=== PATIENT | male | born 1950 | race Caucasian/White ===

== ENCOUNTER 2024-06-24 06:40 | Inpatient (IN) | payer MEDICARE, MEDICAID, SELFPAY ==
[2024-06-24] VITALS (20 sets, daily range): BP systolic 127–152; BP diastolic 67–91; PULSE 55–90; RESP 18–28; TEMP 36.6–38.1; O2SAT 89–99; BMI 36.6
--- NOTE | 2024-06-24 07:00 | PD.EDSOB ---
ED SOB =RME/HPI General Chief Complaint: Shortness of Breath/Dyspnea Stated Complaint: SOB Time Seen by Provider: 06/24/24 06:59 Arrival date/time: 06/24/24 06:40 RME / HPI RME / HPI Narrative: DR. GALICIA MAIN ED EVALUATION: 74 year old male presents to the Emergency Department [facility] with complaint of shortness of breath onset this morning, prior to arrival. Taking antibiotics and z stiven about a week ago for pneumonia and URI. No fevers, chills, vomiting, diarrhea per snf. However, per EMS patient did feel hot to the touch. Per EMS, patient is chronically nonverbal, since he is very hard of hearing usually does not communicate. PMHx: Mild intellectual disability, COPD, CHF, hypertension, Duong's Palsy, GERD, schizophrenia. Social Hx: Smoked 50 years, 5 cigarettes a day. Code Status: Full code Related Data Home Medications ?Medication ?Instructions ?Recorded ?Confirmed acetaminophen 650 mg tablet 650 mg PO Q4H PRN FEVER 101.4 OR 03/28/23 03/28/23 MILD PAIN amlodipine 10 mg tablet 10 mg PO QDAY 03/28/23 03/28/23 aspirin 81 mg tablet 81 mg PO QDAY 03/28/23 03/28/23 azelastine 0.05 % eye drops 1 drp ophthalmic (eye) BID 03/28/23 03/28/23 bisacodyl 10 mg rectal suppository 10 mg CO QDAY PRN CONTIPATION 03/28/23 03/28/23 clonidine HCl 0.1 mg tablet 0.1 mg PO HS 03/28/23 03/28/23 dextromethorphan-guaifenesin 10 10 ml PO Q4H PRN COUGH 03/28/23 03/28/23 mg-100 mg/5 mL oral syrup gabapentin 100 mg capsule 100 mg PO TID 03/28/23 03/28/23 hydralazine 50 mg tablet 50 mg PO TID 03/28/23 03/28/23 ipratropium 0.5 mg-albuterol 3 mg 3 ml inhalation Q4H PRN COUGH 03/28/23 03/28/23 (2.5 mg base)/3 mL nebulization soln lisinopril 40 mg tablet 40 mg PO QDAY 03/28/23 03/28/23 magnesium hydroxide 400 mg/5 mL 30 ml PO QDAY PRN CONSTIPATION 03/28/23 03/28/23 oral suspension (Milk of Magnesia) montelukast 10 mg tablet 10 mg PO HS 03/28/23 03/28/23 multivitamin with minerals 1 tab PO QDAY 03/28/23 03/28/23 nystatin 100,000 unit/gram topical 1 applic topical QID 03/28/23 03/28/23 ointment omeprazole 40 mg capsule,delayed 40 mg PO QDAY 03/28/23 03/28/23 release paliperidone 3 mg tablet,extended 3 mg PO QAM 03/28/23 03/28/23 release 24 hr sodium chloride 1,000 mg soluble 2,000 mg PO TID 03/28/23 03/28/23 tablet sodium phosphates 9.5 gram-3.5 118 ml CO QDAY PRN COUGH 03/28/23 03/28/23 gram/59 mL enema tiotropium bromide 18 mcg capsule 1 cap inhalation QDAY 03/28/23 03/28/23 with inhalation device Allergies Allergy/AdvReac Type Severity Reaction Status Date / Time No Known Allergies Allergy Verified 03/28/23 09:02 Review of Systems Review of Systems Systems Reviewed: All systems reviewed, normal except as documented Narrative Review of Systems: GEN: No fever, no chills, no weight loss EYES: No discharge, no visual changes, no pain HEENT: No ear pain, no congestion, no sore throat PULM: + shortness of breath, no cough, no congestion CV: No chest pain, no dyspnea on exertion, no palpitations GI: No nausea, no vomiting, no diarrhea, no pain, no constipation : No frequency, no urgency and no dysuria MUSC/SKEL: No joint pain, no back pain SKIN: No rash PSYCH: No hallucinations, no depression HEME/LYMPH: No easy bleeding or bruising tendencies NEURO: No weakness, no headache Past Medical History Past Medical History NEUROLOGIC: Positive Neurological Disorders and Duong's Palsy CARDIAC: Positive Cardiac Disorders, Congestive Heart Failure and Hypertension RESPIRATORY: Positive Chronic Obstructive Pulmonary Disease (COPD) GASTROINTESTINAL: Positive Gastrointestinal Disorders and Gastroesophageal Reflux Disease MUSCULOSKELETAL: Positive Musculoskeletal Disorders (deformed feet use wheelchair for mobility) PSYCHO/SOCIAL: Positive Schizophrenia Social History SMOKING STATUS: Light (< 1 pack/day) SUBSTANCE USE: does not use ALCOHOL: Never ED Exam Narrative Physical exam: GENERAL APPEARANCE: Well hydrated, well nourished. Patient is verbal and communicating well. VITALS: All vitals were reviewed and the pulse ox is 85% on room air which is hypoxic according to my interpretation. HEENT: Normocephalic, atramatic, EOMI, EACs are patent. There is no bulge or retraction. Throat without erythema or exudate. Moist oromucosa. No jaundice NECK: Supple, no JVD or bruits. CARDIOVASCULAR: Heart regular without S3-S4 or murmur. No rubs or gallops. LUNGS/CHEST: Some wheezing and rhonchi bilaterally. ABDOMEN: Soft, obese, nontender, with normal bowel sounds. No pulsatile masses. No rebound, rigidity, or guarding. No incarcerated hernia. Normal inspection and palpation. EXTREMITIES: There is 1+ pitting edema bilaterally. No cyanosis. Intact CSM. SKIN: Warm and dry without rashes. Normal inspection. MUSCULOSKELETAL: No gross deformity, full ROM all extremities. Normal inspection. NEURO: Alert and oriented x3. Cranial nerves II through XII grossly intact. There are no other motor or sensory deficits noted. PSYCHIATRIC: Normal mood and affect. No psychosis. Course Course Course Narrative: 0712: Sepsis alert initiated. Orders made at this time are congruent with ED Adult Sepsis Order List. Re-evaluation is to be completed. 0900: Sepsis reassessment performed consisting of lab review, vitals, physical exam including auscultation of heart, lungs, and visual evaluation of capillary refills, mucosal membranes and extremities. Quality Measures Current suspected stage: sepsis Possible source: pulmonary Blood cultures ordered: yes Antibiotic ordered: Yes Pertinent labs: 06/24/24 07:39 Lactic Acid 0.9 mMol/L (0.4-2.0) Procalcitonin 0.16 ng/ml (0.0-0.49) sepsis Orders Category Date Time Status Bedside COVID-19 Antigen Test NOW Care 06/24/24 07:12 Active Bedside Influenza A&B Antigen Test NOW Care 06/24/24 07:13 Completed EKG (ED ONLY) *Do not use* NOW Care 06/24/24 07:17 Completed EKG (ED Only) Stat Exams 06/24/24 07:17 Draft XR chest 1V portable Stat Exams 06/24/24 07:12 Taken ABG [Arterial Blood Gas] Stat Lab 06/24/24 09:24 Ordered BNP [B-Type Natriuretic Peptide] Stat Lab 06/24/24 07:39 Completed Blood Culture (Lab) Stat Lab 06/24/24 07:39 Received CBC Stat Lab 06/24/24 07:39 Completed CMP [Comprehensive Metabolic Panel] Stat Lab 06/24/24 07:39 Completed Lactic Acid [Lactate (Lactic Acid)] Stat Lab 06/24/24 07:39 Completed Procalcitonin Stat Lab 06/24/24 07:39 Completed Troponin I Stat Lab 06/24/24 07:39 Completed ACETAMINOPHEN 325 mg SUPP [Tylenol Supp] Med 06/24/24 07:12 Discontinued 325 mg CO X1 ONE ALBUTEROL RT 0.5ml [Proventil Rt 0.5ml] Med 06/24/24 07:12 Discontinued 10 mg HHN X1 ONE Acetaminophen Supp [Tylenol Supp] Med 06/24/24 07:12 Discontinued 650 mg CO X1 ONE MethylPREDNISolone.* [SoluMEDROL Inj] Med 06/24/24 07:12 Discontinued 125 mg IVP X1 ONE Oseltamivir [Tamiflu] Med 06/24/24 09:17 Discontinued 75 mg PO X1 ONE Sodium Chloride Rt Fior 0.9% [NS Rt Fior 0.9%] Med 06/24/24 07:12 Active 3 ml INH PRN PRN cefTRIAXone/D5w 1gm IV premix [Rocephin/D5w 1gm IV Med 06/24/24 07:15 Discontinued premix] 50 ml IV X1 BiPAP / CPAP NOW RT 06/24/24 07:12 Active Vital Signs Vital signs: Vital Signs Temperature 100.5 F H 06/24/24 06:45 Pulse Rate 87 06/24/24 06:45 Respiratory Rate 20 06/24/24 06:45 Blood Pressure 140/77 H 06/24/24 06:45 Pulse Oximetry (%) 95 06/24/24 06:45 Oxygen Delivery Method Oxy Mask 06/24/24 06:45 Oxygen Flow Rate 15 06/24/24 06:45 Shortness of Breath / Dyspnea MDM Narrative MDM Narrative:: I, Holly Thompson, am scribing for and in the presence of Dr. Galicia. WBC count of 17,000. Hemoglobin of 7.8. But there is no history of and there is no evidence of bleeding according to the care provider. Who has noted the patient for at least 2 years now. CMP is negative. Troponin is 0.08 which is elevated. Lactic acid is negative. Procalcitonin negative. COVID-19 negative. Influenza A positive. Influenza B is negative. BNP is slightly elevated at 275. Culture is still pending. Upon arrival to the emergency department I noted that his temperature was 100.5. I put the patient on septic alert. Treatment plan was accordingly including IV antibiotic. However I did not want to put him on some much IV fluid because of his history of CHF. And in fact the BNP is elevated here to 275. Portable chest x-ray interpreted by me: Bilateral pneumonia. Which is significant. Heart is borderline. Mediastinum normal. Normal bones. Twelve-lead EKG at 8:15 AM interpreted by me: Sinus rhythm. Heart rate 73. Normal axis. No ST elevation or depression. No PVC. No STEMI. Regular rate and rhythm. Motion artifact is noted in leads V6 Upon arrival to the emergency department, I also put the patient on BiPAP treatment. His oxygen saturation is well maintained on oxygen and BiPAP. ABG still pending. 9:25 AM, I spoke to discussed with , resident of Dr. Thurston, hospitalist on-call. He agreed to assess the patient for admission. Critical care time is approximately 35 minutes excluding any procedure. The high probability of sudden, clinically significant deterioration in the patient?s condition required the highest level of my preparedness to intervene urgently. The services I provided to this patient were to treat and/or prevent clinically significant deterioration. Services included the following: chart data review, reviewing nursing notes and/or old charts, documentation time, business transformation consultant collaboration regarding findings and treatment options, medication orders and management, direct patient care, vital sign assessments and ordering, interpreting and reviewing diagnostic studies and lab tests. Aggregate critical care time includes only time during which I was engaged in work directly related to the patient?s care, as described above, whether at bedside or elsewhere in the Emergency Department. It did not include time spent performing other reported procedures or the services of residents, students, nurses or physician assistants. Patient data External records reviewed:: [facility] previous records (Reviewed cardiology note by Dr. James, dated 03/28/23.) and EMS form Clinical information provided by:: patient and EMS Social determinants that could affect healthcare access:: housing ([facility] pen[facility]iary and smoker) Patient has the following chronic illnesses:: PMHx: Mild intellectual disability, COPD, CHF, hypertension, Duong's Palsy, GERD, schizophrenia. Social Hx: Smoked 50 years, 5 cigarettes a day. Code Status: Full code How is presenting disease/condition affected by chronic disease/condition?: exacerbated by Evaluation data The following diagnostics were reviewed and interpreted by me:: lab results and radiology exam(s) Lab and/or radiology exams considered but not ordered:: none Interpretation Summary: See above under MDM narrative. Medications / Prescriptions Medications or Prescriptions considered but not ordered:: none Medication administrations:: Medication Administration History Sodium Chloride (Sodium Chloride Rt Fior 0.9% 3 Ml Nebu) 3 ml INH PRN PRN PRN Reason: SOLN Stop: 07/24/24 07:11 Discontinued Medications Acetaminophen (Acetaminophen Supp 325 Mg Supp) 325 mg CO X1 ONE Stop: 06/24/24 07:13 Last Admin: 06/24/24 07:25 Dose: 325 mg Documented By: DESIREE Acetaminophen (Acetaminophen Supp 650 Mg Supp) 650 mg CO X1 ONE Stop: 06/24/24 07:13 Last Admin: 06/24/24 07:26 Dose: 650 mg Documented By: DESIREE Albuterol (Albuterol Rt 2.5 Mg/0.5 Ml Nebu) 10 mg HHN X1 ONE Stop: 06/24/24 07:13 Last Admin: 06/24/24 07:59 Dose: 10 mg Documented By: SHANNAN Ceftriaxone Sodium/Dextrose (Rocephin/D5w 1gm Iv Premix) 50 mls @ 100 mls/hr IV X1 ONE Stop: 06/24/24 07:44 Last Infusion: 06/24/24 08:51 Dose: Infused Documented By: Admin: 06/24/24 07:41 Dose: 100 mls/hr Documented By: DESIREE Methylprednisolone Sodium Succinate (Methylprednisolone Sod Succ 62.5 Mg/Ml 2ml Vial) 125 mg IVP X1 ONE Stop: 06/24/24 07:13 Last Admin: 06/24/24 07:43 Dose: 125 mg Documented By: DESIREE Oseltamivir Phosphate (Oseltamivir 75 Mg Capsule) 75 mg PO X1 ONE Stop: 06/24/24 09:18 see above if any Consultations Consultation(s) initiated? (list below): Yes Consultation #1 (Physician, Specialty, Details): Discussed test HPI, PMHx, lab, radiology results and/or management with hospitalist. Will admit for further evaluation and management. Accepts patient for admission. Time: 09:30 Diagnosis Shortness of Breath Differential Diagnosis: acute exacerbation of chronic obstructive airways disease, congestive heart failure and community acquired pneumonia Most likely diagnosis given after review of the tests above:: Pneumonia Influenza Elevated troponin Admission Indicated Admission indicated?: indicated Admission Request Was there a request for admission?: Yes Admission Attestation Admission request attestation: Discussed case with [] from Hospitalist service regarding admission. Discussed patients ED course, exam findings, labs, and radiology results. The Hospitalist [agrees,declines] to accept the patient for admission. Disposition Plan Disposition Plan: Admit Critical Care Time Critical Care Time Critical Care Time: Yes Total Critical Care Time (min.): 30 Attestation: The high probability of sudden, clinically significant deterioration in the patient?s condition required the highest level of my preparedness to intervene urgently. The services I provided to this patient were to treat and/or prevent clinically significant deterioration. Services included the following: chart data review, reviewing nursing notes and/or old charts, documentation time, business transformation consultant collaboration regarding findings and treatment options, medication orders and management, direct patient care, vital sign assessments and ordering, interpreting and reviewing diagnostic studies and lab tests. Aggregate critical care time includes only time during which I was engaged in work directly related to the patient?s care, as described above, whether at bedside or elsewhere in the Emergency Department. It did not include time spent performing other reported procedures or the services of residents, students, nurses or physician assistants. Discharge Plan Plan Patient Disposition: Admit Acute Care w/in Hospital Disposition Comment: Stable and improved for admit Prescriptions/Referrals Prescriptions/Med Rec: No Action clonidine HCl 0.1 mg Tablet 0.1 mg PO HS ipratropium-albuterol 0.5 mg-3 mg(2.5 mg base)/3 mL Solution For Nebulization 3 ml INHALATION Q4H PRN (Reason: COUGH) dextromethorphan-guaifenesin 10-100 mg/5 mL Syrup 10 ml PO Q4H PRN (Reason: COUGH) omeprazole 40 mg Capsule,Delayed Release(Dr/Ec) 40 mg PO QDAY acetaminophen 650 mg Tablet 650 mg PO Q4H PRN (Reason: FEVER 101.4 OR MILD PAIN) magnesium hydroxide [Milk of Magnesia] 400 mg/5 mL Suspension 30 ml PO QDAY PRN (Reason: CONSTIPATION) amlodipine 10 mg Tablet 10 mg PO QDAY montelukast 10 mg Tablet 10 mg PO HS hydralazine 50 mg Tablet 50 mg PO TID aspirin 81 mg Tablet 81 mg PO QDAY gabapentin 100 mg Capsule 100 mg PO TID multivitamin with minerals Tablet 1 tab PO QDAY lisinopril 40 mg Tablet 40 mg PO QDAY tiotropium bromide 18 mcg Capsule, W/Inhalation Device 1 cap INHALATION QDAY Rx Instructions: puncture 1 cap using device; one dose = 2 inhalations sodium chloride 1,000 mg Tablet,Soluble 2,000 mg PO TID paliperidone 3 mg Tablet Extended Release 24 Hr 3 mg PO QAM sodium phosphates 9.5-3.5 gram/59 mL Enema 118 ml CO QDAY PRN (Reason: COUGH) azelastine 0.05 % Drops 1 drp OPHTHALMIC (EYE) BID nystatin 100,000 unit/gram Ointment 1 applic TOPICAL QID bisacodyl 10 mg Suppository 10 mg CO QDAY PRN (Reason: CONTIPATION) Rx Instructions: USE IF MOM INNEFECTIVE Referrals: No Primary/Family,Physician [Primary Care Provider] - In 1 week Problem List Clinical Impression: Pneumonia, Influenza A, Elevated troponin Patient/Caregiver Discharge Instructions Print Language: Irish Stand Alone Forms: Mariza Award Info., Patient Portal Info Letter
--- NOTE | 2024-06-24 07:12 | XR_ITS ---
Examination: AP chest single view Technique one AP portable semiupright chest single view Exam date 9: June 24, 2024 0742 hours INDICATIONS: Shortness of breath today. FINDINGS: Extensive bilateral pneumonia Normal heart size The osseous structures are intact IMPRESSION: Extensive bilateral pneumonia
--- NOTE | 2024-06-24 07:17 | EKG_ITS ---
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
[2024-06-24] MEDS: ACETAMINOPHEN SUPP 325 MG SUPP PR (07:25)
[2024-06-24] MEDS: ACETAMINOPHEN SUPP 650 MG SUPP PR (07:26)
[2024-06-24] MEDS: cefTRIAXone/D5w 1gm IV premix 50 ML IV (07:41)
[2024-06-24] MEDS: MethylPREDNISolone SOD SUCC 62.5 MG/ML 2ML VIAL 125 MG IVP (07:43)
[2024-06-24 07:48] LABS: Lactate (Lactic Acid) 0.9 mMol/L (0.4-2.0)
[2024-06-24 07:51] LABS: Basophils % (Auto) 0 % (0-2.5); Eosinophils % (Auto) 0 % (0-10); Hematocrit 23.1 % (41.0-53.0); Immature Granulocytes % (Auto) 1 % (0-0); Immature Granulocytes Auto 0.11 Thou/mm3 (0.00-0.00); Lymphocytes # (Auto) 0.7 Thou/mm3 (1.0-4.8); Lymphocytes % (Auto) 4 % (10-50); Mean Corpuscular HGB Conc 33.8 g/dl (31.0-37.0); Mean Corpuscular Hemoglobin 29.4 pg (25.0-35.0); Mean Corpuscular Volume 87 fL (80-100); Monocytes # (Auto) 2.1 Thou/mm3 (0.0-0.8); Monocytes % (Auto) 12 % (0-12); Neutrophils # (Auto) 13.7 Thou/mm3 (1.8-7.7); Neutrophils % (Auto) 83 % (37-80); Nucleated Red Blood Cell # 0.02 Thou/mm3 (0.00-0.00); Nucleated Red Blood Cell % 0 /100 WBC (0); Platelet Count 354 Thou/mm3 (140-440); RDW Standard Deviation 49.2 fL (35.1-43.9); Red Blood Count 2.65 Miln/mm3 (4.50-5.90); White Blood Count 16.6 Thou/mm3 (3.8-10.6)
[2024-06-24 07:59] LABS: Hemoglobin 7.8 g/dL (13.5-16.0)
[2024-06-24] MEDS: ALBUTEROL RT 2.5 MG/0.5 ML NEBU 10 MG HHN (07:59)
[2024-06-24 08:20] LABS: B-Type Natriuretic Peptide 275 pg/mL (0-100)
[2024-06-24 08:24] LABS: Alanine Aminotransferase 54 U/L (10-49); Albumin, Serum 3.4 gm/dL (3.4-4.8); Albumin/Globulin Ratio 1.5 (1.2-2.2); Alkaline Phosphatase 93 U/L (46-116); Anion Gap 7 (7-16); Aspartate Amino Transferase 35 U/L (0-34); BUN/Creatinine Ratio 19 Ratio (12-20); Blood Urea Nitrogen 15 mg/dL (9-23); Calcium (Corrected) 8.5 mg/dL (8.5-10.1); Carbon Dioxide 22.5 mMol/L (20.0-31.0); Chloride 107 mMol/L (98-107); Creatinine (Component) 0.8 mg/dL (0.6-1.3); Estimated Creatinine Clearance 76.7 mL/min (>60); Globulin 2.3 gm/dL (2.3-3.5); Glucose 106 mg/dL (74-106); Osmolality,Calculated 272 (275-295); Potassium 3.8 mMol/L (3.4-5.1); Procalcitonin 0.16 ng/ml (0.0-0.49); Sodium 136 mMol/L (136-145); Total Protein 5.7 gm/dL (5.7-8.2); eGFR > 60 See Note
[2024-06-24] MEDS: OSELTAMIVIR 75 MG CAPSULE PO ×2 (09:56→23:17)
[2024-06-24 09:58] LABS: Base Excess -2 (-3-3); HCO3 22 mEq/L (20-26); Inspired Oxygen, FIO2 50 %; O2 Saturation 98 % (91-98); PCO2 34 mmHg (32.0-48.0); PO2 91 mmHg (83-108); pH, Arterial 7.42 (7.35-7.45)
[2024-06-24 10:00] LABS: Allen Test Not Performed; Puncture Site Left Radial
--- NOTE | 2024-06-24 12:15 | ESHP_ITS ---
<Statement entered by Robin Osorio MD - 06/25/24 08:46> Senior Resident Attestation: I supervised/discussed management plan with international marketing intern physician Dr. Salas, and was involved in the care of this patient. I personally saw and examined the patient and discussed the assessment and plan with the entire medicine team, including my attending. I agree with the assessment and plan as documented. Patient is a 74 years old male with PMH of schizophrenia, COPD, active smoker, CAD, HLD, HTN presented to the ED due to SOB. Work up showed WBC of 17, influenza A positive, CXR showed B/L PNA. His saturation was in mid 80s requiring BiPAP treatment in the ED. He was admitted to hospital for further management with IV abx and oseltamivir. Patient's care was discussed with attending physician, Dr. Thurston. Robin Osorio MD PGY-2. Documentation for date of: 06/24/24 HPI History of Present Illness History of present illness: HPI and history is limited as patient is unable to provide history at this time is on BiPAP, most of history obtained with page designer. Some information was obtained through facesheet. 74 y/o male with PMHx Duong's palsy, deaf and nonverbal, schizophrenia, tobacco use, essential primary hypertension, AV block first-degree, GERD, CAD, COPD, chronic constipation, ARIANNA who comes in for an evaluation of shortness of breath that has been worsening. Patient lives in a custodial and caretakers present at bedside. Per page designer, patient reports that he went to go see his primary care doctor, Dr. De Souza, who had suspected an upper respiratory infection and was discharged on a Z-Serafin and this had occurred Monday. He denied any other associated fever, chills or cough with the symptoms. It was then reported that patient began to worsen and this morning they checked his oxygen and he had noticed that his oxygen levels was in the 70s. They had decided to take patient to the ER. Equipment Mechanic reports that there is his roommate who recently tested positive for influenza. He does not use a CPAP or oxygen at home. He does actively smoke. No recent travel ED course: Pt arrived to the ED with a temperature of 100.5, saturating on 89% room air and was then put on 15 L oxime mask, tachypneic at rate of 20, blood pressure of 140/77. Patient was worked up and was found to have a sodium 136, potassium 3.8, BUN/creatinine of fifteen 0.8 respectively, white count of 17, hemoglobin of 7.8, platelets 354, ALT 54 and 35 respectively, BNP of 275, initial troponin 0.08, lactic acid and Pro-Jose E were unremarkable, patient did test for influenza A positive. Chest x-ray was done which showed significant bilateral pneumonia. EKG was done and had showed possible irregular rhythm but P waves are present. Patient was given Rocephin 2 g x 1, Solu-Medrol 125 x 1, Tamiflu 75 x 1, albuterol breathing treatment. Patient was also then put on BiPAP but no ABG was obtained. Medicine was consulted and patient was admitted to floors Past medical history: As above Surgeries:Unable to obtain as page designer does not know Allergies:No known allergies Meds: Will need med rec, however was taking prednisone promethazine and Z-Serafin recently Family history:Unable to obtain as page designer does not know Social history: Patient lives with page designer in a [facility]. Unknown family history and why patient lives in page designer home. Unsure of drug use, or drinking history. He does not drink at the home, but does smoke 4 cigarettes and has been smoking for a very long time. Review of Systems Review of Systems Narrative Review of Systems: 12 point ROS is limited and unable to attain as patient is unable to express and communicate. Exam Vital Signs Temp Pulse Resp BP Pulse Ox O2 Del Method O2 Flow Rate 98.6 F 66 18 133/84 H 98 BiPAP 15 06/24/24 10:43 06/24/24 10:43 06/24/24 10:43 06/24/24 10:43 06/24/24 10:43 06/24/24 10:43 06/24/24 06:45 FiO2 50 06/24/24 10:43 Narrative Exam General: AAOx3, in some distress, appears to be sleepy and is on biPAP right now, obese male HEENT: Eyes are closed at this time, on biPAP Cardiovascular: Possible murmur heard at LLB, however hard to discern with patient being on biPAP, possible irregulary irregular Pulmonary: On biPAP, pressure control, respiratory of 18, PEEP of 5, FiO2 of 50 GI: No tenderness to light or deep palpitation, no guarding, rigidity, rebound tenderness or distension Extremities: No presence of trace or pitting edema in lower extremities bilaterally, dorsalis pedis pulses +2 bilaterally, multiple tattoos visible on arms bilat Neuro: Limited neuro exam at this time Psych: Unable to fully cooperate Results: Labs 06/25/24 04:26 06/25/24 04:26 Labs: Short CBC 06/24/24 Range/Units 07:39 WBC 16.6 H (3.8-10.6) Thou/mm3 Hgb 7.8 L (13.5-16.0) g/dL Hct 23.1 L (41.0-53.0) % Plt Count 354 (140-440) Thou/mm3 BMP 06/24/24 07:39 Sodium 136 Potassium 3.8 Chloride 107 Carbon Dioxide 22.5 BUN 15 Creatinine 0.8 Glucose 106 Calcium 8.0 L Cardiac Enzymes 06/24/24 Range/Units 07:39 Troponin I 0.080 H* (0.0-0.045) ng/mL Liver Function 06/24/24 Range/Units 07:39 Total Bilirubin 1.0 (0.3-1.2) mg/dL AST 35 H (0-34) U/L ALT 54 H (10-49) U/L Alkaline Phosphatase 93 (46-116) U/L Albumin 3.4 (3.4-4.8) gm/dL ABG Interpretation ABG results: 06/24/24 09:51 ABG pH 7.42 ABG pCO2 34 ABG pO2 91 ABG HCO3 22 ABG O2 Saturation 98 ABG Base Excess -2 Quality Measures Quality Measures sepsis Current suspected stage: sepsis Possible source: pulmonary Blood cultures ordered: yes Antibiotic ordered: Yes Advance care planning discussed with:: patient Medications Home Medications and Allergies Home Medications ?Medication ?Instructions ?Recorded ?Confirmed ?Type acetaminophen 650 mg tablet 650 mg PO Q4H PRN FEVER 10 1.4 OR 03/28/23 03/28/23 History MILD PAIN amlodipine 10 mg tablet 10 mg PO QDAY 03/28/2303/28 History aspirin 81 mg tablet 81 mg PO QDAY 03/28/2303/28 History azelastine 0.05 % eye drops 1 drp ophthalmic (eye) BID 03/28/23 03/28/23 History bisacodyl 10 mg rectal suppository 10 mg MA QDAY PRN C ONTIPATION 03/28/23 03/28/23 History clonidine HCl 0.1 mg tablet 0.1 mg PO HS 03/28/2303/15 History dextromethorphan-guaifenesin 10 10 ml PO Q4H PRN COUGH 03/28/23 03/28/23 History mg-100 mg/5 mL oral syrup gabapentin 100 mg capsule 100 mg PO TID 03/28/2303/28 History hydralazine 50 mg tablet 50 mg PO TID 03/28/23 History ipratropium 0.5 mg-albuterol 3 mg 3 ml inhalation Q4H PRN COUGH 03/28/23 03/28/23 History (2.5 mg base)/3 mL nebulization soln lisinopril 40 mg tablet 40 mg PO QDAY 03/28/2303/28 History magnesium hydroxide 400 mg/5 mL 30 ml PO QDAY PRN CONS TIPATION 03/28/23 03/28/23 History oral suspension (Milk of Lab42) montelukast 10 mg tablet 10 mg PO HS 03/28/23 3 History multivitamin with minerals 1 tab PO QDAY 03/28/2303/15 History nystatin 100,000 unit/gram topical 1 applic topical QI D 03/28/23 03/28/23 History ointment omeprazole 40 mg capsule,delayed 40 mg PO QDAY 3 03/28/23 History release paliperidone 3 mg tablet,extended 3 mg PO QAM 03/28/23 03/28/23 History release 24 hr sodium chloride 1,000 mg soluble 2,000 mg PO TID 03/2803/28/23 History tablet sodium phosphates 9.5 gram-3.5 118 ml MA QDAY PRN COUG H 03/28/23 03/28/23 History gram/59 mL enema tiotropium bromide 18 mcg capsule 1 cap inhalation QDA Y 03/28/23 03/28/23 History with inhalation device Allergies Allergy/AdvReac Type Severity Reaction Status Date / Time No Known Allergies Allergy Verified 03/28/23 09:02 Visit Medications Sodium Chloride (Sodium Chloride Rt Fior 0.9% 3 Ml Nebu) 3 ml INH PRN PRN PRN Reason: SOLN Stop: 07/24/24 07:11 Discontinued Medications Acetaminophen (Acetaminophen Supp 325 Mg Supp) 325 mg MA X1 ONE Stop: 06/24/24 07:13 Last Admin: 06/24/24 07:25 Dose: 325 mg Acetaminophen (Acetaminophen Supp 650 Mg Supp) 650 mg MA X1 ONE Stop: 06/24/24 07:13 Last Admin: 06/24/24 07:26 Dose: 650 mg Albuterol (Albuterol Rt 2.5 Mg/0.5 Ml Nebu) 10 mg HHN X1 ONE Stop: 06/24/24 07:13 Last Admin: 06/24/24 07:59 Dose: 10 mg Ceftriaxone Sodium/Dextrose (Rocephin/D5w 1gm Iv Premix) 50 mls @ 100 mls/hr IV X1 ONE Stop: 06/24/24 07:44 Last Infusion: 06/24/24 08:51 Dose: Infused Methylprednisolone Sodium Succinate (Methylprednisolone Sod Succ 62.5 Mg/Ml 2ml Vial) 125 mg IVP X1 ONE Stop: 06/24/24 07:13 Last Admin: 06/24/24 07:43 Dose: 125 mg Oseltamivir Phosphate (Oseltamivir 75 Mg Capsule) 75 mg PO X1 ONE Stop: 06/24/24 09:18 Last Admin: 06/24/24 09:56 Dose: 75 mg Assessment & Plan Plan Assessment 74 y/o male with PMHx Duong's palsy, deaf and nonverbal, schizophrenia, tobacco use, essential primary hypertension, AV block first-degree, GERD, CAD, COPD, chronic constipation, ARIANNA who is currently admitted for acute toxic respiratory failure and sepsis secondary to influenza pneumonia and possible superimposed bacterial infection. #Acute hypoxic respiratory failure #Sepsis secondary to #Influenza pneumonia #Superimposed bacterial infection #History of COPD Patient does have baseline COPD, however does not have a kindergartner Patient currently on BiPAP, however ABG was done while patient was on BiPAP and showed pH of 7.42, pCO2 of 34, pO2 91, bicarb of 22 Likely that there is a superimposed bacterial infection on top of influenza pneumonia Will need to treat broadly as patient has multiple risk factors for Pseudomonas including smoking Plan: ? Tamiflu 75mg daily ? Vancomycin and cefepime ? DuoNebs every 6 hours ? Follow-up blood culture ? Follow-up MRSA screen ? Follow-up sputum culture ? Maintain oxygen 88 to 92% #History of essential hypertension #History of CAD #AV block first-degree #Elevated troponin History of CAD, however the history is limited due to page designer and patient not not being able to communicate No history of atrial fibrillation On some facesheet there was history of AV block first-degree EKG done however there was no sign of AV block appreciated Elevated troponin could be related to demand ischemia, however will trend Initial troponin 0.08 Plan: ? Awaiting med rec for home medicines ? Repeat EKG ? Trend troponin Q6 ? Will consider cardiology consult at some point ? Repeat EKG ? Keep Mag and potassium above 2 and 4 respectively #History of ARIANNA #History of schizophrenia #Deaf and nonverbal Plan: ? Will resume home medicines upon med rec #Health Maintenance Disposition: Telemetry DVT prophylaxis: SCDs GI prophylaxis: Protonix Diet: Cardiac CODE STATUS: Full Patient seen and care discussed with my senior resident, Dr. Osorio , and my attending physician, Dr. Karena Salas, PGY-1 Attending Provider Attestation/Addendum I reviewed labs, imaging, EKG, home medications and prior available records. Face to face evaluation was performed by me. I have personally examined the patient and discussed assessment and plan with the IM team. I reviewed the resident note and agree with the plan with exceptions as below. 74-year-old male with history of COPD who presented with a chief complaint of shortness of breath. He was found to have acute hypoxic respiratory failure in the setting of extensive bilateral pneumonia and influenza A. Acute hypoxic respiratory failure Extensive bilateral pneumonia, upper and lower lobes Influenza A Leukocytosis Sepsis secondary to pneumonia Non-STEMI, type II Developmental delay Started IV vancomycin/cefepime given the extensive pneumonia and influenza A Continue oxygen via BiPAP. Trend WBC Follow-up cultures Trend troponin Started Tamiflu DuoNebs as needed
[2024-06-24] MEDS: CEFEPIME INJ 1 GM in SODIUM CHLORIDE 0.9% (P) 50 ML IV ×2 (15:19→23:05)
[2024-06-24] MEDS: POTASSIUM CHL 10 mEq IVPB 10 MEQ/100 ML BAG 100 MEQ IV ×2 (15:23→16:35)
[2024-06-24] MEDS: PANTOPRAZOLE 40 MG TABLET PO (15:29)
[2024-06-24] MEDS: VANCOMYCIN/NS 1 GM IVPB 200 ML IV (16:01)
[2024-06-24] MEDS: NICOTINE PATCH 14 MG/24 HR PATCH.TD24 TOP (16:34)
[2024-06-24 17:01] LABS: Magnesium 2.1 mg/dL (1.6-2.6)
[2024-06-24] MEDS: ALBUTEROL/IPRATROPIUM (Duoneb) RT SOL 3 ML NEBU INH (20:13)
[2024-06-24 21:29] LABS: Troponin I 0.099 ng/mL (0.0-0.045)
--- NOTE | 2024-06-24 21:48 | PC.RT ---
Pt refused sputum exporation. Contacted dr henderson, he said it beside for the night and try tomorrow.
[2024-06-25] VITALS (54 sets, daily range): BP systolic 66–203; BP diastolic 41–134; PULSE 56–150; RESP 3–92; TEMP 36.2–37.6; O2SAT 89–100; BMI 34.7
[2024-06-25] MEDS: CEFEPIME INJ 1 GM in SODIUM CHLORIDE 0.9% (P) 50 ML IV ×3 (05:32→22:06)
[2024-06-25 05:46] LABS: Basophils % (Auto) 0 % (0-2.5); Eosinophils % (Auto) 0 % (0-10); Hematocrit 25.9 % (41.0-53.0); Immature Granulocytes % (Auto) 1 % (0-0); Immature Granulocytes Auto 0.27 Thou/mm3 (0.00-0.00); Lymphocytes # (Auto) 0.8 Thou/mm3 (1.0-4.8); Lymphocytes % (Auto) 3 % (10-50); Mean Corpuscular HGB Conc 33.6 g/dl (31.0-37.0); Mean Corpuscular Hemoglobin 28.9 pg (25.0-35.0); Mean Corpuscular Volume 86 fL (80-100); Monocytes # (Auto) 1.8 Thou/mm3 (0.0-0.8); Monocytes % (Auto) 8 % (0-12); Neutrophils # (Auto) 20.5 Thou/mm3 (1.8-7.7); Neutrophils % (Auto) 88 % (37-80); Nucleated Red Blood Cell % 0 /100 WBC (0); Platelet Count 448 Thou/mm3 (140-440); RDW Standard Deviation 48.6 fL (35.1-43.9); Red Blood Count 3.01 Miln/mm3 (4.50-5.90); White Blood Count 23.4 Thou/mm3 (3.8-10.6)
[2024-06-25 06:01] LABS: Hemoglobin 8.7 g/dL (13.5-16.0)
[2024-06-25 06:10] LABS: INR 1.2 (0.9-1.3); Prothrombin Time 12.7 Seconds (9.0-12.2)
[2024-06-25 06:13] LABS: Alanine Aminotransferase 45 U/L (10-49); Albumin, Serum 3.5 gm/dL (3.4-4.8); Albumin/Globulin Ratio 1.4 (1.2-2.2); Alkaline Phosphatase 97 U/L (46-116); Anion Gap 9 (7-16); Aspartate Amino Transferase 25 U/L (0-34); BUN/Creatinine Ratio 26 Ratio (12-20); Bilirubin,Total 0.6 mg/dL (0.3-1.2); Blood Urea Nitrogen 21 mg/dL (9-23); Calcium 8.8 mg/dL (8.3-10.6); Calcium (Corrected) 9.2 mg/dL (8.5-10.1); Carbon Dioxide 21.2 mMol/L (20.0-31.0); Cardiac Risk Estimate 4.8 RATIO (4.0-6.7); Chloride 109 mMol/L (98-107); Cholesterol 130 mg/dL (132-200); Creatinine (Component) 0.8 mg/dL (0.6-1.3); Estimated Creatinine Clearance 74.7 mL/min (>60); Globulin 2.5 gm/dL (2.3-3.5); Glucose 158 mg/dL (74-106); HDL Cholesterol 27 mg/dL (40-60); LDL Cholesterol,Calculated 88 mg/dL (0-130); Magnesium 2.1 mg/dL (1.6-2.6); Osmolality,Calculated 283 (275-295); Phosphorous 2.1 mg/dL (2.4-5.1); Potassium 3.6 mMol/L (3.4-5.1); Sodium 139 mMol/L (136-145); Thyroid Stimulating Hormone 0.77 uIU/mL (0.55-4.78); Triglycerides 77 mg/dL (30-150); eGFR > 60 See Note
[2024-06-25] MEDS: ALBUTEROL/IPRATROPIUM (Duoneb) RT SOL 3 ML NEBU INH ×4 (06:52→19:15)
[2024-06-25] MEDS: OSELTAMIVIR 75 MG CAPSULE PO ×2 (08:07→21:42)
[2024-06-25] MEDS: NAPH,KPH MBDB 1 PACKET (1.5 GM) 2 PACKET PO (08:07)
[2024-06-25] MEDS: PANTOPRAZOLE 40 MG TABLET PO (08:07)
[2024-06-25] MEDS: POTASSIUM CHLORIDE 20 mEq TABCR 40 MEQ PO (08:07)
--- NOTE | 2024-06-25 09:24 | PC.SS ---
Viraj Light is a 74-year-old male admitted on TELE for Influenza PNA. SS spoke with the patient?s caregiver from [facility], Guadalupe Mojica [phone] in the attempt to complete initial. Role and reason for the contact explained to the patient?s caregiver. Pt demographic information verified by Guadalupe. Per Guadalupe at baseline, the pt is wheelchair bound and requires minimal assistance. Per Alfred the pt is conserved by [facility], Paralegal Secretary is Daniel Sandoval [phone]. Pts PCP is Dr. De Souza; their pharmacy of choice is [facility]. Plan is for the pt to return to the home upon dc and pt will need transport set up via [employer] [facility]. .? No further intervention required at this time, social media community manager would be available to address any further concerns. DC plan: [facility] DM: [facility]-Dr. Cooney
[2024-06-25] MEDS: Vancomycin Inj 1,500 MG in SODIUM CHLORIDE 0.9% 500 ML 500 ML 200 MG IV (10:14)
--- NOTE | 2024-06-25 11:34 | PD.RESPRO ---
Documentation for date of: 06/25/24 Subjective Subjective Interval history: HPI is limited as patient is deaf and nonverbal 06/25/2024: Pt examined at bedside today. No acute overnight events, telemetry reviewed patient continues to be on rate of 80s. Patient had BiPAP overnight, was transitioned to OxyMask, however started to worsen and was then put on high flow. Patient seemed to be overall breathing on the high flow and appeared to be in some respiratory distress. Will optimize management. BUN/creatinine 21 0.8 respectively, potassium 3.6, magnesium 2.1, white count 23. Exam Vital Signs Temp Pulse Resp BP Pulse Ox O2 Del Method O2 Flow Rate 99.0 F 81 31 H 153/69 H 98 Oxy Mask 8 06/25/24 08:00 06/25/24 08:00 06/25/24 08:00 06/25/24 08:00 06/25/24 08:00 06/25/24 08:00 06/25/24 08:00 FiO2 50 06/25/24 04:00 Narrative Exam General: in mild distress, older male, morbidly obese HEENT: Moist mucous membranes, conjunctiva clear, EOMI, PERRLA, Cardiovascular: S1, S2, radial pulses +2 bilat, Tachycardic, pt may have murmur Pulmonary:+ wheezing heard on auscultation, using accessory muscles, on High flow 25L 80%, not saturating 88 percent GI: No tenderness to light or deep palpitation, no guarding, rigidity, rebound tenderness or distension Extremities: No presence of trace or pitting edema in lower extremities bilaterally, dorsalis pedis pulses +2 bilaterally Neuro:Limited Objective Labs 06/26/24 04:56 06/26/24 04:56 Labs: Laboratory Results - last 24 hr 06/24/24 06/24/24 06/25/24 15:38 20:59 04:26 WBC 23.4 H D RBC 3.01 L Hgb 8.7 L Hct 25.9 L MCV 86 MCH 28.9 MCHC 33.6 RDW Std Deviation 48.6 H Plt Count 448 H D Neut % (Auto) 88 H Lymph % (Auto) 3 L Stafford % (Auto) 8 Eos % (Auto) 0 Baso % (Auto) 0 Neut # (Auto) 20.5 H Lymph # (Auto) 0.8 L Stafford # (Auto) 1.8 H Eos # (Auto) 0.0 Baso # (Auto) 0.0 Immature Gran # (Auto) 0.27 H Absolute Nucleated RBC 0.00 Immature Gran % 1 H Nucleated RBC % 0 PT 12.7 H INR 1.2 APTT 29.0 Sodium 139 Potassium 3.6 Chloride 109 H Carbon Dioxide 21.2 Anion Gap 9 BUN 21 Creatinine 0.8 Estim Creat Clear Calc 74.7 eGFR > 60 BUN/Creatinine Ratio 26 H Glucose 158 H D Calculated Osmolality 283 Calcium 8.8 Corrected Calcium 9.2 Phosphorus 2.1 L Magnesium 2.1 2.1 Total Bilirubin 0.6 AST 25 ALT 45 Alkaline Phosphatase 97 Troponin I 0.110 H* 0.099 H* Total Protein 6.0 Albumin 3.5 Globulin 2.5 Albumin/Globulin Ratio 1.4 Triglycerides 77 Cholesterol 130 L LDL Cholesterol, Calc 88 HDL Cholesterol 27 L Cholesterol/HDL Ratio 4.8 TSH 0.77 ABG Interpretation ABG results: 06/24/24 09:51 ABG pH 7.42 ABG pCO2 34 ABG pO2 91 ABG HCO3 22 ABG O2 Saturation 98 ABG Base Excess -2 Quality Measures Quality Measures sepsis Current suspected stage: sepsis Possible source: pulmonary Blood cultures ordered: yes Antibiotic ordered: Yes Advance care planning discussed with:: patient Assessment & Plan Assessment Current Active Medications: Generic Name Dose Route Start Last Admin Trade Name Freq PRN Reason Stop Dose Admin Acetaminophen 1,000 mg 06/24/24 14:33 Acetaminophen 500 Mg Tablet PO 07/24/24 14:32 Q6H PRN Fever >100 or pain 1-3 Albuterol/Ipratropium 3 ml 06/24/24 19:00 06/25/24 06:52 Albuterol/Ipratropium (Duoneb) Rt Foir 3 Ml Nebu INH 07/24/24 18:59 3 ml Q6HRRT WILMER Administration Guaifenesin/Dextromethorphan 1 each 06/24/24 16:12 Guaifenesin/Dm Tablet PO 07/25/24 08:59 QDAY PRN cough Cefepime HCl 1 gm/ Sodium 50 mls @ 100 mls/hr 06/24/24 14:37 06/25/24 05:32 Chloride IV 07/01/24 14:36 100 mls/hr Q8HR WILMER Administration Vancomycin HCl 1,500 mg/ 500 mls @ 200 mls/hr 06/25/24 10:00 06/25/24 10:14 Sodium Chloride IV 07/02/24 09:59 200 mls/hr QDAY@1000 WILMER Administration Protocol Methylprednisolone Sodium Succinate 40 mg 06/25/24 11:33 Methylprednisolone Sod Succ 40 Mg Vial IVP 06/25/24 11:34 Q8HR ONE Ondansetron HCl 4 mg 06/24/24 14:33 Ondansetron Inj 2 Mg/Ml Inj 2 Ml IV 07/24/24 14:32 Q6H PRN NAUSEA OR VOMITING Protocol Oseltamivir Phosphate 75 mg 06/24/24 21:00 06/25/24 08:07 Oseltamivir 75 Mg Capsule PO 06/28/24 21:01 75 mg BID WILMER Administration Pantoprazole Sodium 40 mg 06/24/24 14:45 06/25/24 08:07 Pantoprazole 40 Mg Tablet PO 07/24/24 14:44 40 mg QDAY WILMER Administration Pharmacy Consult 1 each 06/24/24 14:45 Vancomycin Pharmacy To Dose 1 Each Each IV 07/24/24 14:44 QDAY PRN CONSULT Sennosides 1 tab 06/24/24 14:33 Senna Tablet PO 07/24/24 14:32 QDAY PRN constipation Protocol Sodium Chloride 3 ml 06/24/24 07:12 Sodium Chloride Rt Fior 0.9% 3 Ml Nebu INH 07/24/24 07:11 PRN PRN SOLN Plan Assessment 74 y/o male with PMHx Duong's palsy, deaf and nonverbal, schizophrenia, tobacco use, essential primary hypertension, AV block first-degree, GERD, CAD, COPD, chronic constipation, ARIANNA who is currently admitted for acute toxic respiratory failure and sepsis secondary to influenza pneumonia and possible superimposed bacterial infection. #Acute hypoxic respiratory failure #Sepsis secondary to #Influenza pneumonia #Superimposed bacterial infection #History of COPD Patient does have baseline COPD, however does not have a forest fire equipment operator Patient currently on BiPAP, however ABG was done while patient was on BiPAP and showed pH of 7.42, pCO2 of 34, pO2 91, bicarb of 22 Likely that there is a superimposed bacterial infection on top of influenza pneumonia Will need to treat broadly as patient has multiple risk factors for Pseudomonas including smoking Patient seems to be worsening on high flow, was initially on BiPAP while in the ER and put on overnight, however will need some BiPAP now Patient will need some steroid coverage additional breathing treatments Blood cultures no growth after 1 day Plan: ? Tamiflu 75mg daily ? Vancomycin and cefepime ? DuoNebs every 6 hours ? Solu-Medrol 40 mg IV every 6 hours ? Follow-up ABG ? BiPAP now ? Follow-up blood culture ? Follow-up MRSA screen ? Follow-up sputum culture ? 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 Awaiting med rec for home medicines ? Repeat EKG ? Will consider cardiology consult at some point ? Keep Mag and potassium above 2 and 4 respectively ? Will resume aspirin 81 mg at this time #History of ARIANNA #History of schizophrenia #Deaf and nonverbal Plan: ? Will resume home medicines upon med rec #Health Maintenance Disposition: Telemetry DVT prophylaxis: Lovenox GI prophylaxis: Protonix Diet: Cardiac CODE STATUS: Full Patient seen and care discussed with my senior resident, Dr. Osorio, and my attending physician, Dr. Karena Salas, PGY-1 Attending Provider Attestation/Addendum I reviewed labs, imaging, EKG, home medications and prior available records. Face to face evaluation was performed by me. I have personally examined the patient and discussed assessment and plan with the IM team. I reviewed the resident note and agree with the plan with exceptions as below. 74-year-old male with history of COPD who presented with a chief complaint of shortness of breath. He was found to have acute hypoxic respiratory failure in the setting of extensive bilateral pneumonia and influenza A. Acute hypoxic respiratory failure Extensive bilateral pneumonia, upper and lower lobes Influenza A Leukocytosis Sepsis secondary to pneumonia Non-STEMI, type II Developmental delay Started IV vancomycin/cefepime given the extensive pneumonia and influenza A Rapid response was called in the afternoon for worsening respiratory distress. ABG prior to that showed mild hypoxemia. Ordered chest x-ray. Discussed the case with hydraulic press servicer. Given the worsening pneumonia picture, will upgrade to the ICU and intubate the patient. Ordered 20 of IV Lasix given the possibility of associated pulmonary edema. Trend WBC: Uptrending Follow-up cultures: Pending Trend troponin: Peaked Started Tamiflu DuoNebs as needed
[2024-06-25 11:48] LABS: Base Excess -5 (-3-3); HCO3 19 mEq/L (20-26); Inspired Oxygen, FIO2 100 %; O2 Saturation 94 % (91-98); PCO2 28 mmHg (32.0-48.0); PO2 71 mmHg (83-108); pH, Arterial 7.44 (7.35-7.45)
[2024-06-25] MEDS: ENOXAPARIN SOD INJ 40 MG/0.4 ML SYRINGE SC (11:49)
[2024-06-25 11:51] LABS: Allen Test Performed/OK; Puncture Site Left Radial
[2024-06-25] MEDS: FUROSEMIDE INJ 10 MG/ML VIAL 2 ML 20 MG IVP (12:57)
--- NOTE | 2024-06-25 13:34 | XR_ITS ---
Examination: AP chest single view Technique one AP portable supine chest single view Exam date and time: June 25, 2024 1610 hours Comparison June 24, 2024 INDICATIONS: History severe pneumonia hypoxic respiratory failure postintubation FINDINGS: Severe bilateral pneumonia Endotracheal tube tip 5 cm above taylor Normal heart size The osseous structures are intact Orogastric tube in the stomach IMPRESSION: Severe bilateral pneumonia Endotracheal tube tip 5 cm above taylor
[2024-06-25] MEDS: fentaNYL CIT INJ 50 mCg/ML AMP 2ML IVP (13:44)
--- NOTE | 2024-06-25 13:53 | PC.SS ---
Update: Patient upgraded to ICU on today's date, 06-25-24.
[2024-06-25] MEDS: ETOMIDATE INJ 2 MG/ML VIAL 10 ML 20 MG IVP (13:55)
[2024-06-25] MEDS: ROCURONIUM INJ 10 MG/ML VIAL 10 ML 100 MG IVP (13:56)
[2024-06-25] MEDS: PROPOFOL 1,000 MG IVPB 1,000 MG/100 ML VIAL 12.927 MG IV (13:57)
[2024-06-25] MEDS: fentaNYL 2,500 MCG/250 ML BAG 2,500 MCG/250 ML BAG 12.5 MCG IV (13:58)
--- NOTE | 2024-06-25 14:13 | ESOP_ITS ---
<Statement entered by Clint Lama MD - 06/26/24 10:43> I was present for the entire duration of the procedure and was immediately available to provide assistance. Procedures Procedure Date / Time 06/25/24 1413 Intubation Indication(s): acute Resp Failure Informed consent obtained: from patient and procedure done urgently Time out done, and the following verified: correct patient, side and site, procedure, patient position and implants and/or equipment Sedative: fentanyl Mg given: 100 Sedative #2: etomidate Mg Given (sedative #2): 20 Paralytic: rocuronium Mg given: 100 Laryngoscope: other (video laryngoscope mac4) ET tube size: 7.5 ET tube uncuffed: Yes Tube secured depth (cm): 21 Tube secured location: lips Tube placement confirmation: equal breath sounds bilaterally and confirmation by capnometry Patient tolerated procedure: well EBL(ml): 0 Intubation complications: none Additional comments: Procedure was done by Zayra Oscar, PGY4 residential sales representative. Directly supervised by ICU production officer Dr. Lama
[2024-06-25 15:52] LABS: Lactate (Lactic Acid) 1.7 mMol/L (0.4-2.0)
[2024-06-25 16:12] LABS: Alanine Aminotransferase 87 U/L (10-49); Albumin, Serum 3.7 gm/dL (3.4-4.8); Albumin/Globulin Ratio 1.4 (1.2-2.2); Alkaline Phosphatase 111 U/L (46-116); Anion Gap 7 (7-16); Aspartate Amino Transferase 77 U/L (0-34); BUN/Creatinine Ratio 22 Ratio (12-20); Bilirubin,Total 0.7 mg/dL (0.3-1.2); Blood Urea Nitrogen 22 mg/dL (9-23); Calcium 8.5 mg/dL (8.3-10.6); Calcium (Corrected) 8.7 mg/dL (8.5-10.1); Carbon Dioxide 20.4 mMol/L (20.0-31.0); Chloride 112 mMol/L (98-107); Estimated Creatinine Clearance 59.8 mL/min (>60); Globulin 2.6 gm/dL (2.3-3.5); Glucose 204 mg/dL (74-106); Osmolality,Calculated 286 (275-295); Potassium 4.7 mMol/L (3.4-5.1); Sodium 139 mMol/L (136-145); Total Protein 6.3 gm/dL (5.7-8.2); eGFR > 60 See Note
[2024-06-25 16:52] LABS: Base Excess -4 (-3-3); HCO3 23 mEq/L (20-26); Inspired Oxygen, FIO2 100 %; O2 Saturation 94 % (91-98); PCO2 52 mmHg (32.0-48.0); PO2 82 mmHg (83-108); pH, Arterial 7.25 (7.35-7.45)
--- NOTE | 2024-06-25 16:52 | ECHO_ITS ---
Transthoracic Echo Report Ht (in): 61.8 Wt (lb): 190 Exam Location: Echo Lab Status: Inpatient Occupational Nurse: MARISABEL Olguin Indications: Procedure Performed: BP: 120 / 51 HR: Technical Quality: Fair MEASUREMENTS (Male / Female) Normal Values 2D ECHO LA Systolic Diameter LX 3.1 cm 3.0 - 4.0 / 2.7 - 3.8 cm LV Ejection Fraction MOD BP 58.4 % >= 55 % LV Ejection Fraction MOD 4C 58.1 % LV Ejection Fraction MOD 2C 59.9 % LV Ejection Fraction 2C AL 60.4 % DOPPLER AV Peak Velocity 144.0 cm/s AV Peak Gradient 8.3 mmHg AV Mean Gradient 4.9 mmHg AV Velocity Time Integral 39.6 cm LVOT Peak Gradient 7.0 mmHg LVOT Velocity Time Integral 35.5 cm MR Peak Velocity 401.0 cm/s MR Peak Gradient 64.3 mmHg TR Peak Velocity 166.0 cm/s TR Peak Gradient 11.0 mmHg PV Peak Gradient 3.2 mmHg RVOT Peak Velocity 70.0 cm/s FINDINGS Left Ventricle Normal left ventricular size, wall thickness, systolic function with no obvious regional wall motion abnormalities. Normal left ventricular diastolic filling pattern for age. The ejection fraction is visually estimated at 58 %. Right Ventricle The right ventricle is normal in size and systolic function. Estimated right ventricular systolic pressure is 20 mmHG Left Atrium The left atrial cavity size is mildly increased. Right Atrium The right atrium is normal by two-dimensional imaging, color flow and Doppler imaging with no structural abnormalities, no thrombus formation present. Atrial Septum The interatrial septum appears normal with no evidence of a shunt. Aorta The aorta is normal by two-dimensional, color flow and Doppler interrogation. Mitral Valve Mild thickening of the mitral valve leaflets. Mild mitral regurgitation. Mitral annular calcification. Aortic Valve Diffuse calcification of the aortic valve sclerosis with stenosis Tricuspid Valve There is moderate to severe tricuspid valve regurgitation. Pulmonic Valve Trivial pulmonic valve regurgitation. Vessels Dilated inferior vena cava. Less than 50% respiratory change in dimension of the inferior vena cava abnormal. Pericardium The pericardium is normal by two-dimensional imaging. There is no significant pericardial effusion. CONCLUSIONS indication: CAD LV is normal with estimated EF of 55-60% RV is normal with normal function LA is mild to moderately increased MV has mild MAC & mild MR Aortic valve sclerosis with mild stenosismild tricuspid regurgitation Carlotta Almazan (Electronically Signed) Final Date: 26 June 2024 23:43
--- NOTE | 2024-06-25 16:54 | ESCONSULT_ITS ---
<Statement entered by Clint Lama MD - 06/26/24 10:24> TOTAL CC TIME: 65 MIN I saw and evaluated the patient. I reviewed the resident?s note and agree with findings and plan as documented in the resident?s note. Upon my evaluation, this patient had a high probability of imminent or life- threatening deterioration due to acute hypoxic respiratory failure due to influenza pneumonia which required my direct attention, intervention, and personal management. This time is exclusive of time spent on procedures, which are documented separately if performed. Patient was an extremis despite being on Noninvasive positive pressure ventilation. Respiratory rate was in the 40s and 50s, he was clearly in severe distress with rapid desaturations. He was moved to the intensive care unit with and underwent rapid sequence intubation. Continue Tamiflu and empiric antibiotics obtain sputum cultures. Tidal volume was adjusted to meet ARDSnet lung protective strategy. Plateau pressure 24, PEEP 10, driving pressure 14. Follow-up compliance carefully. Allow permissive hypercapnia as tolerated HPI Data of Consult Requesting Physician: Rodolfo Thurston MD Admitting Provider: Rodolfo Thurston MD Attending Provider: Rodolfo Thurston MD Primary Care Provider: Physician No Primary/Family Consult Narrative Reason for consult: acute hypoxia and severe respiratory distress History of present illness: Patient is a 74-year-old male with past medical history significant for Duong's palsy, deaf and nonverbal, schizophrenia, tobacco use, primary hypertension, AV first-degree block, GERD, CAD, COPD, chronic constipation, generalized anxiety disorder who presented to the ED with shortness of breath on 06/24/2024. Throughout hospital stay, patient was very hypoxic and wheezing on physical exam and was placed on BiPAP. Patient also tested positive for influenza A and started on vancomycin and cefepime for superimposed bacterial infection. ICU was consulted after patient has presenting with severe respiratory distress and pulling tidal volumes of 800-12 100 on BiPAP. Patient was intubated for acute hypoxic respiratory failure. 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 Cooney makes patient's decisions. Patient does not use alcohol but does smoke about 4 cigarettes daily, but has smoked for a long time. cc:: cc: Rodolfo Thurston MD Exam Vital Signs Temp Pulse Resp BP Pulse Ox O2 Del Method O2 Flow Rate 97.3 F 119 H 28 H 157/80 H 97 BiPAP 15 06/25/24 16:00 06/25/24 16:00 06/25/24 16:00 06/25/24 16:00 06/25/24 16:00 06/25/24 12:00 06/25/24 08:19 FiO2 100 06/25/24 16:00 Narrative Exam General Appearance: Elderly gentleman, obese, intubated and sedated. GCS 3 T HEENT: NC/AT, no scleral icterus, dry MM Lungs: mild expiratory wheezing noted in upper left base, and crackles heard in Right base CVS: RRR, S1/S2 heard, no murmurs or rubs appreciated ABD: Soft, non-tender, obese, non-distended, BS + EXT: no deformity/edema/lesions/cyanosis/clubbing, pedal pulses 2+ bilaterally SKIN: Skin exam normal without any rashes. Neuro: Intubated and sedated. Results Labs 06/26/24 04:56 06/26/24 04:56 Labs: Short CBC 06/25/24 Range/Units 04:26 WBC 23.4 H D (3.8-10.6) Thou/mm3 Hgb 8.7 L (13.5-16.0) g/dL Hct 25.9 L (41.0-53.0) % Plt Count 448 H D (140-440) Thou/mm3 BMP 06/25/24 06/25/24 04:26 15:38 Sodium 139 139 Potassium 3.6 4.7 D Chloride 109 H 112 H Carbon Dioxide 21.2 20.4 BUN 21 22 Creatinine 0.8 1.0 Glucose 158 H D 204 H Calcium 8.8 8.5 Cardiac Enzymes 06/24/24 06/24/24 Range/Units 15:38 20:59 Troponin I 0.110 H* 0.099 H* (0.0-0.045) ng/mL Liver Function 06/25/24 06/25/24 Range/Units 04:26 15:38 Total Bilirubin 0.6 0.7 (0.3-1.2) mg/dL AST 25 77 H (0-34) U/L ALT 45 87 H (10-49) U/L Alkaline Phosphatase 97 111 (46-116) U/L Albumin 3.5 3.7 (3.4-4.8) gm/dL ABG Interpretation ABG results: 06/24/24 06/25/24 09:51 11:35 ABG pH 7.42 7.44 ABG pCO2 34 28 L ABG pO2 91 71 L D ABG HCO3 22 19 L ABG O2 Saturation 98 94 ABG Base Excess -2 -5 L Quality Measures Quality Measures sepsis Current suspected stage: sepsis Possible source: pulmonary Blood cultures ordered: yes Antibiotic ordered: Yes Advance care planning discussed with:: patient Medications Home Medications and Allergies Home Medications ?Medication ?Instructions ?Recorded ?Confirmed ?Type acetaminophen 650 mg tablet 650 mg PO Q4H PRN FEVER 10 1.4 OR 03/28/23 06/25/24 History MILD PAIN amlodipine 10 mg tablet 10 mg PO QDAY 03/28/2306/25 History aspirin 81 mg tablet 81 mg PO QDAY 03/28/2306/25 History azelastine 0.05 % eye drops 1 drp ophthalmic (eye) BID 03/28/23 06/25/24 History bisacodyl 10 mg rectal suppository 10 mg NC QDAY PRN C ONTIPATION 03/28/23 06/25/24 History clonidine HCl 0.1 mg tablet 0.1 mg PO HS 03/28/2306/15 History dextromethorphan-guaifenesin 10 10 ml PO Q4H PRN COUGH 03/28/23 06/25/24 History mg-100 mg/5 mL oral syrup gabapentin 100 mg capsule 100 mg PO TID 03/28/2306/25 History hydralazine 50 mg tablet 50 mg PO TID 03/28/23 History ipratropium 0.5 mg-albuterol 3 mg 3 ml inhalation Q4H PRN COUGH 03/28/23 06/25/24 History (2.5 mg base)/3 mL nebulization soln lisinopril 40 mg tablet 40 mg PO QDAY 03/28/2306/25 History magnesium hydroxide 400 mg/5 mL 30 ml PO QDAY PRN CONS TIPATION 03/28/23 06/25/24 History oral suspension (Milk of Magnesia) montelukast 10 mg tablet 10 mg PO HS 03/28/23 5 History multivitamin with minerals 1 tab PO QDAY 03/28/2306/15 History nystatin 100,000 unit/gram topical 1 applic topical QI D 03/28/23 06/25/24 History ointment omeprazole 40 mg capsule,delayed 40 mg PO QDAY 3 06/25/24 History release paliperidone 3 mg tablet,extended 3 mg PO QAM 03/28/23 06/25/24 History release 24 hr sodium chloride 1,000 mg soluble 2,000 mg PO TID 03/2806/25/24 History tablet sodium phosphates 9.5 gram-3.5 118 ml NC QDAY PRN COUG H 03/28/23 06/25/24 History gram/59 mL enema tiotropium bromide 18 mcg capsule 1 cap inhalation QDA Y 03/28/23 06/25/24 History with inhalation device Allergies Allergy/AdvReac Type Severity Reaction Status Date / Time No Known Allergies Allergy Verified 03/28/23 09:02 Visit Medications Acetaminophen (Acetaminophen 500 Mg Tablet) 1,000 mg PO Q6H PRN PRN Reason: Fever >100 or pain 1-3 Stop: 07/24/24 14:32 Albuterol/Ipratropium (Albuterol/Ipratropium (Duoneb) Rt Fior 3 Ml Nebu) 3 ml INH Q6HRRT [facility] Stop: 07/24/24 18:59 Last Admin: 06/25/24 12:24 Dose: 3 ml Aspirin (Aspirin Ec 81 Mg Tabec) 81 mg PO QDAY [facility] Stop: 07/25/24 11:44 Last Admin: 06/25/24 11:49 Dose: Not Given Enoxaparin Sodium (Enoxaparin Sod Inj 40 Mg/0.4 Ml Syringe) 40 mg SC QDAY [facility] Stop: 07/09/24 11:44 Last Admin: 06/25/24 11:49 Dose: 40 mg Cefepime HCl 1 gm/ Sodium (Chloride) 50 mls @ 100 mls/hr IV Q8HR [facility] Stop: 07/01/24 14:36 Last Admin: 06/25/24 14:55 Dose: 100 mls/hr Vancomycin HCl 1,500 mg/ (Sodium Chloride) 500 mls @ 200 mls/hr IV QDAY@1000 [facility]; Protocol Stop: 07/02/24 09:59 Last Admin: 06/25/24 10:14 Dose: 200 mls/hr Propofol (Diprivan Ivpb) 1,000 mg in 100 mls @ 2.585 mls/hr IV .Q24H PRN; Protocol PRN Reason: PER PROTOCOL Stop: 07/25/24 14:00 Last Titration: 06/25/24 16:00 Dose: 30 mcg/kg/min, 15.513 mls/hr Fentanyl Citrate (Sublimaze Inj 2,500 Mcg/250 Ml Bag) 2,500 mcg in 250 mls @ 2.5 mls/hr IV .Q24H PRN; Protocol PRN Reason: PER PROTOCOL Stop: 06/30/24 14:00 Last Titration: 06/25/24 16:00 Dose: 175 mcg/hr, 17.5 mls/hr Ondansetron HCl (Ondansetron Inj 2 Mg/Ml Inj 2 Ml) 4 mg IV Q6H PRN; Protocol PRN Reason: NAUSEA OR VOMITING Stop: 07/24/24 14:32 Oseltamivir Phosphate (Oseltamivir 75 Mg Capsule) 75 mg PO BID [facility] Stop: 06/28/24 21:01 Last Admin: 06/25/24 08:07 Dose: 75 mg Pantoprazole Sodium (Pantoprazole 40 Mg Tablet) 40 mg PO QDAY [facility] Stop: 07/24/24 14:44 Last Admin: 06/25/24 08:07 Dose: 40 mg Pharmacy Consult (Vancomycin Pharmacy To Dose 1 Each Each) 1 each IV QDAY PRN PRN Reason: CONSULT Stop: 07/24/24 14:44 Sennosides (Senna Tablet) 1 tab PO QDAY PRN; Protocol PRN Reason: constipation Stop: 07/24/24 14:32 Sodium Chloride (Sodium Chloride Rt Fior 0.9% 3 Ml Nebu) 3 ml INH PRN PRN PRN Reason: SOLN Stop: 07/24/24 07:11 Discontinued Medications Acetaminophen (Acetaminophen Supp 325 Mg Supp) 325 mg NC X1 ONE Stop: 06/24/24 07:13 Last Admin: 06/24/24 07:25 Dose: 325 mg Acetaminophen (Acetaminophen Supp 650 Mg Supp) 650 mg NC X1 ONE Stop: 06/24/24 07:13 Last Admin: 06/24/24 07:26 Dose: 650 mg Albuterol (Albuterol Rt 2.5 Mg/0.5 Ml Nebu) 10 mg HHN X1 ONE Stop: 06/24/24 07:13 Last Admin: 06/24/24 07:59 Dose: 10 mg Albuterol/Ipratropium (Albuterol/Ipratropium (Duoneb) Rt Fior 3 Ml Nebu) 3 ml INH X1 ONE Stop: 06/25/24 11:26 Last Admin: 06/25/24 11:55 Dose: 3 ml Etomidate (Etomidate Inj 2 Mg/Ml Vial 10 Ml) 20 mg IVP X1 ONE Stop: 06/25/24 14:02 Last Admin: 06/25/24 13:55 Dose: 20 mg Fentanyl Citrate (Fentanyl Cit Inj 50 Mcg/Ml Amp 2ml) 100 mcg IM X1 ONE Stop: 06/25/24 14:02 Last Admin: 06/25/24 15:35 Dose: Not Given Fentanyl Citrate (Fentanyl Cit Inj 50 Mcg/Ml Amp 2ml) 50 mcg IVP X1 ONE Stop: 06/25/24 14:01 Last Admin: 06/25/24 13:44 Dose: 50 mcg Furosemide (Furosemide Inj 10 Mg/Ml Vial 2 Ml) 20 mg IVP X1 ONE Stop: 06/25/24 12:04 Last Admin: 06/25/24 12:57 Dose: 20 mg Guaifenesin/Dextromethorphan (Guaifenesin/Dm Tablet) 1 each PO QDAY PRN PRN Reason: cough Stop: 07/25/24 08:59 Ceftriaxone Sodium/Dextrose (Rocephin/D5w 1gm Iv Premix) 50 mls @ 100 mls/hr IV X1 ONE Stop: 06/24/24 07:44 Last Infusion: 06/24/24 08:51 Dose: Infused Vancomycin/Sodium Chloride (Vancomycin/Ns 1 Gm Ivpb) 200 mls @ 120 mls/hr IV X1 ONE Stop: 06/24/24 16:39 Last Infusion: 06/24/24 17:52 Dose: Infused Potassium Chloride (Kcl Ivpb) 10 meq in 100 mls @ 100 mls/hr IV Q1H [facility] Stop: 06/24/24 16:52 Last Infusion: 06/24/24 17:37 Dose: Infused Fentanyl Citrate (Sublimaze Inj 2,500 Mcg/250 Ml Bag) 2,500 mcg in 250 mls @ 2.5 mls/hr IV .Q24H PRN; Protocol PRN Reason: PER PROTOCOL Stop: 06/30/24 14:00 Propofol (Diprivan Ivpb) 1,000 mg in 100 mls @ 2.585 mls/hr IV .Q24H PRN; Protocol PRN Reason: PER PROTOCOL Stop: 07/25/24 14:00 Methylprednisolone Sodium Succinate (Methylprednisolone Sod Succ 62.5 Mg/Ml 2ml Vial) 125 mg IVP X1 ONE Stop: 06/24/24 07:13 Last Admin: 06/24/24 07:43 Dose: 125 mg Methylprednisolone Sodium Succinate (Methylprednisolone Sod Succ 40 Mg Vial) 40 mg IVP Q8HR [facility] Stop: 07/02/24 13:59 Last Admin: 06/25/24 11:50 Dose: Not Given Methylprednisolone Sodium Succinate (Methylprednisolone Sod Succ 40 Mg Vial) 40 mg IVP X1 ONE Stop: 06/25/24 11:45 Last Admin: 06/25/24 11:49 Dose: 40 mg Nicotine (Nicotine Patch 14 Mg/24 Hr Patch.Td24) 14 mg TOP X1 ONE Stop: 06/24/24 14:41 Last Admin: 06/24/24 16:34 Dose: 14 mg Oseltamivir Phosphate (Oseltamivir 75 Mg Capsule) 75 mg PO X1 ONE Stop: 06/24/24 09:18 Last Admin: 06/24/24 09:56 Dose: 75 mg Potassium Chloride (Potassium Chloride 20 Meq Tabcr) 40 meq PO X1 ONE Stop: 06/25/24 07:55 Last Admin: 06/25/24 08:07 Dose: 40 meq Potassium Phos/Sodium Phos (Naph,[facility] 1 Packet (1.5 Gm)) 2 packet PO X1 ONE Stop: 06/25/24 07:55 Last Admin: 06/25/24 08:07 Dose: 2 packet Rocuronium [place] (Rocuronium Inj 10 Mg/Ml Vial 10 Ml) 100 mg IVP X1 ONE Stop: 06/25/24 14:02 Last Admin: 06/25/24 13:56 Dose: 100 mg Sodium Chloride (Sodium Chloride Rt 10% 15 Ml Nebu) 5 ml INH X1 ONE Stop: 06/24/24 14:34 Last Admin: 06/24/24 23:06 Dose: Not Given Sodium Chloride (Sodium Chloride Rt 10% 15 Ml Nebu) 5 ml INH X1 ONE Stop: 06/25/24 14:07 Assessment & Plan Plan Patient is a 74-year-old male with past medical history significant for Duong's palsy, deaf and nonverbal, schizophrenia, tobacco use, primary hypertension, AV first-degree block, GERD, CAD, COPD, chronic constipation, generalized anxiety disorder who presented to the ED with shortness of breath on 06/24/2024 and admitted to the hospital for AHRF. ICU was consulted after patient has presenting with severe respiratory distress requiring intubation. NEURO #Sedation for Mechanical Ventilation DDx: in the setting of hypoxia, hypercapnia, and respiratory acidosis with underlying chronic COPD exacerbation -On Propofol and Fentanyl for sedation, RAAS goal -4 -Patient's vent settings currently TV 400, PEEP 10, and RR 28 -Repeat ABG for AM -If patient does become Hemodynamically instable or has any arrthymias, can adjsut vent settings to target a pH of 7.28 by increasing RR to 30 #Deaf and nonverbal CARDIO #Elevated Troponin most likely in the setting of demand ischemia Troponin peaked at .110, and downtrended #History of essential hypertension #History of CAD #Hx of AV block first-degree History of CAD, however the history is limited due to blending technician and patient not not being able to communicate No history of atrial fibrillation EKG done however there was no sign of AV block appreciated -Pending med recs -Continue to monitor on tele monitor -Keep Mag and potassium above 2 and 4 respectively -Continue aspirin 81 mg at this time -Ordered Echocardiogram -Tele monitor shows peaked T waves, consider ordering EKG if any irregularity in rhythm PULM #Acute hypoxic respiratory failure #Sepsis secondary to #Influenza pneumonia #Superimposed bacterial infection #History of COPD Patient does have baseline COPD, however 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 Tamiflu 75mg daily ? Vancomycin and cefepime ? DuoNebs every 6 hours ? Will stop Solu-Medrol 40 mg IV for now ? Follow-up ABG in AM ? Follow-up blood cultures ? Follow-up MRSA screen ? Follow-up sputum culture from ETT ? Maintain oxygen 88 to 92% - Keep patient at ARDSnet goal of 6cc/kg TV GI/FEN #Chronic Constipation -Will monitor for BM, and consider starting BM #GI prophylaxis with IV PPI #Transaminitis Patient presented with elevated AST and ALT. DDx: in the setting of sepsis and recent Tamiflu use -Ordered Hep panel -CTM RENAL #Acute respiratory acidosis Current ABG shows a pH of 7.25 with a PaCO2 of 55. -Will keep current vent settings -Follow-up ABG in a.m. -Can increase respiration rate from 28-30 to to reach a goal pH of 7.28 if patient presents with any arrhythmias or hemodynamically instability HEME/ONC #Leukocytosis Most likely in the setting of influenza and bacterial pneumonia and recent steroid use -On IV antibiotics -Pending cultures ENDO #Hyperglycemia Most likely elevated due to recent steroid use -Will consider sliding scale insulin if glucose continues to uptrend -Glucose goal 140-180 ID #Influenza pneumonia #Superimposed bacterial pneumonia -See above under pulmonary MSK Stable PSYCH #History of ARIANNA #History of schizophrenia ? Will resume home medicines upon med rec Health Maintenance: DVT prophylaxis: Lovenox 40mg SC Diet: NPO Cespedes: Yes Lines: PIV Drips: Propofol, Fentanyl Vent: Tidal volume 400, respiratory rate 28,PEEP 10, FiO2 40% CODE STATUS: Full code Disposition: Admitted to ICU for AHRF requiring intubation. Patient's plan and care discussed with my attending, Dr. Kelby Springer MD PGY-2
[2024-06-25 17:19] LABS: Allen Test Performed/OK; Puncture Site Right Radial
--- NOTE | 2024-06-25 17:36 | PD.RESEVENT ---
Documentation for date of: 06/25/24 Event Note Event Note: Around 2pm patient continued to experience respiratory distress, early he was put on BiPAP as patient was spearing seeing hypoxemia and tachypnea. ABG drawn earlier in the day, showed pH of 7.25 and pCO2 of 52. Patient was getting Methylprednisone 40 mg and Lasix 20 IV. Pt continued to breathe over the biPAP. ICU was consulted and decision was made to upgrade patient to ICU for further management of Influenza pneumonia requiring probable intubation. Patient seen and care discussed with my senior resident, Dr. Osorio , and my attending physician, Dr. Karena Salas, PGY-1
[2024-06-25] MEDS: PROPOFOL 1,000 MG IVPB 1,000 MG/100 ML VIAL 15.513 MG IV (19:55)
[2024-06-25] MEDS: ALBUTEROL RT 2.5 MG/0.5 ML NEBU 10 MG (20:30)
[2024-06-25] MEDS: Magnesium Sulfate 4 GM Ivpb 4 GM/50 ML BAG IV (20:44)
[2024-06-25] MEDS: Norepinephrine/NS 16mg/250ml 16 MG/250 ML BAG 4.04 MG IV (20:51)
[2024-06-26] VITALS (107 sets, daily range): BP systolic 87–150; BP diastolic 40–72; PULSE 43–64; RESP 17–41; TEMP 36–36.2; O2SAT 83–100; BMI 34.1
[2024-06-26] MEDS: PROPOFOL 1,000 MG IVPB 1,000 MG/100 ML VIAL 20.684 MG IV (01:20)
[2024-06-26] MEDS: ALBUTEROL/IPRATROPIUM (Duoneb) RT SOL 3 ML NEBU INH ×6 (02:00→23:10)
[2024-06-26] MEDS: fentaNYL 2,500 MCG/250 ML BAG 2,500 MCG/250 ML BAG 27.5 MCG IV ×2 (02:49→14:28)
--- NOTE | 2024-06-26 03:05 | XR_ITS ---
Examination: AP chest single view Technique one AP portable semiupright chest single view Exam date and time: June 26, 2024 at 0312 hrs. Comparison June 25, 2024 Indications: Severe pneumonia ARDS, hypoxic respiratory failure this week, wheezing today. Findings: Severe bilateral lung opacity Endotracheal tube tip 4.8 cm above taylor The orogastric tube is in the stomach, the tip is below the level of the film No pneumothorax The osseous structures are intact Impression: Severe bilateral pneumonia ARDS again noted
[2024-06-26] MEDS: ALBUTEROL RT 2.5 MG/0.5 ML NEBU 10 MG (03:20)
[2024-06-26] MEDS: ALBUTEROL RT 2.5 MG/0.5 ML NEBU 10 MG INH (03:30)
[2024-06-26 05:21] LABS: Basophils # (Auto) 0.1 Thou/mm3 (0.0-0.2); Basophils % (Auto) 0 % (0-2.5); Eosinophils % (Auto) 0 % (0-10); Hematocrit 25.1 % (41.0-53.0); Immature Granulocytes % (Auto) 1 % (0-0); Immature Granulocytes Auto 0.49 Thou/mm3 (0.00-0.00); Lymphocytes # (Auto) 0.8 Thou/mm3 (1.0-4.8); Lymphocytes % (Auto) 2 % (10-50); Mean Corpuscular HGB Conc 32.7 g/dl (31.0-37.0); Mean Corpuscular Hemoglobin 28.7 pg (25.0-35.0); Mean Corpuscular Volume 88 fL (80-100); Monocytes # (Auto) 2.3 Thou/mm3 (0.0-0.8); Monocytes % (Auto) 6 % (0-12); Neutrophils % (Auto) 90 % (37-80); Nucleated Red Blood Cell # 0.02 Thou/mm3 (0.00-0.00); Nucleated Red Blood Cell % 0 /100 WBC (0); Platelet Count 540 Thou/mm3 (140-440); RDW Standard Deviation 52.3 fL (35.1-43.9); Red Blood Count 2.86 Miln/mm3 (4.50-5.90)
[2024-06-26 05:26] LABS: Hemoglobin 8.2 g/dL (13.5-16.0); White Blood Count 36.7 Thou/mm3 (3.8-10.6)
[2024-06-26 05:40] LABS: INR 1.1 (0.9-1.3); Prothrombin Time 11.9 Seconds (9.0-12.2)
[2024-06-26] MEDS: PROPOFOL 1,000 MG IVPB 1,000 MG/100 ML VIAL 23.269 MG IV (05:43)
[2024-06-26] MEDS: CEFEPIME INJ 1 GM in SODIUM CHLORIDE 0.9% (P) 50 ML IV (05:44)
[2024-06-26 05:52] LABS: Path Review Blood Smear Sent to Pathologist
[2024-06-26 06:09] LABS: Alanine Aminotransferase 76 U/L (10-49); Albumin, Serum 3.4 gm/dL (3.4-4.8); Albumin/Globulin Ratio 1.5 (1.2-2.2); Alkaline Phosphatase 93 U/L (46-116); Anion Gap 11 (7-16); Aspartate Amino Transferase 40 U/L (0-34); BUN/Creatinine Ratio 22 Ratio (12-20); Bilirubin,Total 0.6 mg/dL (0.3-1.2); Blood Urea Nitrogen 35 mg/dL (9-23); Calcium 8.5 mg/dL (8.3-10.6); Chloride 111 mMol/L (98-107); Creatinine (Component) 1.6 mg/dL (0.6-1.3); Estimated Creatinine Clearance 37.4 mL/min (>60); Globulin 2.3 gm/dL (2.3-3.5); Glucose 222 mg/dL (74-106); Magnesium 3.1 mg/dL (1.6-2.6); Osmolality,Calculated 296 (275-295); Phosphorous 5.4 mg/dL (2.4-5.1); Potassium 4.5 mMol/L (3.4-5.1); Sodium 141 mMol/L (136-145); Total Protein 5.7 gm/dL (5.7-8.2); eGFR 44 See Note
[2024-06-26 06:55] LABS: Hepatitis A Antibody IgM Non Reactive (Non React); Hepatitis B Core Antibody IgM Non Reactive (Non React); Hepatitis B Surface Antigen Non Reactive (Non React); Hepatitis C Antibody Non Reactive (Non React)
[2024-06-26 07:21] LABS: Base Excess -5 (-3-3); HCO3 21 mEq/L (20-26); Inspired Oxygen, FIO2 40 %; O2 Saturation 97 % (91-98); PCO2 38 mmHg (32.0-48.0); PO2 91 mmHg (83-108); pH, Arterial 7.34 (7.35-7.45)
[2024-06-26 07:23] LABS: Allen Test Performed/OK; Puncture Site Site Not Noted
[2024-06-26 08:13] LABS: Reflex Lactate? Y
[2024-06-26] MEDS: PANTOPRAZOLE 40 MG TABLET PO (09:02)
[2024-06-26] MEDS: ENOXAPARIN SOD INJ 40 MG/0.4 ML SYRINGE SC (09:02)
[2024-06-26] MEDS: ASPIRIN EC 81 MG TABEC PO (09:02)
[2024-06-26] MEDS: OSELTAMIVIR 30 MG CAPSULE PO ×2 (09:02→20:27)
[2024-06-26 09:05] LABS: Lactate (Lactic Acid) 1.9 mMol/L (0.4-2.0)
[2024-06-26 09:44] LABS: Glucose Estimated Average 103 mg/dL (80-131); Hemoglobin A1C 5.2 % Hgb (4.8-6.0)
[2024-06-26 09:53] LABS: Ferritin 100 ng/mL (10.5-307.3); Iron 9 mcg/dL (65-175); Percent Iron Saturation 4 % (20-55); Total Iron Binding Capacity 203 mcg/dL (250-425); Unsaturated Iron Binding 194 (225-295)
[2024-06-26] MEDS: VANCOMYCIN/WATER 1250 MG IVPB 250 ML 120 MG IV (10:00)
[2024-06-26] MEDS: RINGERS LACTATED 500 ML 500 ML 999 ML IV (10:00)
[2024-06-26 10:01] LABS: B-Type Natriuretic Peptide 225 pg/mL (0-100)
--- NOTE | 2024-06-26 10:13 | ESPR_ITS ---
<Statement entered by Clint Lama MD - 06/27/24 08:31> TOTAL CC TIME: 45 MIN I saw and evaluated the patient. I reviewed the resident?s note and agree with findings and plan as documented in the resident?s note. Upon my evaluation, this patient had a high probability of imminent or life- threatening deterioration due to ARDS from influenza pneumonia with acute hypoxic respiratory failure which required my direct attention, intervention, and personal management. This time is exclusive of time spent on procedures, which are documented separately if performed. Lung compliance remains unchanged. Patient sedation was weaned and he developed high peak pressures therefore he was suctioned and resedated. FiO2 has been able to be weaned as well which is encouraging. Continue ARDS mechanical ventilation strategy Documentation for date of: 06/26/24 Subjective Subjective Interval history: Patient is a 74-year-old male with past medical history significant for Duong's palsy, deaf and nonverbal, schizophrenia, tobacco use, primary hypertension, AV first-degree block, GERD, CAD, COPD, chronic constipation, generalized anxiety disorder who presented to the ED with shortness of breath on 06/24/2024. Throughout hospital stay, patient was very hypoxic and wheezing on physical exam and was placed on BiPAP. Patient also tested positive for influenza A and started on vancomycin and cefepime for superimposed bacterial infection. ICU was consulted after patient has presenting with severe respiratory distress and pulling tidal volumes of 800-12 100 on BiPAP. Patient was intubated for acute hypoxic respiratory failure. 06/26/24: Overnight, patient had a total urine output of 500 cc. Patient was unable to urinate on his own, and bladder scan showed 450 cc, and was able to be removed with an in&out cath. Patient was hypotensive overnight, and was started on Levophed. Patient also is bradycardic, most likely secondary to propofol. Tmax was 99.7. Patient has not spiked a fever since 2/10 a.m. Patient's white count increased from 23.43 6.7, and thrombocytosis increased to 540. Will change patient's vent settings to tidal volume of 400, respiration rate 25, PEEP of 10, and FiO2 of 50%. Will continue with IV Vanco and cefepime, but renal dose. Gram stain showed 2+ WBC. MRSA was negative, however will keep vancomycin after sputum culture from ET tube returns. Patient's blood sugar was little elevated today and started 5 Lantus and sliding scale, and will start tube feeds. LOUIS increased Cr 1 to 1.6, will ensure medications are renally dose, and give a LR bolus of 500cc and will start tube feeds. Exam Vital Signs Temp Pulse Resp BP Pulse Ox O2 Del Method O2 Flow Rate 96.9 F 48 L 28 H 123/47 L 99 Mechanical Ventilation 15 06/26/24 07:00 06/26/24 08:15 06/26/24 06:37 06/26/24 08:15 06/26/24 08:15 06/26/24 07:45 06/25/24 08:19 FiO2 40 06/26/24 08:00 Narrative Exam General Appearance: Elderly gentleman, obese, intubated and sedated. GCS 3 T HEENT: NC/AT, no scleral icterus, dry MM Lungs: diminished lung sounds b/l CVS: RRR, S1/S2 heard, no murmurs or rubs appreciated ABD: Soft, non-tender, obese, non-distended, BS + EXT: no deformity/edema/lesions/cyanosis/clubbing, pedal pulses 2+ bilaterally SKIN: Skin exam normal without any rashes. Neuro: Intubated and sedated. Objective Labs 06/26/24 04:56 06/26/24 04:56 Labs: Laboratory Results - last 24 hr 06/25/24 06/25/24 06/25/24 11:35 15:38 16:44 WBC RBC Hgb Hct MCV MCH MCHC RDW Std Deviation Plt Count Neut % (Auto) Lymph % (Auto) [place] % (Auto) Eos % (Auto) Baso % (Auto) Neut # (Auto) Lymph # (Auto) [place] # (Auto) Eos # (Auto) Baso # (Auto) Immature Gran # (Auto) Absolute Nucleated RBC Immature Gran % Nucleated RBC % Smear Path Review PT INR Puncture Site Left Radial Right Radial ABG pH 7.44 7.25 L D ABG pCO2 28 L 52 H D ABG pO2 71 L D 82 L ABG HCO3 19 L 23 ABG O2 Saturation 94 94 ABG Base Excess -5 L -4 L FiO2 100 100 Sodium 139 Potassium 4.7 D Chloride 112 H Carbon Dioxide 20.4 Anion Gap 7 BUN 22 Creatinine 1.0 Estim Creat Clear Calc 59.8 L eGFR > 60 BUN/Creatinine Ratio 22 H Glucose [address] Glu mg/dL Hemoglobin A1c Calculated Osmolality 286 Lactic Acid 1.7 Calcium 8.5 Corrected Calcium 8.7 Phosphorus Magnesium Iron TIBC Iron Saturation Unsat Iron Binding Ferritin Total Bilirubin 0.7 AST 77 H ALT 87 H Alkaline Phosphatase 111 B-Natriuretic Peptide Total Protein 6.3 Albumin 3.7 Globulin 2.6 Albumin/Globulin Ratio 1.4 Hepatitis A IgM Ab Hep Bs Antigen Hep B Core IgM Ab Hepatitis C Antibody 06/26/24 06/26/24 06/26/24 04:56 07:08 08:55 WBC 36.7 H* D RBC 2.86 L Hgb 8.2 L Hct 25.1 L MCV 88 MCH 28.7 MCHC 32.7 RDW Std Deviation 52.3 H Plt Count 540 H D Neut % (Auto) 90 H Lymph % (Auto) 2 L [place] % (Auto) 6 Eos % (Auto) 0 Baso % (Auto) 0 Neut # (Auto) 33.0 H Lymph # (Auto) 0.8 L [place] # (Auto) 2.3 H Eos # (Auto) 0.0 Baso # (Auto) 0.1 Immature Gran # (Auto) 0.49 H Absolute Nucleated RBC 0.02 H Immature Gran % 1 H Nucleated RBC % 0 Smear Path Review Sent to Pathologist PT 11.9 INR 1.1 Puncture Site Site Not Noted ABG pH 7.34 L ABG pCO2 38 D ABG pO2 91 ABG HCO3 21 ABG O2 Saturation 97 ABG Base Excess -5 L FiO2 40 Sodium 141 Potassium 4.5 Chloride 111 H Carbon Dioxide 19.0 L Anion Gap 11 BUN 35 H Creatinine 1.6 H D Estim Creat Clear Calc 37.4 L eGFR 44 L BUN/Creatinine Ratio 22 H Glucose [address] Glu mg/dL 103 Hemoglobin A1c 5.2 Calculated Osmolality 296 H Lactic Acid 3.0 H 1.9 Calcium 8.5 Corrected Calcium 9.0 Phosphorus 5.4 H Magnesium 3.1 H Iron 9 L TIBC 203 L Iron Saturation 4 L Unsat Iron Binding 194 L Ferritin 100 Total Bilirubin 0.6 AST 40 H ALT 76 H Alkaline Phosphatase 93 B-Natriuretic Peptide 225 H Total Protein 5.7 Albumin 3.4 Globulin 2.3 Albumin/Globulin Ratio 1.5 Hepatitis A IgM Ab Non Reactive Hep Bs Antigen Non Reactive Hep B Core IgM Ab Non Reactive Hepatitis C Antibody Non Reactive ABG Interpretation ABG results: 06/24/24 06/25/24 06/25/24 09:51 11:35 16:44 ABG pH 7.42 7.44 7.25 L D ABG pCO2 34 28 L 52 H D ABG pO2 91 71 L D 82 L ABG HCO3 22 19 L 23 ABG O2 Saturation 98 94 94 ABG Base Excess -2 -5 L -4 L 06/26/24 07:08 ABG pH 7.34 L ABG pCO2 38 D ABG pO2 91 ABG HCO3 21 ABG O2 Saturation 97 ABG Base Excess -5 L Quality Measures Quality Measures sepsis Current suspected stage: sepsis Possible source: pulmonary Blood cultures ordered: yes Antibiotic ordered: Yes Advance care planning discussed with:: patient Assessment & Plan Assessment Current Active Medications: Generic Name Dose Route Start Last Admin Trade Name Freq PRN Reason Stop Dose Admin Acetaminophen 1,000 mg 06/24/24 14:33 Acetaminophen 500 Mg Tablet PO 07/24/24 14:32 Q6H PRN Fever >100 or pain 1-3 Albuterol/Ipratropium 3 ml 06/26/24 07:00 06/26/24 06:35 Albuterol/Ipratropium (Duoneb) Rt Fior 3 Ml Nebu INH 07/26/24 06:59 3 ml Q4HRRT WILMER Administration Aspirin 81 mg 06/25/24 11:45 06/26/24 09:02 Aspirin Ec 81 Mg Tabec PO 07/25/24 11:44 81 mg QDAY WILMER Administration Dextrose 25 ml 06/26/24 07:46 Dextrose 50%-Water Inj 50 Ml Syringe IV 07/26/24 07:45 Q15MIN PRN BG 50-70 responsive npo pt Dextrose 50 ml 06/26/24 07:46 Dextrose 50%-Water Inj 50 Ml Syringe IV 07/26/24 07:45 Q15MIN PRN BG <50 OR BG <70 & pt unresponsive Enoxaparin Sodium 40 mg 06/25/24 11:45 06/26/24 09:02 Enoxaparin Sod Inj 40 Mg/0.4 Ml Syringe SC 07/09/24 11:44 40 mg QDAY WILMER Administration Glucagon 1 mg 06/26/24 07:46 Glucagon Inj 1 Mg Vial IM Q15MIN PRN BG <70, and no IV access Cefepime HCl 1 gm/ Sodium 50 mls @ 100 mls/hr 06/24/24 14:37 06/26/24 05:44 Chloride IV 07/01/24 14:36 100 mls/hr Q8HR WILMER Administration Propofol 1,000 mg in 100 mls @ 2.585 mls/hr 06/25/24 14:32 06/26/24 06:00 Diprivan Ivpb IV 07/25/24 14:00 45 mcg/kg/min .Q24H PRN 23.269 mls/hr PER PROTOCOL Titration Protocol 5 MCG/KG/MIN Fentanyl Citrate 2,500 mcg in 250 mls @ 2.5 mls/hr 06/25/24 18:10 06/26/24 06:00 Sublimaze Inj 2,500 Mcg/250 Ml Bag IV 06/30/24 18:09 275 mcg/hr .Q24H PRN 27.5 mls/hr PER PROTOCOL Titration Protocol 25 MCG/HR Norepinephrine Bitartrate 16 mg in 250 mls @ 4.04 mls/hr 06/25/24 20:05 06/26/24 06:00 Levophed In Ns 16mg/250ml IV 07/25/24 20:04 0.09 mcg/kg/min .Q24H PRN 7.272 mls/hr PER PROTOCOL Titration Protocol 0.05 MCG/KG/MIN Vancomycin HCl 250 mls @ 120 mls/hr 06/26/24 10:00 Vancomycin/Water 1250 Mg Ivpb IV 07/03/24 09:59 QDAY@1000 [facility] Insulin Human Lispro 0 unit 06/26/24 12:00 Insulin Lispro (Admelog) 1 Unit/0.01 Ml Unit SC 07/26/24 11:59 Q6HR [facility] Protocol Ondansetron HCl 4 mg 06/24/24 14:33 Ondansetron Inj 2 Mg/Ml Inj 2 Ml IV 07/24/24 14:32 Q6H PRN NAUSEA OR VOMITING Protocol Oseltamivir Phosphate 30 mg 06/26/24 09:00 06/26/24 09:02 Oseltamivir 30 Mg Capsule PO 06/28/24 21:01 30 mg BID WILMER Administration Pantoprazole Sodium 40 mg 06/24/24 14:45 06/26/24 09:02 Pantoprazole 40 Mg Tablet PO 07/24/24 14:44 40 mg QDAY WILMER Administration Pharmacy Consult 1 each 06/24/24 14:45 Vancomycin Pharmacy To Dose 1 Each Each IV 07/24/24 14:44 QDAY PRN CONSULT Sennosides 1 tab 06/24/24 14:33 Senna Tablet PO 07/24/24 14:32 QDAY PRN constipation Protocol Sodium Chloride 3 ml 06/26/24 03:20 Sodium Chloride Rt Fior 0.9% 3 Ml Nebu INH 07/26/24 03:19 PRN PRN SOLN Plan Patient is a 74-year-old male with past medical history significant for Duong's palsy, deaf and nonverbal, schizophrenia, tobacco use, primary hypertension, AV first-degree block, GERD, CAD, COPD, chronic constipation, generalized anxiety disorder who presented to the ED with shortness of breath on 06/24/2024 and admitted to the hospital for AHRF. ICU was consulted after patient has presenting with severe respiratory distress requiring intubation. 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 No history of atrial fibrillation EKG done however there was no sign of AV block appreciated BNP slightly elevated at 225 -Pending med recs -Continue to monitor on tele monitor -Keep Mag and potassium above 2 and 4 respectively -Continue aspirin 81 mg at this time -Ordered Echocardiogram, pending read -Tele monitor shows peaked T waves, consider ordering EKG if any irregularity in rhythm PULM #Acute hypoxic respiratory failure #Sepsis secondary to #Influenza pneumonia #Superimposed bacterial infection #History of COPD Patient does have baseline COPD, however 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 Tamiflu 30mg BID, renal dose ? Vancomycin and cefepime, renally dose - Will keep Vancomycin until sputum culture returns ? DuoNebs every 6 hours ? Follow-up ABG in AM ? Follow-up blood cultures ? Follow-up sputum culture pending ? Maintain oxygen 88 to 92% - Keep patient at ARDSnet goal of 6cc/kg TV GI/FEN #Chronic Constipation -Will monitor for BM, and consider starting BM #GI prophylaxis with IV PPI #Tube feeds -Start tube feeds after dietary recs today #Transaminitis Patient presented with elevated AST and ALT. DDx: in the setting of sepsis and recent Tamiflu use Hep panel negative -CTM RENAL #Acute respiratory acidosis-imprvoing Current ABG shows a pH of 7.34 with a PaCO2 of 55. -Will keep current vent settings as Vt 400, RR 25, FiO2 50% -Follow-up ABG in a.m. #LOUIS Cr increased from 1 to 1.6 Most likely pre-renal vs intrinsic in the setting of sepsis and low BP and dehydration Less likely post-renal as patient able to urine with in&out -consider renal us -renally dose medications -avoid nephrotoxin agents -will give a x1 LR 500ml bolus and start tube feeds HEME/ONC #Leukocytosis-increasing Most likely in the setting of influenza and bacterial pneumonia and recent steroid use -On IV antibiotics -Pending sputum cx #Normocytic Anemia H&H stable Ordered iron panel, f/u #Thrombocytosis Reactive in setting of infection and aspirin use ENDO #Hyperglycemia Most likely elevated due to recent steroid use A1c is 5.2 Gave a x 1 of Lantus 5 units -Start SSI Q4HR and glucose checks Q4HR -Glucose goal 140-180 ID #Influenza pneumonia #Superimposed bacterial pneumonia -See above under pulmonary MSK Stable PSYCH #History of ARIANNA #History of schizophrenia ? Will resume home medicines upon med rec Health Maintenance: DVT prophylaxis: Lovenox 40mg SC, if Cr Cl less than 30 than change to Heparin SC Diet: Will start tube feeds via OG tube Cespedes: Yes Lines: PIV Drips: Propofol, Fentanyl Vent: Tidal volume 400, respiratory rate 28,PEEP 10, FiO2 40% CODE STATUS: Full code Disposition: Admitted to ICU for AHRF requiring intubation. Patient's plan and care discussed with my attending, Dr. Kelby Springer MD PGY-2
--- NOTE | 2024-06-26 10:57 | PC.DIETICIAN ---
Nutrition prescription Vital 1.2 at 20 ml/hr via OG tube by pump. Advance 10 ml every 8 hrs to goal rate of 55 ml/hr x 24 hrs. If no IV fluids, water flushes of 25 ml/hr (or per MD).
[2024-06-26] MEDS: INSULIN GLARGINE (Lantus) 5 UNIT/0.05 ML (PER 5 UNITS) SC (11:00)
[2024-06-26] MEDS: PROPOFOL 1,000 MG IVPB 1,000 MG/100 ML VIAL 10.342 MG IV (11:58)
[2024-06-26] MEDS: INSULIN LISPRO (AdmeLOG) 1 UNIT/0.01 ML UNIT SC (11:58)
[2024-06-26] MEDS: RINGERS LACTATED 1000 ML 1,000 ML 125 ML IV ×2 (13:36→22:55)
[2024-06-26] MEDS: RINGERS LACTATED 1000 ML 1,000 ML 999 ML IV (13:36)
[2024-06-26 15:50] LABS: Collection Type, Urine Clean Catch
[2024-06-26 16:05] LABS: Bilirubin,Urine Negative (Negative); Blood,Urine Negative (Negative); Clarity,Urine Turbid (Clear/Hazy); Color,Urine Yellow (Lt Yel-Yel); Glucose, Urine Negative (Negative); Hyaline Casts,Urine < 1 /hpf (0-1); Ketones,Urine Negative (Negative); Leukocyte Esterase,Urine Negative (Negative); Nitrite,Urine Negative (Negative); Protein,Urine Trace (Neg - Trace); RBC,Urine 2 /hpf (0-3); Specific Gravity,Urine 1.021 (1.001-1.035); Squamous Epithelial Cell,Urine < 1 /hpf (0-5); Urobilinogen,Urine Negative mg/dL (0.0-1.0); WBC,Urine 5 /hpf (0-5)
[2024-06-26] MEDS: PROPOFOL 1,000 MG IVPB 1,000 MG/100 ML VIAL 25.855 MG IV ×2 (16:15→20:30)
[2024-06-26 17:20] LABS: Alanine Aminotransferase 67 U/L (10-49); Albumin, Serum 3.2 gm/dL (3.4-4.8); Albumin/Globulin Ratio 1.3 (1.2-2.2); Alkaline Phosphatase 90 U/L (46-116); Anion Gap 8 (7-16); Aspartate Amino Transferase 30 U/L (0-34); BUN/Creatinine Ratio 23 Ratio (12-20); Bilirubin,Total 0.5 mg/dL (0.3-1.2); Blood Urea Nitrogen 39 mg/dL (9-23); Calcium 8.3 mg/dL (8.3-10.6); Calcium (Corrected) 8.9 mg/dL (8.5-10.1); Carbon Dioxide 21.7 mMol/L (20.0-31.0); Chloride 112 mMol/L (98-107); Creatinine (Component) 1.7 mg/dL (0.6-1.3); Globulin 2.4 gm/dL (2.3-3.5); Glucose 134 mg/dL (74-106); Osmolality,Calculated 294 (275-295); Potassium 4.3 mMol/L (3.4-5.1); Sodium 142 mMol/L (136-145); Total Protein 5.6 gm/dL (5.7-8.2); eGFR 41 See Note
[2024-06-26] MEDS: CEFEPIME INJ 2 GM in SODIUM CHLORIDE 0.9% (P) 50 ML IV (20:27)
[2024-06-27] VITALS (106 sets, daily range): BP systolic 57–163; BP diastolic 37–87; PULSE 42–85; RESP 2–25; TEMP 36.2–36.9; O2SAT 87–100; BMI 35.6
[2024-06-27] MEDS: PROPOFOL 1,000 MG IVPB 1,000 MG/100 ML VIAL 25.855 MG IV ×2 (02:00→06:00)
[2024-06-27] MEDS: fentaNYL 2,500 MCG/250 ML BAG 2,500 MCG/250 ML BAG 27.5 MCG IV (02:00)
[2024-06-27] MEDS: ALBUTEROL/IPRATROPIUM (Duoneb) RT SOL 3 ML NEBU INH ×7 (03:05→22:40)
[2024-06-27 05:36] LABS: Basophils % (Auto) 0 % (0-2.5); Eosinophils % (Auto) 0 % (0-10); Hematocrit 25.4 % (41.0-53.0); Immature Granulocytes % (Auto) 1 % (0-0); Immature Granulocytes Auto 0.18 Thou/mm3 (0.00-0.00); Lymphocytes # (Auto) 1.9 Thou/mm3 (1.0-4.8); Lymphocytes % (Auto) 9 % (10-50); Mean Corpuscular HGB Conc 31.9 g/dl (31.0-37.0); Mean Corpuscular Hemoglobin 28.4 pg (25.0-35.0); Mean Corpuscular Volume 89 fL (80-100); Monocytes # (Auto) 1.5 Thou/mm3 (0.0-0.8); Monocytes % (Auto) 7 % (0-12); Neutrophils # (Auto) 17.4 Thou/mm3 (1.8-7.7); Neutrophils % (Auto) 83 % (37-80); Nucleated Red Blood Cell # 0.02 Thou/mm3 (0.00-0.00); Nucleated Red Blood Cell % 0 /100 WBC (0); Platelet Count 463 Thou/mm3 (140-440); Red Blood Count 2.85 Miln/mm3 (4.50-5.90); White Blood Count 21.1 Thou/mm3 (3.8-10.6)
[2024-06-27 05:40] LABS: Hemoglobin 8.1 g/dL (13.5-16.0)
[2024-06-27 05:43] LABS: Prothrombin Time 11.3 Seconds (9.0-12.2)
[2024-06-27] MEDS: RINGERS LACTATED 1000 ML 1,000 ML 125 ML IV (06:00)
[2024-06-27 06:10] LABS: Alanine Aminotransferase 72 U/L (10-49); Albumin, Serum 3.1 gm/dL (3.4-4.8); Albumin/Globulin Ratio 1.3 (1.2-2.2); Alkaline Phosphatase 97 U/L (46-116); Anion Gap 8 (7-16); Aspartate Amino Transferase 46 U/L (0-34); BUN/Creatinine Ratio 26 Ratio (12-20); Bilirubin,Total 0.5 mg/dL (0.3-1.2); Blood Urea Nitrogen 36 mg/dL (9-23); Calcium 8.2 mg/dL (8.3-10.6); Calcium (Corrected) 8.9 mg/dL (8.5-10.1); Chloride 113 mMol/L (98-107); Creatinine (Component) 1.4 mg/dL (0.6-1.3); Estimated Creatinine Clearance 41.3 mL/min (>60); Globulin 2.4 gm/dL (2.3-3.5); Glucose 132 mg/dL (74-106); Magnesium 2.9 mg/dL (1.6-2.6); Osmolality,Calculated 297 (275-295); Phosphorous 4.1 mg/dL (2.4-5.1); Potassium 4.5 mMol/L (3.4-5.1); Sodium 144 mMol/L (136-145); Total Protein 5.5 gm/dL (5.7-8.2); eGFR 52 See Note
[2024-06-27 07:42] LABS: Base Excess -2 (-3-3); HCO3 24 mEq/L (20-26); Inspired Oxygen, FIO2 30 %; O2 Saturation 97 % (91-98); PCO2 46 mmHg (32.0-48.0); PO2 90 mmHg (83-108); pH, Arterial 7.33 (7.35-7.45)
[2024-06-27 07:43] LABS: Allen Test Performed/OK; Puncture Site Right Radial
[2024-06-27 09:18] LABS: Vancomycin,Trough 6.4 mcg/mL (5.0-10.0)
--- NOTE | 2024-06-27 09:31 | ESPR_ITS ---
<Statement entered by Clint Lama MD - 06/28/24 11:04> TOTAL CC TIME: 45 MIN I saw and evaluated the patient. I reviewed the resident?s note and agree with findings and plan as documented in the resident?s note. Upon my evaluation, this patient had a high probability of imminent or life- threatening deterioration due to acute hypoxic respiratory failure which required my direct attention, intervention, and personal management. This time is exclusive of time spent on procedures, which are documented separately if performed. Today he developed significant air trapping with an exacerbation of his obstructive lung disease. Difficulty ventilating due to high peak pressures. We started steroids and additional nebulized as needed treatments. This has approved as the day went along. We will continue to sedate in order to improve vent synchrony. We are hopeful that he will be able to be extubated in the next day or 2 given that his oxygen requirements have been improving. He remains afebrile. Documentation for date of: 06/27/24 Subjective Subjective Interval history: Patient is a 74-year-old male with past medical history significant for Duong's palsy, deaf and nonverbal, schizophrenia, tobacco use, primary hypertension, AV first-degree block, GERD, CAD, COPD, chronic constipation, generalized anxiety disorder who presented to the ED with shortness of breath on 06/24/2024. Throughout hospital stay, patient was very hypoxic and wheezing on physical exam and was placed on BiPAP. Patient also tested positive for influenza A and started on vancomycin and cefepime for superimposed bacterial infection. ICU was consulted after patient has presenting with severe respiratory distress and pulling tidal volumes of 800-12 100 on BiPAP. Patient was intubated for acute hypoxic respiratory failure. 06/26/24: Overnight, patient had a total urine output of 500 cc. Patient was unable to urinate on his own, and bladder scan showed 450 cc, and was able to be removed with an in&out cath. Patient was hypotensive overnight, and was started on Levophed. Patient also is bradycardic, most likely secondary to propofol. Tmax was 99.7. Patient has not spiked a fever since 2/10 a.m. Patient's white count increased from 23.43 6.7, and thrombocytosis increased to 540. Will change patient's vent settings to tidal volume of 400, respiration rate 25, PEEP of 10, and FiO2 of 50%. Will continue with IV Vanco and cefepime, but renal dose. Gram stain showed 2+ WBC. MRSA was negative, however will keep vancomycin after sputum culture from ET tube returns. Patient's blood sugar was little elevated today and started 5 Lantus and sliding scale, and will start tube feeds. LOUIS increased Cr 1 to 1.6, will ensure medications are renally dose, and give a LR bolus of 500cc and will start tube feeds. 06/27/24: Overnight, patient had a total urine output of 700cc overnight. Patient received a total of 3.25L LR. ABG continues to show respiratory acidosis that has remained about the same. Plan today is to try titrating his sedation and see how patient tolerates. Will descalate Abx to IV Ceftiraxone as all cultures returned negative including sputum culture and WBC is improving. Patient will require a total of 5 days of IV Abx. Will continue with straight ins and outs Q4H and continue LR at 50cc/hr and tube feeds. Exam Vital Signs Temp Pulse Resp BP Pulse Ox O2 Del Method O2 Flow Rate 97.2 F 54 L 25 H 109/45 L 92 L Mechanical Ventilation 15 06/27/24 08:01 06/27/24 08:01 06/27/24 06:24 06/27/24 08:01 06/27/24 08:01 06/26/24 16:00 06/25/24 08:19 FiO2 30 06/27/24 08:00 Narrative Exam General Appearance: Elderly gentleman, obese, intubated and sedated. HEENT: NC/AT, no scleral icterus, dry MM Lungs: clear to auscultation of right lung and diminished lung sounds on Left base CVS: bradycardic, regular, S1/S2 heard, no murmurs or rubs appreciated ABD: Soft, non-tender, obese, non-distended, BS + EXT: no deformity/edema/lesions/cyanosis/clubbing, pedal pulses 2+ bilaterally SKIN: Skin exam normal without any rashes. Neuro: Intubated and sedated. Objective Labs 06/27/24 04:04 06/27/24 04:04 Labs: Laboratory Results - last 24 hr 06/26/24 06/26/24 06/26/24 04:56 08:55 15:33 WBC RBC Hgb Hct MCV MCH MCHC RDW Std Deviation Plt Count Neut % (Auto) Lymph % (Auto) Russell % (Auto) Eos % (Auto) Baso % (Auto) Neut # (Auto) Lymph # (Auto) Russell # (Auto) Eos # (Auto) Baso # (Auto) Immature Gran # (Auto) Absolute Nucleated RBC Immature Gran % Nucleated RBC % PT INR Puncture Site ABG pH ABG pCO2 ABG pO2 ABG HCO3 ABG O2 Saturation ABG Base Excess FiO2 Sodium Potassium Chloride Carbon Dioxide Anion Gap BUN Creatinine Estim Creat Clear Calc eGFR BUN/Creatinine Ratio Glucose Estimated Ave Glu mg/dL 103 Hemoglobin A1c 5.2 Calculated Osmolality Calcium Corrected Calcium Phosphorus Magnesium Iron 9 L TIBC 203 L Iron Saturation 4 L Unsat Iron Binding 194 L Ferritin 100 Total Bilirubin AST ALT Alkaline Phosphatase B-Natriuretic Peptide 225 H Total Protein Albumin Globulin Albumin/Globulin Ratio Ur Collection Type Clean Catch Urine Color Yellow Urine Clarity Turbid A Urine pH 5.0 Ur Specific [place] 1.021 Urine Protein Trace Urine Glucose (UA) Negative Urine Ketones Negative Urine Blood Negative Urine Nitrite Negative Urine Bilirubin Negative Urine Urobilinogen (Auto) Negative Ur Leukocyte Esterase Negative Urine RBC 2 Urine WBC 5 Ur Squamous Epith Cells < 1 Urine Bacteria None Hyaline Casts < 1 Vancomycin Trough 06/26/24 06/27/24 06/27/24 16:36 04:04 07:35 WBC 21.1 H D RBC 2.85 L Hgb 8.1 L Hct 25.4 L MCV 89 MCH 28.4 MCHC 31.9 RDW Std Deviation 53.0 H Plt Count 463 H D Neut % (Auto) 83 H Lymph % (Auto) 9 L Russell % (Auto) 7 Eos % (Auto) 0 Baso % (Auto) 0 Neut # (Auto) 17.4 H Lymph # (Auto) 1.9 Russell # (Auto) 1.5 H Eos # (Auto) 0.0 Baso # (Auto) 0.0 Immature Gran # (Auto) 0.18 H Absolute Nucleated RBC 0.02 H Immature Gran % 1 H Nucleated RBC % 0 PT 11.3 INR 1.0 Puncture Site Right Radial ABG pH 7.33 L ABG pCO2 46 ABG pO2 90 ABG HCO3 24 ABG O2 Saturation 97 ABG Base Excess -2 FiO2 30 Sodium 142 144 Potassium 4.3 4.5 Chloride 112 H 113 H Carbon Dioxide 21.7 23.0 Anion Gap 8 8 BUN 39 H 36 H Creatinine 1.7 H 1.4 H Estim Creat Clear Calc 34.0 L 41.3 L eGFR 41 L 52 L BUN/Creatinine Ratio 23 H 26 H Glucose 134 H D [address] Glu mg/dL Hemoglobin A1c Calculated Osmolality 294 297 H Calcium 8.3 8.2 L Corrected Calcium 8.9 8.9 Phosphorus 4.1 Magnesium 2.9 H Iron TIBC Iron Saturation Unsat Iron Binding Ferritin Total Bilirubin 0.5 0.5 AST 30 46 H ALT 67 H 72 H Alkaline Phosphatase 90 97 B-Natriuretic Peptide Total Protein 5.6 L 5.5 L Albumin 3.2 L 3.1 L Globulin 2.4 2.4 Albumin/Globulin Ratio 1.3 1.3 Ur Collection Type Urine Color Urine Clarity Urine pH Ur Specific [place] Urine Protein Urine Glucose (UA) Urine Ketones Urine Blood Urine Nitrite Urine Bilirubin Urine Urobilinogen (Auto) Ur Leukocyte Esterase Urine RBC Urine WBC Ur Squamous Epith Cells Urine Bacteria Hyaline Casts Vancomycin Trough 06/27/24 08:30 WBC RBC Hgb Hct MCV MCH MCHC RDW Std Deviation Plt Count Neut % (Auto) Lymph % (Auto) Russell % (Auto) Eos % (Auto) Baso % (Auto) Neut # (Auto) Lymph # (Auto) Russell # (Auto) Eos # (Auto) Baso # (Auto) Immature Gran # (Auto) Absolute Nucleated RBC Immature Gran % Nucleated RBC % PT INR Puncture Site ABG pH ABG pCO2 ABG pO2 ABG HCO3 ABG O2 Saturation ABG Base Excess FiO2 Sodium Potassium Chloride Carbon Dioxide Anion Gap BUN Creatinine Estim Creat Clear Calc eGFR BUN/Creatinine Ratio Glucose Estimated Ave Glu mg/dL Hemoglobin A1c Calculated Osmolality Calcium Corrected Calcium Phosphorus Magnesium Iron TIBC Iron Saturation Unsat Iron Binding Ferritin Total Bilirubin AST ALT Alkaline Phosphatase B-Natriuretic Peptide Total Protein Albumin Globulin Albumin/Globulin Ratio Ur Collection Type Urine Color Urine Clarity Urine pH Ur Specific [place] Urine Protein Urine Glucose (UA) Urine Ketones Urine Blood Urine Nitrite Urine Bilirubin Urine Urobilinogen (Auto) Ur Leukocyte Esterase Urine RBC Urine WBC Ur Squamous Epith Cells Urine Bacteria Hyaline Casts Vancomycin Trough 6.4 ABG Interpretation ABG results: 06/24/24 06/25/24 06/25/24 09:51 11:35 16:44 ABG pH 7.42 7.44 7.25 L D ABG pCO2 34 28 L 52 H D ABG pO2 91 71 L D 82 L ABG HCO3 22 19 L 23 ABG O2 Saturation 98 94 94 ABG Base Excess -2 -5 L -4 L 06/26/24 06/27/24 07:08 07:35 ABG pH 7.34 L 7.33 L ABG pCO2 38 D 46 ABG pO2 91 90 ABG HCO3 21 24 ABG O2 Saturation 97 97 ABG Base Excess -5 L -2 Quality Measures Quality Measures sepsis Current suspected stage: sepsis Possible source: pulmonary Blood cultures ordered: yes Antibiotic ordered: Yes Advance care planning discussed with:: other Assessment & Plan Assessment Current Active Medications: Generic Name Dose Route Start Last Admin Trade Name Freq PRN Reason Stop Dose Admin Acetaminophen 1,000 mg 06/24/24 14:33 Acetaminophen 500 Mg Tablet PO 07/24/24 14:32 Q6H PRN Fever >100 or pain 1-3 Albuterol/Ipratropium 3 ml 06/26/24 07:00 06/27/24 06:23 Albuterol/Ipratropium (Duoneb) Rt Fior 3 Ml Nebu INH 07/26/24 06:59 3 ml Q4HRRT WILMER Administration Aspirin 81 mg 06/25/24 11:45 06/26/24 09:02 Aspirin Ec 81 Mg Tabec PO 07/25/24 11:44 81 mg QDAY WILMER Administration Aspirin 81 mg 06/27/24 09:00 Aspirin 81 Mg Chew NG 07/25/24 11:44 QDAY WILMER Dextrose 25 ml 06/26/24 07:46 Dextrose 50%-Water Inj 50 Ml Syringe IV 07/26/24 07:45 Q15MIN PRN BG 50-70 responsive npo pt Dextrose 50 ml 06/26/24 07:46 Dextrose 50%-Water Inj 50 Ml Syringe IV 07/26/24 07:45 Q15MIN PRN BG <50 OR BG <70 & pt unresponsive Enoxaparin Sodium 40 mg 06/25/24 11:45 06/26/24 09:02 Enoxaparin Sod Inj 40 Mg/0.4 Ml Syringe SC 07/09/24 11:44 40 mg QDAY WILMER Administration Glucagon 1 mg 06/26/24 07:46 Glucagon Inj 1 Mg Vial IM Q15MIN PRN BG <70, and no IV access Propofol 1,000 mg in 100 mls @ 2.585 mls/hr 06/25/24 14:32 06/27/24 07:00 Diprivan Ivpb IV 07/25/24 14:00 50 mcg/kg/min .Q24H PRN 25.855 mls/hr PER PROTOCOL Titration Protocol 5 MCG/KG/MIN Norepinephrine Bitartrate 16 mg in 250 mls @ 4.04 mls/hr 06/25/24 20:05 06/27/24 07:00 Levophed In Ns 16mg/250ml IV 07/25/24 20:04 0.03 mcg/kg/min .Q24H PRN 2.424 mls/hr PER PROTOCOL Titration Protocol 0.05 MCG/KG/MIN Fentanyl Citrate 2,500 mcg in 250 mls @ 2.5 mls/hr 06/26/24 11:23 06/27/24 07:00 Sublimaze Inj 2,500 Mcg/250 Ml Bag IV 06/30/24 18:09 275 mcg/hr .Q24H PRN 27.5 mls/hr PER PROTOCOL Titration Protocol 25 MCG/HR Ceftriaxone Sodium 1,000 mg/ 50 mls @ 100 mls/hr 06/27/24 09:00 Sodium Chloride IV 07/04/24 08:59 QDAY WILMER Lactated Ringer's 1,000 mls @ 50 mls/hr 06/27/24 08:54 Lactated Ringers IV 07/27/24 08:53 .Q20H [facility] Insulin Human Lispro 0 unit 06/26/24 14:00 06/27/24 06:20 Insulin Lispro (Admelog) 1 Unit/0.01 Ml Unit SC 07/26/24 13:59 Not Given Q4HR [facility] Protocol Lansoprazole 30 mg 06/27/24 09:00 Lansoprazole 30 Mg Tab.Rap.Dr BOLAÑOS 07/24/24 14:44 QDAY WILMER Ondansetron HCl 4 mg 06/24/24 14:33 Ondansetron Inj 2 Mg/Ml Inj 2 Ml IV 07/24/24 14:32 Q6H PRN NAUSEA OR VOMITING Protocol Oseltamivir Phosphate 30 mg 06/26/24 09:00 06/26/24 20:27 Oseltamivir 30 Mg Capsule PO 06/28/24 21:01 30 mg BID WILMER Administration Sennosides 1 tab 06/24/24 14:33 Senna Tablet PO 07/24/24 14:32 QDAY PRN constipation Protocol Sodium Chloride 3 ml 06/26/24 03:20 Sodium Chloride Rt Fior 0.9% 3 Ml Nebu INH 07/26/24 03:19 PRN PRN SOLN Plan Patient is a 74-year-old male with past medical history significant for Duong's palsy, deaf and nonverbal, schizophrenia, tobacco use, primary hypertension, AV first-degree block, GERD, CAD, COPD, chronic constipation, generalized anxiety disorder who presented to the ED with shortness of breath on 06/24/2024 and admitted to the hospital for AHRF. ICU was consulted after patient has presenting with severe respiratory distress requiring intubation. NEURO #Sedation for Mechanical Ventilation DDx: in the setting of hypoxia, hypercapnia, and respiratory acidosis with underlying chronic COPD exacerbation -On Propofol and Fentanyl for sedation, RAAS goal -4 -Patient's vent settings currently TV 400, PEEP 10, and RR 25. 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 not not being able to communicate No history of atrial fibrillation EKG done however there was no sign of AV block appreciated BNP slightly elevated at 225 Echo showed normal LV and RV function, with EF 55-60% -Continue to monitor on tele monitor -Keep Mag and potassium above 2 and 4 respectively -Continue aspirin 81 mg at this time -Tele monitor shows peaked T waves, consider ordering EKG if any irregularity in rhythm PULM #Acute hypoxic respiratory failure #Sepsis secondary to #Influenza pneumonia #Superimposed bacterial infection #History of COPD Patient does have baseline COPD, however 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 Tamiflu 30mg BID, renal dose ? Descalated Vanc and Cefepime to Ceftriaxone for a total of 5 days ? DuoNebs every 4 hours, PRN Q2HR ? Maintain oxygen 88 to 92% - Keep patient at ARDSnet goal of 6cc/kg TV - Try weaning sedation to see how patient tolerates for possible SBT today GI/FEN #Chronic Constipation -Will monitor for BM, and consider starting BM #GI prophylaxis with IV PPI #Tube feeds -Continue with tube feeds #Transaminitis Patient presented with elevated AST and ALT. DDx: in the setting of sepsis and recent Tamiflu use Hep panel negative -CTM RENAL #Acute respiratory acidosis-imprvoing Current ABG shows a pH of 7.33 with a PaCO2 of 46. -Will keep current vent settings as Vt 400, RR 25, FiO2 30% -Follow-up ABG in a.m. #LOUIS- improving Cr increased from 1 to 1.6 on 06/26/24 Most likely pre-renal vs intrinsic in the setting of sepsis and low BP and dehydration Less likely post-renal as patient able to urine with in&out cath -renally dose medications -avoid nephrotoxin agents -Gave a total of 1.5L bolus, and will continue with LR maintenance, initially at 125, now at 50cc/hr HEME/ONC #Leukocytosis-increasing Most likely in the setting of influenza and bacterial pneumonia and recent steroid use -On IV antibiotics -Pending sputum cx #Normocytic Anemia H&H stable Ferritin 100, Iron level 9, TIBC 203 in the setting of COPD -Consider iron tablet supplementation #Thrombocytosis-improving Reactive in setting of infection and aspirin use ENDO #Hyperglycemia-controlled Most likely elevated due to recent steroid use A1c is 5.2 Gave a x 1 of Lantus 5 units on 06/27/24 -Continue with SSI Q4HR and glucose checks Q4HR -Glucose goal 140-180 ID #Influenza pneumonia #Superimposed bacterial pneumonia -See above under pulmonary MSK Stable PSYCH #History of ARIANNA #History of schizophrenia ? Will resume home medicines upon med rec Health Maintenance: DVT prophylaxis: Lovenox 40mg SC, if Cr Cl less than 30 than change to Heparin SC Diet: Continue with tube feeds via OG tube Cespedes: Yes Lines: PIV Drips: Propofol, Fentanyl Vent: Tidal volume 400, respiratory rate 28, PEEP 10, FiO2 30% CODE STATUS: Full code Disposition: Admitted to ICU for AHRF requiring intubation. Patient's plan and care discussed with my attending, Dr. Kelby Springer MD PGY-2
[2024-06-27] MEDS: PROPOFOL 1,000 MG IVPB 1,000 MG/100 ML VIAL 15.513 MG IV (09:38)
[2024-06-27] MEDS: ENOXAPARIN SOD INJ 40 MG/0.4 ML SYRINGE SC (09:39)
[2024-06-27] MEDS: cefTRIAXone 1,000 MG in SODIUM CHLORIDE 0.9% (P) 50 ML 100 MG IV (09:39)
[2024-06-27] MEDS: ASPIRIN 81 MG CHEW NG (09:39)
[2024-06-27] MEDS: LANSOPRAZOLE 30 MG TAB.RAP.DR NG (09:39)
[2024-06-27] MEDS: OSELTAMIVIR 30 MG CAPSULE PO ×2 (09:42→21:58)
[2024-06-27] MEDS: DEXMEDETOMIDINE 200 MCG IVPB 200 MCG/50 ML BOTTLE IV (11:16)
--- NOTE | 2024-06-27 13:53 | PC.NURSE ---
Fentanyl off at 1300, at bedside
[2024-06-27] MEDS: DEXMEDETOMIDINE 200 MCG IVPB 200 MCG/50 ML BOTTLE 8.8 MCG IV (15:10)
[2024-06-27] MEDS: PROPOFOL 1,000 MG IVPB 1,000 MG/100 ML VIAL 15.84 MG IV ×2 (16:04→22:23)
--- NOTE | 2024-06-27 16:58 | PC.SS ---
Update: Patient remains intubated. Plan is to wean patient's sedation. Patient receiving IV antibiotics. WBC is improving.
[2024-06-27] MEDS: DEXMEDETOMIDINE 200 MCG IVPB 200 MCG/50 ML BOTTLE 13.2 MCG IV (19:17)
--- NOTE | 2024-06-27 21:05 | PC.RT ---
Vent change upon arrival to ICU, pt was noted to have increased WOB, severely dyssynchronous with ventilator with audible intermittent alarms sounding. upon reviewing vent logs, this dyssynchrony and accompanying alarm history had been going on for several hours. vent settings were adjusted by me to decrease WOB and obtain adequate vent synchrony. Once the appropriate settings were realized, I immediately informed the residents. The attending was made aware, along with my rationale and findings pre and post vent changes, and the vent changes were ok'd . Orders updated to reflect change. Pt on settings as documented. will continue to monitor
[2024-06-27] MEDS: INSULIN LISPRO (AdmeLOG) 1 UNIT/0.01 ML UNIT SC (22:34)
[2024-06-27] MEDS: DEXMEDETOMIDINE 200 MCG IVPB 200 MCG/50 ML BOTTLE 17.6 MCG IV (23:00)
[2024-06-27] MEDS: RINGERS LACTATED 1000 ML 1,000 ML 50 ML IV (23:41)
[2024-06-28] VITALS (107 sets, daily range): BP systolic 112–171; BP diastolic 53–86; PULSE 55–89; RESP 11–30; TEMP 36.4–37.2; O2SAT 86–100; BMI 36.5
[2024-06-28] MEDS: MIDAZOLAM INJ 1 MG/ML VIAL 2 ML 2 MG IV (00:32)
[2024-06-28] MEDS: ALBUTEROL/IPRATROPIUM (Duoneb) RT SOL 3 ML NEBU INH ×6 (02:30→22:50)
[2024-06-28] MEDS: DEXMEDETOMIDINE 200 MCG IVPB 200 MCG/50 ML BOTTLE 17.6 MCG IV ×2 (02:33→04:57)
[2024-06-28] MEDS: PROPOFOL 1,000 MG IVPB 1,000 MG/100 ML VIAL 15.84 MG IV (06:00)
--- NOTE | 2024-06-28 07:31 | XR_ITS ---
Examination: AP chest single view Technique one AP portable semiupright chest single view Exam date and time: June 28, 2024 0804 hours Comparison June 26, 2024 INDICATIONS: Hypoxic respiratory failure, influenza shortness of breath this week FINDINGS: Severe bilateral lung opacity Endotracheal tube tip 3.4 cm above taylor Normal heart size Orogastric tube in stomach Prominent osteopenia IMPRESSION: Severe bilateral pneumonia ARDS pattern again noted
[2024-06-28 07:48] LABS: Basophils % (Auto) 0 % (0-2.5); Eosinophils % (Auto) 0 % (0-10); Hematocrit 23.4 % (41.0-53.0); Immature Granulocytes % (Auto) 1 % (0-0); Immature Granulocytes Auto 0.19 Thou/mm3 (0.00-0.00); Lymphocytes # (Auto) 1.5 Thou/mm3 (1.0-4.8); Lymphocytes % (Auto) 9 % (10-50); Mean Corpuscular HGB Conc 32.9 g/dl (31.0-37.0); Mean Corpuscular Hemoglobin 28.8 pg (25.0-35.0); Mean Corpuscular Volume 88 fL (80-100); Monocytes % (Auto) 6 % (0-12); Neutrophils # (Auto) 14.3 Thou/mm3 (1.8-7.7); Neutrophils % (Auto) 84 % (37-80); Nucleated Red Blood Cell # 0.02 Thou/mm3 (0.00-0.00); Nucleated Red Blood Cell % 0 /100 WBC (0); Platelet Count 345 Thou/mm3 (140-440); RDW Standard Deviation 52.3 fL (35.1-43.9); Red Blood Count 2.67 Miln/mm3 (4.50-5.90)
[2024-06-28] MEDS: DEXMEDETOMIDINE 200 MCG IVPB 200 MCG/50 ML BOTTLE 30.8 MCG IV ×3 (07:48→20:17)
--- NOTE | 2024-06-28 07:49 | ESPR_ITS ---
<Statement entered by Clint Lama MD - 06/29/24 08:16> TOTAL TIME: 45MINUTES ON DIRECT MEDICAL CARE, MANAGEMENT - COORDINATION AND COUNSELING > 50% OF TOTAL TIME I saw and evaluated the patient. I reviewed the resident?s note and agree with findings and plan as documented in the resident?s note. Improving, less respiratory distress but remains on sedation. Will attempt trial of Lasix given remains hypoxic with saturations in the high 80% and low 90% range on 35% FiO2. Hopeful to extubate soon but not quite ready especially given the patient's baseline encephalopathy. Documentation for date of: 06/28/24 Subjective Subjective Interval history: Patient is a 74-year-old male with past medical history significant for Duong's palsy, deaf and nonverbal, schizophrenia, tobacco use, primary hypertension, AV first-degree block, GERD, CAD, COPD, chronic constipation, generalized anxiety disorder who presented to the ED with shortness of breath on 06/24/2024. Throughout hospital stay, patient was very hypoxic and wheezing on physical exam and was placed on BiPAP. Patient also tested positive for influenza A and started on vancomycin and cefepime for superimposed bacterial infection. ICU was consulted after patient has presenting with severe respiratory distress and pulling tidal volumes of 800-12 100 on BiPAP. Patient was intubated for acute hypoxic respiratory failure. 06/26/24: Overnight, patient had a total urine output of 500 cc. Patient was unable to urinate on his own, and bladder scan showed 450 cc, and was able to be removed with an in&out cath. Patient was hypotensive overnight, and was started on Levophed. Patient also is bradycardic, most likely secondary to propofol. Tmax was 99.7. Patient has not spiked a fever since 2/10 a.m. Patient's white count increased from 23.43 6.7, and thrombocytosis increased to 540. Will change patient's vent settings to tidal volume of 400, respiration rate 25, PEEP of 10, and FiO2 of 50%. Will continue with IV Vanco and cefepime, but renal dose. Gram stain showed 2+ WBC. MRSA was negative, however will keep vancomycin after sputum culture from ET tube returns. Patient's blood sugar was little elevated today and started 5 Lantus and sliding scale, and will start tube feeds. LOUIS increased Cr 1 to 1.6, will ensure medications are renally dose, and give a LR bolus of 500cc and will start tube feeds. 06/27/24: Overnight, patient had a total urine output of 700cc overnight. Patient received a total of 3.25L LR. ABG continues to show respiratory acidosis that has remained about the same. Plan today is to try titrating his sedation and see how patient tolerates. Will descalate Abx to IV Ceftiraxone as all cultures returned negative including sputum culture and WBC is improving. Patient will require a total of 5 days of IV Abx. Will continue with straight ins and outs Q4H and continue LR at 50cc/hr and tube feeds. 06/28/24: Overnight, patient was given Versed push due to feeling agitated. Patient has been off fentanyl drip sedated with propofol 35 mcg along with Precedex. Patient was initially on vent settings of SIMV PRVC with a TI time of 1.3 and a PEEP of 10, respiration rate 25 and transition to pressure support, doing well on a RASS of 0. Due to patient's decreased elasticity and obstructive lung process, patient has been having a prolonged expiratory time with an increased MACKENZIE ratio. Will give Lasix IV 20 times 1 in the afternoon and in the evening to help with his O2 reserve. Will discontinue his fluids and continue his tube feeds. Will plan to extubate patient tomorrow. Will follow- up repeat ABG in the morning. Exam Vital Signs Temp Pulse Resp BP Pulse Ox O2 Del Method O2 Flow Rate 97.5 F 72 23 H 154/69 H 98 Mechanical Ventilation 15 06/28/24 04:01 06/28/24 06:15 06/28/24 06:12 06/28/24 06:15 06/28/24 06:15 06/26/24 16:00 06/25/24 08:19 FiO2 40 06/28/24 06:12 Narrative Exam General Appearance: Elderly gentleman, obese, intubated and sedated. Arousable to movement and sternal rub. HEENT: NC/AT, no scleral icterus, dry MM Lungs: clear to auscultation of right lung and diminished lung sounds on Left base CVS: RRR, S1/S2 heard, no murmurs or rubs appreciated ABD: Soft, non-tender, obese, non-distended, BS + EXT: no deformity/edema/lesions/cyanosis/clubbing, pedal pulses 2+ bilaterally SKIN: Skin exam normal without any rashes. Neuro: Intubated and sedated. Objective Labs 06/28/24 07:20 06/28/24 13:47 Labs: Laboratory Results - last 24 hr 06/27/24 08:30 Vancomycin Trough 6.4 ABG Interpretation ABG results: 06/24/24 06/25/24 06/25/24 09:51 11:35 16:44 ABG pH 7.42 7.44 7.25 L D ABG pCO2 34 28 L 52 H D ABG pO2 91 71 L D 82 L ABG HCO3 22 19 L 23 ABG O2 Saturation 98 94 94 ABG Base Excess -2 -5 L -4 L 06/26/24 06/27/24 07:08 07:35 ABG pH 7.34 L 7.33 L ABG pCO2 38 D 46 ABG pO2 91 90 ABG HCO3 21 24 ABG O2 Saturation 97 97 ABG Base Excess -5 L -2 Quality Measures Quality Measures sepsis Current suspected stage: sepsis Possible source: pulmonary Blood cultures ordered: yes Antibiotic ordered: No Advance care planning discussed with:: legal surragate Assessment & Plan Assessment Current Active Medications: Generic Name Dose Route Start Last Admin Trade Name Freq PRN Reason Stop Dose Admin Acetaminophen 1,000 mg 06/24/24 14:33 Acetaminophen 500 Mg Tablet PO 07/24/24 14:32 Q6H PRN Fever >100 or pain 1-3 Albuterol/Ipratropium 3 ml 06/26/24 07:00 06/28/24 06:11 Albuterol/Ipratropium (Duoneb) Rt Fior 3 Ml Nebu INH 07/26/24 06:59 3 ml Q4HRRT WILMER Administration Albuterol/Ipratropium 3 ml 06/27/24 11:13 06/27/24 11:18 Albuterol/Ipratropium (Duoneb) Rt Fior 3 Ml Nebu INH 07/27/24 11:12 3 ml Q2HR PRN Administration SHORTNESS OF BREATH OR WHEEZE Aspirin 81 mg 06/27/24 09:00 06/27/24 09:39 Aspirin 81 Mg Chew NG 07/25/24 11:44 81 mg QDAY WILMER Administration Dextrose 25 ml 06/26/24 07:46 Dextrose 50%-Water Inj 50 Ml Syringe IV 07/26/24 07:45 Q15MIN PRN BG 50-70 responsive npo pt Dextrose 50 ml 06/26/24 07:46 Dextrose 50%-Water Inj 50 Ml Syringe IV 07/26/24 07:45 Q15MIN PRN BG <50 OR BG <70 & pt unresponsive Enoxaparin Sodium 40 mg 06/25/24 11:45 06/27/24 09:39 Enoxaparin Sod Inj 40 Mg/0.4 Ml Syringe SC 07/09/24 11:44 40 mg QDAY WILMER Administration Glucagon 1 mg 06/26/24 07:46 Glucagon Inj 1 Mg Vial IM Q15MIN PRN BG <70, and no IV access Norepinephrine Bitartrate 16 mg in 250 mls @ 4.04 mls/hr 06/25/24 20:05 06/27/24 10:45 Levophed In Ns 16mg/250ml IV 07/25/24 20:04 0 mcg/kg/min .Q24H PRN 0 mls/hr PER PROTOCOL Titration Protocol 0.05 MCG/KG/MIN Ceftriaxone Sodium 1,000 mg/ 50 mls @ 100 mls/hr 06/27/24 09:00 06/27/24 09:39 Sodium Chloride IV 06/28/24 09:29 100 mls/hr QDAY WILMER Administration Lactated Ringer's 1,000 mls @ 50 mls/hr 06/27/24 08:54 06/27/24 23:41 Lactated Ringers IV 07/27/24 08:53 50 mls/hr .Q20H WILMER Administration Dexmedetomidine/Sodium Chloride 200 mcg in 50 mls @ 4.4 mls/hr 06/27/24 11:07 06/28/24 06:00 Precedex Ivpb IV 07/27/24 11:06 0.8 mcg/kg/hr .[id number] PRN 17.6 mls/hr Per PROTOCOL Titration Protocol 0.2 MCG/KG/HR Fentanyl Citrate 2,500 mcg in 250 mls @ 2.5 mls/hr 06/27/24 11:08 Sublimaze Inj 2,500 Mcg/250 Ml Bag IV 06/30/24 18:09 .Q24H PRN PER PROTOCOL Protocol 25 MCG/HR Propofol 1,000 mg in 100 mls @ 2.64 mls/hr 06/27/24 11:08 06/28/24 06:00 Diprivan Ivpb IV 07/25/24 14:00 30 mcg/kg/min .Q24H PRN 15.84 mls/hr PER PROTOCOL Administration Protocol 5 MCG/KG/MIN Insulin Human Lispro 0 unit 06/26/24 14:00 06/28/24 06:12 Insulin Lispro (Admelog) 1 Unit/0.01 Ml Unit SC 07/26/24 13:59 Not Given Q4HR WILMER Protocol Lansoprazole 30 mg 06/27/24 09:00 06/27/24 09:39 Lansoprazole 30 Mg Tab.Rap.Dr BOLAÑOS 07/24/24 14:44 30 mg QDAY WILMER Administration Methylprednisolone Sodium Succinate 32 mg 06/27/24 11:45 06/27/24 11:45 Methylprednisolone Sod Succ 40 Mg Vial IVP 07/02/24 11:44 32 mg QDAY WILMER Administration Ondansetron HCl 4 mg 06/24/24 14:33 Ondansetron Inj 2 Mg/Ml Inj 2 Ml IV 07/24/24 14:32 Q6H PRN NAUSEA OR VOMITING Protocol Oseltamivir Phosphate 30 mg 06/26/24 09:00 06/27/24 21:58 Oseltamivir 30 Mg Capsule PO 06/28/24 21:01 30 mg BID WILMER Administration Sennosides 1 tab 06/24/24 14:33 Senna Tablet PO 07/24/24 14:32 QDAY PRN constipation Protocol Sodium Chloride 3 ml 06/26/24 03:20 Sodium Chloride Rt Fior 0.9% 3 Ml Nebu INH 07/26/24 03:19 PRN PRN SOLN Plan Patient is a 74-year-old male with past medical history significant for Duong's palsy, deaf and nonverbal, schizophrenia, tobacco use, primary hypertension, AV first-degree block, GERD, CAD, COPD, chronic constipation, generalized anxiety disorder who presented to the ED with shortness of breath on 06/24/2024 and admitted to the hospital for AHRF. ICU was consulted after patient has presenting with severe respiratory distress requiring intubation. NEURO #Sedation for Mechanical Ventilation DDx: in the setting of hypoxia, hypercapnia, and respiratory acidosis with underlying chronic COPD exacerbation -On Propofol for sedation, RAAS goal 0 -On Precedex for agitation, RASS goal of 0 -Patient's vent settings currently on pressure support, FiO2 35% -Currently weaning sedation parameters to see how patient tolerates, will plan extubation tomorrow #Deaf and nonverbal CARDIO #Bradycardia?resolved most likely in the setting of propofol sedation #Elevated Troponin-resolved most likely in the setting of demand ischemia Troponin peaked at .110, and downtrended #History of essential hypertension #History of CAD #Hx of AV block first-degree History of CAD, however 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 No history of atrial fibrillation EKG done however there was no sign of AV block appreciated BNP slightly elevated at 225 Echo showed normal LV and RV function, with EF 55-60% -Continue to monitor on tele monitor -Keep Mag and potassium above 2 and 4 respectively -Continue aspirin 81 mg at this time -Tele monitor shows peaked T waves, consider ordering EKG if any irregularity in rhythm PULM #Acute hypoxic respiratory failure due to Influenza pneumonia #Sepsis #History of COPD Patient does have baseline COPD, however 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 Last dose of Tamiflu 30mg BID, renal dose ? Descalated Vanc and Cefepime to Ceftriaxone for a total of 5 days ? DuoNebs every 4 hours, PRN Q2HR ? Maintain oxygen 88 to 92% - Keep patient at [employer]DS[employer] goal of 6cc/kg TV - Plan to extubate tomorrow, on pressure support with FiO2 35% - Give Lasix 20 IV twice daily to help increase his O2 reserve which will help with extubation tomorrow - Continue with daily steroids for a total of 5 days - May need to discuss goals of care with patient's conservator if signs of failed extubation shown in regards to re-intubation GI/FEN #Chronic Constipation -Will monitor for BM, and consider starting BM #GI prophylaxis with IV PPI #Tube feeds -Continue with tube feeds #Transaminitis?stable Patient presented with elevated AST and ALT. DDx: in the setting of sepsis and recent Tamiflu use Hep panel negative -CTM RENAL #Acute respiratory acidosis-improving Current ABG shows a pH of 7.33 with a PaCO2 of 46. -Will keep current vent settings on pressure support with FiO2 of 35% -Follow-up ABG in a.m. #LOUIS- improving Cr increased from 1 to 1.6 on 06/26/24 Most likely pre-renal vs intrinsic in the setting of sepsis and low BP and dehydration Less likely post-renal as patient able to urine with in&out cath -renally dose medications -avoid nephrotoxin agents -Gave a total of 1.5L bolus, and will continue with LR maintenance, initially at 125, now at 50cc/hr -DC'd fluids HEME/ONC #Leukocytosis-improving Most likely in the setting of influenza and bacterial pneumonia and recent steroid use #Normocytic Anemia?stable H&H stable Ferritin 100, Iron level 9, TIBC 203 in the setting of COPD -Consider iron tablet supplementation #Thrombocytosis-stable Reactive in setting of infection and aspirin use ENDO #Hyperglycemia-stable Most likely elevated due to recent steroid use A1c is 5.2 Gave a x 1 of Lantus 5 units on 06/27/24 -Continue with SSI Q4HR and glucose checks Q4HR -Glucose goal 140-180 ID #Influenza pneumonia #Superimposed bacterial pneumonia -See above under pulmonary MSK Stable PSYCH #History of ARIANNA #History of schizophrenia ? Will resume home medicines upon med rec Health Maintenance: DVT prophylaxis: Lovenox 40mg SC Diet: Continue with tube feeds via OG tube Cespedes: Yes Lines: PIV Drips: Propofol, Precedex Vent: Pressure support, on FiO2 35% CODE STATUS: Full code Disposition: Admitted to ICU for AHRF requiring intubation. Patient's plan and care discussed with my attending, Dr. Kelby Springer MD PGY-2
[2024-06-28 08:04] LABS: Alanine Aminotransferase 75 U/L (10-49); Albumin, Serum 3.1 gm/dL (3.4-4.8); Albumin/Globulin Ratio 1.3 (1.2-2.2); Alkaline Phosphatase 98 U/L (46-116); Anion Gap 7 (7-16); Aspartate Amino Transferase 40 U/L (0-34); BUN/Creatinine Ratio 36 Ratio (12-20); Bilirubin,Total 0.3 mg/dL (0.3-1.2); Blood Urea Nitrogen 40 mg/dL (9-23); Calcium 8.1 mg/dL (8.3-10.6); Calcium (Corrected) 8.8 mg/dL (8.5-10.1); Carbon Dioxide 22.9 mMol/L (20.0-31.0); Chloride 115 mMol/L (98-107); Creatinine (Component) 1.1 mg/dL (0.6-1.3); Estimated Creatinine Clearance 54.4 mL/min (>60); Globulin 2.3 gm/dL (2.3-3.5); Glucose 129 mg/dL (74-106); Magnesium 2.8 mg/dL (1.6-2.6); Osmolality,Calculated 300 (275-295); Potassium 4.7 mMol/L (3.4-5.1); Sodium 145 mMol/L (136-145); Total Protein 5.4 gm/dL (5.7-8.2); eGFR > 60 See Note
[2024-06-28 09:13] LABS: Hemoglobin 7.7 g/dL (13.5-16.0)
[2024-06-28] MEDS: ASPIRIN 81 MG CHEW NG (09:17)
[2024-06-28] MEDS: ENOXAPARIN SOD INJ 40 MG/0.4 ML SYRINGE SC (09:18)
[2024-06-28] MEDS: OSELTAMIVIR 30 MG CAPSULE PO ×2 (09:18→21:45)
[2024-06-28] MEDS: cefTRIAXone 1,000 MG in SODIUM CHLORIDE 0.9% (P) 50 ML 100 MG IV (09:18)
[2024-06-28] MEDS: LANSOPRAZOLE 30 MG TAB.RAP.DR NG (09:18)
[2024-06-28] MEDS: FUROSEMIDE INJ 10 MG/ML 4ML VIAL 20 MG IVP (10:17)
[2024-06-28] MEDS: DEXMEDETOMIDINE 200 MCG IVPB 200 MCG/50 ML BOTTLE 26.4 MCG IV ×5 (11:35→21:54)
[2024-06-28 13:03] LABS: Base Excess 1 (-3-3); HCO3 25 mEq/L (20-26); Inspired Oxygen, FIO2 35 %; O2 Saturation 100 % (91-98); PCO2 39 mmHg (32.0-48.0); PO2 156 mmHg (83-108); pH, Arterial 7.42 (7.35-7.45)
[2024-06-28 13:10] LABS: Allen Test Performed/OK; Puncture Site Right Radial
[2024-06-28] MEDS: PROPOFOL 1,000 MG IVPB 1,000 MG/100 ML VIAL 13.2 MG IV (13:30)
[2024-06-28 14:19] LABS: Alanine Aminotransferase 78 U/L (10-49); Albumin, Serum 3.2 gm/dL (3.4-4.8); Albumin/Globulin Ratio 1.3 (1.2-2.2); Alkaline Phosphatase 112 U/L (46-116); Anion Gap 7 (7-16); Aspartate Amino Transferase 39 U/L (0-34); BUN/Creatinine Ratio 33 Ratio (12-20); Bilirubin,Total 0.5 mg/dL (0.3-1.2); Blood Urea Nitrogen 36 mg/dL (9-23); Calcium 8.2 mg/dL (8.3-10.6); Calcium (Corrected) 8.8 mg/dL (8.5-10.1); Chloride 111 mMol/L (98-107); Creatinine (Component) 1.1 mg/dL (0.6-1.3); Estimated Creatinine Clearance 54.4 mL/min (>60); Globulin 2.4 gm/dL (2.3-3.5); Glucose 187 mg/dL (74-106); Osmolality,Calculated 296 (275-295); Potassium 4.8 mMol/L (3.4-5.1); Sodium 142 mMol/L (136-145); Total Protein 5.6 gm/dL (5.7-8.2); eGFR > 60 See Note
[2024-06-28] MEDS: INSULIN LISPRO (AdmeLOG) 1 UNIT/0.01 ML UNIT SC ×3 (14:36→22:57)
--- NOTE | 2024-06-28 15:59 | PC.SS ---
SS update: patient to continue receiving IV abx.
[2024-06-28] MEDS: PROPOFOL 1,000 MG IVPB 1,000 MG/100 ML VIAL 18.48 MG IV (18:01)
[2024-06-28] MEDS: FUROSEMIDE INJ 10 MG/ML VIAL 2 ML 20 MG IVP (21:44)
[2024-06-29] VITALS (34 sets, daily range): BP systolic 113–164; BP diastolic 42–77; PULSE 53–76; RESP 20–35; TEMP 35.7–37.2; O2SAT 60–100
[2024-06-29] MEDS: DEXMEDETOMIDINE 200 MCG IVPB 200 MCG/50 ML BOTTLE 26.4 MCG IV (00:07)
[2024-06-29] MEDS: PROPOFOL 1,000 MG IVPB 1,000 MG/100 ML VIAL 21.12 MG IV ×2 (00:52→04:50)
[2024-06-29] MEDS: DEXMEDETOMIDINE 200 MCG IVPB 200 MCG/50 ML BOTTLE 17.6 MCG IV ×2 (02:28→05:44)
[2024-06-29] MEDS: ALBUTEROL/IPRATROPIUM (Duoneb) RT SOL 3 ML NEBU INH ×7 (02:40→22:40)
[2024-06-29 04:43] LABS: Base Excess 2 (-3-3); HCO3 26 mEq/L (20-26); Inspired Oxygen, FIO2 21 %; O2 Saturation 95 % (91-98); PCO2 38 mmHg (32.0-48.0); PO2 74 mmHg (83-108); pH, Arterial 7.45 (7.35-7.45)
[2024-06-29 04:55] LABS: Allen Test Performed/OK; Puncture Site Left Radial
[2024-06-29 05:26] LABS: Basophils % (Auto) 0 % (0-2.5); Eosinophils # (Auto) 0.1 Thou/mm3 (0.0-0.5); Eosinophils % (Auto) 0 % (0-10); Hematocrit 24.7 % (41.0-53.0); Immature Granulocytes % (Auto) 2 % (0-0); Immature Granulocytes Auto 0.42 Thou/mm3 (0.00-0.00); Lymphocytes # (Auto) 1.6 Thou/mm3 (1.0-4.8); Lymphocytes % (Auto) 8 % (10-50); Mean Corpuscular HGB Conc 33.2 g/dl (31.0-37.0); Mean Corpuscular Hemoglobin 28.9 pg (25.0-35.0); Mean Corpuscular Volume 87 fL (80-100); Monocytes # (Auto) 1.1 Thou/mm3 (0.0-0.8); Monocytes % (Auto) 5 % (0-12); Neutrophils # (Auto) 16.4 Thou/mm3 (1.8-7.7); Neutrophils % (Auto) 84 % (37-80); Nucleated Red Blood Cell # 0.02 Thou/mm3 (0.00-0.00); Nucleated Red Blood Cell % 0 /100 WBC (0); Platelet Count 422 Thou/mm3 (140-440); Red Blood Count 2.84 Miln/mm3 (4.50-5.90); White Blood Count 19.6 Thou/mm3 (3.8-10.6)
[2024-06-29 05:31] LABS: Hemoglobin 8.2 g/dL (13.5-16.0)
[2024-06-29 06:50] LABS: Alanine Aminotransferase 62 U/L (10-49); Albumin, Serum 3.1 gm/dL (3.4-4.8); Albumin/Globulin Ratio 1.3 (1.2-2.2); Alkaline Phosphatase 106 U/L (46-116); Anion Gap 8 (7-16); Aspartate Amino Transferase 31 U/L (0-34); BUN/Creatinine Ratio 40 Ratio (12-20); Bilirubin,Total 0.4 mg/dL (0.3-1.2); Blood Urea Nitrogen 36 mg/dL (9-23); Calcium 8.4 mg/dL (8.3-10.6); Calcium (Corrected) 9.1 mg/dL (8.5-10.1); Carbon Dioxide 24.2 mMol/L (20.0-31.0); Chloride 112 mMol/L (98-107); Creatinine (Component) 0.9 mg/dL (0.6-1.3); Estimated Creatinine Clearance 64.9 mL/min (>60); Globulin 2.3 gm/dL (2.3-3.5); Glucose 121 mg/dL (74-106); Magnesium 2.3 mg/dL (1.6-2.6); Osmolality,Calculated 296 (275-295); Potassium 4.2 mMol/L (3.4-5.1); Sodium 144 mMol/L (136-145); Total Protein 5.4 gm/dL (5.7-8.2); eGFR > 60 See Note
[2024-06-29] MEDS: DEXMEDETOMIDINE 200 MCG IVPB 200 MCG/50 ML BOTTLE 30.8 MCG IV ×3 (08:24→13:31)
[2024-06-29] MEDS: ENOXAPARIN SOD INJ 40 MG/0.4 ML SYRINGE SC (08:26)
[2024-06-29] MEDS: ASPIRIN 81 MG CHEW NG (08:26)
[2024-06-29] MEDS: LANSOPRAZOLE 30 MG TAB.RAP.DR NG (08:26)
[2024-06-29] MEDS: predniSONE 20 MG TABLET 40 MG PO (08:26)
[2024-06-29] MEDS: PROPOFOL 1,000 MG IVPB 1,000 MG/100 ML VIAL 26.4 MG IV ×4 (09:49→22:55)
--- NOTE | 2024-06-29 10:41 | ESPR_ITS ---
<Statement entered by Clint Lama MD - 06/30/24 10:32> TOTAL CC TIME: 45 MIN I saw and evaluated the patient. I reviewed the resident?s note and agree with findings and plan as documented in the resident?s note. Upon my evaluation, this patient had a high probability of imminent or life- threatening deterioration due to acute hypoxic respiratory failure, ARDS which required my direct attention, intervention, and personal management. This time is exclusive of time spent on procedures, which are documented separately if performed. Remains on pressure support ventilation but minute ventilation was high and patient is still not able to be successfully extubated due to increased work of breathing. Discussed goals of care with Dr. Chad Cooney. Patient is under conservatorship. Was fairly high functioning with mild cognitive impairment baseline history. Remains full code However Dr. Cooney does not believe that tracheostomy would be beneficial in terms of long-term care. Documentation for date of: 06/29/24 Subjective Subjective Interval history: Patient is a 74-year-old male with past medical history significant for Duong's palsy, deaf and nonverbal, schizophrenia, tobacco use, primary hypertension, AV first-degree block, GERD, CAD, COPD, chronic constipation, generalized anxiety disorder who presented to the ED with shortness of breath on 06/24/2024. Throughout hospital stay, patient was very hypoxic and wheezing on physical exam and was placed on BiPAP. Patient also tested positive for influenza A and started on vancomycin and cefepime for superimposed bacterial infection. ICU was consulted after patient has presenting with severe respiratory distress and pulling tidal volumes of 800-12 100 on BiPAP. Patient was intubated for acute hypoxic respiratory failure. 06/26/24: Overnight, patient had a total urine output of 500 cc. Patient was unable to urinate on his own, and bladder scan showed 450 cc, and was able to be removed with an in&out cath. Patient was hypotensive overnight, and was started on Levophed. Patient also is bradycardic, most likely secondary to propofol. Tmax was 99.7. Patient has not spiked a fever since 2/10 a.m. Patient's white count increased from 23.43 6.7, and thrombocytosis increased to 540. Will change patient's vent settings to tidal volume of 400, respiration rate 25, PEEP of 10, and FiO2 of 50%. Will continue with IV Vanco and cefepime, but renal dose. Gram stain showed 2+ WBC. MRSA was negative, however will keep vancomycin after sputum culture from ET tube returns. Patient's blood sugar was little elevated today and started 5 Lantus and sliding scale, and will start tube feeds. LOUIS increased Cr 1 to 1.6, will ensure medications are renally dose, and give a LR bolus of 500cc and will start tube feeds. 06/27/24: Overnight, patient had a total urine output of 700cc overnight. Patient received a total of 3.25L LR. ABG continues to show respiratory acidosis that has remained about the same. Plan today is to try titrating his sedation and see how patient tolerates. Will descalate Abx to IV Ceftiraxone as all cultures returned negative including sputum culture and WBC is improving. Patient will require a total of 5 days of IV Abx. Will continue with straight ins and outs Q4H and continue LR at 50cc/hr and tube feeds. 06/28/24: Overnight, patient was given Versed push due to feeling agitated. Patient has been off fentanyl drip sedated with propofol 35 mcg along with Precedex. Patient was initially on vent settings of SIMV PRVC with a TI time of 1.3 and a PEEP of 10, respiration rate 25 and transition to pressure support, doing well on a RASS of 0. Due to patient's decreased elasticity and obstructive lung process, patient has been having a prolonged expiratory time with an increased MACKENZIE ratio. Will give Lasix IV 20 times 1 in the afternoon and in the evening to help with his O2 reserve. Will discontinue his fluids and continue his tube feeds. Will plan to extubate patient tomorrow. Will follow- up repeat ABG in the morning. 06/29/24: Overnight, patient was given IV Lasix 20mg which helped with his O2 reserve. However, on examination today, patient continues to have increased work of breathing on pressure support. Will have to have a conversation with Dr. Cooney, patient's conservator regarding patient's CODE STATUS given his current respiratory status on safely tolerating extubation. Patient will get his last dose of steroids today, and is tolerating tube feeds well. Exam Vital Signs Temp Pulse Resp BP Pulse Ox O2 Del Method O2 Flow Rate 98.3 F 61 26 H 118/56 L 100 Mechanical Ventilation 15 06/29/24 07:00 06/29/24 10:16 06/29/24 10:16 06/29/24 10:00 06/29/24 10:16 06/29/24 07:00 06/25/24 08:19 FiO2 40 06/29/24 10:16 Narrative Exam General Appearance: Elderly gentleman, obese, intubated and sedated. Arousable to movement and sternal rub. HEENT: NC/AT, no scleral icterus, dry MM, edentulous Lungs: clear to auscultation b/l CVS: RRR, S1/S2 heard, no murmurs or rubs appreciated ABD: Soft, non-tender, obese, non-distended, BS + EXT: no deformity/edema/lesions/cyanosis/clubbing, pedal pulses 2+ bilaterally SKIN: Skin exam normal without any rashes. Neuro: Intubated and sedated. Objective Labs 06/29/24 05:00 06/29/24 05:00 Labs: Laboratory Results - last 24 hr 06/28/24 06/28/24 06/29/24 12:54 13:47 04:27 WBC RBC Hgb Hct MCV MCH MCHC RDW Std Deviation Plt Count Neut % (Auto) Lymph % (Auto) [place] % (Auto) Eos % (Auto) Baso % (Auto) Neut # (Auto) Lymph # (Auto) [place] # (Auto) Eos # (Auto) Baso # (Auto) Immature Gran # (Auto) Absolute Nucleated RBC Immature Gran % Nucleated RBC % Puncture Site Right Radial Left Radial ABG pH 7.42 7.45 ABG pCO2 39 38 ABG pO2 156 H D 74 L D ABG HCO3 25 26 ABG O2 Saturation 100 H 95 ABG Base Excess 1 2 FiO2 35 21 Sodium 142 Potassium 4.8 Chloride 111 H Carbon Dioxide 24.0 Anion Gap 7 BUN 36 H Creatinine 1.1 Estim Creat Clear Calc 54.4 L eGFR > 60 BUN/Creatinine Ratio 33 H Glucose 187 H D Calculated Osmolality 296 H Calcium 8.2 L Corrected Calcium 8.8 Magnesium Total Bilirubin 0.5 AST 39 H ALT 78 H Alkaline Phosphatase 112 Total Protein 5.6 L Albumin 3.2 L Globulin 2.4 Albumin/Globulin Ratio 1.3 06/29/24 05:00 WBC 19.6 H RBC 2.84 L Hgb 8.2 L Hct 24.7 L MCV 87 MCH 28.9 MCHC 33.2 RDW Std Deviation 50.0 H Plt Count 422 D Neut % (Auto) 84 H Lymph % (Auto) 8 L [place] % (Auto) 5 Eos % (Auto) 0 Baso % (Auto) 0 Neut # (Auto) 16.4 H Lymph # (Auto) 1.6 [place] # (Auto) 1.1 H Eos # (Auto) 0.1 Baso # (Auto) 0.0 Immature Gran # (Auto) 0.42 H Absolute Nucleated RBC 0.02 H Immature Gran % 2 H Nucleated RBC % 0 Puncture Site ABG pH ABG pCO2 ABG pO2 ABG HCO3 ABG O2 Saturation ABG Base Excess FiO2 Sodium 144 Potassium 4.2 D Chloride 112 H Carbon Dioxide 24.2 Anion Gap 8 BUN 36 H Creatinine 0.9 Estim Creat Clear Calc 64.9 eGFR > 60 BUN/Creatinine Ratio 40 H Glucose 121 H D Calculated Osmolality 296 H Calcium 8.4 Corrected Calcium 9.1 Magnesium 2.3 Total Bilirubin 0.4 AST 31 ALT 62 H Alkaline Phosphatase 106 Total Protein 5.4 L Albumin 3.1 L Globulin 2.3 Albumin/Globulin Ratio 1.3 ABG Interpretation ABG results: 06/24/24 06/25/24 06/25/24 09:51 11:35 16:44 ABG pH 7.42 7.44 7.25 L D ABG pCO2 34 28 L 52 H D ABG pO2 91 71 L D 82 L ABG HCO3 22 19 L 23 ABG O2 Saturation 98 94 94 ABG Base Excess -2 -5 L -4 L 06/26/24 06/27/24 06/28/24 07:08 07:35 12:54 ABG pH 7.34 L 7.33 L 7.42 ABG pCO2 38 D 46 39 ABG pO2 91 90 156 H D ABG HCO3 21 24 25 ABG O2 Saturation 97 97 100 H ABG Base Excess -5 L -2 1 06/29/24 04:27 ABG pH 7.45 ABG pCO2 38 ABG pO2 74 L D ABG HCO3 26 ABG O2 Saturation 95 ABG Base Excess 2 Quality Measures Quality Measures sepsis Current suspected stage: ruled out Possible source: pulmonary Blood cultures ordered: yes Antibiotic ordered: Yes Advance care planning discussed with:: patient Assessment & Plan Assessment Current Active Medications: Generic Name Dose Route Start Last Admin Trade Name Freq PRN Reason Stop Dose Admin Acetaminophen 1,000 mg 06/24/24 14:33 Acetaminophen 500 Mg Tablet PO 07/24/24 14:32 Q6H PRN Fever >100 or pain 1-3 Albuterol/Ipratropium 3 ml 06/26/24 07:00 06/29/24 10:14 Albuterol/Ipratropium (Duoneb) Rt Fior 3 Ml Nebu INH 07/26/24 06:59 3 ml Q4HRRT WILMER Administration Albuterol/Ipratropium 3 ml 06/27/24 11:13 06/29/24 06:30 Albuterol/Ipratropium (Duoneb) Rt Fior 3 Ml Nebu INH 07/27/24 11:12 3 ml Q2HR PRN Administration SHORTNESS OF BREATH OR WHEEZE Aspirin 81 mg 06/27/24 09:00 06/29/24 08:26 Aspirin 81 Mg Chew NG 07/25/24 11:44 81 mg QDAY WILMER Administration Dextrose 25 ml 06/26/24 07:46 Dextrose 50%-Water Inj 50 Ml Syringe IV 07/26/24 07:45 Q15MIN PRN BG 50-70 responsive npo pt Dextrose 50 ml 06/26/24 07:46 Dextrose 50%-Water Inj 50 Ml Syringe IV 07/26/24 07:45 Q15MIN PRN BG <50 OR BG <70 & pt unresponsive Enoxaparin Sodium 40 mg 06/25/24 11:45 06/29/24 08:26 Enoxaparin Sod Inj 40 Mg/0.4 Ml Syringe SC 07/09/24 11:44 40 mg QDAY WILMER Administration Glucagon 1 mg 06/26/24 07:46 Glucagon Inj 1 Mg Vial IM Q15MIN PRN BG <70, and no IV access Norepinephrine Bitartrate 16 mg in 250 mls @ 4.04 mls/hr 06/25/24 20:05 06/27/24 10:45 Levophed In Ns 16mg/250ml IV 07/25/24 20:04 0 mcg/kg/min .Q24H PRN 0 mls/hr PER PROTOCOL Titration Protocol 0.05 MCG/KG/MIN Dexmedetomidine/Sodium Chloride 200 mcg in 50 mls @ 4.4 mls/hr 06/27/24 11:07 06/29/24 10:36 Precedex Ivpb IV 07/27/24 11:06 1.4 mcg/kg/hr .[id number] PRN 30.8 mls/hr Per PROTOCOL Administration Protocol 0.2 MCG/KG/HR Fentanyl Citrate 2,500 mcg in 250 mls @ 2.5 mls/hr 06/27/24 11:08 Sublimaze Inj 2,500 Mcg/250 Ml Bag IV 06/30/24 18:09 .Q24H PRN PER PROTOCOL Protocol 25 MCG/HR Propofol 1,000 mg in 100 mls @ 2.64 mls/hr 06/27/24 11:08 06/29/24 09:49 Diprivan Ivpb IV 07/25/24 14:00 50 mcg/kg/min .Q24H PRN 26.4 mls/hr PER PROTOCOL Administration Protocol 5 MCG/KG/MIN Insulin Human Lispro 0 unit 06/26/24 14:00 06/29/24 10:10 Insulin Lispro (Admelog) 1 Unit/0.01 Ml Unit SC 07/26/24 13:59 Not Given Q4HR WILMER Protocol Lansoprazole 30 mg 06/27/24 09:00 06/29/24 08:26 Lansoprazole 30 Mg Tab.Rap.Dr BOLAÑOS 07/24/24 14:44 30 mg QDAY WILMER Administration Ondansetron HCl 4 mg 06/24/24 14:33 Ondansetron Inj 2 Mg/Ml Inj 2 Ml IV 07/24/24 14:32 Q6H PRN NAUSEA OR VOMITING Protocol Prednisone 40 mg 06/29/24 09:00 06/29/24 08:26 Prednisone 20 Mg Tablet PO 07/02/24 08:59 40 mg QDAY WILMER Administration Sennosides 1 tab 06/24/24 14:33 Senna Tablet PO 07/24/24 14:32 QDAY PRN constipation Protocol Sodium Chloride 3 ml 06/26/24 03:20 Sodium Chloride Rt Fior 0.9% 3 Ml Nebu INH 07/26/24 03:19 PRN PRN SOLN Plan Patient is a 74-year-old male with past medical history significant for Duong's palsy, deaf and nonverbal, schizophrenia, tobacco use, primary hypertension, AV first-degree block, GERD, CAD, COPD, chronic constipation, generalized anxiety disorder who presented to the ED with shortness of breath on 06/24/2024 and admitted to the hospital for AHRF. ICU was consulted after patient has presenting with severe respiratory distress requiring intubation. NEURO #Sedation for Mechanical Ventilation DDx: in the setting of hypoxia, hypercapnia, and respiratory acidosis with underlying chronic COPD exacerbation -On Propofol for sedation, RAAS goal 0 -On Precedex for agitation, RASS goal of 0 -Patient's vent settings currently on pressure support, FiO2 40% -Currently weaning sedation parameters to see how patient tolerates, plan to extubate today -Will reach out to Dr. 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 and patient not not being able to communicate No history of atrial fibrillation EKG done however there was no sign of AV block appreciated BNP slightly elevated at 225 Echo showed normal LV and RV function, with EF 55-60% -Continue to monitor on tele monitor -Keep Mag and potassium above 2 and 4 respectively -Continue aspirin 81 mg at this time -Tele monitor shows peaked T waves, consider ordering EKG if any irregularity in rhythm PULM #Acute hypoxic respiratory failure due to Influenza pneumonia-resolving #Sepsis-resolved #History of COPD-stable Patient does have baseline COPD, however does not have a 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 and 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 DuoNebs every 4 hours, PRN Q2HR ? Maintain oxygen 88 to 92% - Keep patient at ARDSnet goal of 6cc/kg TV - Plan to extubate today, on pressure support with FiO2 40% - Continue steroids for a total of 5 days from 06/27/24 - May need to discuss goals of care with patient's conservator if signs of failed extubation shown in regards to re-intubation GI/FEN #Chronic Constipation-stable has had BM #GI prophylaxis with IV PPI #Tube feeds -Continue with tube feeds #Transaminitis?stable Patient presented with elevated AST and ALT. DDx: in the setting of sepsis and recent Tamiflu use Hep panel negative -CTM RENAL #Acute respiratory acidosis-improving Current ABG shows a pH of 7.33 with a PaCO2 of 46. -Will keep current vent settings on pressure support with FiO2 of 35% -Follow-up ABG in a.m. #LOUIS- improving Cr increased from 1 to 1.6 on 06/26/24 Most likely pre-renal vs intrinsic in the setting of sepsis and low BP and dehydration Less likely post-renal as patient able to urine with in&out cath -renally dose medications -avoid nephrotoxin agents -Gave a total of 1.5L bolus, and will continue with LR maintenance, initially at 125, now at 50cc/hr -DC'd fluids HEME/ONC #Leukocytosis-improving Most likely in the setting of influenza and bacterial pneumonia and recent steroid use #Normocytic Anemia?stable H&H stable Ferritin 100, Iron level 9, TIBC 203 in the setting of COPD -Consider iron tablet supplementation #Thrombocytosis-stable Reactive in setting of infection and aspirin use ENDO #Hyperglycemia-stable Most likely elevated due to recent steroid use A1c is 5.2 ID #Influenza pneumonia-resolving -See above under pulmonary MSK Stable PSYCH #History of ARIANNA #History of schizophrenia ? Will resume home medicines upon med rec Health Maintenance: DVT prophylaxis: Lovenox 40mg SC Diet: Continue with tube feeds via OG tube Cespedes: Yes Lines: PIV Drips: Propofol, Precedex Vent: Pressure support, on FiO2 35% CODE STATUS: Full code Disposition: Admitted to ICU for AHRF requiring intubation. Patient's plan and care discussed with my attending, Dr. Kelby Springer MD PGY-2
[2024-06-29] MEDS: DEXMEDETOMIDINE 400 MCG IVPB 400 MCG/100 ML BAG 30.8 MCG IV ×2 (14:00→18:41)
[2024-06-29] MEDS: INSULIN LISPRO (AdmeLOG) 1 UNIT/0.01 ML UNIT SC (21:54)
[2024-06-29] MEDS: DEXMEDETOMIDINE 400 MCG IVPB 400 MCG/100 ML BAG 26.4 MCG IV (21:54)
[2024-06-30] VITALS (73 sets, daily range): BP systolic 82–167; BP diastolic 39–84; PULSE 57–98; RESP 14–38; TEMP 36.6–37.2; O2SAT 84–100
[2024-06-30] MEDS: INSULIN LISPRO (AdmeLOG) 1 UNIT/0.01 ML UNIT SC (01:49)
[2024-06-30] MEDS: PROPOFOL 1,000 MG IVPB 1,000 MG/100 ML VIAL 26.4 MG IV ×2 (02:30→07:01)
[2024-06-30] MEDS: DEXMEDETOMIDINE 400 MCG IVPB 400 MCG/100 ML BAG 26.4 MCG IV ×2 (02:30→07:12)
[2024-06-30] MEDS: ALBUTEROL/IPRATROPIUM (Duoneb) RT SOL 3 ML NEBU INH ×6 (02:50→22:15)
--- NOTE | 2024-06-30 05:00 | XR_ITS ---
Examination: AP chest single view Technique one AP portable semiupright chest single view Exam date and time: June 30, 2024 0515 hrs. Comparison June 28, 2024 Indications: Hypoxic respiratory failure pneumonia ARDS on chest imaging this week. Findings: Severe bilateral lung opacity Normal heart size Endotracheal tube tip 3.2 cm above taylor The orogastric tube is in the stomach, the tip is below the level of the film Impression: No change in extensive pneumonia ARDS pattern
[2024-06-30 05:10] LABS: Basophils % (Auto) 0 % (0-2.5); Eosinophils # (Auto) 0.1 Thou/mm3 (0.0-0.5); Eosinophils % (Auto) 0 % (0-10); Hematocrit 23.1 % (41.0-53.0); Immature Granulocytes % (Auto) 2 % (0-0); Immature Granulocytes Auto 0.36 Thou/mm3 (0.00-0.00); Lymphocytes # (Auto) 1.9 Thou/mm3 (1.0-4.8); Lymphocytes % (Auto) 10 % (10-50); Mean Corpuscular HGB Conc 33.3 g/dl (31.0-37.0); Mean Corpuscular Hemoglobin 28.8 pg (25.0-35.0); Mean Corpuscular Volume 87 fL (80-100); Monocytes # (Auto) 1.1 Thou/mm3 (0.0-0.8); Monocytes % (Auto) 6 % (0-12); Neutrophils # (Auto) 16.1 Thou/mm3 (1.8-7.7); Neutrophils % (Auto) 83 % (37-80); Nucleated Red Blood Cell # 0.04 Thou/mm3 (0.00-0.00); Nucleated Red Blood Cell % 0 /100 WBC (0); Platelet Count 387 Thou/mm3 (140-440); RDW Standard Deviation 50.8 fL (35.1-43.9); Red Blood Count 2.67 Miln/mm3 (4.50-5.90); White Blood Count 19.5 Thou/mm3 (3.8-10.6)
[2024-06-30 05:13] LABS: Hemoglobin 7.7 g/dL (13.5-16.0)
[2024-06-30 05:18] LABS: Alanine Aminotransferase 54 U/L (10-49); Albumin/Globulin Ratio 1.4 (1.2-2.2); Alkaline Phosphatase 97 U/L (46-116); Anion Gap 8 (7-16); Aspartate Amino Transferase 31 U/L (0-34); BUN/Creatinine Ratio 44 Ratio (12-20); Bilirubin,Total 0.3 mg/dL (0.3-1.2); Blood Urea Nitrogen 40 mg/dL (9-23); Calcium (Corrected) 8.8 mg/dL (8.5-10.1); Carbon Dioxide 25.1 mMol/L (20.0-31.0); Chloride 113 mMol/L (98-107); Creatinine (Component) 0.9 mg/dL (0.6-1.3); Estimated Creatinine Clearance 64.9 mL/min (>60); Globulin 2.1 gm/dL (2.3-3.5); Glucose 148 mg/dL (74-106); Magnesium 2.4 mg/dL (1.6-2.6); Osmolality,Calculated 303 (275-295); Potassium 4.6 mMol/L (3.4-5.1); Sodium 146 mMol/L (136-145); Total Protein 5.1 gm/dL (5.7-8.2); eGFR > 60 See Note
--- NOTE | 2024-06-30 07:44 | ESPR_ITS ---
<Statement entered by Clint Lama MD - 07/01/24 13:54> TOTAL CC TIME: 45 MIN I saw and evaluated the patient. I reviewed the resident?s note and agree with findings and plan as documented in the resident?s note. Upon my evaluation, this patient had a high probability of imminent or life- threatening deterioration due to ARDS/acute hypoxic respiratory failure which required my direct attention, intervention, and personal management. This time is exclusive of time spent on procedures, which are documented separately if performed. Patient's condition is worse, increasing hypoxia and respiratory distress. Despite aggressive sedation he remains out of sync with the ventilator and required paralytic drip. Continue with low tidal volume lung protective strategy. No new fevers. Chest x-ray does not appear changed. This may be telephone claims representative of progressive ARDS unfortunately Documentation for date of: 06/30/24 Subjective Subjective Interval history: Patient is a 74-year-old male with past medical history significant for Duong's palsy, deaf and nonverbal, schizophrenia, tobacco use, primary hypertension, AV first-degree block, GERD, CAD, COPD, chronic constipation, generalized anxiety disorder who presented to the ED with shortness of breath on 06/24/2024. Throughout hospital stay, patient was very hypoxic and wheezing on physical exam and was placed on BiPAP. Patient also tested positive for influenza A and started on vancomycin and cefepime for superimposed bacterial infection. ICU was consulted after patient has presenting with severe respiratory distress and pulling tidal volumes of 800-12 100 on BiPAP. Patient was intubated for acute hypoxic respiratory failure. 06/26/24: Overnight, patient had a total urine output of 500 cc. Patient was unable to urinate on his own, and bladder scan showed 450 cc, and was able to be removed with an in&out cath. Patient was hypotensive overnight, and was started on Levophed. Patient also is bradycardic, most likely secondary to propofol. Tmax was 99.7. Patient has not spiked a fever since 2/10 a.m. Patient's white count increased from 23.43 6.7, and thrombocytosis increased to 540. Will change patient's vent settings to tidal volume of 400, respiration rate 25, PEEP of 10, and FiO2 of 50%. Will continue with IV Vanco and cefepime, but renal dose. Gram stain showed 2+ WBC. MRSA was negative, however will keep vancomycin after sputum culture from ET tube returns. Patient's blood sugar was little elevated today and started 5 Lantus and sliding scale, and will start tube feeds. LOUIS increased Cr 1 to 1.6, will ensure medications are renally dose, and give a LR bolus of 500cc and will start tube feeds. 06/27/24: Overnight, patient had a total urine output of 700cc overnight. Patient received a total of 3.25L LR. ABG continues to show respiratory acidosis that has remained about the same. Plan today is to try titrating his sedation and see how patient tolerates. Will descalate Abx to IV Ceftiraxone as all cultures returned negative including sputum culture and WBC is improving. Patient will require a total of 5 days of IV Abx. Will continue with straight ins and outs Q4H and continue LR at 50cc/hr and tube feeds. 06/28/24: Overnight, patient was given Versed push due to feeling agitated. Patient has been off fentanyl drip sedated with propofol 35 mcg along with Precedex. Patient was initially on vent settings of SIMV PRVC with a TI time of 1.3 and a PEEP of 10, respiration rate 25 and transition to pressure support, doing well on a RASS of 0. Due to patient's decreased elasticity and obstructive lung process, patient has been having a prolonged expiratory time with an increased MACKENZIE ratio. Will give Lasix IV 20 times 1 in the afternoon and in the evening to help with his O2 reserve. Will discontinue his fluids and continue his tube feeds. Will plan to extubate patient tomorrow. Will follow- up repeat ABG in the morning. 06/29/24: Overnight, patient was given IV Lasix 20mg which helped with his O2 reserve. However, on examination today, patient continues to have increased work of breathing on pressure support. Will have to have a conversation with Dr. Cooney, patient's conservator regarding patient's CODE STATUS given his current respiratory status on safely tolerating extubation. Patient will get his last dose of steroids today, and is tolerating tube feeds well. 06/30/2024: Patient examined at bedside this AM. No overnight events reported. Discussion with Patient's conservator who relayed patient was highly functional therefore Code status was switched to full code. On examination, patient appeared to have increased work of breathing whilst on Pressure support with high minute ventilation, with sedation with Propofol at max and fentanyl at RAAS of -4. A CXR was ordered which showed diffuse B/L patchy infiltrates consistent with worsening ARDS. Due to his increased WOB and vent asynchrony, will defer extubating at this time and continue with lung protective strategy. Will start nimbex drip as patient is maxed out sedation. Exam Vital Signs Temp Pulse Resp BP Pulse Ox O2 Del Method O2 Flow Rate 98.7 F 63 34 H 137/68 H 99 Mechanical Ventilation 15 06/30/24 04:00 06/30/24 06:20 06/30/24 06:20 06/30/24 06:00 06/30/24 06:20 06/30/24 04:00 06/25/24 08:19 FiO2 40 06/30/24 06:20 Narrative Exam General: elderly gentlemen, appears to be in moderate respiratory distress with increased work of breathing. HEENT: NC/AT, PERRL, dry mucous membranes, oropharynx clear, presence of ET tube CVS: S1S2 Regular rate and rhythm, No murmurs, rubs or gallops Lungs: Diffuse B/L Abd: Soft, no tenderness to palpation, non-distended Ext: No edema, warm well perfused, Skin: Intact, no rashes, no lesions, no erythema Neuro: sedated at RAAS of Psych: Appropriate mood and affect Objective Labs 06/30/24 04:34 06/30/24 11:45 Labs: Laboratory Results - last 24 hr 06/30/24 04:34 WBC 19.5 H RBC 2.67 L Hgb 7.7 L Hct 23.1 L MCV 87 MCH 28.8 MCHC 33.3 RDW Std Deviation 50.8 H Plt Count 387 D Neut % (Auto) 83 H Lymph % (Auto) 10 Grand % (Auto) 6 Eos % (Auto) 0 Baso % (Auto) 0 Neut # (Auto) 16.1 H Lymph # (Auto) 1.9 Grand # (Auto) 1.1 H Eos # (Auto) 0.1 Baso # (Auto) 0.0 Immature Gran # (Auto) 0.36 H Absolute Nucleated RBC 0.04 H Immature Gran % 2 H Nucleated RBC % 0 Sodium 146 H Potassium 4.6 Chloride 113 H Carbon Dioxide 25.1 Anion Gap 8 BUN 40 H Creatinine 0.9 Estim Creat Clear Calc 64.9 eGFR > 60 BUN/Creatinine Ratio 44 H Glucose 148 H Calculated Osmolality 303 H Calcium 8.0 L Corrected Calcium 8.8 Magnesium 2.4 Total Bilirubin 0.3 AST 31 ALT 54 H Alkaline Phosphatase 97 Total Protein 5.1 L Albumin 3.0 L Globulin 2.1 L Albumin/Globulin Ratio 1.4 ABG Interpretation ABG results: 06/24/24 06/25/24 06/25/24 09:51 11:35 16:44 ABG pH 7.42 7.44 7.25 L D ABG pCO2 34 28 L 52 H D ABG pO2 91 71 L D 82 L ABG HCO3 22 19 L 23 ABG O2 Saturation 98 94 94 ABG Base Excess -2 -5 L -4 L 06/26/24 06/27/24 06/28/24 07:08 07:35 12:54 ABG pH 7.34 L 7.33 L 7.42 ABG pCO2 38 D 46 39 ABG pO2 91 90 156 H D ABG HCO3 21 24 25 ABG O2 Saturation 97 97 100 H ABG Base Excess -5 L -2 1 06/29/24 04:27 ABG pH 7.45 ABG pCO2 38 ABG pO2 74 L D ABG HCO3 26 ABG O2 Saturation 95 ABG Base Excess 2 Quality Measures Quality Measures sepsis Current suspected stage: sepsis Possible source: pulmonary Blood cultures ordered: yes Antibiotic ordered: Yes Advance care planning discussed with:: legal surragate Assessment & Plan Assessment Current Active Medications: Generic Name Dose Route Start Last Admin Trade Name Freq PRN Reason Stop Dose Admin Acetaminophen 1,000 mg 06/24/24 14:33 Acetaminophen 500 Mg Tablet PO 07/24/24 14:32 Q6H PRN Fever >100 or pain 1-3 Albuterol/Ipratropium 3 ml 06/26/24 07:00 06/30/24 06:19 Albuterol/Ipratropium (Duoneb) Rt Fior 3 Ml Nebu INH 07/26/24 06:59 3 ml Q4HRRT WILMER Administration Albuterol/Ipratropium 3 ml 06/27/24 11:13 06/29/24 06:30 Albuterol/Ipratropium (Duoneb) Rt Fior 3 Ml Nebu INH 07/27/24 11:12 3 ml Q2HR PRN Administration SHORTNESS OF BREATH OR WHEEZE Aspirin 81 mg 06/27/24 09:00 06/29/24 08:26 Aspirin 81 Mg Chew NG 07/25/24 11:44 81 mg QDAY WILMER Administration Dextrose 25 ml 06/26/24 07:46 Dextrose 50%-Water Inj 50 Ml Syringe IV 07/26/24 07:45 Q15MIN PRN BG 50-70 responsive npo pt Dextrose 50 ml 06/26/24 07:46 Dextrose 50%-Water Inj 50 Ml Syringe IV 07/26/24 07:45 Q15MIN PRN BG <50 OR BG <70 & pt unresponsive Enoxaparin Sodium 40 mg 06/25/24 11:45 06/29/24 08:26 Enoxaparin Sod Inj 40 Mg/0.4 Ml Syringe SC 07/09/24 11:44 40 mg QDAY WILMER Administration Glucagon 1 mg 06/26/24 07:46 Glucagon Inj 1 Mg Vial IM Q15MIN PRN BG <70, and no IV access Norepinephrine Bitartrate 16 mg in 250 mls @ 4.04 mls/hr 06/25/24 20:05 06/27/24 10:45 Levophed In Ns 16mg/250ml IV 07/25/24 20:04 0 mcg/kg/min .Q24H PRN 0 mls/hr PER PROTOCOL Titration Protocol 0.05 MCG/KG/MIN Fentanyl Citrate 2,500 mcg in 250 mls @ 2.5 mls/hr 06/27/24 11:08 Sublimaze Inj 2,500 Mcg/250 Ml Bag IV 06/30/24 18:09 .Q24H PRN PER PROTOCOL Protocol 25 MCG/HR Propofol 1,000 mg in 100 mls @ 2.64 mls/hr 06/27/24 11:08 06/30/24 07:01 Diprivan Ivpb IV 07/25/24 14:00 50 mcg/kg/min .Q24H PRN 26.4 mls/hr PER PROTOCOL Administration Protocol 5 MCG/KG/MIN Dexmedetomidine/Sodium Chloride 400 mcg in 100 mls @ 4.4 mls/hr 06/29/24 14:05 06/30/24 07:12 Precedex Ivpb IV 07/29/24 14:04 1.2 mcg/kg/hr .[id number] PRN 26.4 mls/hr Per PROTOCOL Administration Protocol 0.2 MCG/KG/HR Insulin Human Lispro 0 unit 06/26/24 14:00 06/30/24 07:14 Insulin Lispro (Admelog) 1 Unit/0.01 Ml Unit SC 07/26/24 13:59 Not Given Q4HR WILMER Protocol Lansoprazole 30 mg 06/27/24 09:00 06/29/24 08:26 Lansoprazole 30 Mg Tab.[place].Dr BOLAÑOS 07/24/24 14:44 30 mg QDAY WILMER Administration Ondansetron HCl 4 mg 06/24/24 14:33 Ondansetron Inj 2 Mg/Ml Inj 2 Ml IV 07/24/24 14:32 Q6H PRN NAUSEA OR VOMITING Protocol Prednisone 40 mg 06/29/24 09:00 06/29/24 08:26 Prednisone 20 Mg Tablet PO 07/02/24 08:59 40 mg QDAY WILMER Administration Sennosides 1 tab 06/24/24 14:33 Senna Tablet PO 07/24/24 14:32 QDAY PRN constipation Protocol Sodium Chloride 3 ml 06/26/24 03:20 Sodium Chloride Rt Fior 0.9% 3 Ml Nebu INH 07/26/24 03:19 PRN PRN SOLN Plan Patient is a 74-year-old male with past medical history significant for Duong's palsy, deaf and nonverbal, schizophrenia, tobacco use, primary hypertension, AV first-degree block, GERD, CAD, COPD, chronic constipation, generalized anxiety disorder who presented to the ED with shortness of breath on 06/24/2024 and admitted to the hospital for AHRF. ICU was consulted after patient has presenting with severe respiratory distress requiring intubation. NEURO #Sedation for Mechanical Ventilation DDx: in the setting of hypoxia, hypercapnia, and respiratory acidosis with underlying chronic COPD exacerbation -Propofol for sedation, RAAS goal -4 -Fentanyl GTT -Nimbex GTT -Versed 2mg IV [id number] for agitation #Deaf and nonverbal CARDIO #Bradycardia?resolved Secondary to propofol sedation #Elevated Troponin-resolved in the setting of demand ischemia Troponin peaked at .110, and downtrended #History of essential hypertension #History of CAD #Hx of AV block first-degree No history of atrial fibrillation EKG done however there was no sign of AV block BNP slightly elevated at 225 Echo showed normal LV and RV function, with EF 55-60% -Continue to monitor on tele monitor -Keep Mag and potassium above 2 and 4 respectively -Continue aspirin 81 mg at this time PULM #Acute hypoxic respiratory failure due to Influenza pneumonia #Sepsis-resolved #History of COPD-stable Patient does have baseline COPD, however does not have a escort service attendant Patient was on BiPAP, but d/t increased respiratory distress patient was intubated on 06/25/24 Likely that there is a superimposed bacterial infection on top of influenza pneumonia Will need to treat broadly as patient has multiple risk factors for Pseudomonas including smoking Blood cultures no growth after 48 hours CXR shows severe b/l PNA that is worsening from intubation Sputum gram stain showed 2+ WBC, Sputum culture showed no growth MRSA Negative Cultures negative Finished course of Tamiflu, Abx ? DuoNebs every 4 hours, PRN Q2HR ? Maintain oxygen 88 to 92% - Keep patient at low tidal volume ventilation strategy of of 6cc/kg TV GI/FEN #Chronic Constipation-stable has had BM #GI prophylaxis with IV PPI #Tube feeds -Continue with tube feeds #Transaminitis?resolved Patient presented with elevated AST and ALT. DDx: in the setting of sepsis and recent Tamiflu use Hep panel negative -CTM RENAL #Acute respiratory acidosis-improving Current ABG shows a pH of 7.33 with a PaCO2 of 46. -Will keep current vent settings on pressure support with FiO2 of 35% -Follow-up ABG in a.m. #LOUIS- resolved Cr increased from 1 to 1.6 on 06/26/24 Most likely pre-renal vs intrinsic in the setting of sepsis and low BP and dehydration Less likely post-renal as patient able to urine with in&out cath -renally dose medications -avoid nephrotoxin agents HEME/ONC #Leukocytosis-improving Most likely in the setting of influenza and bacterial pneumonia and recent steroid use #Normocytic Anemia?stable H&H stable Ferritin 100, Iron level 9, TIBC 203 in the setting of COPD -Consider iron tablet supplementation #Thrombocytosis-stable Reactive in setting of infection and aspirin use ENDO #Hyperglycemia-stable Most likely elevated due to recent steroid use A1c is 5.2 ID #Influenza pneumonia-resolving -See above under pulmonary -Finished course of Tamiflu and antibiotics MSK Stable PSYCH #History of ARIANNA #History of schizophrenia ? Will resume home medicines upon med rec Health Maintenance: DVT prophylaxis: Lovenox 40mg SC Diet: Continue with tube feeds via OG tube Cespedes: N/A Lines: PIV Drips: Propofol, Fentanyl, Nimbex CODE STATUS: Full code Disposition: Admitted to ICU for AHRF requiring intubation. Patient's case was discussed with supervising attending physician Dr. Kelby Rosas M.D. Internal Medicine PGY-3
[2024-06-30] MEDS: LANSOPRAZOLE 30 MG TAB.RAP.DR NG (08:47)
[2024-06-30] MEDS: ENOXAPARIN SOD INJ 40 MG/0.4 ML SYRINGE SC (08:47)
[2024-06-30] MEDS: ASPIRIN 81 MG CHEW NG (08:47)
[2024-06-30] MEDS: predniSONE 20 MG TABLET 40 MG PO (08:47)
[2024-06-30] MEDS: fentaNYL 2,500 MCG/250 ML BAG 2,500 MCG/250 ML BAG IV (09:21)
--- NOTE | 2024-06-30 09:54 | XR_ITS ---
Examination: AP chest single view Technique one AP portable supine chest single view Exam date and time: June 30, 2024 1002 hrs. Comparison June 30, 2024 0557 hrs. Indications: Hypoxic respiratory failure, postintubation, severe pneumonia ARDS on earlier chest films Findings: Endotracheal tube tip approximately 4 cm above taylor Mild prominence cardiac contour Extensive bilateral pneumonia The orogastric tube is in the stomach, the tip is below the level of the film Impression: Severe bilateral pneumonia ARDS
[2024-06-30 10:45] LABS: Base Excess 1 (-3-3); HCO3 28 mEq/L (20-26); Inspired Oxygen, FIO2 80 %; O2 Saturation 88 % (91-98); PCO2 59 mmHg (32.0-48.0); PO2 68 mmHg (83-108); pH, Arterial 7.29 (7.35-7.45)
[2024-06-30 10:46] LABS: Allen Test Performed/OK; Puncture Site Right Radial
[2024-06-30] MEDS: PROPOFOL 1,000 MG IVPB 1,000 MG/100 ML VIAL 31.026 MG IV (11:30)
[2024-06-30 12:25] LABS: Alanine Aminotransferase 63 U/L (10-49); Albumin, Serum 3.2 gm/dL (3.4-4.8); Albumin/Globulin Ratio 1.3 (1.2-2.2); Alkaline Phosphatase 110 U/L (46-116); Anion Gap 6 (7-16); Aspartate Amino Transferase 42 U/L (0-34); BUN/Creatinine Ratio 37 Ratio (12-20); Bilirubin,Total 0.4 mg/dL (0.3-1.2); Blood Urea Nitrogen 41 mg/dL (9-23); Calcium 8.1 mg/dL (8.3-10.6); Calcium (Corrected) 8.7 mg/dL (8.5-10.1); Carbon Dioxide 26.2 mMol/L (20.0-31.0); Chloride 111 mMol/L (98-107); Creatinine (Component) 1.1 mg/dL (0.6-1.3); Estimated Creatinine Clearance 53.2 mL/min (>60); Globulin 2.5 gm/dL (2.3-3.5); Glucose 142 mg/dL (74-106); Osmolality,Calculated 297 (275-295); Potassium 5.8 mMol/L (3.4-5.1); Sodium 143 mMol/L (136-145); Total Protein 5.7 gm/dL (5.7-8.2); eGFR > 60 See Note
[2024-06-30 12:53] LABS: Base Excess 0 (-3-3); HCO3 29 mEq/L (20-26); Inspired Oxygen, FIO2 80 %; O2 Saturation 88 % (91-98); PCO2 71 mmHg (32.0-48.0); PO2 71 mmHg (83-108); pH, Arterial 7.22 (7.35-7.45)
[2024-06-30 12:54] LABS: Allen Test Performed/OK; Puncture Site Right Radial
[2024-06-30] MEDS: PROPOFOL 1,000 MG IVPB 1,000 MG/100 ML VIAL 25.855 MG IV ×3 (14:15→23:10)
[2024-06-30] MEDS: CISATRACURIUM INJ 200 MG in SODIUM CHLORIDE 0.9% 500 ML 500 ML 13.432 MG IV (14:27)
[2024-06-30 14:34] LABS: Base Excess 0 (-3-3); HCO3 28 mEq/L (20-26); Inspired Oxygen, FIO2 80 %; O2 Saturation 82 % (91-98); PCO2 62 mmHg (32.0-48.0); pH, Arterial 7.26 (7.35-7.45)
[2024-06-30 14:36] LABS: Allen Test Performed/OK; Puncture Site Right Radial
[2024-06-30 14:39] LABS: PO2 58 mmHg (83-108)
[2024-06-30] MEDS: Norepinephrine/D5W 8mg/250ml 8 MG/250 ML BAG 8.072 MG IV (15:13)
[2024-06-30] MEDS: SOD POLYSTYRENE SULFON SUSP 15 GM/60 ML BTL PO (16:36)
[2024-06-30 17:38] LABS: Base Excess -1 (-3-3); HCO3 29 mEq/L (20-26); Inspired Oxygen, FIO2 80 %; O2 Saturation 100 % (91-98); PCO2 82 mmHg (32.0-48.0); PO2 196 mmHg (83-108)
[2024-06-30 17:41] LABS: Allen Test Performed/OK; Puncture Site Right Radial
[2024-06-30 17:42] LABS: pH, Arterial 7.15 (7.35-7.45)
[2024-06-30 19:20] LABS: Base Excess 0 (-3-3); HCO3 28 mEq/L (20-26); Inspired Oxygen, FIO2 80 %; O2 Saturation 100 % (91-98); PCO2 67 mmHg (32.0-48.0); PO2 180 mmHg (83-108); pH, Arterial 7.23 (7.35-7.45)
[2024-06-30 19:26] LABS: Allen Test Performed/OK; Puncture Site Right Radial
[2024-06-30] MEDS: fentaNYL 2,500 MCG/250 ML BAG 2,500 MCG/250 ML BAG 20 MCG IV (21:38)
[2024-06-30 23:24] LABS: Base Excess, Venous 2 (-3-3); O2 Saturation, Venous 93 % (96-97); PCO2, Venous 41 mmHg (36-56); PO2, Venous 62 mmHg (15-58); pH, Venous 7.42 (7.33-7.66)
[2024-06-30 23:53] LABS: Potassium 5.7 mMol/L (3.4-5.1)
[2024-07-01] VITALS (61 sets, daily range): BP systolic 97–186; BP diastolic 42–70; PULSE 53–74; RESP 26–30; TEMP 36.2–36.8; O2SAT 89–100; BMI 35.2
[2024-07-01] MEDS: FUROSEMIDE INJ 10 MG/ML VIAL 2 ML 20 MG IVP (00:37)
[2024-07-01] MEDS: PROPOFOL 1,000 MG IVPB 1,000 MG/100 ML VIAL 25.855 MG IV ×6 (02:38→23:49)
[2024-07-01] MEDS: ALBUTEROL/IPRATROPIUM (Duoneb) RT SOL 3 ML NEBU INH ×6 (02:45→23:05)
--- NOTE | 2024-07-01 05:00 | XR_ITS ---
Examination: AP chest single view Technique AP portable semiupright chest single view Exam date and time: July 01, 2024 0534 hrs. Comparison June 30, 2024 Indications: Coughing congestion pneumonia ARDS this week, hypoxic respiratory failure postintubation Findings: Endotracheal tube tip 3.5 cm above taylor The orogastric tube is in the stomach, the tip is below the level film Severe bilateral lung opacity No pneumothorax Impression: No improvement in severe bilateral pneumonia ARDS
[2024-07-01 05:51] LABS: Basophils # (Auto) 0.1 Thou/mm3 (0.0-0.2); Basophils % (Auto) 0 % (0-2.5); Eosinophils # (Auto) 0.1 Thou/mm3 (0.0-0.5); Eosinophils % (Auto) 0 % (0-10); Hematocrit 25.2 % (41.0-53.0); Immature Granulocytes % (Auto) 5 % (0-0); Immature Granulocytes Auto 1.21 Thou/mm3 (0.00-0.00); Lymphocytes # (Auto) 2.1 Thou/mm3 (1.0-4.8); Lymphocytes % (Auto) 9 % (10-50); Mean Corpuscular HGB Conc 31.7 g/dl (31.0-37.0); Mean Corpuscular Hemoglobin 28.7 pg (25.0-35.0); Mean Corpuscular Volume 90 fL (80-100); Monocytes # (Auto) 1.7 Thou/mm3 (0.0-0.8); Monocytes % (Auto) 7 % (0-12); Neutrophils # (Auto) 18.8 Thou/mm3 (1.8-7.7); Neutrophils % (Auto) 79 % (37-80); Nucleated Red Blood Cell # 0.05 Thou/mm3 (0.00-0.00); Nucleated Red Blood Cell % 0 /100 WBC (0); Platelet Count 419 Thou/mm3 (140-440); RDW Standard Deviation 53.6 fL (35.1-43.9); Red Blood Count 2.79 Miln/mm3 (4.50-5.90)
[2024-07-01 06:31] LABS: Alanine Aminotransferase 71 U/L (10-49); Albumin, Serum 3.2 gm/dL (3.4-4.8); Albumin/Globulin Ratio 1.3 (1.2-2.2); Alkaline Phosphatase 105 U/L (46-116); Anion Gap 9 (7-16); Aspartate Amino Transferase 53 U/L (0-34); BUN/Creatinine Ratio 43 Ratio (12-20); Bilirubin,Total 0.3 mg/dL (0.3-1.2); Blood Urea Nitrogen 51 mg/dL (9-23); Calcium 8.3 mg/dL (8.3-10.6); Calcium (Corrected) 8.9 mg/dL (8.5-10.1); Carbon Dioxide 26.4 mMol/L (20.0-31.0); Chloride 113 mMol/L (98-107); Creatinine (Component) 1.2 mg/dL (0.6-1.3); Estimated Creatinine Clearance 48.8 mL/min (>60); Globulin 2.4 gm/dL (2.3-3.5); Glucose 105 mg/dL (74-106); Magnesium 2.7 mg/dL (1.6-2.6); Osmolality,Calculated 307 (275-295); Potassium 5.1 mMol/L (3.4-5.1); Sodium 148 mMol/L (136-145); Total Protein 5.6 gm/dL (5.7-8.2); eGFR > 60 See Note
[2024-07-01 08:18] LABS: Base Excess 2 (-3-3); HCO3 29 mEq/L (20-26); Inspired Oxygen, FIO2 21 %; O2 Saturation 90 % (91-98); PCO2 57 mmHg (32.0-48.0); PO2 64 mmHg (83-108); pH, Arterial 7.32 (7.35-7.45)
[2024-07-01 08:20] LABS: Allen Test Performed/OK; Puncture Site Right Radial
[2024-07-01] MEDS: ASPIRIN 81 MG CHEW NG (08:24)
[2024-07-01] MEDS: ENOXAPARIN SOD INJ 40 MG/0.4 ML SYRINGE SC (08:24)
[2024-07-01] MEDS: predniSONE 20 MG TABLET 40 MG PO (08:24)
[2024-07-01] MEDS: LANSOPRAZOLE 30 MG TAB.RAP.DR NG (08:24)
[2024-07-01] MEDS: RINGERS LACTATED 1000 ML 250 ML 999 ML IV (09:36)
[2024-07-01] MEDS: RINGERS LACTATED 1000 ML 1,000 ML 100 ML IV ×2 (10:09→17:42)
[2024-07-01] MEDS: fentaNYL 2,500 MCG/250 ML BAG 2,500 MCG/250 ML BAG 20 MCG IV (11:18)
--- NOTE | 2024-07-01 11:26 | ESPR_ITS ---
<Statement entered by Clint Lama MD - 07/02/24 10:52> TOTAL CC TIME: 45 MIN I saw and evaluated the patient. I reviewed the resident?s note and agree with findings and plan as documented in the resident?s note. Upon my evaluation, this patient had a high probability of imminent or life- threatening deterioration due to ARDS which required my direct attention, intervention, and personal management. This time is exclusive of time spent on procedures, which are documented separately if performed. Plateau pressures are higher despite no change in ventilator settings. PEEP reduced. Continue paralytic drip for vent synchrony. Given the progressive deterioration in lung compliance we have decided to increase steroids. Although no clear evidence to support new pneumonia, we will obtain endotracheal sputum cultures case was discussed with Dr. Cooney as well. Documentation for date of: 07/01/24 Subjective Subjective Interval history: Patient is a 74-year-old male with past medical history significant for Duong's palsy, deaf and nonverbal, schizophrenia, tobacco use, primary hypertension, AV first-degree block, GERD, CAD, COPD, chronic constipation, generalized anxiety disorder who presented to the ED with shortness of breath on 06/24/2024. Throughout hospital stay, patient was very hypoxic and wheezing on physical exam and was placed on BiPAP. Patient also tested positive for influenza A and started on vancomycin and cefepime for superimposed bacterial infection. ICU was consulted after patient has presenting with severe respiratory distress and pulling tidal volumes of 800-12 100 on BiPAP. Patient was intubated for acute hypoxic respiratory failure. 06/26/24: Overnight, patient had a total urine output of 500 cc. Patient was unable to urinate on his own, and bladder scan showed 450 cc, and was able to be removed with an in&out cath. Patient was hypotensive overnight, and was started on Levophed. Patient also is bradycardic, most likely secondary to propofol. Tmax was 99.7. Patient has not spiked a fever since 2/10 a.m. Patient's white count increased from 23.43 6.7, and thrombocytosis increased to 540. Will change patient's vent settings to tidal volume of 400, respiration rate 25, PEEP of 10, and FiO2 of 50%. Will continue with IV Vanco and cefepime, but renal dose. Gram stain showed 2+ WBC. MRSA was negative, however will keep vancomycin after sputum culture from ET tube returns. Patient's blood sugar was little elevated today and started 5 Lantus and sliding scale, and will start tube feeds. LOUIS increased Cr 1 to 1.6, will ensure medications are renally dose, and give a LR bolus of 500cc and will start tube feeds. 06/27/24: Overnight, patient had a total urine output of 700cc overnight. Patient received a total of 3.25L LR. ABG continues to show respiratory acidosis that has remained about the same. Plan today is to try titrating his sedation and see how patient tolerates. Will descalate Abx to IV Ceftiraxone as all cultures returned negative including sputum culture and WBC is improving. Patient will require a total of 5 days of IV Abx. Will continue with straight ins and outs Q4H and continue LR at 50cc/hr and tube feeds. 06/28/24: Overnight, patient was given Versed push due to feeling agitated. Patient has been off fentanyl drip sedated with propofol 35 mcg along with Precedex. Patient was initially on vent settings of SIMV PRVC with a TI time of 1.3 and a PEEP of 10, respiration rate 25 and transition to pressure support, doing well on a RASS of 0. Due to patient's decreased elasticity and obstructive lung process, patient has been having a prolonged expiratory time with an increased MACKENZIE ratio. Will give Lasix IV 20 times 1 in the afternoon and in the evening to help with his O2 reserve. Will discontinue his fluids and continue his tube feeds. Will plan to extubate patient tomorrow. Will follow- up repeat ABG in the morning. 06/29/24: Overnight, patient was given IV Lasix 20mg which helped with his O2 reserve. However, on examination today, patient continues to have increased work of breathing on pressure support. Will have to have a conversation with Dr. Cooney, patient's conservator regarding patient's CODE STATUS given his current respiratory status on safely tolerating extubation. Patient will get his last dose of steroids today, and is tolerating tube feeds well. 06/30/2024: Patient examined at bedside this AM. No overnight events reported. Discussion with patient's conservator who relayed patient was highly functional therefore Code status was switched to full code. On examination, patient appeared to have increased work of breathing whilst on Pressure support with high minute ventilation, with sedation with Propofol at max and fentanyl at RAAS of -4. A CXR was ordered which showed diffuse B/L patchy infiltrates consistent with worsening ARDS. Due to his increased WOB and vent asynchrony, will defer extubating at this time and continue with lung protective strategy. Will start nimbex drip as patient is maxed out sedation. 07/01/2024: No acute overnight events reported. Another discussion had with conservator who will relay patient's clinical status to [facility] providers but unlikely that they will be available given holiday. Ventilator settings of A/CMV, Vt 400, RR 28, PEEP 6, FiO2 50%. Also continues to be sedated on propofol and fentanyl drips and paralyzed on nimbex drip. Repeat ABG showed improvement: pH 7.3, pCO2 57, and pO2 64. At bedside increased PEEP and measured plateau pressure increased discordantly, suggesting decreased lung compliance and lack of progress in clinical condition. Thus, decided that patient may benefit from increased steroid dosages from prednisone 40 mg daily to solumedrol 60 mg IV BID. Na noted to be high at 148 so water flushes now at 250 cc q4hr with free water deficit calculated at 1.4 L with goal Na of 143. Additionally, given increased WBC while off antibiotics, will obtain repeat sputum cultures and hold off on antibiotics so it will not skew results. Exam Vital Signs Temp Pulse Resp BP Pulse Ox O2 Del Method O2 Flow Rate 98.2 F 62 28 H 145/49 H 96 Mechanical Ventilation 3 07/01/24 04:00 07/01/24 10:23 07/01/24 10:23 07/01/24 09:00 07/01/24 10:23 07/01/24 04:00 06/30/24 20:00 FiO2 50 07/01/24 10:23 Narrative Exam General: elderly gentlemen, intubated and mechanically ventilated HEENT: NC/AT, PERRL, dry mucous membranes, oropharynx clear, presence of ET tube CVS: regular rate and rhythm, systolic murmur appreciated in left sternal border Lungs: clear to auscultation bilaterally Abd: soft, obese, Ext: no edema, warm well perfused Skin: intact, no rashes, no lesions, no erythema Neuro: sedated at RAAS of -5 Objective Labs 07/01/24 04:24 07/01/24 18:08 Labs: Laboratory Results - last 24 hr 06/30/24 06/30/24 06/30/24 11:45 12:45 14:23 WBC RBC Hgb Hct MCV MCH MCHC RDW Std Deviation Plt Count Neut % (Auto) Lymph % (Auto) [place] % (Auto) Eos % (Auto) Baso % (Auto) Neut # (Auto) Lymph # (Auto) [place] # (Auto) Eos # (Auto) Baso # (Auto) Immature Gran # (Auto) Absolute Nucleated RBC Immature Gran % Nucleated RBC % Puncture Site Right Radial Right Radial ABG pH 7.22 L 7.26 L ABG pCO2 71 H* D 62 H ABG pO2 71 L 58 L* ABG HCO3 29 H 28 H ABG O2 Saturation 88 L 82 L ABG Base Excess 0 0 VBG pH VBG pCO2 VBG pO2 VBG O2 Sat (Josué) VBG Base Excess FiO2 80 80 Sodium 143 Potassium 5.8 H D Chloride 111 H Carbon Dioxide 26.2 Anion Gap 6 L BUN 41 H Creatinine 1.1 Estim Creat Clear Calc 53.2 L eGFR > 60 BUN/Creatinine Ratio 37 H Glucose 142 H Calculated Osmolality 297 H Calcium 8.1 L Corrected Calcium 8.7 Magnesium Total Bilirubin 0.4 AST 42 H ALT 63 H Alkaline Phosphatase 110 Total Protein 5.7 Albumin 3.2 L Globulin 2.5 Albumin/Globulin Ratio 1.3 06/30/24 06/30/24 06/30/24 17:29 19:09 23:14 WBC RBC Hgb Hct MCV MCH MCHC RDW Std Deviation Plt Count Neut % (Auto) Lymph % (Auto) [place] % (Auto) Eos % (Auto) Baso % (Auto) Neut # (Auto) Lymph # (Auto) [place] # (Auto) Eos # (Auto) Baso # (Auto) Immature Gran # (Auto) Absolute Nucleated RBC Immature Gran % Nucleated RBC % Puncture Site Right Radial Right Radial ABG pH 7.15 L* D 7.23 L ABG pCO2 82 H* D 67 H D ABG pO2 196 H D 180 H ABG HCO3 29 H 28 H ABG O2 Saturation 100 H 100 H ABG Base Excess -1 0 VBG pH 7.42 VBG pCO2 41 VBG pO2 62 H VBG O2 Sat (Josué) 93 L VBG Base Excess 2 FiO2 80 80 Sodium Potassium 5.7 H Chloride Carbon Dioxide Anion Gap BUN Creatinine Estim Creat Clear Calc eGFR BUN/Creatinine Ratio Glucose Calculated Osmolality Calcium Corrected Calcium Magnesium Total Bilirubin AST ALT Alkaline Phosphatase Total Protein Albumin Globulin Albumin/Globulin Ratio 07/01/24 07/01/24 04:24 05:00 WBC 24.0 H RBC 2.79 L Hgb 8.0 L Hct 25.2 L MCV 90 MCH 28.7 MCHC 31.7 RDW Std Deviation 53.6 H Plt Count 419 D Neut % (Auto) 79 Lymph % (Auto) 9 L [place] % (Auto) 7 Eos % (Auto) 0 Baso % (Auto) 0 Neut # (Auto) 18.8 H Lymph # (Auto) 2.1 [place] # (Auto) 1.7 H Eos # (Auto) 0.1 Baso # (Auto) 0.1 Immature Gran # (Auto) 1.21 H Absolute Nucleated RBC 0.05 H Immature Gran % 5 H Nucleated RBC % 0 Puncture Site Right Radial ABG pH 7.32 L ABG pCO2 57 H D ABG pO2 64 L D ABG HCO3 29 H ABG O2 Saturation 90 L ABG Base Excess 2 VBG pH VBG pCO2 VBG pO2 VBG O2 Sat (Josué) VBG Base Excess FiO2 21 Sodium 148 H Potassium 5.1 D Chloride 113 H Carbon Dioxide 26.4 Anion Gap 9 BUN 51 H Creatinine 1.2 Estim Creat Clear Calc 48.8 L eGFR > 60 BUN/Creatinine Ratio 43 H Glucose 105 Calculated Osmolality 307 H Calcium 8.3 Corrected Calcium 8.9 Magnesium 2.7 H Total Bilirubin 0.3 AST 53 H ALT 71 H Alkaline Phosphatase 105 Total Protein 5.6 L Albumin 3.2 L Globulin 2.4 Albumin/Globulin Ratio 1.3 ABG Interpretation ABG results: 06/24/24 06/25/24 06/25/24 09:51 11:35 16:44 ABG pH 7.42 7.44 7.25 L D ABG pCO2 34 28 L 52 H D ABG pO2 91 71 L D 82 L ABG HCO3 22 19 L 23 ABG O2 Saturation 98 94 94 ABG Base Excess -2 -5 L -4 L VBG pH VBG pCO2 VBG pO2 VBG Base Excess 06/26/24 06/27/24 06/28/24 07:08 07:35 12:54 ABG pH 7.34 L 7.33 L 7.42 ABG pCO2 38 D 46 39 ABG pO2 91 90 156 H D ABG HCO3 21 24 25 ABG O2 Saturation 97 97 100 H ABG Base Excess -5 L -2 1 VBG pH VBG pCO2 VBG pO2 VBG Base Excess 06/29/24 06/30/24 06/30/24 04:27 10:39 12:45 ABG pH 7.45 7.29 L D 7.22 L ABG pCO2 38 59 H D 71 H* D ABG pO2 74 L D 68 L 71 L ABG HCO3 26 28 H 29 H ABG O2 Saturation 95 88 L 88 L ABG Base Excess 2 1 0 VBG pH VBG pCO2 VBG pO2 VBG Base Excess 06/30/24 06/30/24 06/30/24 14:23 17:29 19:09 ABG pH 7.26 L 7.15 L* D 7.23 L ABG pCO2 62 H 82 H* D 67 H D ABG pO2 58 L* 196 H D 180 H ABG HCO3 28 H 29 H 28 H ABG O2 Saturation 82 L 100 H 100 H ABG Base Excess 0 -1 0 VBG pH VBG pCO2 VBG pO2 VBG Base Excess 06/30/24 07/01/24 23:14 05:00 ABG pH 7.32 L ABG pCO2 57 H D ABG pO2 64 L D ABG HCO3 29 H ABG O2 Saturation 90 L ABG Base Excess 2 VBG pH 7.42 VBG pCO2 41 VBG pO2 62 H VBG Base Excess 2 Quality Measures Quality Measures sepsis Current suspected stage: sepsis Possible source: pulmonary Blood cultures ordered: yes Antibiotic ordered: No Advance care planning discussed with:: legal surragate Assessment & Plan Assessment Current Active Medications: Generic Name Dose Route Start Last Admin Trade Name Freq PRN Reason Stop Dose Admin Acetaminophen 1,000 mg 06/24/24 14:33 Acetaminophen 500 Mg Tablet PO 07/24/24 14:32 Q6H PRN Fever >100 or pain 1-3 Albuterol/Ipratropium 3 ml 06/26/24 07:00 07/01/24 10:21 Albuterol/Ipratropium (Duoneb) Rt Fior 3 Ml Nebu INH 07/26/24 06:59 3 ml Q4HRRT WILMER Administration Albuterol/Ipratropium 3 ml 06/27/24 11:13 06/30/24 14:35 Albuterol/Ipratropium (Duoneb) Rt Fior 3 Ml Nebu INH 07/27/24 11:12 3 ml Q2HR PRN Administration SHORTNESS OF BREATH OR WHEEZE Aspirin 81 mg 06/27/24 09:00 07/01/24 08:24 Aspirin 81 Mg Chew NG 07/25/24 11:44 81 mg QDAY WILMER Administration Dextrose 25 ml 06/26/24 07:46 Dextrose 50%-Water Inj 50 Ml Syringe IV 07/26/24 07:45 Q15MIN PRN BG 50-70 responsive npo pt Dextrose 50 ml 06/26/24 07:46 Dextrose 50%-Water Inj 50 Ml Syringe IV 07/26/24 07:45 Q15MIN PRN BG <50 OR BG <70 & pt unresponsive Enoxaparin Sodium 40 mg 06/25/24 11:45 07/01/24 08:24 Enoxaparin Sod Inj 40 Mg/0.4 Ml Syringe SC 07/09/24 11:44 40 mg QDAY WILMER Administration Glucagon 1 mg 06/26/24 07:46 Glucagon Inj 1 Mg Vial IM Q15MIN PRN BG <70, and no IV access Norepinephrine/Dextrose 8 mg in 250 mls @ 8.072 mls/hr 06/30/24 13:03 06/30/24 17:15 Levophed In D5w 8mg/250ml IV 07/30/24 13:02 0 mcg/kg/min .Q24H PRN 0 mls/hr PER PROTOCOL Titration Protocol 0.05 MCG/KG/MIN Cisatracurium Besylate 200 mg/ 520 mls @ 13.432 mls/hr 06/30/24 13:12 07/01/24 10:00 Sodium Chloride IV 07/30/24 13:11 1.5 mcg/kg/min .Q24H PRN 20.147 mls/hr Per Protocol Titration Protocol 1 MCG/KG/MIN Propofol 1,000 mg in 100 mls @ 2.585 mls/hr 06/30/24 15:36 07/01/24 11:17 Diprivan Ivpb IV 07/25/24 14:00 50 mcg/kg/min .Q24H PRN 25.855 mls/hr PER PROTOCOL Administration Protocol 5 MCG/KG/MIN Fentanyl Citrate 2,500 mcg in 250 mls @ 2.5 mls/hr 06/30/24 21:23 07/01/24 11:18 Sublimaze Inj 2,500 Mcg/250 Ml Bag IV 07/05/24 21:22 200 mcg/hr .Q24H PRN 20 mls/hr PER PROTOCOL Administration Protocol 25 MCG/HR Lactated Ringer's 1,000 mls @ 100 mls/hr 07/01/24 09:15 07/01/24 10:09 Lactated Ringers IV 07/03/24 09:14 100 mls/hr .Q10H WILMER Administration Insulin Human Lispro 0 unit 06/30/24 12:00 07/01/24 06:00 Insulin Lispro (Admelog) 1 Unit/0.01 Ml Unit SC 07/30/24 11:59 Not Given Q6HR WILMER Protocol Lansoprazole 30 mg 06/27/24 09:00 07/01/24 08:24 Lansoprazole 30 Mg Tab.Rap.Dr BOLAÑOS 07/24/24 14:44 30 mg QDAY WILMER Administration Midazolam HCl 2 mg 06/30/24 11:28 Midazolam Inj 1 Mg/Ml Vial 2 Ml IV 07/05/24 11:27 Q1HR PRN SEE COMMENTS Ondansetron HCl 4 mg 06/24/24 14:33 Ondansetron Inj 2 Mg/Ml Inj 2 Ml IV 07/24/24 14:32 Q6H PRN NAUSEA OR VOMITING Protocol Prednisone 40 mg 06/29/24 09:00 07/01/24 08:24 Prednisone 20 Mg Tablet PO 07/02/24 08:59 40 mg QDAY WILMER Administration Sennosides 1 tab 06/24/24 14:33 Senna Tablet PO 07/24/24 14:32 QDAY PRN constipation Protocol Sodium Chloride 3 ml 06/26/24 03:20 Sodium Chloride Rt Fior 0.9% 3 Ml Nebu INH 07/26/24 03:19 PRN PRN SOLN Plan Viraj Light is a 74-year-old male with past medical history significant for Duong's palsy, deaf and nonverbal, schizophrenia, tobacco use, primary hypertension, AV first-degree block, GERD, CAD, COPD, chronic constipation, generalized anxiety disorder who presented to the ED with shortness of breath on 06/24/2024 and admitted to the hospital for AHRF. ICU was consulted after patient has presenting with severe respiratory distress requiring intubation. NEURO #Sedated and paralyzed on mechanical ventilation DDx: in the setting of hypoxia, hypercapnia, and respiratory acidosis with underlying chronic COPD exacerbation - Propofol and fentanyl drips for sedation - Nimbex drip for paralysis - Versed 2mg IV push q1hr for agitation #Deaf and nonverbal CARDIO #Bradycardia?resolved Secondary to propofol sedation #Elevated troponin-resolved in the setting of demand ischemia Troponin peaked at 0.110, and downtrended #History of essential hypertension #History of CAD #Hx of AV block first-degree No history of atrial fibrillation EKG done however there was no sign of AV block BNP slightly elevated at 225 Echo showed normal LV and RV function, with EF 55-60% - Continue to monitor on tele - Keep Mg and K above 2 and 4, respectively - Continue aspirin 81 mg PULM #Acute hypoxic respiratory failure due to influenza pneumonia #Sepsis-resolved #History of COPD-stable Has baseline COPD but does not have a nut steamer Placed on BiPAP, but d/t increased respiratory distress he was intubated on 06/25/24 CXR shows severe b/l PNA that is worsening from intubation Blood culture 06/24, sputum culture 06/25, and urine culture 06/26 no growth, MRSA negative Finished course of Tamiflu and antibiotics Repeat CXR 07/01 showed improvement in infiltrates compared to 06/30 ABG 06/30: pH 7.15, pCO2 82, pO2 196 -> pH 7.23, pCO2 67, pO2 180 - Ventilator settings: A/CMV, Vt 400, RR 28, PEEP 6, FiO2 50% - Duonebs q4hr scheduled and q2hr PRN - Prednisone 40 mg NG daily - Maintain oxygen 88 to 92% - Low tidal volume ventilation strategy of 6cc/kg TV - Follow-up sputum, blood, and urine cultures from 07/01 GI/FEN #Chronic constipation-stable Has had BM #GI prophylaxis - IV PPI #Tube feeds - Continue with tube feeds - Rate decreased to 35 cc/hr on 07/01 #Transaminitis?improving Presented with elevated AST and ALT. DDx: in the setting of sepsis and recent Tamiflu use Hep panel negative - Continue to monitor RENAL #Acute respiratory acidosis-improving Current ABG shows a pH of 7.33 with a PaCO2 of 46. - Will keep current vent settings on pressure support with FiO2 of 50% #LOUIS- resolved Cr increased from 1 to 1.6 on 06/26/24 Most likely pre-renal vs intrinsic in the setting of sepsis and low BP and dehydration Less likely post-renal as patient able to urine with in&out cath - Renally dose medications - Avoid nephrotoxin agents HEME/ONC #Leukocytosis-improving Most likely in the setting of influenza and bacterial pneumonia and recent steroid use #Normocytic anemia?stable H&H stable Ferritin 100, Iron level 9, TIBC 203 in the setting of COPD - Consider iron tablet supplementation #Thrombocytosis-stable Reactive in setting of infection and aspirin use ENDO #Hyperglycemia-stable Most likely elevated due to recent steroid use A1c is 5.2 ID #Influenza pneumonia-resolving - See pulmonary above - Finished course of Tamiflu and antibiotics MSK Stable PSYCH #History of ARIANNA #History of schizophrenia - Will resume home medicines upon med rec Health Maintenance: DVT prophylaxis: Lovenox 40mg SC Diet: tube feeds via OG tube Cespedes: N/A Lines: PIV Drips: Propofol, Fentanyl, Nimbex CODE STATUS: Full code Disposition: Admitted to ICU for AHRF requiring intubation ----- Plan discussed with attending physician Dr. Kelby Amaro MD PGY-1 Internal Medicine
[2024-07-01] MEDS: INSULIN LISPRO (AdmeLOG) 1 UNIT/0.01 ML UNIT SC ×2 (12:08→17:31)
[2024-07-01 12:31] LABS: Alanine Aminotransferase 67 U/L (10-49); Albumin, Serum 2.9 gm/dL (3.4-4.8); Albumin/Globulin Ratio 1.3 (1.2-2.2); Alkaline Phosphatase 99 U/L (46-116); Anion Gap 8 (7-16); Aspartate Amino Transferase 46 U/L (0-34); BUN/Creatinine Ratio 52 Ratio (12-20); Bilirubin,Total 0.3 mg/dL (0.3-1.2); Blood Urea Nitrogen 52 mg/dL (9-23); Calcium 7.9 mg/dL (8.3-10.6); Calcium (Corrected) 8.8 mg/dL (8.5-10.1); Carbon Dioxide 27.5 mMol/L (20.0-31.0); Chloride 108 mMol/L (98-107); Estimated Creatinine Clearance 58.7 mL/min (>60); Globulin 2.3 gm/dL (2.3-3.5); Glucose 137 mg/dL (74-106); Osmolality,Calculated 300 (275-295); Potassium 5.2 mMol/L (3.4-5.1); Sodium 143 mMol/L (136-145); Total Protein 5.2 gm/dL (5.7-8.2); eGFR > 60 See Note
[2024-07-01] MEDS: CISATRACURIUM INJ 200 MG in SODIUM CHLORIDE 0.9% 500 ML 500 ML 20.147 MG IV (14:24)
[2024-07-01] MEDS: CALCIUM GLUC/NS 1000MG IVPB 1,000 MG/50 ML BAG 50 MG IV (17:42)
[2024-07-01 18:41] LABS: Alanine Aminotransferase 65 U/L (10-49); Albumin, Serum 2.7 gm/dL (3.4-4.8); Albumin/Globulin Ratio 1.2 (1.2-2.2); Alkaline Phosphatase 97 U/L (46-116); Anion Gap 6 (7-16); Aspartate Amino Transferase 39 U/L (0-34); BUN/Creatinine Ratio 47 Ratio (12-20); Bilirubin,Total 0.2 mg/dL (0.3-1.2); Blood Urea Nitrogen 52 mg/dL (9-23); Calcium 7.6 mg/dL (8.3-10.6); Calcium (Corrected) 8.6 mg/dL (8.5-10.1); Chloride 108 mMol/L (98-107); Creatinine (Component) 1.1 mg/dL (0.6-1.3); Estimated Creatinine Clearance 53.4 mL/min (>60); Globulin 2.3 gm/dL (2.3-3.5); Glucose 193 mg/dL (74-106); Osmolality,Calculated 302 (275-295); Potassium 5.7 mMol/L (3.4-5.1); Sodium 142 mMol/L (136-145); eGFR > 60 See Note
[2024-07-01] MEDS: SOD POLYSTYRENE SULFON SUSP 15 GM/60 ML BTL 30 GM GT (21:55)
[2024-07-02] VITALS (33 sets, daily range): BP systolic 133–188; BP diastolic 46–68; PULSE 53–66; RESP 28–30; TEMP 36.2–37.1; O2SAT 87–99
[2024-07-02] MEDS: INSULIN LISPRO (AdmeLOG) 1 UNIT/0.01 ML UNIT SC ×4 (00:51→18:44)
[2024-07-02] MEDS: fentaNYL 2,500 MCG/250 ML BAG 2,500 MCG/250 ML BAG 20 MCG IV (01:00)
[2024-07-02] MEDS: ALBUTEROL/IPRATROPIUM (Duoneb) RT SOL 3 ML NEBU INH ×6 (02:25→22:00)
[2024-07-02] MEDS: PROPOFOL 1,000 MG IVPB 1,000 MG/100 ML VIAL 25.855 MG IV ×5 (04:00→20:56)
[2024-07-02 05:23] LABS: Basophils % (Auto) 0 % (0-2.5); Eosinophils % (Auto) 0 % (0-10); Hematocrit 26.5 % (41.0-53.0); Immature Granulocytes % (Auto) 5 % (0-0); Immature Granulocytes Auto 0.97 Thou/mm3 (0.00-0.00); Lymphocytes # (Auto) 0.9 Thou/mm3 (1.0-4.8); Lymphocytes % (Auto) 5 % (10-50); Mean Corpuscular HGB Conc 30.9 g/dl (31.0-37.0); Mean Corpuscular Hemoglobin 28.1 pg (25.0-35.0); Mean Corpuscular Volume 91 fL (80-100); Monocytes # (Auto) 0.7 Thou/mm3 (0.0-0.8); Monocytes % (Auto) 4 % (0-12); Neutrophils # (Auto) 15.7 Thou/mm3 (1.8-7.7); Neutrophils % (Auto) 86 % (37-80); Nucleated Red Blood Cell # 0.06 Thou/mm3 (0.00-0.00); Nucleated Red Blood Cell % 0 /100 WBC (0); Platelet Count 329 Thou/mm3 (140-440); RDW Standard Deviation 53.1 fL (35.1-43.9); Red Blood Count 2.92 Miln/mm3 (4.50-5.90); White Blood Count 18.4 Thou/mm3 (3.8-10.6)
[2024-07-02 05:32] LABS: Hemoglobin 8.2 g/dL (13.5-16.0)
[2024-07-02] MEDS: RINGERS LACTATED 1000 ML 1,000 ML 100 ML IV ×2 (05:32→16:56)
[2024-07-02 05:44] LABS: Alanine Aminotransferase 67 U/L (10-49); Albumin, Serum 3.1 gm/dL (3.4-4.8); Albumin/Globulin Ratio 1.3 (1.2-2.2); Alkaline Phosphatase 107 U/L (46-116); Anion Gap 8 (7-16); Aspartate Amino Transferase 36 U/L (0-34); BUN/Creatinine Ratio 48 Ratio (12-20); Bilirubin,Total 0.2 mg/dL (0.3-1.2); Blood Urea Nitrogen 48 mg/dL (9-23); Calcium 8.2 mg/dL (8.3-10.6); Calcium (Corrected) 8.9 mg/dL (8.5-10.1); Chloride 107 mMol/L (98-107); Estimated Creatinine Clearance 58.7 mL/min (>60); Globulin 2.4 gm/dL (2.3-3.5); Glucose 169 mg/dL (74-106); Magnesium 2.8 mg/dL (1.6-2.6); Osmolality,Calculated 297 (275-295); Potassium 5.7 mMol/L (3.4-5.1); Sodium 141 mMol/L (136-145); Total Protein 5.5 gm/dL (5.7-8.2); eGFR > 60 See Note
--- NOTE | 2024-07-02 06:59 | ESPR_ITS ---
<Statement entered by Clint Lama MD - 07/03/24 07:59> TOTAL CC TIME: 45 MIN I saw and evaluated the patient. I reviewed the resident?s note and agree with findings and plan as documented in the resident?s note. Upon my evaluation, this patient had a high probability of imminent or life- threatening deterioration due to ARDS, which required my direct attention, intervention, and personal management. This time is exclusive of time spent on procedures, which are documented separately if performed. improved gas exchange when comparing VBG today to ABG previously remains on paralytic gtt - fio2 requirements remain high no new fevers ett sputum clx w/ rare gram + cocci only thus far hemodynamics / renal fx preserved remains on iv steroid for ARDS given failure to improve previously Documentation for date of: 07/02/24 Subjective Subjective Interval history: Patient is a 74-year-old male with past medical history significant for Duong's palsy, deaf and nonverbal, schizophrenia, tobacco use, primary hypertension, AV first-degree block, GERD, CAD, COPD, chronic constipation, generalized anxiety disorder who presented to the ED with shortness of breath on 06/24/2024. Throughout hospital stay, patient was very hypoxic and wheezing on physical exam and was placed on BiPAP. Patient also tested positive for influenza A and started on vancomycin and cefepime for superimposed bacterial infection. ICU was consulted after patient has presenting with severe respiratory distress and pulling tidal volumes of 800-12 100 on BiPAP. Patient was intubated for acute hypoxic respiratory failure. 06/26/24: Overnight, patient had a total urine output of 500 cc. Patient was unable to urinate on his own, and bladder scan showed 450 cc, and was able to be removed with an in&out cath. Patient was hypotensive overnight, and was started on Levophed. Patient also is bradycardic, most likely secondary to propofol. Tmax was 99.7. Patient has not spiked a fever since 2/10 a.m. Patient's white count increased from 23.43 6.7, and thrombocytosis increased to 540. Will change patient's vent settings to tidal volume of 400, respiration rate 25, PEEP of 10, and FiO2 of 50%. Will continue with IV Vanco and cefepime, but renal dose. Gram stain showed 2+ WBC. MRSA was negative, however will keep vancomycin after sputum culture from ET tube returns. Patient's blood sugar was little elevated today and started 5 Lantus and sliding scale, and will start tube feeds. LOUIS increased Cr 1 to 1.6, will ensure medications are renally dose, and give a LR bolus of 500cc and will start tube feeds. 06/27/24: Overnight, patient had a total urine output of 700cc overnight. Patient received a total of 3.25L LR. ABG continues to show respiratory acidosis that has remained about the same. Plan today is to try titrating his sedation and see how patient tolerates. Will descalate Abx to IV Ceftiraxone as all cultures returned negative including sputum culture and WBC is improving. Patient will require a total of 5 days of IV Abx. Will continue with straight ins and outs Q4H and continue LR at 50cc/hr and tube feeds. 06/28/24: Overnight, patient was given Versed push due to feeling agitated. Patient has been off fentanyl drip sedated with propofol 35 mcg along with Precedex. Patient was initially on vent settings of SIMV PRVC with a TI time of 1.3 and a PEEP of 10, respiration rate 25 and transition to pressure support, doing well on a RASS of 0. Due to patient's decreased elasticity and obstructive lung process, patient has been having a prolonged expiratory time with an increased MACKENZIE ratio. Will give Lasix IV 20 times 1 in the afternoon and in the evening to help with his O2 reserve. Will discontinue his fluids and continue his tube feeds. Will plan to extubate patient tomorrow. Will follow- up repeat ABG in the morning. 06/29/24: Overnight, patient was given IV Lasix 20mg which helped with his O2 reserve. However, on examination today, patient continues to have increased work of breathing on pressure support. Will have to have a conversation with Dr. Cooney, patient's conservator regarding patient's CODE STATUS given his current respiratory status on safely tolerating extubation. Patient will get his last dose of steroids today, and is tolerating tube feeds well. 06/30/2024: Patient examined at bedside this AM. No overnight events reported. Discussion with patient's conservator who relayed patient was highly functional therefore Code status was switched to full code. On examination, patient appeared to have increased work of breathing whilst on Pressure support with high minute ventilation, with sedation with Propofol at max and fentanyl at RAAS of -4. A CXR was ordered which showed diffuse B/L patchy infiltrates consistent with worsening ARDS. Due to his increased WOB and vent asynchrony, will defer extubating at this time and continue with lung protective strategy. Will start nimbex drip as patient is maxed out sedation. 07/01/2024: No acute overnight events reported. Another discussion had with conservator who will relay patient's clinical status to [facility] facility providers but unlikely that they will be available given holiday. Ventilator settings of A/CMV, Vt 400, RR 28, PEEP 6, FiO2 50%. Also continues to be sedated on propofol and fentanyl drips and paralyzed on nimbex drip. Repeat ABG showed improvement: pH 7.3, pCO2 57, and pO2 64. At bedside increased PEEP and measured plateau pressure increased discordantly, suggesting decreased lung compliance and lack of progress in clinical condition. Thus, decided that patient may benefit from increased steroid dosages from prednisone 40 mg daily to solumedrol 60 mg IV BID. Na noted to be high at 148 so water flushes now at 250 cc q4hr with free water deficit calculated at 1.4 L with goal Na of 143. Additionally, given increased WBC while off antibiotics, will obtain repeat sputum cultures and hold off on antibiotics so it will not skew results. 07/02/2024: No overnight acute events reported. Patient has been maxed out on propofol and fentanyl drips, and paralyzed on Nimbex drip, with a RASS score of -5. Patient's plateau pressures are increasing suggesting lung compliance is getting worse. Patient's current vent settings are tidal volume 400, respiration rate 28, PEEP of 6, FiO2 of 50%. Patient's PaO2/FiO2 ratio is 128 suggesting patient is in moderate ARDS. Will continue with IV steroids and continue with maintenance IV LR. Sputum culture Gram stain did show rare gram- positive cocci, however will not start IV antibiotics as most likely not a new infection. VBG showed stable PaCO2 and improved pH. Exam Vital Signs Temp Pulse Resp BP Pulse Ox O2 Del Method O2 Flow Rate 97.1 F 54 L 28 H 145/50 H 98 Mechanical Ventilation 3 07/02/24 04:00 07/02/24 06:36 07/02/24 06:36 07/02/24 06:33 07/02/24 06:36 07/01/24 04:00 06/30/24 20:00 FiO2 50 07/02/24 06:36 Narrative Exam General Appearance: Elderly gentleman, obese, intubated and sedated, and paralyzed. Able to initiate a cough via suction. HEENT: NC/AT, no scleral icterus, dry MM, edentulous Lungs: clear to auscultation b/l, no wheezing or crackles noted CVS: Bradycardic, S1/S2 heard, no murmurs or rubs appreciated ABD: Soft, non-tender, obese, non-distended, BS + EXT: no deformity/lesions/cyanosis/clubbing, pedal pulses 2+ bilaterally, edematous in all 4 extremities SKIN: Skin exam normal without any rashes. Neuro: Intubated and sedated/paralyzed to a RASS score of -5. Objective Labs 07/02/24 05:00 07/02/24 05:00 Labs: Laboratory Results - last 24 hr 07/01/24 07/01/24 07/01/24 05:00 11:19 18:08 WBC RBC Hgb Hct MCV MCH MCHC RDW Std Deviation Plt Count Neut % (Auto) Lymph % (Auto) [place] % (Auto) Eos % (Auto) Baso % (Auto) Neut # (Auto) Lymph # (Auto) [place] # (Auto) Eos # (Auto) Baso # (Auto) Immature Gran # (Auto) Absolute Nucleated RBC Immature Gran % Nucleated RBC % Puncture Site Right Radial ABG pH 7.32 L ABG pCO2 57 H D ABG pO2 64 L D ABG HCO3 29 H ABG O2 Saturation 90 L ABG Base Excess 2 FiO2 21 Sodium 143 142 Potassium 5.2 H 5.7 H D Chloride 108 H 108 H Carbon Dioxide 27.5 28.0 Anion Gap 8 6 L BUN 52 H 52 H Creatinine 1.0 1.1 Estim Creat Clear Calc 58.7 L 53.4 L eGFR > 60 > 60 BUN/Creatinine Ratio 52 H 47 H Glucose 137 H 193 H D Calculated Osmolality 300 H 302 H Calcium 7.9 L 7.6 L Corrected Calcium 8.8 8.6 Magnesium Total Bilirubin 0.3 0.2 L AST 46 H 39 H ALT 67 H 65 H Alkaline Phosphatase 99 97 Total Protein 5.2 L 5.0 L Albumin 2.9 L 2.7 L Globulin 2.3 2.3 Albumin/Globulin Ratio 1.3 1.2 07/02/24 05:00 WBC 18.4 H D RBC 2.92 L Hgb 8.2 L Hct 26.5 L MCV 91 MCH 28.1 MCHC 30.9 L RDW Std Deviation 53.1 H Plt Count 329 D Neut % (Auto) 86 H Lymph % (Auto) 5 L [place] % (Auto) 4 Eos % (Auto) 0 Baso % (Auto) 0 Neut # (Auto) 15.7 H Lymph # (Auto) 0.9 L [place] # (Auto) 0.7 Eos # (Auto) 0.0 Baso # (Auto) 0.0 Immature Gran # (Auto) 0.97 H Absolute Nucleated RBC 0.06 H Immature Gran % 5 H Nucleated RBC % 0 Puncture Site ABG pH ABG pCO2 ABG pO2 ABG HCO3 ABG O2 Saturation ABG Base Excess FiO2 Sodium 141 Potassium 5.7 H Chloride 107 Carbon Dioxide 26.0 Anion Gap 8 BUN 48 H Creatinine 1.0 Estim Creat Clear Calc 58.7 L eGFR > 60 BUN/Creatinine Ratio 48 H Glucose 169 H Calculated Osmolality 297 H Calcium 8.2 L Corrected Calcium 8.9 Magnesium 2.8 H Total Bilirubin 0.2 L AST 36 H ALT 67 H Alkaline Phosphatase 107 Total Protein 5.5 L Albumin 3.1 L Globulin 2.4 Albumin/Globulin Ratio 1.3 ABG Interpretation ABG results: 06/24/24 06/25/24 06/25/24 09:51 11:35 16:44 ABG pH 7.42 7.44 7.25 L D ABG pCO2 34 28 L 52 H D ABG pO2 91 71 L D 82 L ABG HCO3 22 19 L 23 ABG O2 Saturation 98 94 94 ABG Base Excess -2 -5 L -4 L VBG pH VBG pCO2 VBG pO2 VBG Base Excess 06/26/24 06/27/24 06/28/24 07:08 07:35 12:54 ABG pH 7.34 L 7.33 L 7.42 ABG pCO2 38 D 46 39 ABG pO2 91 90 156 H D ABG HCO3 21 24 25 ABG O2 Saturation 97 97 100 H ABG Base Excess -5 L -2 1 VBG pH VBG pCO2 VBG pO2 VBG Base Excess 06/29/24 06/30/24 06/30/24 04:27 10:39 12:45 ABG pH 7.45 7.29 L D 7.22 L ABG pCO2 38 59 H D 71 H* D ABG pO2 74 L D 68 L 71 L ABG HCO3 26 28 H 29 H ABG O2 Saturation 95 88 L 88 L ABG Base Excess 2 1 0 VBG pH VBG pCO2 VBG pO2 VBG Base Excess 06/30/24 06/30/24 06/30/24 14:23 17:29 19:09 ABG pH 7.26 L 7.15 L* D 7.23 L ABG pCO2 62 H 82 H* D 67 H D ABG pO2 58 L* 196 H D 180 H ABG HCO3 28 H 29 H 28 H ABG O2 Saturation 82 L 100 H 100 H ABG Base Excess 0 -1 0 VBG pH VBG pCO2 VBG pO2 VBG Base Excess 06/30/24 07/01/24 23:14 05:00 ABG pH 7.32 L ABG pCO2 57 H D ABG pO2 64 L D ABG HCO3 29 H ABG O2 Saturation 90 L ABG Base Excess 2 VBG pH 7.42 VBG pCO2 41 VBG pO2 62 H VBG Base Excess 2 Quality Measures Quality Measures sepsis Current suspected stage: ruled out Possible source: pulmonary Blood cultures ordered: yes Antibiotic ordered: No Advance care planning discussed with:: legal surragate Assessment & Plan Assessment Current Active Medications: Generic Name Dose Route Start Last Admin Trade Name Freq PRN Reason Stop Dose Admin Acetaminophen 1,000 mg 06/24/24 14:33 Acetaminophen 500 Mg Tablet PO 07/24/24 14:32 Q6H PRN Fever >100 or pain 1-3 Albuterol/Ipratropium 3 ml 06/26/24 07:00 07/02/24 06:36 Albuterol/Ipratropium (Duoneb) Rt Fior 3 Ml Nebu INH 07/26/24 06:59 3 ml Q4HRRT WILMER Administration Albuterol/Ipratropium 3 ml 06/27/24 11:13 06/30/24 14:35 Albuterol/Ipratropium (Duoneb) Rt Fior 3 Ml Nebu INH 07/27/24 11:12 3 ml Q2HR PRN Administration SHORTNESS OF BREATH OR WHEEZE Aspirin 81 mg 06/27/24 09:00 07/01/24 08:24 Aspirin 81 Mg Chew NG 07/25/24 11:44 81 mg QDAY WILMER Administration Dextrose 25 ml 06/26/24 07:46 Dextrose 50%-Water Inj 50 Ml Syringe IV 07/26/24 07:45 Q15MIN PRN BG 50-70 responsive npo pt Dextrose 50 ml 06/26/24 07:46 Dextrose 50%-Water Inj 50 Ml Syringe IV 07/26/24 07:45 Q15MIN PRN BG <50 OR BG <70 & pt unresponsive Enoxaparin Sodium 40 mg 06/25/24 11:45 07/01/24 08:24 Enoxaparin Sod Inj 40 Mg/0.4 Ml Syringe SC 07/09/24 11:44 40 mg QDAY WILMER Administration Glucagon 1 mg 06/26/24 07:46 Glucagon Inj 1 Mg Vial IM Q15MIN PRN BG <70, and no IV access Norepinephrine/Dextrose 8 mg in 250 mls @ 8.072 mls/hr 06/30/24 13:03 06/30/24 17:15 Levophed In D5w 8mg/250ml IV 07/30/24 13:02 0 mcg/kg/min .Q24H PRN 0 mls/hr PER PROTOCOL Titration Protocol 0.05 MCG/KG/MIN Cisatracurium Besylate 200 mg/ 520 mls @ 13.432 mls/hr 06/30/24 13:12 07/02/24 06:00 Sodium Chloride IV 07/30/24 13:11 1.5 mcg/kg/min .Q24H PRN 20.147 mls/hr Per Protocol Titration Protocol 1 MCG/KG/MIN Propofol 1,000 mg in 100 mls @ 2.585 mls/hr 06/30/24 15:36 07/02/24 06:00 Diprivan Ivpb IV 07/25/24 14:00 50 mcg/kg/min .Q24H PRN 25.855 mls/hr PER PROTOCOL Titration Protocol 5 MCG/KG/MIN Fentanyl Citrate 2,500 mcg in 250 mls @ 2.5 mls/hr 06/30/24 21:23 07/02/24 06:00 Sublimaze Inj 2,500 Mcg/250 Ml Bag IV 07/05/24 21:22 200 mcg/hr .Q24H PRN 20 mls/hr PER PROTOCOL Titration Protocol 25 MCG/HR Lactated Ringer's 1,000 mls @ 100 mls/hr 07/01/24 09:15 07/02/24 05:32 Lactated Ringers IV 07/03/24 09:14 100 mls/hr .Q10H WILMER Administration Insulin Human Lispro 0 unit 06/30/24 12:00 07/02/24 05:33 Insulin Lispro (Admelog) 1 Unit/0.01 Ml Unit SC 07/30/24 11:59 1 unit Q6HR WILMER Administration Protocol Lansoprazole 30 mg 06/27/24 09:00 07/01/24 08:24 Lansoprazole 30 Mg Tab.Rap.Dr BOLAÑOS 07/24/24 14:44 30 mg QDAY WILMER Administration Methylprednisolone Sodium Succinate 60 mg 07/01/24 11:45 07/01/24 20:15 Methylprednisolone Sod Succ 40 Mg Vial IV 07/08/24 11:44 60 mg Q12HR WILMER Administration Midazolam HCl 2 mg 06/30/24 11:28 Midazolam Inj 1 Mg/Ml Vial 2 Ml IV 07/05/24 11:27 Q1HR PRN SEE COMMENTS Ondansetron HCl 4 mg 06/24/24 14:33 Ondansetron Inj 2 Mg/Ml Inj 2 Ml IV 07/24/24 14:32 Q6H PRN NAUSEA OR VOMITING Protocol Sennosides 1 tab 06/24/24 14:33 Senna Tablet PO 07/24/24 14:32 QDAY PRN constipation Protocol Sodium Chloride 3 ml 06/26/24 03:20 Sodium Chloride Rt Fior 0.9% 3 Ml Nebu INH 07/26/24 03:19 PRN PRN SOLN Plan Viraj Light is a 74-year-old male with past medical history significant for Duong's palsy, deaf and nonverbal, schizophrenia, tobacco use, primary hypertension, AV first-degree block, GERD, CAD, COPD, chronic constipation, generalized anxiety disorder who presented to the ED with shortness of breath on 06/24/2024 and admitted to the hospital for AHRF. ICU was consulted after patient has presenting with severe respiratory distress requiring intubation. NEURO #Sedated and paralyzed on mechanical ventilation DDx: in the setting of hypoxia, hypercapnia, and respiratory acidosis with underlying chronic COPD exacerbation - Propofol and fentanyl drips for sedation - Nimbex drip for paralysis - Versed 2mg IV push q1hr for agitation - RAAS Goal of -5 #Deaf and nonverbal CARDIO #Bradycardia Secondary to propofol sedation #Elevated troponin-resolved in the setting of demand ischemia Troponin peaked at 0.110, and downtrended #History of essential hypertension #History of CAD #Hx of AV block first-degree No history of atrial fibrillation EKG done however there was no sign of AV block BNP slightly elevated at 225 Echo showed normal LV and RV function, with EF 55-60% - Continue to monitor on tele - Keep Mg and K above 2 and 4, respectively - Continue aspirin 81 mg PULM #Acute hypoxic respiratory failure due to influenza pneumonia #ARDS #Sepsis-resolved #History of COPD-stable Has baseline COPD but 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 Placed on BiPAP, but d/t increased respiratory distress he was intubated on 06/25/24 CXR shows severe b/l PNA that is worsening from intubation Blood culture 06/24, sputum culture 06/25, and urine culture 06/26 no growth, MRSA negative Finished course of Tamiflu and antibiotics Repeat CXR 07/01 showed improvement in infiltrates compared to 06/30 ABG 06/30: pH 7.15, pCO2 82, pO2 196 -> pH 7.23, pCO2 67, pO2 180 - BCx, Sputum Gram Stain showed GPC, Sputum Cx pending - Ventilator settings: A/CMV, Vt 400, RR 28, PEEP 6, FiO2 50% - Duonebs q4hr scheduled and q2hr PRN - Solumedrol 60mg IV BID - Maintain oxygen 88 to 92% - Low tidal volume ventilation strategy of 6cc/kg TV - Consider prone position if patient's condition continues to worsen GI/FEN #Chronic constipation-stable Has had BM #GI prophylaxis - IV PPI #Tube feeds - Continue with tube feeds - Rate decreased to 35 cc/hr on 07/01 #Transaminitis?improving Presented with elevated AST and ALT. DDx: in the setting of sepsis and recent Tamiflu use Hep panel negative - Continue to monitor RENAL #Acute respiratory acidosis-improving Current ABG shows a pH of 7.32 with a PaCO2 of 57. - Will keep current vent settings on pressure support with FiO2 of 50% - F/u VBG shows improvement: pH of 7.37 #Hypernatremia-resolving Free water deficit 0.3L, Na improve from 148 to 141 -Continue with LR 100/hr #Hyperkalemia-stable Lasix and Kayexelate overnight -CTM to monitor via daily labs -Continue with Albuterol treatments #LOUIS- resolved Cr increased from 1 to 1.6 on 06/26/24 Most likely pre-renal vs intrinsic in the setting of sepsis and low BP and dehydration Less likely post-renal as patient able to urine with in&out cath - Renally dose medications - Avoid nephrotoxin agents -Continue with IV LR at 100cc/hr HEME/ONC #Leukocytosis-improving Most likely in the setting of influenza and bacterial pneumonia and recent steroid use #Normocytic anemia?stable H&H stable Ferritin 100, Iron level 9, TIBC 203 in the setting of COPD - Consider iron tablet supplementation #Thrombocytosis-resolved Reactive in setting of infection and aspirin use ENDO #Hyperglycemia-stable Most likely elevated due to recent steroid use A1c is 5.2 ID #Influenza pneumonia-resolving Sputum Gram Stain showed rare GPC collected on 07/01/24 - See pulmonary above - Finished course of Tamiflu and antibiotics - BCx, Sputum Cx pending MSK Stable PSYCH #History of ARIANNA #History of schizophrenia - Will resume home medicines upon med rec Health Maintenance: DVT prophylaxis: Lovenox 40mg SC Diet: tube feeds via OG tube Cespedes: N/A Lines: PIV Drips: Propofol, Fentanyl, Nimbex CODE STATUS: Full code Disposition: Admitted to ICU for AHRF requiring intubation Patient's plan and care discussed with my attending, Dr. Kelby Springer MD PGY-2
[2024-07-02 08:12] LABS: Base Excess, Venous 1 (-3-3); O2 Saturation, Venous 97 % (96-97); PCO2, Venous 46 mmHg (36-56); PO2, Venous 84 mmHg (15-58); pH, Venous 7.37 (7.33-7.66)
[2024-07-02] MEDS: ASPIRIN 81 MG CHEW NG (09:21)
[2024-07-02] MEDS: LANSOPRAZOLE 30 MG TAB.RAP.DR NG (09:21)
[2024-07-02] MEDS: ENOXAPARIN SOD INJ 40 MG/0.4 ML SYRINGE SC (09:21)
[2024-07-02] MEDS: fentaNYL 2,500 MCG/250 ML BAG 2,500 MCG/250 ML BAG 30 MCG IV ×2 (12:45→21:05)
[2024-07-02] MEDS: CISATRACURIUM INJ 200 MG in SODIUM CHLORIDE 0.9% 500 ML 500 ML 20.147 MG IV (15:55)
--- NOTE | 2024-07-02 17:03 | PC.SS ---
Update: Patient remains intubated and sedated. Patient is paralyzed. G-tube for feeding. Patient is not receiving pressor support.
[2024-07-03] VITALS (31 sets, daily range): BP systolic 135–175; BP diastolic 48–64; PULSE 49–59; RESP 28–29; TEMP 36.1–36.6; O2SAT 89–99; BMI 37.8
[2024-07-03] MEDS: PROPOFOL 1,000 MG IVPB 1,000 MG/100 ML VIAL 25.855 MG IV ×6 (00:49→23:00)
[2024-07-03] MEDS: ALBUTEROL/IPRATROPIUM (Duoneb) RT SOL 3 ML NEBU INH ×7 (03:00→23:00)
[2024-07-03] MEDS: RINGERS LACTATED 1000 ML 1,000 ML 100 ML IV (03:07)
[2024-07-03 04:55] LABS: Base Excess, Venous 3 (-3-3); O2 Saturation, Venous 92 % (96-97); PCO2, Venous 42 mmHg (36-56); PO2, Venous 60 mmHg (15-58); pH, Venous 7.43 (7.33-7.66)
[2024-07-03 05:07] LABS: Basophils % (Auto) 0 % (0-2.5); Eosinophils % (Auto) 0 % (0-10); Hematocrit 23.9 % (41.0-53.0); Immature Granulocytes % (Auto) 5 % (0-0); Immature Granulocytes Auto 0.93 Thou/mm3 (0.00-0.00); Lymphocytes # (Auto) 0.8 Thou/mm3 (1.0-4.8); Lymphocytes % (Auto) 5 % (10-50); Mean Corpuscular HGB Conc 31.4 g/dl (31.0-37.0); Mean Corpuscular Volume 89 fL (80-100); Monocytes # (Auto) 0.6 Thou/mm3 (0.0-0.8); Monocytes % (Auto) 3 % (0-12); Neutrophils % (Auto) 87 % (37-80); Nucleated Red Blood Cell # 0.03 Thou/mm3 (0.00-0.00); Nucleated Red Blood Cell % 0 /100 WBC (0); Platelet Count 313 Thou/mm3 (140-440); RDW Standard Deviation 51.6 fL (35.1-43.9); Red Blood Count 2.68 Miln/mm3 (4.50-5.90); White Blood Count 18.3 Thou/mm3 (3.8-10.6)
[2024-07-03 05:10] LABS: Hemoglobin 7.5 g/dL (13.5-16.0)
[2024-07-03 05:25] LABS: Alanine Aminotransferase 95 U/L (10-49); Albumin, Serum 2.9 gm/dL (3.4-4.8); Albumin/Globulin Ratio 1.3 (1.2-2.2); Alkaline Phosphatase 103 U/L (46-116); Anion Gap 7 (7-16); Aspartate Amino Transferase 52 U/L (0-34); BUN/Creatinine Ratio 61 Ratio (12-20); Bilirubin,Total 0.3 mg/dL (0.3-1.2); Blood Urea Nitrogen 49 mg/dL (9-23); Calcium (Corrected) 8.9 mg/dL (8.5-10.1); Carbon Dioxide 25.5 mMol/L (20.0-31.0); Chloride 107 mMol/L (98-107); Creatinine (Component) 0.8 mg/dL (0.6-1.3); Estimated Creatinine Clearance 75.8 mL/min (>60); Globulin 2.3 gm/dL (2.3-3.5); Glucose 173 mg/dL (74-106); Magnesium 2.7 mg/dL (1.6-2.6); Osmolality,Calculated 294 (275-295); Potassium 5.8 mMol/L (3.4-5.1); Sodium 139 mMol/L (136-145); Total Protein 5.2 gm/dL (5.7-8.2); eGFR > 60 See Note
[2024-07-03] MEDS: fentaNYL 2,500 MCG/250 ML BAG 2,500 MCG/250 ML BAG 30 MCG IV ×2 (06:00→16:14)
[2024-07-03] MEDS: INSULIN LISPRO (AdmeLOG) 1 UNIT/0.01 ML UNIT SC ×2 (06:30→17:30)
[2024-07-03] MEDS: ENOXAPARIN SOD INJ 40 MG/0.4 ML SYRINGE SC (09:46)
[2024-07-03] MEDS: ASPIRIN 81 MG CHEW NG (09:46)
[2024-07-03] MEDS: PATIROMER CALCIUM 8.4 GM PACKET (NON-FORM) GT (09:46)
[2024-07-03] MEDS: LANSOPRAZOLE 30 MG TAB.RAP.DR NG (09:46)
--- NOTE | 2024-07-03 10:15 | ESPR_ITS ---
<Statement entered by Clint Lama MD - 07/04/24 13:12> TOTAL CC TIME: 45 MIN I saw and evaluated the patient. I reviewed the resident?s note and agree with findings and plan as documented in the resident?s note. Upon my evaluation, this patient had a high probability of imminent or life- threatening deterioration due to ARDS which required my direct attention, intervention, and personal management. This time is exclusive of time spent on procedures, which are documented separately if performed. Tidal volume dropped down further due to increasing plateau pressure pH acceptable No other major clinical changes awaiting sputum culture results Documentation for date of: 07/03/24 Subjective Subjective Interval history: Patient is a 74-year-old male with past medical history significant for Duong's palsy, deaf and nonverbal, schizophrenia, tobacco use, primary hypertension, AV first-degree block, GERD, CAD, COPD, chronic constipation, generalized anxiety disorder who presented to the ED with shortness of breath on 06/24/2024. Throughout hospital stay, patient was very hypoxic and wheezing on physical exam and was placed on BiPAP. Patient also tested positive for influenza A and started on vancomycin and cefepime for superimposed bacterial infection. ICU was consulted after patient has presenting with severe respiratory distress and pulling tidal volumes of 800-12 100 on BiPAP. Patient was intubated for acute hypoxic respiratory failure. 06/26/24: Overnight, patient had a total urine output of 500 cc. Patient was unable to urinate on his own, and bladder scan showed 450 cc, and was able to be removed with an in&out cath. Patient was hypotensive overnight, and was started on Levophed. Patient also is bradycardic, most likely secondary to propofol. Tmax was 99.7. Patient has not spiked a fever since 2/10 a.m. Patient's white count increased from 23.43 6.7, and thrombocytosis increased to 540. Will change patient's vent settings to tidal volume of 400, respiration rate 25, PEEP of 10, and FiO2 of 50%. Will continue with IV Vanco and cefepime, but renal dose. Gram stain showed 2+ WBC. MRSA was negative, however will keep vancomycin after sputum culture from ET tube returns. Patient's blood sugar was little elevated today and started 5 Lantus and sliding scale, and will start tube feeds. LOUIS increased Cr 1 to 1.6, will ensure medications are renally dose, and give a LR bolus of 500cc and will start tube feeds. 06/27/24: Overnight, patient had a total urine output of 700cc overnight. Patient received a total of 3.25L LR. ABG continues to show respiratory acidosis that has remained about the same. Plan today is to try titrating his sedation and see how patient tolerates. Will descalate Abx to IV Ceftiraxone as all cultures returned negative including sputum culture and WBC is improving. Patient will require a total of 5 days of IV Abx. Will continue with straight ins and outs Q4H and continue LR at 50cc/hr and tube feeds. 06/28/24: Overnight, patient was given Versed push due to feeling agitated. Patient has been off fentanyl drip sedated with propofol 35 mcg along with Precedex. Patient was initially on vent settings of SIMV PRVC with a TI time of 1.3 and a PEEP of 10, respiration rate 25 and transition to pressure support, doing well on a RASS of 0. Due to patient's decreased elasticity and obstructive lung process, patient has been having a prolonged expiratory time with an increased MACKENZIE ratio. Will give Lasix IV 20 times 1 in the afternoon and in the evening to help with his O2 reserve. Will discontinue his fluids and continue his tube feeds. Will plan to extubate patient tomorrow. Will follow- up repeat ABG in the morning. 06/29/24: Overnight, patient was given IV Lasix 20mg which helped with his O2 reserve. However, on examination today, patient continues to have increased work of breathing on pressure support. Will have to have a conversation with Dr. Cooney, patient's conservator regarding patient's CODE STATUS given his current respiratory status on safely tolerating extubation. Patient will get his last dose of steroids today, and is tolerating tube feeds well. 06/30/2024: Patient examined at bedside this AM. No overnight events reported. Discussion with patient's conservator who relayed patient was highly functional therefore Code status was switched to full code. On examination, patient appeared to have increased work of breathing whilst on Pressure support with high minute ventilation, with sedation with Propofol at max and fentanyl at RAAS of -4. A CXR was ordered which showed diffuse B/L patchy infiltrates consistent with worsening ARDS. Due to his increased WOB and vent asynchrony, will defer extubating at this time and continue with lung protective strategy. Will start nimbex drip as patient is maxed out sedation. 07/01/2024: No acute overnight events reported. Another discussion had with conservator who will relay patient's clinical status to [facility] facility providers but unlikely that they will be available given holiday. Ventilator settings of A/CMV, Vt 400, RR 28, PEEP 6, FiO2 50%. Also continues to be sedated on propofol and fentanyl drips and paralyzed on nimbex drip. Repeat ABG showed improvement: pH 7.3, pCO2 57, and pO2 64. At bedside increased PEEP and measured plateau pressure increased discordantly, suggesting decreased lung compliance and lack of progress in clinical condition. Thus, decided that patient may benefit from increased steroid dosages from prednisone 40 mg daily to solumedrol 60 mg IV BID. Na noted to be high at 148 so water flushes now at 250 cc q4hr with free water deficit calculated at 1.4 L with goal Na of 143. Additionally, given increased WBC while off antibiotics, will obtain repeat sputum cultures and hold off on antibiotics so it will not skew results. 07/02/2024: No overnight acute events reported. Patient has been maxed out on propofol and fentanyl drips, and paralyzed on Nimbex drip, with a RASS score of -5. Patient's plateau pressures are increasing suggesting lung compliance is getting worse. Patient's current vent settings are tidal volume 400, respiration rate 28, PEEP of 6, FiO2 of 50%. Patient's PaO2/FiO2 ratio is 128 suggesting patient is in moderate ARDS. Will continue with IV steroids and continue with maintenance IV LR. Sputum culture Gram stain did show rare gram- positive cocci, however will not start IV antibiotics as most likely not a new infection. VBG showed stable PaCO2 and improved pH. 07/03/2024: Overnight, patient's FiO2 requirements increased from 50% to 65%. Patient seen and examined at bedside. Patient has been on 8 days of propofol, and triglyceride level is within normal limits. Due to increased peak and plateau pressures, will decrease patient's tidal volume from 400-3 80 as well as PEEP from 6-5. Due to patient's worsening ARDS, will keep patient's goal ventilation settings to plateau pressure less than 30 and low tidal volume of at least 6ml or less /kg. Will update patient's conservator and care providers on his current plan. Exam Vital Signs Temp Pulse Resp BP Pulse Ox O2 Del Method O2 Flow Rate 97.9 F 53 L 28 H 152/58 H 94 L Mechanical Ventilation 3 07/03/24 08:00 07/03/24 08:00 07/03/24 06:20 07/03/24 08:00 07/03/24 08:00 07/03/24 08:00 06/30/24 20:00 FiO2 65 07/03/24 08:00 Narrative Exam General Appearance: Elderly gentleman, obese, intubated and sedated, and paralyzed. Able to initiate a cough via suction. HEENT: NC/AT, no scleral icterus, dry MM, edentulous Lungs: clear to auscultation b/l with exception of diminished sounds on lung bases, no wheezing or crackles noted CVS: Bradycardic, S1/S2 heard, no murmurs or rubs appreciated ABD: Soft, non-tender, obese, non-distended, BS + EXT: no deformity/lesions/cyanosis/clubbing, pedal pulses 2+ bilaterally, edematous in all 4 extremities SKIN: Skin exam normal without any rashes. Neuro: Intubated and sedated/paralyzed to a RASS score of -5. Objective Labs 07/03/24 04:46 07/03/24 04:46 Labs: Laboratory Results - last 24 hr 06/28/24 07/03/24 07:55 04:46 WBC 18.3 H RBC 2.68 L Hgb 7.5 L Hct 23.9 L MCV 89 MCH 28.0 MCHC 31.4 RDW Std Deviation 51.6 H Plt Count 313 Neut % (Auto) 87 H Lymph % (Auto) 5 L Hockley % (Auto) 3 Eos % (Auto) 0 Baso % (Auto) 0 Neut # (Auto) 16.0 H Lymph # (Auto) 0.8 L [place] # (Auto) 0.6 Eos # (Auto) 0.0 Baso # (Auto) 0.0 Immature Gran # (Auto) 0.93 H Absolute Nucleated RBC 0.03 H Immature Gran % 5 H Nucleated RBC % 0 Puncture Site Cancelled ABG pH Cancelled ABG pCO2 Cancelled ABG pO2 Cancelled ABG HCO3 Cancelled ABG O2 Saturation Cancelled ABG Base Excess Cancelled VBG pH 7.43 VBG pCO2 42 VBG pO2 60 H D VBG O2 Sat (Josué) 92 L VBG Base Excess 3 Oxygen Liter Flow Cancelled FiO2 Cancelled Sodium 139 Potassium 5.8 H Chloride 107 Carbon Dioxide 25.5 Anion Gap 7 BUN 49 H Creatinine 0.8 Estim Creat Clear Calc 75.8 eGFR > 60 BUN/Creatinine Ratio 61 H Glucose 173 H Calculated Osmolality 294 Calcium 8.0 L Corrected Calcium 8.9 Magnesium 2.7 H Total Bilirubin 0.3 AST 52 H ALT 95 H Alkaline Phosphatase 103 Total Protein 5.2 L Albumin 2.9 L Globulin 2.3 Albumin/Globulin Ratio 1.3 ABG Interpretation ABG results: 06/24/24 06/25/24 06/25/24 09:51 11:35 16:44 ABG pH 7.42 7.44 7.25 L D ABG pCO2 34 28 L 52 H D ABG pO2 91 71 L D 82 L ABG HCO3 22 19 L 23 ABG O2 Saturation 98 94 94 ABG Base Excess -2 -5 L -4 L VBG pH VBG pCO2 VBG pO2 VBG Base Excess 06/26/24 06/27/24 06/28/24 07:08 07:35 07:55 ABG pH 7.34 L 7.33 L Cancelled ABG pCO2 38 D 46 Cancelled ABG pO2 91 90 Cancelled ABG HCO3 21 24 Cancelled ABG O2 Saturation 97 97 Cancelled ABG Base Excess -5 L -2 Cancelled VBG pH VBG pCO2 VBG pO2 VBG Base Excess 06/28/24 06/29/24 06/30/24 12:54 04:27 10:39 ABG pH 7.42 7.45 7.29 L D ABG pCO2 39 38 59 H D ABG pO2 156 H D 74 L D 68 L ABG HCO3 25 26 28 H ABG O2 Saturation 100 H 95 88 L ABG Base Excess 1 2 1 VBG pH VBG pCO2 VBG pO2 VBG Base Excess 06/30/24 06/30/24 06/30/24 12:45 14:23 17:29 ABG pH 7.22 L 7.26 L 7.15 L* D ABG pCO2 71 H* D 62 H 82 H* D ABG pO2 71 L 58 L* 196 H D ABG HCO3 29 H 28 H 29 H ABG O2 Saturation 88 L 82 L 100 H ABG Base Excess 0 0 -1 VBG pH VBG pCO2 VBG pO2 VBG Base Excess 06/30/24 06/30/24 07/01/24 19:09 23:14 05:00 ABG pH 7.23 L 7.32 L ABG pCO2 67 H D 57 H D ABG pO2 180 H 64 L D ABG HCO3 28 H 29 H ABG O2 Saturation 100 H 90 L ABG Base Excess 0 2 VBG pH 7.42 VBG pCO2 41 VBG pO2 62 H VBG Base Excess 2 07/02/24 07/03/24 08:04 04:46 ABG pH ABG pCO2 ABG pO2 ABG HCO3 ABG O2 Saturation ABG Base Excess VBG pH 7.37 7.43 VBG pCO2 46 42 VBG pO2 84 H D 60 H D VBG Base Excess 1 3 Quality Measures Quality Measures sepsis Current suspected stage: ruled out Possible source: pulmonary Blood cultures ordered: yes Antibiotic ordered: Yes Advance care planning discussed with:: patient Assessment & Plan Assessment Current Active Medications: Generic Name Dose Route Start Last Admin Trade Name Freq PRN Reason Stop Dose Admin Acetaminophen 1,000 mg 06/24/24 14:33 Acetaminophen 500 Mg Tablet PO 07/24/24 14:32 Q6H PRN Fever >100 or pain 1-3 Albuterol/Ipratropium 3 ml 06/26/24 07:00 07/03/24 06:20 Albuterol/Ipratropium (Duoneb) Rt Fior 3 Ml Nebu INH 07/26/24 06:59 3 ml Q4HRRT WILMER Administration Albuterol/Ipratropium 3 ml 06/27/24 11:13 06/30/24 14:35 Albuterol/Ipratropium (Duoneb) Rt Fior 3 Ml Nebu INH 07/27/24 11:12 3 ml Q2HR PRN Administration SHORTNESS OF BREATH OR WHEEZE Aspirin 81 mg 06/27/24 09:00 07/03/24 09:46 Aspirin 81 Mg Chew NG 07/25/24 11:44 81 mg QDAY WILMER Administration Dextrose 25 ml 06/26/24 07:46 Dextrose 50%-Water Inj 50 Ml Syringe IV 07/26/24 07:45 Q15MIN PRN BG 50-70 responsive npo pt Dextrose 50 ml 06/26/24 07:46 Dextrose 50%-Water Inj 50 Ml Syringe IV 07/26/24 07:45 Q15MIN PRN BG <50 OR BG <70 & pt unresponsive Enoxaparin Sodium 40 mg 06/25/24 11:45 07/03/24 09:46 Enoxaparin Sod Inj 40 Mg/0.4 Ml Syringe SC 07/09/24 11:44 40 mg QDAY WILMER Administration Glucagon 1 mg 06/26/24 07:46 Glucagon Inj 1 Mg Vial IM Q15MIN PRN BG <70, and no IV access Norepinephrine/Dextrose 8 mg in 250 mls @ 8.072 mls/hr 06/30/24 13:03 06/30/24 17:15 Levophed In D5w 8mg/250ml IV 07/30/24 13:02 0 mcg/kg/min .Q24H PRN 0 mls/hr PER PROTOCOL Titration Protocol 0.05 MCG/KG/MIN Cisatracurium Besylate 200 mg/ 520 mls @ 13.432 mls/hr 06/30/24 13:12 07/03/24 07:00 Sodium Chloride IV 07/30/24 13:11 2.25 mcg/kg/min .Q24H PRN 30.221 mls/hr Per Protocol Titration Protocol 1 MCG/KG/MIN Propofol 1,000 mg in 100 mls @ 2.585 mls/hr 06/30/24 15:36 07/03/24 06:00 Diprivan Ivpb IV 07/25/24 14:00 50 mcg/kg/min .Q24H PRN 25.855 mls/hr PER PROTOCOL Titration Protocol 5 MCG/KG/MIN Fentanyl Citrate 2,500 mcg in 250 mls @ 2.5 mls/hr 06/30/24 21:23 07/03/24 06:00 Sublimaze Inj 2,500 Mcg/250 Ml Bag IV 07/05/24 21:22 300 mcg/hr .Q24H PRN 30 mls/hr PER PROTOCOL Administration Protocol 25 MCG/HR Insulin Human Lispro 0 unit 06/30/24 12:00 07/03/24 06:30 Insulin Lispro (Admelog) 1 Unit/0.01 Ml Unit SC 07/30/24 11:59 1 unit Q6HR WILMER Administration Protocol Lansoprazole 30 mg 06/27/24 09:00 07/03/24 09:46 Lansoprazole 30 Mg Tab.Rap.Dr BOLAÑOS 07/24/24 14:44 30 mg QDAY WILMER Administration Methylprednisolone Sodium Succinate 60 mg 07/01/24 11:45 07/03/24 09:46 Methylprednisolone Sod Succ 40 Mg Vial IV 07/08/24 11:44 60 mg Q12HR WILMER Administration Midazolam HCl 2 mg 06/30/24 11:28 Midazolam Inj 1 Mg/Ml Vial 2 Ml IV 07/05/24 11:27 Q1HR PRN SEE COMMENTS Ondansetron HCl 4 mg 06/24/24 14:33 Ondansetron Inj 2 Mg/Ml Inj 2 Ml IV 07/24/24 14:32 Q6H PRN NAUSEA OR VOMITING Protocol Sennosides 1 tab 06/24/24 14:33 Senna Tablet PO 07/24/24 14:32 QDAY PRN constipation Protocol Sodium Chloride 3 ml 06/26/24 03:20 Sodium Chloride Rt Fior 0.9% 3 Ml Nebu INH 07/26/24 03:19 PRN PRN SOLN Plan Viraj Light is a 74-year-old male with past medical history significant for Duong's palsy, deaf and nonverbal, schizophrenia, tobacco use, primary hypertension, AV first-degree block, GERD, CAD, COPD, chronic constipation, generalized anxiety disorder who presented to the ED with shortness of breath on 06/24/2024 and admitted to the hospital for AHRF. ICU was consulted after patient has presenting with severe respiratory distress requiring intubation. NEURO #Sedated and paralyzed on mechanical ventilation DDx: in the setting of hypoxia, hypercapnia, and respiratory acidosis with underlying chronic COPD exacerbation - Propofol and fentanyl drips for sedation, max dose - Nimbex drip for paralysis, increased from 1.5-2.25mcg/kg/min - Versed 2mg IV push q1hr for agitation as needed - RAAS Goal of -5 #Deaf and nonverbal CARDIO #Bradycardia Secondary to propofol sedation #Elevated troponin-resolved in the setting of demand ischemia Troponin peaked at 0.110, and downtrended #History of essential hypertension #History of CAD #Hx of AV block first-degree No history of atrial fibrillation EKG done however there was no sign of AV block BNP slightly elevated at 225 Echo showed normal LV and RV function, with EF 55-60% - Continue to monitor on tele - Keep Mg and K above 2 and 4, respectively - Continue aspirin 81 mg - If patient's blood pressure continues to rise can restart patient's home Amlodipine, Lisinopril, Hydralazine, and Clonidine. 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 Placed on BiPAP, but d/t increased respiratory distress he was intubated on 06/25/24 CXR shows severe b/l PNA that is worsening from intubation Blood culture 06/24, sputum culture 06/25, and urine culture 06/26 no growth, MRSA negative Finished course of Tamiflu and antibiotics Repeat CXR 07/01 showed improvement in infiltrates compared to 06/30 ABG 06/30: pH 7.15, pCO2 82, pO2 196 -> pH 7.23, pCO2 67, pO2 180 07/03/24 - BCx negative in last 24 hours, Sputum Cx grew 2+ GPC prelim, Gram Stain showed rare GPC - Ventilator settings: A/CMV, Vt 380, RR 28, PEEP 5, FiO2 65% - Duonebs q4hr scheduled and q2hr PRN - Solumedrol 60mg IV BID - Maintain oxygen 88 to 92% - Low tidal volume ventilation strategy of 6cc/kg TV - Consider prone position if patient's condition continues to worsen GI/FEN #Chronic constipation-stable Has had BM #GI prophylaxis - IV PPI #Tube feeds - Continue with tube feeds - Rate decreased to 35 cc/hr on 07/01 #Transaminitis?improving Presented with elevated AST and ALT. DDx: in the setting of sepsis and recent Tamiflu use Hep panel negative - Continue to monitor RENAL #Acute respiratory acidosis-improving Current VBG shows a pH of 7.43 with a PaCO2 of 42. - Will keep current vent settings on pressure support with FiO2 of 65% - F/u VBG shows improvement: pH of 7.37 #Hypernatremia-resolving Free water deficit 0.3L, Na improve from 148 to 141 LR dc'ed -Continue with free water flushes 250cc q6HR #Hyperkalemia-stable Lasix and Kayexelate overnight -CTM to monitor via daily labs -Continue with Albuterol treatments Q4HR and 2HR PRN -Gave Velt[place] x 1 #LOUIS- resolved Cr increased from 1 to 1.6 on 06/26/24 Most likely pre-renal vs intrinsic in the setting of sepsis and low BP and dehydration Less likely post-renal as patient able to urine with in&out cath - Renally dose medications - Avoid nephrotoxin agents -Continue with IV LR at 100cc/hr HEME/ONC #Leukocytosis-improving Most likely in the setting of influenza and bacterial pneumonia and recent steroid use Ordered Vanc x 1 in the setting of GPC 2+ growing in sputum culture #Normocytic anemia?stable H&H stable Ferritin 100, Iron level 9, TIBC 203 in the setting of COPD - Consider iron tablet supplementation #Thrombocytosis-resolved Reactive in setting of infection and aspirin use ENDO #Hyperglycemia-stable Most likely elevated due to recent steroid use A1c is 5.2 ID #Influenza pneumonia-resolving Sputum Gram Stain showed rare GPC collected on 07/01/24 - See pulmonary above - Finished course of Tamiflu and antibiotics - BCx, Sputum Cx pending #Gram Positive Sputum Culture - 07/03/24 Sputum Gram Stain showed rare GPC collected on 07/01/24 Sputum Gram Cx grew 2+ GPC collected on 07/01/24 prelim -Gave Vanc x 1 -Pending final sensitivity and final read MSK Stable PSYCH #History of ARIANNA #History of schizophrenia - Will resume home medicines upon med rec Health Maintenance: DVT prophylaxis: Lovenox 40mg SC Diet: tube feeds via OG tube Cespedes: N/A Lines: PIV Drips: Propofol, Fentanyl, Nimbex CODE STATUS: Full code Disposition: Admitted to ICU for AHRF requiring intubation; Plan to call conservator/usp facility to discuss plan Patient's plan and care discussed with my attending, Dr. Kelby Springer MD PGY-2
[2024-07-03 10:18] LABS: Triglycerides 99 mg/dL (30-150)
[2024-07-03 11:08] LABS: Base Excess, Venous 3 (-3-3); O2 Saturation, Venous 97 % (96-97); PCO2, Venous 49 mmHg (36-56); PO2, Venous 90 mmHg (15-58); pH, Venous 7.38 (7.33-7.66)
[2024-07-03 11:22] LABS: Base Excess 3 (-3-3); HCO3 29 mEq/L (20-26); Inspired Oxygen, FIO2 60 %; O2 Saturation 89 % (91-98); PCO2 53 mmHg (32.0-48.0); PO2 60 mmHg (83-108); pH, Arterial 7.35 (7.35-7.45)
[2024-07-03 11:23] LABS: Allen Test Performed/OK; Puncture Site Right Radial
[2024-07-03] MEDS: VANCOMYCIN/NS 1 GM IVPB 200 ML IV (13:41)
[2024-07-03 16:13] LABS: Band Neutrophils (Manual) 8 % (0-6); Hypersegmented Polys 2+; Lymphocytes (Manual) 2 % (20-44); Metamyelocytes (Manual) 1 % (0-0); Myelocytes (Manual) 2 % (0-0); Neutrophils (Manual) 87 % (50-70)
[2024-07-03] MEDS: CISATRACURIUM INJ 200 MG in SODIUM CHLORIDE 0.9% 500 ML 500 ML 30.221 MG IV (16:26)
--- NOTE | 2024-07-03 17:12 | PC.SS ---
Update: Patient remains intubated and sedated. Day 8 of incubations. Tube feedings in place.
[2024-07-03 17:31] LABS: Alanine Aminotransferase 97 U/L (10-49); Albumin, Serum 2.8 gm/dL (3.4-4.8); Albumin/Globulin Ratio 1.2 (1.2-2.2); Alkaline Phosphatase 99 U/L (46-116); Anion Gap 6 (7-16); Aspartate Amino Transferase 52 U/L (0-34); BUN/Creatinine Ratio 59 Ratio (12-20); Bilirubin,Total 0.2 mg/dL (0.3-1.2); Blood Urea Nitrogen 47 mg/dL (9-23); Calcium 7.9 mg/dL (8.3-10.6); Calcium (Corrected) 8.9 mg/dL (8.5-10.1); Carbon Dioxide 25.6 mMol/L (20.0-31.0); Chloride 106 mMol/L (98-107); Creatinine (Component) 0.8 mg/dL (0.6-1.3); Estimated Creatinine Clearance 76.3 mL/min (>60); Globulin 2.3 gm/dL (2.3-3.5); Glucose 172 mg/dL (74-106); Osmolality,Calculated 291 (275-295); Sodium 138 mMol/L (136-145); Total Protein 5.1 gm/dL (5.7-8.2); eGFR > 60 See Note
[2024-07-03 17:34] LABS: Potassium 6.1 mMol/L (3.4-5.1)
[2024-07-03] MEDS: INSULIN HUM REGULAR 1 UNIT/0.01 ML (PER UNIT) 10 UNIT IV (18:49)
[2024-07-03] MEDS: DEXTROSE 50%-WATER INJ 50 ML SYRINGE IV (18:50)
[2024-07-03 20:51] LABS: Alanine Aminotransferase 95 U/L (10-49); Albumin, Serum 2.9 gm/dL (3.4-4.8); Albumin/Globulin Ratio 1.3 (1.2-2.2); Alkaline Phosphatase 98 U/L (46-116); Anion Gap 8 (7-16); Aspartate Amino Transferase 48 U/L (0-34); BUN/Creatinine Ratio 57 Ratio (12-20); Bilirubin,Total 0.2 mg/dL (0.3-1.2); Blood Urea Nitrogen 51 mg/dL (9-23); Calcium 8.3 mg/dL (8.3-10.6); Calcium (Corrected) 9.2 mg/dL (8.5-10.1); Carbon Dioxide 25.6 mMol/L (20.0-31.0); Chloride 107 mMol/L (98-107); Creatinine (Component) 0.9 mg/dL (0.6-1.3); Estimated Creatinine Clearance 67.8 mL/min (>60); Globulin 2.2 gm/dL (2.3-3.5); Glucose 162 mg/dL (74-106); Osmolality,Calculated 298 (275-295); Potassium 5.7 mMol/L (3.4-5.1); Sodium 141 mMol/L (136-145); Total Protein 5.1 gm/dL (5.7-8.2); eGFR > 60 See Note
[2024-07-03] MEDS: FUROSEMIDE INJ 10 MG/ML VIAL 2 ML 20 MG IVP (22:58)
[2024-07-04] VITALS (32 sets, daily range): BP systolic 132–170; BP diastolic 44–62; PULSE 50–72; RESP 28–29; TEMP 36.1–36.7; O2SAT 89–97; BMI 39.7
[2024-07-04] MEDS: fentaNYL 2,500 MCG/250 ML BAG 2,500 MCG/250 ML BAG 30 MCG IV ×3 (00:32→19:15)
[2024-07-04] MEDS: PROPOFOL 1,000 MG IVPB 1,000 MG/100 ML VIAL 25.855 MG IV ×5 (02:27→23:55)
[2024-07-04] MEDS: ALBUTEROL/IPRATROPIUM (Duoneb) RT SOL 3 ML NEBU INH ×6 (03:35→22:20)
[2024-07-04 05:23] LABS: Basophils % (Auto) 0 % (0-2.5); Eosinophils % (Auto) 0 % (0-10); Hematocrit 26.2 % (41.0-53.0); Immature Granulocytes % (Auto) 9 % (0-0); Immature Granulocytes Auto 1.44 Thou/mm3 (0.00-0.00); Lymphocytes # (Auto) 0.7 Thou/mm3 (1.0-4.8); Lymphocytes % (Auto) 4 % (10-50); Mean Corpuscular HGB Conc 31.7 g/dl (31.0-37.0); Mean Corpuscular Hemoglobin 28.5 pg (25.0-35.0); Mean Corpuscular Volume 90 fL (80-100); Monocytes # (Auto) 0.6 Thou/mm3 (0.0-0.8); Monocytes % (Auto) 4 % (0-12); Neutrophils % (Auto) 83 % (37-80); Nucleated Red Blood Cell # 0.03 Thou/mm3 (0.00-0.00); Nucleated Red Blood Cell % 0 /100 WBC (0); Platelet Count 205 Thou/mm3 (140-440); RDW Standard Deviation 50.7 fL (35.1-43.9); Red Blood Count 2.91 Miln/mm3 (4.50-5.90); White Blood Count 16.7 Thou/mm3 (3.8-10.6)
[2024-07-04 05:34] LABS: Hemoglobin 8.3 g/dL (13.5-16.0)
[2024-07-04] MEDS: INSULIN LISPRO (AdmeLOG) 1 UNIT/0.01 ML UNIT SC ×2 (05:43→17:40)
[2024-07-04 06:49] LABS: Alanine Aminotransferase 91 U/L (10-49); Albumin/Globulin Ratio 1.4 (1.2-2.2); Alkaline Phosphatase 104 U/L (46-116); Anion Gap 7 (7-16); Aspartate Amino Transferase 34 U/L (0-34); BUN/Creatinine Ratio 64 Ratio (12-20); Bilirubin,Total 0.2 mg/dL (0.3-1.2); Blood Urea Nitrogen 64 mg/dL (9-23); Calcium 8.1 mg/dL (8.3-10.6); Calcium (Corrected) 8.9 mg/dL (8.5-10.1); Carbon Dioxide 26.9 mMol/L (20.0-31.0); Chloride 105 mMol/L (98-107); Estimated Creatinine Clearance 62.7 mL/min (>60); Globulin 2.1 gm/dL (2.3-3.5); Glucose 161 mg/dL (74-106); Osmolality,Calculated 298 (275-295); Sodium 139 mMol/L (136-145); Total Protein 5.1 gm/dL (5.7-8.2); eGFR > 60 See Note
[2024-07-04 06:53] LABS: Potassium 6.3 mMol/L (3.4-5.1)
--- NOTE | 2024-07-04 07:15 | XR_ITS ---
Examination: AP chest single view Technique one AP portable semiupright chest single view Exam date and time: July 04, 2024 0739 hrs. Comparison July 01, 2024 0534 hrs. Indications: Hypoxic respiratory failure this week, postintubation, pneumonia ARDS pattern on imaging this week. Findings: Severe bilateral lung opacity Stable cardiac contour Endotracheal tube tip 28 mm above taylor The orogastric tube is in the stomach No pneumothorax Impression: Severe bilateral pneumonia ARDS pattern
[2024-07-04] MEDS: CALCIUM GLUCONATE 10% INJ 1 GM/10 ML VIAL IV (07:28)
[2024-07-04] MEDS: DEXTROSE 50%-WATER INJ 50 ML SYRINGE IV (07:29)
[2024-07-04] MEDS: INSULIN HUM REGULAR 1 UNIT/0.01 ML (PER UNIT) 10 UNIT IV (07:29)
[2024-07-04 07:43] LABS: Base Excess 1 (-3-3); HCO3 28 mEq/L (20-26); Inspired Oxygen, FIO2 55 %; O2 Saturation 84 % (91-98); PCO2 54 mmHg (32.0-48.0); pH, Arterial 7.32 (7.35-7.45)
[2024-07-04 07:46] LABS: Allen Test Performed/OK; Puncture Site Right Radial
[2024-07-04 07:47] LABS: PO2 57 mmHg (83-108)
--- NOTE | 2024-07-04 07:52 | PC.RT ---
Dr Springer aware of ABG results. No new orders at this time.
[2024-07-04] MEDS: SODIUM CHLORIDE RT SOL 0.9% 3 ML NEBU INH (07:55)
[2024-07-04] MEDS: ALBUTEROL RT 2.5 MG/0.5 ML NEBU 10 MG INH (07:55)
[2024-07-04] MEDS: ASPIRIN 81 MG CHEW NG (08:30)
[2024-07-04] MEDS: ENOXAPARIN SOD INJ 40 MG/0.4 ML SYRINGE SC (08:30)
[2024-07-04] MEDS: LANSOPRAZOLE 30 MG TAB.RAP.DR NG (08:30)
[2024-07-04] MEDS: PATIROMER CALCIUM 8.4 GM PACKET (NON-FORM) GT (08:30)
[2024-07-04] MEDS: LACTULOSE SYRUP 20 GM/30 ML UDC PO ×2 (09:12→20:18)
[2024-07-04] MEDS: RINGERS LACTATED 1000 ML 1,000 ML 125 ML IV ×2 (09:13→17:39)
--- NOTE | 2024-07-04 10:02 | ESPR_ITS ---
<Statement entered by Clint Lama MD - 07/04/24 13:25> TOTAL CC TIME: 45MIN I saw and evaluated the patient. I reviewed the resident?s note and agree with findings and plan as documented in the resident?s note. Upon my evaluation, this patient had a high probability of imminent or life- threatening deterioration due to ARDS which required my direct attention, intervention, and personal management. This time is exclusive of time spent on procedures, which are documented separately if performed. FiO2 weaned from 65 to 55% we will continue to wean. Plateau pressure 29; PEEP 5. Patient is not PEEP responsive Once less than 50% we will liberate from paralytics Enterococcus faecalis identified in sputum culture, ampicillin started IV fluids started for possible prerenal azotemia versus inflammatory LOUIS due to prolonged ARDS Documentation for date of: 07/04/24 Subjective Subjective Interval history: Patient is a 74-year-old male with past medical history significant for Duong's palsy, deaf and nonverbal, schizophrenia, tobacco use, primary hypertension, AV first-degree block, GERD, CAD, COPD, chronic constipation, generalized anxiety disorder who presented to the ED with shortness of breath on 06/24/2024. Throughout hospital stay, patient was very hypoxic and wheezing on physical exam and was placed on BiPAP. Patient also tested positive for influenza A and started on vancomycin and cefepime for superimposed bacterial infection. ICU was consulted after patient has presenting with severe respiratory distress and pulling tidal volumes of 800-12 100 on BiPAP. Patient was intubated for acute hypoxic respiratory failure. 06/26/24: Overnight, patient had a total urine output of 500 cc. Patient was unable to urinate on his own, and bladder scan showed 450 cc, and was able to be removed with an in&out cath. Patient was hypotensive overnight, and was started on Levophed. Patient also is bradycardic, most likely secondary to propofol. Tmax was 99.7. Patient has not spiked a fever since 2/10 a.m. Patient's white count increased from 23.43 6.7, and thrombocytosis increased to 540. Will change patient's vent settings to tidal volume of 400, respiration rate 25, PEEP of 10, and FiO2 of 50%. Will continue with IV Vanco and cefepime, but renal dose. Gram stain showed 2+ WBC. MRSA was negative, however will keep vancomycin after sputum culture from ET tube returns. Patient's blood sugar was little elevated today and started 5 Lantus and sliding scale, and will start tube feeds. LOUIS increased Cr 1 to 1.6, will ensure medications are renally dose, and give a LR bolus of 500cc and will start tube feeds. 06/27/24: Overnight, patient had a total urine output of 700cc overnight. Patient received a total of 3.25L LR. ABG continues to show respiratory acidosis that has remained about the same. Plan today is to try titrating his sedation and see how patient tolerates. Will descalate Abx to IV Ceftiraxone as all cultures returned negative including sputum culture and WBC is improving. Patient will require a total of 5 days of IV Abx. Will continue with straight ins and outs Q4H and continue LR at 50cc/hr and tube feeds. 06/28/24: Overnight, patient was given Versed push due to feeling agitated. Patient has been off fentanyl drip sedated with propofol 35 mcg along with Precedex. Patient was initially on vent settings of SIMV PRVC with a TI time of 1.3 and a PEEP of 10, respiration rate 25 and transition to pressure support, doing well on a RASS of 0. Due to patient's decreased elasticity and obstructive lung process, patient has been having a prolonged expiratory time with an increased MACKENZIE ratio. Will give Lasix IV 20 times 1 in the afternoon and in the evening to help with his O2 reserve. Will discontinue his fluids and continue his tube feeds. Will plan to extubate patient tomorrow. Will follow- up repeat ABG in the morning. 06/29/24: Overnight, patient was given IV Lasix 20mg which helped with his O2 reserve. However, on examination today, patient continues to have increased work of breathing on pressure support. Will have to have a conversation with Dr. Cooney, patient's conservator regarding patient's CODE STATUS given his current respiratory status on safely tolerating extubation. Patient will get his last dose of steroids today, and is tolerating tube feeds well. 06/30/2024: Patient examined at bedside this AM. No overnight events reported. Discussion with patient's conservator who relayed patient was highly functional therefore Code status was switched to full code. On examination, patient appeared to have increased work of breathing whilst on Pressure support with high minute ventilation, with sedation with Propofol at max and fentanyl at RAAS of -4. A CXR was ordered which showed diffuse B/L patchy infiltrates consistent with worsening ARDS. Due to his increased WOB and vent asynchrony, will defer extubating at this time and continue with lung protective strategy. Will start nimbex drip as patient is maxed out sedation. 07/01/2024: No acute overnight events reported. Another discussion had with conservator who will relay patient's clinical status to longterm facility providers but unlikely that they will be available given holiday. Ventilator settings of A/CMV, Vt 400, RR 28, PEEP 6, FiO2 50%. Also continues to be sedated on propofol and fentanyl drips and paralyzed on nimbex drip. Repeat ABG showed improvement: pH 7.3, pCO2 57, and pO2 64. At bedside increased PEEP and measured plateau pressure increased discordantly, suggesting decreased lung compliance and lack of progress in clinical condition. Thus, decided that patient may benefit from increased steroid dosages from prednisone 40 mg daily to solumedrol 60 mg IV BID. Na noted to be high at 148 so water flushes now at 250 cc q4hr with free water deficit calculated at 1.4 L with goal Na of 143. Additionally, given increased WBC while off antibiotics, will obtain repeat sputum cultures and hold off on antibiotics so it will not skew results. 07/02/2024: No overnight acute events reported. Patient has been maxed out on propofol and fentanyl drips, and paralyzed on Nimbex drip, with a RASS score of -5. Patient's plateau pressures are increasing suggesting lung compliance is getting worse. Patient's current vent settings are tidal volume 400, respiration rate 28, PEEP of 6, FiO2 of 50%. Patient's PaO2/FiO2 ratio is 128 suggesting patient is in moderate ARDS. Will continue with IV steroids and continue with maintenance IV LR. Sputum culture Gram stain did show rare gram- positive cocci, however will not start IV antibiotics as most likely not a new infection. VBG showed stable PaCO2 and improved pH. 07/03/2024: Overnight, patient's FiO2 requirements increased from 50% to 65%. Patient seen and examined at bedside. Patient has been on 8 days of propofol, and triglyceride level is within normal limits. Due to increased peak and plateau pressures, will decrease patient's tidal volume from 400-3 80 as well as PEEP from 6-5. Due to patient's worsening ARDS, will keep patient's goal ventilation settings to plateau pressure less than 30 and low tidal volume of at least 6ml or less /kg. Will update patient's conservator and care providers on his current plan. 07/04/2024: Overnight, patient's FiO2 requirements did decrease from 65% to 55%. Patient continues to maintain Pplat < 30 with a Vt of 380, RR 28, and a PEEP of 5. Sputum Culture grew Enterococcus Faecalis, currently showing 2+ GPC. Patient also hasn't had a BM in the last few days, will start Lactulose and Senna. Will f/u with CMP after HyperKalemia bundle treatment (Albuterol 10mg, Insulin 10, Veltassa). However, WBC is improving and last ABG showed pH of 7.32 and pCO2 of 54 . Will start patient on Ampicillin 1g Q4HR. CXR also ordered today and showed mild improvement b/l. Nathaly, patient's RN was at bedside and updated course of plan. Exam Vital Signs Temp Pulse Resp BP Pulse Ox O2 Del Method O2 Flow Rate 97.9 F 72 28 H 141/45 H 95 Mechanical Ventilation 3 07/04/24 08:00 07/04/24 09:00 07/04/24 07:56 07/04/24 09:00 07/04/24 09:00 07/04/24 08:00 06/30/24 20:00 FiO2 55 07/04/24 08:00 Narrative Exam General Appearance: Elderly gentleman, obese, intubated and sedated, and paralyzed. Able to initiate a cough via suction. HEENT: NC/AT, no scleral icterus, dry MM, edentulous Lungs: clear to auscultation b/l with exception of diminished sounds on lung bases, no wheezing or crackles noted CVS: Bradycardic, S1/S2 heard, no murmurs or rubs appreciated ABD: Soft, non-tender, obese, non-distended, BS + EXT: no deformity/lesions/cyanosis/clubbing, pedal pulses 2+ bilaterally, edematous in all 4 extremities SKIN: Skin exam normal without any rashes. Neuro: Intubated and sedated/paralyzed to a RASS score of -5. Objective Labs 07/04/24 04:40 07/04/24 04:40 Labs: Laboratory Results - last 24 hr 07/03/24 07/03/24 07/03/24 04:46 10:40 11:16 WBC RBC Hgb Hct MCV MCH MCHC RDW Std Deviation Plt Count Neut % (Auto) Lymph % (Auto) [place] % (Auto) Eos % (Auto) Baso % (Auto) Neut # (Auto) Lymph # (Auto) [place] # (Auto) Eos # (Auto) Baso # (Auto) Immature Gran # (Auto) Absolute Nucleated RBC Immature Gran % Neutrophils % (Manual) 87 H Metamyelocytes % 1 H Myelocytes % 2 H Nucleated RBC % Band Neutrophils 8 H Lymphocytes (Manual) 2 L Hypersegmented Polys 2+ Puncture Site Right Radial ABG pH 7.35 ABG pCO2 53 H ABG pO2 60 L ABG HCO3 29 H ABG O2 Saturation 89 L ABG Base Excess 3 VBG pH 7.38 VBG pCO2 49 VBG pO2 90 H D VBG O2 Sat (Josué) 97 VBG Base Excess 3 FiO2 60 Sodium Potassium Chloride Carbon Dioxide Anion Gap BUN Creatinine Estim Creat Clear Calc eGFR BUN/Creatinine Ratio Glucose Calculated Osmolality Calcium Corrected Calcium Total Bilirubin AST ALT Alkaline Phosphatase Total Protein Albumin Globulin Albumin/Globulin Ratio Triglycerides 99 07/03/24 07/03/24 07/04/24 16:38 20:01 04:40 WBC 16.7 H RBC 2.91 L Hgb 8.3 L Hct 26.2 L MCV 90 MCH 28.5 MCHC 31.7 RDW Std Deviation 50.7 H Plt Count 205 D Neut % (Auto) 83 H Lymph % (Auto) 4 L [place] % (Auto) 4 Eos % (Auto) 0 Baso % (Auto) 0 Neut # (Auto) 14.0 H Lymph # (Auto) 0.7 L [place] # (Auto) 0.6 Eos # (Auto) 0.0 Baso # (Auto) 0.0 Immature Gran # (Auto) 1.44 H Absolute Nucleated RBC 0.03 H Immature Gran % 9 H Neutrophils % (Manual) Metamyelocytes % Myelocytes % Nucleated RBC % 0 Band Neutrophils Lymphocytes (Manual) Hypersegmented Polys Puncture Site ABG pH ABG pCO2 ABG pO2 ABG HCO3 ABG O2 Saturation ABG Base Excess VBG pH VBG pCO2 VBG pO2 VBG O2 Sat (Josué) VBG Base Excess FiO2 Sodium 138 141 139 Potassium 6.1 H* 5.7 H 6.3 H* D Chloride 106 107 105 Carbon Dioxide 25.6 25.6 26.9 Anion Gap 6 L 8 7 BUN 47 H 51 H 64 H Creatinine 0.8 0.9 1.0 Estim Creat Clear Calc 76.3 67.8 62.7 eGFR > 60 > 60 > 60 BUN/Creatinine Ratio 59 H 57 H 64 H Glucose 172 H 162 H 161 H Calculated Osmolality 291 298 H 298 H Calcium 7.9 L 8.3 8.1 L Corrected Calcium 8.9 9.2 8.9 Total Bilirubin 0.2 L 0.2 L 0.2 L AST 52 H 48 H 34 ALT 97 H 95 H 91 H Alkaline Phosphatase 99 98 104 Total Protein 5.1 L 5.1 L 5.1 L Albumin 2.8 L 2.9 L 3.0 L Globulin 2.3 2.2 L 2.1 L Albumin/Globulin Ratio 1.2 1.3 1.4 Triglycerides 07/04/24 07:33 WBC RBC Hgb Hct MCV MCH MCHC RDW Std Deviation Plt Count Neut % (Auto) Lymph % (Auto) [place] % (Auto) Eos % (Auto) Baso % (Auto) Neut # (Auto) Lymph # (Auto) [place] # (Auto) Eos # (Auto) Baso # (Auto) Immature Gran # (Auto) Absolute Nucleated RBC Immature Gran % Neutrophils % (Manual) Metamyelocytes % Myelocytes % Nucleated RBC % Band Neutrophils Lymphocytes (Manual) Hypersegmented Polys Puncture Site Right Radial ABG pH 7.32 L ABG pCO2 54 H ABG pO2 57 L* ABG HCO3 28 H ABG O2 Saturation 84 L ABG Base Excess 1 VBG pH VBG pCO2 VBG pO2 VBG O2 Sat (Josué) VBG Base Excess FiO2 55 Sodium Potassium Chloride Carbon Dioxide Anion Gap BUN Creatinine Estim Creat Clear Calc eGFR BUN/Creatinine Ratio Glucose Calculated Osmolality Calcium Corrected Calcium Total Bilirubin AST ALT Alkaline Phosphatase Total Protein Albumin Globulin Albumin/Globulin Ratio Triglycerides ABG Interpretation ABG results: 06/24/24 06/25/24 06/25/24 09:51 11:35 16:44 ABG pH 7.42 7.44 7.25 L D ABG pCO2 34 28 L 52 H D ABG pO2 91 71 L D 82 L ABG HCO3 22 19 L 23 ABG O2 Saturation 98 94 94 ABG Base Excess -2 -5 L -4 L VBG pH VBG pCO2 VBG pO2 VBG Base Excess 06/26/24 06/27/24 06/28/24 07:08 07:35 07:55 ABG pH 7.34 L 7.33 L Cancelled ABG pCO2 38 D 46 Cancelled ABG pO2 91 90 Cancelled ABG HCO3 21 24 Cancelled ABG O2 Saturation 97 97 Cancelled ABG Base Excess -5 L -2 Cancelled VBG pH VBG pCO2 VBG pO2 VBG Base Excess 06/28/24 06/29/24 06/30/24 12:54 04:27 10:39 ABG pH 7.42 7.45 7.29 L D ABG pCO2 39 38 59 H D ABG pO2 156 H D 74 L D 68 L ABG HCO3 25 26 28 H ABG O2 Saturation 100 H 95 88 L ABG Base Excess 1 2 1 VBG pH VBG pCO2 VBG pO2 VBG Base Excess 06/30/24 06/30/24 06/30/24 12:45 14:23 17:29 ABG pH 7.22 L 7.26 L 7.15 L* D ABG pCO2 71 H* D 62 H 82 H* D ABG pO2 71 L 58 L* 196 H D ABG HCO3 29 H 28 H 29 H ABG O2 Saturation 88 L 82 L 100 H ABG Base Excess 0 0 -1 VBG pH VBG pCO2 VBG pO2 VBG Base Excess 06/30/24 06/30/24 07/01/24 19:09 23:14 05:00 ABG pH 7.23 L 7.32 L ABG pCO2 67 H D 57 H D ABG pO2 180 H 64 L D ABG HCO3 28 H 29 H ABG O2 Saturation 100 H 90 L ABG Base Excess 0 2 VBG pH 7.42 VBG pCO2 41 VBG pO2 62 H VBG Base Excess 2 07/02/24 07/03/24 07/03/24 08:04 04:46 10:40 ABG pH ABG pCO2 ABG pO2 ABG HCO3 ABG O2 Saturation ABG Base Excess VBG pH 7.37 7.43 7.38 VBG pCO2 46 42 49 VBG pO2 84 H D 60 H D 90 H D VBG Base Excess 1 3 3 07/03/24 07/04/24 11:16 07:33 ABG pH 7.35 7.32 L ABG pCO2 53 H 54 H ABG pO2 60 L 57 L* ABG HCO3 29 H 28 H ABG O2 Saturation 89 L 84 L ABG Base Excess 3 1 VBG pH VBG pCO2 VBG pO2 VBG Base Excess Quality Measures Quality Measures sepsis Current suspected stage: ruled out Possible source: pulmonary Blood cultures ordered: yes Antibiotic ordered: Yes Advance care planning discussed with:: patient Assessment & Plan Assessment Current Active Medications: Generic Name Dose Route Start Last Admin Trade Name Freq PRN Reason Stop Dose Admin Acetaminophen 1,000 mg 06/24/24 14:33 Acetaminophen 500 Mg Tablet PO 07/24/24 14:32 Q6H PRN Fever >100 or pain 1-3 Albuterol/Ipratropium 3 ml 06/26/24 07:00 07/04/24 06:18 Albuterol/Ipratropium (Duoneb) Rt Fior 3 Ml Nebu INH 07/26/24 06:59 3 ml Q4HRRT WILMER Administration Albuterol/Ipratropium 3 ml 06/27/24 11:13 07/03/24 18:55 Albuterol/Ipratropium (Duoneb) Rt Fior 3 Ml Nebu INH 07/27/24 11:12 3 ml Q2HR PRN Administration SHORTNESS OF BREATH OR WHEEZE Aspirin 81 mg 06/27/24 09:00 07/04/24 08:30 Aspirin 81 Mg Chew NG 07/25/24 11:44 81 mg QDAY WILMER Administration Dextrose 25 ml 07/03/24 17:39 Dextrose 50%-Water Inj 50 Ml Syringe IV 08/02/24 17:38 Q15MIN PRN BG 50-70 responsive npo pt Dextrose 50 ml 07/03/24 17:39 Dextrose 50%-Water Inj 50 Ml Syringe IV 08/02/24 17:38 Q15MIN PRN BG <50 OR BG <70 & pt unresponsive Enoxaparin Sodium 40 mg 06/25/24 11:45 07/04/24 08:30 Enoxaparin Sod Inj 40 Mg/0.4 Ml Syringe SC 07/09/24 11:44 40 mg QDAY WILMER Administration Glucagon 1 mg 06/26/24 07:46 Glucagon Inj 1 Mg Vial IM Q15MIN PRN BG <70, and no IV access Norepinephrine/Dextrose 8 mg in 250 mls @ 8.072 mls/hr 06/30/24 13:03 06/30/24 17:15 Levophed In D5w 8mg/250ml IV 07/30/24 13:02 0 mcg/kg/min .Q24H PRN 0 mls/hr PER PROTOCOL Titration Protocol 0.05 MCG/KG/MIN Cisatracurium Besylate 200 mg/ 520 mls @ 13.432 mls/hr 06/30/24 13:12 07/04/24 09:00 Sodium Chloride IV 07/30/24 13:11 2.25 mcg/kg/min .Q24H PRN 30.221 mls/hr Per Protocol Titration Protocol 1 MCG/KG/MIN Propofol 1,000 mg in 100 mls @ 2.585 mls/hr 06/30/24 15:36 07/04/24 09:00 Diprivan Ivpb IV 07/25/24 14:00 Infused .Q24H PRN Titration PER PROTOCOL Protocol 5 MCG/KG/MIN Fentanyl Citrate 2,500 mcg in 250 mls @ 2.5 mls/hr 06/30/24 21:23 07/04/24 09:00 Sublimaze Inj 2,500 Mcg/250 Ml Bag IV 07/05/24 21:22 Infused .Q24H PRN Titration PER PROTOCOL Protocol 25 MCG/HR Lactated Ringer's 1,000 mls @ 125 mls/hr 07/04/24 09:10 07/04/24 09:13 Lactated Ringers IV 07/04/24 17:09 125 mls/hr .Q8H ONE Administration Insulin Human Lispro 0 unit 06/30/24 12:00 07/04/24 05:43 Insulin Lispro (Admelog) 1 Unit/0.01 Ml Unit SC 07/30/24 11:59 1 unit Q6HR WILMER Administration Protocol Lansoprazole 30 mg 06/27/24 09:00 07/04/24 08:30 Lansoprazole 30 Mg Tab.Rap.Dr BOLAÑOS 07/24/24 14:44 30 mg QDAY WILMER Administration Methylprednisolone Sodium Succinate 60 mg 07/01/24 11:45 07/04/24 08:30 Methylprednisolone Sod Succ 40 Mg Vial IV 07/08/24 11:44 60 mg Q12HR WILMER Administration Ondansetron HCl 4 mg 06/24/24 14:33 Ondansetron Inj 2 Mg/Ml Inj 2 Ml IV 07/24/24 14:32 Q6H PRN NAUSEA OR VOMITING Protocol Sennosides 1 tab 06/24/24 14:33 Senna Tablet PO 07/24/24 14:32 QDAY PRN constipation Protocol Sodium Chloride 3 ml 06/26/24 03:20 07/04/24 07:55 Sodium Chloride Rt Fior 0.9% 3 Ml Nebu INH 07/26/24 03:19 3 ml PRN PRN Administration SOLN Plan Viraj Light is a 74-year-old male with past medical history significant for Duong's palsy, deaf and nonverbal, schizophrenia, tobacco use, primary hypertension, AV first-degree block, GERD, CAD, COPD, chronic constipation, generalized anxiety disorder who presented to the ED with shortness of breath on 06/24/2024 and admitted to the hospital for AHRF. ICU was consulted after patient has presenting with severe respiratory distress requiring intubation. NEURO #Sedated and paralyzed on mechanical ventilation DDx: in the setting of hypoxia, hypercapnia, and respiratory acidosis with underlying chronic COPD exacerbation - Propofol and fentanyl drips for sedation, max dose - Nimbex drip for paralysis, increased from 1.5-2.25mcg/kg/min - Versed 2mg IV push q1hr for agitation as needed - RAAS Goal of -5 #Deaf and nonverbal CARDIO #Bradycardia-resolved Secondary to propofol sedation #Elevated troponin-resolved in the setting of demand ischemia Troponin peaked at 0.110, and downtrended #History of essential hypertension #History of CAD #Hx of AV block first-degree No history of atrial fibrillation EKG done however there was no sign of AV block BNP slightly elevated at 225 Echo showed normal LV and RV function, with EF 55-60% - Continue to monitor on tele - Keep Mg and K above 2 and 4, respectively - Continue aspirin 81 mg - If patient's blood pressure continues to rise can restart patient's home Amlodipine, Lisinopril, Hydralazine, and Clonidine. PULM #Acute hypoxic respiratory failure due to influenza pneumonia vs aspiration PNA #ARDS #Sepsis-resolved #History of COPD-stable Has baseline COPD but does not have a club attendant Placed on BiPAP, but d/t increased respiratory distress he was intubated on 06/25/24 CXR shows severe b/l PNA that is slightly improved from 07/01 but continues to show severe ARDS like pattern Blood culture 06/24, sputum culture 06/25, and urine culture 06/26 no growth, MRSA negative Finished course of Tamiflu and antibiotics Repeat CXR 07/01 showed improvement in infiltrates compared to 06/30 ABG 06/30: pH 7.15, pCO2 82, pO2 196 -> pH 7.23, pCO2 67, pO2 180 07/03/24 - BCx negative in last 24 hours, Sputum Cx grew 2+ GPC prelim, Gram Stain showed rare GPC 07/04/24 - Sputum culture grew Enterococcus Faecalis - Ventilator settings: A/CMV, Vt 380, RR 28, PEEP 5, FiO2 55% - Duonebs q4hr scheduled and q2hr PRN - Solumedrol 60mg IV BID - Maintain oxygen 88 to 92% - Low tidal volume ventilation strategy of 6cc/kg TV - Consider prone position if patient's condition continues to worsen - Started patient on Ampicillin 1g Q4HR GI/FEN #Chronic constipation-stable Hasn't had BM in the last few days Will start bowel regimen with Senna and Lactulose #GI prophylaxis - IV PPI #Tube feeds - Continue with tube feeds - Rate decreased to 35 cc/hr on 07/01 #Transaminitis?improving Presented with elevated AST and ALT. DDx: in the setting of sepsis and recent Tamiflu use Hep panel negative - Continue to monitor RENAL #Acute respiratory acidosis-stable Current ABG shows a pH of 7.35 with a PaCO2 of 54. - Will keep current vent settings on pressure support with FiO2 of 55% - F/u ABG shows slight decrease in pH of 7.32 in the setting of worsening ARDS #Hyperkalemia Lasix and Kayexelate overnight -CTM to monitor via daily labs -Continue with Albuterol treatments Q4HR and 2HR PRN -Gave Veltassa x 1, Albuterol 10mg, Insulin 10 + Damp50 -Recheck CMP at 10:00AM -If continues to be high, can give max dose of Veltassa today #LOUIS Cr increased from 1 to 1.6 on 06/26/24 Cr downtrended, and now slowly increasing to 1.0, 07/04/24 Most likely pre-renal vs intrinsic in the setting of sepsis and low BP and dehydration Less likely post-renal as patient able to urine with in&out cath - Renally dose medications - Avoid nephrotoxin agents - Continue with IV LR at 125cc/hr until tomorrow #Hypernatremia-resolved Free water deficit 0.3L, Na improve from 148 to 141 -Continue with free water flushes 250cc q6HR HEME/ONC #Leukocytosis-improving Most likely in the setting of influenza and bacterial pneumonia and recent steroid use Ordered Vanc x 1 in the setting of GPC 2+ growing in sputum culture yesterday Sputum culture grew Enterococcus faecalis suggesting possible aspiration, will cover with Ampicillin 1g Q4H #Normocytic anemia?stable H&H stable Ferritin 100, Iron level 9, TIBC 203 in the setting of COPD - Consider iron tablet supplementation #Thrombocytosis-resolved Reactive in setting of infection and aspirin use ENDO #Hyperglycemia-stable Most likely elevated due to recent steroid use A1c is 5.2 ID #Enteroccoccus Faecalis Infection Sputum Gram Stain showed rare GPC collected on 07/01/24 Sputum Gram Cx grew 2+ GPC and finalized to Enterococcus on 07/04/24 -Gave Vanc x 1 on 07/03/24 -Started with Ampicillin 1g Q4H on 07/04/24 #Influenza pneumonia-resolving Sputum Gram Stain showed rare GPC collected on 07/01/24 - See pulmonary above - Finished course of Tamiflu and antibiotics MSK Stable PSYCH #History of ARIANNA #History of schizophrenia - Will resume home medicines upon med rec Health Maintenance: DVT prophylaxis: Lovenox 40mg SC Diet: tube feeds via OG tube Cespedes: N/A Lines: PIV Drips: Propofol, Fentanyl, Nimbex CODE STATUS: Full code Disposition: Admitted to ICU for AHRF requiring intubation; Plan to call conservator/longterm facility to discuss plan Patient's plan and care discussed with my attending, Dr. Kelby Springer MD PGY-2
[2024-07-04] MEDS: CISATRACURIUM INJ 200 MG in SODIUM CHLORIDE 0.9% 500 ML 500 ML 30.221 MG IV (10:47)
[2024-07-04] MEDS: Ampicillin Inj 1,000 MG in SODIUM CHLORIDE 0.9% (Popper) 50 ML 100 MG IV ×4 (10:53→21:24)
[2024-07-04] MEDS: SENNOSIDES SYRUP 8.8 MG/5 ML UDC GT (10:59)
[2024-07-04 11:15] LABS: Alanine Aminotransferase 82 U/L (10-49); Albumin, Serum 2.8 gm/dL (3.4-4.8); Albumin/Globulin Ratio 1.3 (1.2-2.2); Alkaline Phosphatase 97 U/L (46-116); Anion Gap 8 (7-16); Aspartate Amino Transferase 35 U/L (0-34); BUN/Creatinine Ratio 62 Ratio (12-20); Bilirubin,Total 0.2 mg/dL (0.3-1.2); Blood Urea Nitrogen 62 mg/dL (9-23); Calcium 8.1 mg/dL (8.3-10.6); Calcium (Corrected) 9.1 mg/dL (8.5-10.1); Carbon Dioxide 26.4 mMol/L (20.0-31.0); Chloride 105 mMol/L (98-107); Estimated Creatinine Clearance 62.7 mL/min (>60); Globulin 2.2 gm/dL (2.3-3.5); Glucose 139 mg/dL (74-106); Osmolality,Calculated 297 (275-295); Potassium 5.4 mMol/L (3.4-5.1); Sodium 139 mMol/L (136-145); eGFR > 60 See Note
[2024-07-04] MEDS: PATIROMER CALCIUM 8.4 GM PACKET (NON-FORM) NG (13:19)
--- NOTE | 2024-07-04 16:13 | PC.SS ---
Update: Patient remains intubated/sedated. Patient is paralyzed. No skin issues. Tube feedings in place. Patient receiving IV antibiotics. No desai catheter in place.
[2024-07-04] MEDS: Milk Of Magnesia Susp 30 ML UDC PO (18:24)
[2024-07-04] MEDS: LACTULOSE SYRUP 20 GM/30 ML UDC 10 GM PO (18:24)
[2024-07-04 18:52] LABS: Alanine Aminotransferase 79 U/L (10-49); Albumin, Serum 2.8 gm/dL (3.4-4.8); Albumin/Globulin Ratio 1.3 (1.2-2.2); Alkaline Phosphatase 99 U/L (46-116); Anion Gap 6 (7-16); Aspartate Amino Transferase 34 U/L (0-34); BUN/Creatinine Ratio 59 Ratio (12-20); Bilirubin,Total 0.2 mg/dL (0.3-1.2); Blood Urea Nitrogen 65 mg/dL (9-23); Calcium 8.2 mg/dL (8.3-10.6); Calcium (Corrected) 9.2 mg/dL (8.5-10.1); Chloride 105 mMol/L (98-107); Creatinine (Component) 1.1 mg/dL (0.6-1.3); Globulin 2.2 gm/dL (2.3-3.5); Glucose 158 mg/dL (74-106); Osmolality,Calculated 293 (275-295); Potassium 5.7 mMol/L (3.4-5.1); Sodium 136 mMol/L (136-145); eGFR > 60 See Note
[2024-07-04] MEDS: bisacodyL 10 MG SUPP PR (19:07)
--- NOTE | 2024-07-04 22:52 | PC.NURSE ---
NO RESULTS FROM DULCOLAX SUPPOSITORY (GIVEN AT 1914). SOAP SUDS ENEMA DONE AT THIS TIME, PER MD ORDER.
[2024-07-05] VITALS (35 sets, daily range): BP systolic 120–180; BP diastolic 40–67; PULSE 55–64; RESP 28–30; TEMP 36.2–36.8; O2SAT 88–99
[2024-07-05] MEDS: Ampicillin Inj 1,000 MG in SODIUM CHLORIDE 0.9% (Popper) 50 ML 100 MG IV ×6 (01:48→21:02)
[2024-07-05] MEDS: ALBUTEROL/IPRATROPIUM (Duoneb) RT SOL 3 ML NEBU INH ×6 (03:10→22:49)
[2024-07-05] MEDS: PROPOFOL 1,000 MG IVPB 1,000 MG/100 ML VIAL 25.855 MG IV ×6 (03:32→23:21)
[2024-07-05] MEDS: CISATRACURIUM INJ 200 MG in SODIUM CHLORIDE 0.9% 500 ML 500 ML 30.221 MG IV (03:33)
[2024-07-05] MEDS: fentaNYL 2,500 MCG/250 ML BAG 2,500 MCG/250 ML BAG 30 MCG IV ×3 (04:12→22:38)
[2024-07-05 06:13] LABS: Basophils # (Auto) 0.1 Thou/mm3 (0.0-0.2); Basophils % (Auto) 0 % (0-2.5); Eosinophils % (Auto) 0 % (0-10); Hematocrit 25.9 % (41.0-53.0); Immature Granulocytes % (Auto) 10 % (0-0); Immature Granulocytes Auto 2.26 Thou/mm3 (0.00-0.00); Lymphocytes # (Auto) 0.8 Thou/mm3 (1.0-4.8); Lymphocytes % (Auto) 3 % (10-50); Mean Corpuscular Hemoglobin 28.8 pg (25.0-35.0); Mean Corpuscular Volume 90 fL (80-100); Monocytes # (Auto) 1.1 Thou/mm3 (0.0-0.8); Monocytes % (Auto) 5 % (0-12); Neutrophils % (Auto) 82 % (37-80); Nucleated Red Blood Cell # 0.04 Thou/mm3 (0.00-0.00); Nucleated Red Blood Cell % 0 /100 WBC (0); Platelet Count 296 Thou/mm3 (140-440); RDW Standard Deviation 50.7 fL (35.1-43.9); Red Blood Count 2.88 Miln/mm3 (4.50-5.90); White Blood Count 23.2 Thou/mm3 (3.8-10.6)
[2024-07-05 06:15] LABS: Hemoglobin 8.3 g/dL (13.5-16.0)
[2024-07-05 06:44] LABS: Alanine Aminotransferase 80 U/L (10-49); Albumin, Serum 2.8 gm/dL (3.4-4.8); Albumin/Globulin Ratio 1.3 (1.2-2.2); Alkaline Phosphatase 100 U/L (46-116); Anion Gap 6 (7-16); Aspartate Amino Transferase 35 U/L (0-34); BUN/Creatinine Ratio 64 Ratio (12-20); Bilirubin,Total 0.2 mg/dL (0.3-1.2); Blood Urea Nitrogen 70 mg/dL (9-23); Calcium 8.2 mg/dL (8.3-10.6); Calcium (Corrected) 9.2 mg/dL (8.5-10.1); Carbon Dioxide 28.5 mMol/L (20.0-31.0); Chloride 105 mMol/L (98-107); Creatinine (Component) 1.1 mg/dL (0.6-1.3); Globulin 2.1 gm/dL (2.3-3.5); Glucose 138 mg/dL (74-106); Osmolality,Calculated 300 (275-295); Sodium 139 mMol/L (136-145); Total Protein 4.9 gm/dL (5.7-8.2); eGFR > 60 See Note
[2024-07-05] MEDS: SODIUM CHLORIDE RT SOL 0.9% 3 ML NEBU INH ×2 (08:35→16:29)
[2024-07-05] MEDS: ALBUTEROL RT 2.5 MG/0.5 ML NEBU 10 MG INH ×2 (08:36→16:29)
[2024-07-05] MEDS: DEXTROSE 50%-WATER INJ 50 ML SYRINGE IV (08:37)
[2024-07-05] MEDS: INSULIN HUM REGULAR 1 UNIT/0.01 ML (PER UNIT) 10 UNIT IV (08:37)
[2024-07-05] MEDS: LANSOPRAZOLE 30 MG TAB.RAP.DR NG (08:48)
[2024-07-05] MEDS: SENNOSIDES SYRUP 8.8 MG/5 ML UDC GT (08:48)
[2024-07-05] MEDS: LACTULOSE SYRUP 20 GM/30 ML UDC PO ×2 (08:48→20:32)
[2024-07-05] MEDS: POLYETHYLENE GLYCOL 17 GM PACKET PO (08:49)
[2024-07-05] MEDS: PATIROMER CALCIUM 8.4 GM PACKET (NON-FORM) GT (08:49)
[2024-07-05] MEDS: ASPIRIN 81 MG CHEW NG (08:49)
[2024-07-05] MEDS: ENOXAPARIN SOD INJ 40 MG/0.4 ML SYRINGE SC (08:50)
[2024-07-05 11:28] LABS: Base Excess 1 (-3-3); HCO3 29 mEq/L (20-26); Inspired Oxygen, FIO2 21 %; O2 Saturation 95 % (91-98); PCO2 68 mmHg (32.0-48.0); PO2 87 mmHg (83-108); pH, Arterial 7.24 (7.35-7.45)
[2024-07-05 11:35] LABS: Allen Test Not Performed; Puncture Site Right Radial
--- NOTE | 2024-07-05 14:37 | ESPR_ITS ---
Documentation for date of: 07/05/24 Subjective Subjective Interval history: Patient is a 74-year-old male with past medical history significant for Duong's palsy, deaf and nonverbal, schizophrenia, tobacco use, primary hypertension, AV first-degree block, GERD, CAD, COPD, chronic constipation, generalized anxiety disorder who presented to the ED with shortness of breath on 06/24/2024. Throughout hospital stay, patient was very hypoxic and wheezing on physical exam and was placed on BiPAP. Patient also tested positive for influenza A and started on vancomycin and cefepime for superimposed bacterial infection. ICU was consulted after patient has presenting with severe respiratory distress and pulling tidal volumes of 800-12 100 on BiPAP. Patient was intubated for acute hypoxic respiratory failure. 06/26/24: Overnight, patient had a total urine output of 500 cc. Patient was unable to urinate on his own, and bladder scan showed 450 cc, and was able to be removed with an in&out cath. Patient was hypotensive overnight, and was started on Levophed. Patient also is bradycardic, most likely secondary to propofol. Tmax was 99.7. Patient has not spiked a fever since 2/10 a.m. Patient's white count increased from 23.43 6.7, and thrombocytosis increased to 540. Will change patient's vent settings to tidal volume of 400, respiration rate 25, PEEP of 10, and FiO2 of 50%. Will continue with IV Vanco and cefepime, but renal dose. Gram stain showed 2+ WBC. MRSA was negative, however will keep vancomycin after sputum culture from ET tube returns. Patient's blood sugar was little elevated today and started 5 Lantus and sliding scale, and will start tube feeds. LOUIS increased Cr 1 to 1.6, will ensure medications are renally dose, and give a LR bolus of 500cc and will start tube feeds. 06/27/24: Overnight, patient had a total urine output of 700cc overnight. Patient received a total of 3.25L LR. ABG continues to show respiratory acidosis that has remained about the same. Plan today is to try titrating his sedation and see how patient tolerates. Will descalate Abx to IV Ceftiraxone as all cultures returned negative including sputum culture and WBC is improving. Patient will require a total of 5 days of IV Abx. Will continue with straight ins and outs Q4H and continue LR at 50cc/hr and tube feeds. 06/28/24: Overnight, patient was given Versed push due to feeling agitated. Patient has been off fentanyl drip sedated with propofol 35 mcg along with Precedex. Patient was initially on vent settings of SIMV PRVC with a TI time of 1.3 and a PEEP of 10, respiration rate 25 and transition to pressure support, doing well on a RASS of 0. Due to patient's decreased elasticity and obstructive lung process, patient has been having a prolonged expiratory time with an increased MACKENZIE ratio. Will give Lasix IV 20 times 1 in the afternoon and in the evening to help with his O2 reserve. Will discontinue his fluids and continue his tube feeds. Will plan to extubate patient tomorrow. Will follow- up repeat ABG in the morning. 06/29/24: Overnight, patient was given IV Lasix 20mg which helped with his O2 reserve. However, on examination today, patient continues to have increased work of breathing on pressure support. Will have to have a conversation with Dr. Cooney, patient's conservator regarding patient's CODE STATUS given his current respiratory status on safely tolerating extubation. Patient will get his last dose of steroids today, and is tolerating tube feeds well. 06/30/2024: Patient examined at bedside this AM. No overnight events reported. Discussion with patient's conservator who relayed patient was highly functional therefore Code status was switched to full code. On examination, patient appeared to have increased work of breathing whilst on Pressure support with high minute ventilation, with sedation with Propofol at max and fentanyl at RAAS of -4. A CXR was ordered which showed diffuse B/L patchy infiltrates consistent with worsening ARDS. Due to his increased WOB and vent asynchrony, will defer extubating at this time and continue with lung protective strategy. Will start nimbex drip as patient is maxed out sedation. 07/01/2024: No acute overnight events reported. Another discussion had with conservator who will relay patient's clinical status to snf facility providers but unlikely that they will be available given holiday. Ventilator settings of A/CMV, Vt 400, RR 28, PEEP 6, FiO2 50%. Also continues to be sedated on propofol and fentanyl drips and paralyzed on nimbex drip. Repeat ABG showed improvement: pH 7.3, pCO2 57, and pO2 64. At bedside increased PEEP and measured plateau pressure increased discordantly, suggesting decreased lung compliance and lack of progress in clinical condition. Thus, decided that patient may benefit from increased steroid dosages from prednisone 40 mg daily to solumedrol 60 mg IV BID. Na noted to be high at 148 so water flushes now at 250 cc q4hr with free water deficit calculated at 1.4 L with goal Na of 143. Additionally, given increased WBC while off antibiotics, will obtain repeat sputum cultures and hold off on antibiotics so it will not skew results. 07/02/2024: No overnight acute events reported. Patient has been maxed out on propofol and fentanyl drips, and paralyzed on Nimbex drip, with a RASS score of -5. Patient's plateau pressures are increasing suggesting lung compliance is getting worse. Patient's current vent settings are tidal volume 400, respiration rate 28, PEEP of 6, FiO2 of 50%. Patient's PaO2/FiO2 ratio is 128 suggesting patient is in moderate ARDS. Will continue with IV steroids and continue with maintenance IV LR. Sputum culture Gram stain did show rare gram- positive cocci, however will not start IV antibiotics as most likely not a new infection. VBG showed stable PaCO2 and improved pH. 07/03/2024: Overnight, patient's FiO2 requirements increased from 50% to 65%. Patient seen and examined at bedside. Patient has been on 8 days of propofol, and triglyceride level is within normal limits. Due to increased peak and plateau pressures, will decrease patient's tidal volume from 400-3 80 as well as PEEP from 6-5. Due to patient's worsening ARDS, will keep patient's goal ventilation settings to plateau pressure less than 30 and low tidal volume of at least 6ml or less /kg. Will update patient's conservator and care providers on his current plan. 07/04/2024: Overnight, patient's FiO2 requirements did decrease from 65% to 55%. Patient continues to maintain Pplat < 30 with a Vt of 380, RR 28, and a PEEP of 5. Sputum Culture grew Enterococcus Faecalis, currently showing 2+ GPC. Patient also hasn't had a BM in the last few days, will start Lactulose and Senna. Will f/u with CMP after HyperKalemia bundle treatment (Albuterol 10mg, Insulin 10, Veltassa). However, WBC is improving and last ABG showed pH of 7.32 and pCO2 of 54 . Will start patient on Ampicillin 1g Q4HR. CXR also ordered today and showed mild improvement b/l. Nathaly, patient's RN was at bedside and updated course of plan. 07/05/2024: Overnight, patient had a bowel movement and has had multiple voids in his briefs. However, patient did have a large residual today, and will hold tube feeds for now. Patient's BUN also increasing despite the addition of maintenance fluids. Will discontinue patient's paralytic and start tapering patient's steroid dose which could be contributing to the elevated BUN. Patient continues to have hyperkalemia, and continues to receive the hyperkalemia cocktail at least twice a day. Spoke with patient's conservator and nurse, Dr. Cooney and Nathaly. Both agree that patient would not want to be trached with a chronic PEG tube, and do not want patient to be reintubated if patient is not successful tolerating extubation, and goals of care at that point would be to prioritize comfort. At this time, patient's CODE STATUS will be changed to DNI after speaking with Dr. Conoey around [address] Cooney is also available over the weekend if patient's progress/updates to change. Exam Vital Signs Temp Pulse Resp BP Pulse Ox O2 Del Method O2 Flow Rate 97.8 F 59 L 29 H 153/45 H 92 L Mechanical Ventilation 3 07/05/24 04:00 07/05/24 10:23 07/05/24 10:23 07/05/24 10:13 07/05/24 10:23 07/05/24 04:00 06/30/24 20:00 FiO2 55 07/05/24 10:23 Narrative Exam General Appearance: Elderly gentleman, obese, intubated and sedated. Able to initiate a cough via suction. HEENT: NC/AT, no scleral icterus, dry MM, edentulous Lungs: clear to auscultation b/l with exception of diminished sounds on lung bases, no wheezing or crackles noted CVS: Bradycardic, S1/S2 heard, no murmurs or rubs appreciated ABD: Soft, non-tender, obese, non-distended, BS + EXT: no deformity/lesions/cyanosis/clubbing, pedal pulses 2+ bilaterally, edematous in all 4 extremities SKIN: Skin exam normal without any rashes. Neuro: Intubated and sedated to a RASS score of -5. Objective Labs 07/08/24 04:45 07/08/24 04:45 Labs: Laboratory Results - last 24 hr 07/04/24 07/05/24 07/05/24 18:10 04:58 11:22 WBC 23.2 H D RBC 2.88 L Hgb 8.3 L Hct 25.9 L MCV 90 MCH 28.8 MCHC 32.0 RDW Std Deviation 50.7 H Plt Count 296 D Neut % (Auto) 82 H Lymph % (Auto) 3 L [place] % (Auto) 5 Eos % (Auto) 0 Baso % (Auto) 0 Neut # (Auto) 19.0 H Lymph # (Auto) 0.8 L [place] # (Auto) 1.1 H Eos # (Auto) 0.0 Baso # (Auto) 0.1 Immature Gran # (Auto) 2.26 H Absolute Nucleated RBC 0.04 H Immature Gran % 10 H Nucleated RBC % 0 Puncture Site Right Radial ABG pH 7.24 L ABG pCO2 68 H D ABG pO2 87 D ABG HCO3 29 H ABG O2 Saturation 95 ABG Base Excess 1 FiO2 21 Sodium 136 139 Potassium 5.7 H 6.0 H Chloride 105 105 Carbon Dioxide 25.0 28.5 Anion Gap 6 L 6 L BUN 65 H 70 H Creatinine 1.1 1.1 Estim Creat Clear Calc 57.0 L 57.0 L eGFR > 60 > 60 BUN/Creatinine Ratio 59 H 64 H Glucose 158 H 138 H Calculated Osmolality 293 300 H Calcium 8.2 L 8.2 L Corrected Calcium 9.2 9.2 Total Bilirubin 0.2 L 0.2 L AST 34 35 H ALT 79 H 80 H Alkaline Phosphatase 99 100 Total Protein 5.0 L 4.9 L Albumin 2.8 L 2.8 L Globulin 2.2 L 2.1 L Albumin/Globulin Ratio 1.3 1.3 ABG Interpretation ABG results: 06/24/24 06/25/24 06/25/24 09:51 11:35 16:44 ABG pH 7.42 7.44 7.25 L D ABG pCO2 34 28 L 52 H D ABG pO2 91 71 L D 82 L ABG HCO3 22 19 L 23 ABG O2 Saturation 98 94 94 ABG Base Excess -2 -5 L -4 L VBG pH VBG pCO2 VBG pO2 VBG Base Excess 06/26/24 06/27/24 06/28/24 07:08 07:35 07:55 ABG pH 7.34 L 7.33 L Cancelled ABG pCO2 38 D 46 Cancelled ABG pO2 91 90 Cancelled ABG HCO3 21 24 Cancelled ABG O2 Saturation 97 97 Cancelled ABG Base Excess -5 L -2 Cancelled VBG pH VBG pCO2 VBG pO2 VBG Base Excess 06/28/24 06/29/24 06/30/24 12:54 04:27 10:39 ABG pH 7.42 7.45 7.29 L D ABG pCO2 39 38 59 H D ABG pO2 156 H D 74 L D 68 L ABG HCO3 25 26 28 H ABG O2 Saturation 100 H 95 88 L ABG Base Excess 1 2 1 VBG pH VBG pCO2 VBG pO2 VBG Base Excess 06/30/24 06/30/24 06/30/24 12:45 14:23 17:29 ABG pH 7.22 L 7.26 L 7.15 L* D ABG pCO2 71 H* D 62 H 82 H* D ABG pO2 71 L 58 L* 196 H D ABG HCO3 29 H 28 H 29 H ABG O2 Saturation 88 L 82 L 100 H ABG Base Excess 0 0 -1 VBG pH VBG pCO2 VBG pO2 VBG Base Excess 06/30/24 06/30/24 07/01/24 19:09 23:14 05:00 ABG pH 7.23 L 7.32 L ABG pCO2 67 H D 57 H D ABG pO2 180 H 64 L D ABG HCO3 28 H 29 H ABG O2 Saturation 100 H 90 L ABG Base Excess 0 2 VBG pH 7.42 VBG pCO2 41 VBG pO2 62 H VBG Base Excess 2 07/02/24 07/03/24 07/03/24 08:04 04:46 10:40 ABG pH ABG pCO2 ABG pO2 ABG HCO3 ABG O2 Saturation ABG Base Excess VBG pH 7.37 7.43 7.38 VBG pCO2 46 42 49 VBG pO2 84 H D 60 H D 90 H D VBG Base Excess 1 3 3 07/03/24 07/04/24 07/05/24 11:16 07:33 11:22 ABG pH 7.35 7.32 L 7.24 L ABG pCO2 53 H 54 H 68 H D ABG pO2 60 L 57 L* 87 D ABG HCO3 29 H 28 H 29 H ABG O2 Saturation 89 L 84 L 95 ABG Base Excess 3 1 1 VBG pH VBG pCO2 VBG pO2 VBG Base Excess Quality Measures Quality Measures sepsis Current suspected stage: sepsis Possible source: pulmonary Blood cultures ordered: yes Antibiotic ordered: Yes Advance care planning discussed with:: patient Assessment & Plan Assessment Current Active Medications: Generic Name Dose Route Start Last Admin Trade Name Freq PRN Reason Stop Dose Admin Acetaminophen 1,000 mg 06/24/24 14:33 Acetaminophen 500 Mg Tablet PO 07/24/24 14:32 Q6H PRN Fever >100 or pain 1-3 Albuterol/Ipratropium 3 ml 06/26/24 07:00 07/05/24 14:12 Albuterol/Ipratropium (Duoneb) Rt Fior 3 Ml Nebu INH 07/26/24 06:59 3 ml Q4HRRT WILMER Administration Aspirin 81 mg 06/27/24 09:00 07/05/24 08:49 Aspirin 81 Mg Chew NG 07/25/24 11:44 81 mg QDAY WILMER Administration Dextrose 25 ml 07/03/24 17:39 Dextrose 50%-Water Inj 50 Ml Syringe IV 08/02/24 17:38 Q15MIN PRN BG 50-70 responsive npo pt Dextrose 50 ml 07/03/24 17:39 Dextrose 50%-Water Inj 50 Ml Syringe IV 08/02/24 17:38 Q15MIN PRN BG <50 OR BG <70 & pt unresponsive Enoxaparin Sodium 40 mg 06/25/24 11:45 07/05/24 08:50 Enoxaparin Sod Inj 40 Mg/0.4 Ml Syringe SC 07/09/24 11:44 40 mg QDAY WILMER Administration Glucagon 1 mg 06/26/24 07:46 Glucagon Inj 1 Mg Vial IM Q15MIN PRN BG <70, and no IV access Norepinephrine/Dextrose 8 mg in 250 mls @ 8.072 mls/hr 06/30/24 13:03 06/30/24 17:15 Levophed In D5w 8mg/250ml IV 07/30/24 13:02 0 mcg/kg/min .Q24H PRN 0 mls/hr PER PROTOCOL Titration Protocol 0.05 MCG/KG/MIN Propofol 1,000 mg in 100 mls @ 2.585 mls/hr 06/30/24 15:36 07/05/24 09:00 Diprivan Ivpb IV 07/25/24 14:00 50 mcg/kg/min .Q24H PRN 25.855 mls/hr PER PROTOCOL Titration Protocol 5 MCG/KG/MIN Fentanyl Citrate 2,500 mcg in 250 mls @ 2.5 mls/hr 06/30/24 21:23 07/05/24 14:00 Sublimaze Inj 2,500 Mcg/250 Ml Bag IV 07/05/24 21: 300 mcg/hr .Q24H PRN 30 mls/hr PER PROTOCOL Administration Protocol 25 MCG/HR Ampicillin Sodium 1,000 mg/ 50 mls @ 100 mls/hr 07/04/24 10:45 07/05/24 14:20 Sodium Chloride IV 07/11/24 10:44 100 mls/hr Q4HR WILMER Administration Insulin Human Lispro 0 unit 06/30/24 12:00 07/05/24 14:17 Insulin Lispro (Admelog) 1 Unit/0.01 Ml Unit SC 07/30/24 11:59 Not Given Q6HR [facility] Protocol Lactulose 20 gm 07/04/24 21:00 07/05/24 08:48 Lactulose Syrup 20 Gm/30 Ml Udc PO 08/03/24 20:59 20 gm BID WILMER Administration Protocol Lansoprazole 30 mg 06/27/24 09:00 07/05/24 08:48 Lansoprazole 30 Mg Tab.Rap.Dr BOLAÑOS 07/24/24 14:44 30 mg QDAY WILMER Administration Methylprednisolone Sodium Succinate 60 mg 07/06/24 09:00 Methylprednisolone Sod Succ 40 Mg Vial IV 07/13/24 08:59 DAILY [facility] Ondansetron HCl 4 mg 06/24/24 14:33 Ondansetron Inj 2 Mg/Ml Inj 2 Ml IV 07/24/24 14:32 Q6H PRN NAUSEA OR VOMITING Protocol Patiromer 8.4 gm 07/05/24 09:00 07/05/24 08:49 Patiromer Calcium 8.4 Gm Packet (Non-Form) GT 08/04/24 08:59 8.4 gm QDAY WILMER Administration Protocol Polyethylene Glycol 17 gm 07/05/24 09:00 07/05/24 08:49 Polyethylene Glycol 17 Gm Packet PO 08/04/24 08:59 17 gm QDAY WILMER Administration Sennosides 8.8 mg 07/04/24 10:30 07/05/24 08:48 Sennosides Syrup 8.8 Mg/5 Ml Udc GT 08/03/24 10:29 8.8 mg QDAY WILMER Administration Protocol Sodium Chloride 3 ml 06/26/24 03:20 07/05/24 08:35 Sodium Chloride Rt Fior 0.9% 3 Ml Nebu INH 07/26/24 03:19 3 ml PRN PRN Administration SOLN Plan Viraj Light is a 74-year-old male with past medical history significant for Duong's palsy, deaf and nonverbal, schizophrenia, tobacco use, primary hypertension, AV first-degree block, GERD, CAD, COPD, chronic constipation, generalized anxiety disorder who presented to the ED with shortness of breath on 06/24/2024 and admitted to the hospital for AHRF. ICU was consulted after patient has presenting with severe respiratory distress requiring intubation. NEURO #Sedated on mechanical ventilation DDx: in the setting of hypoxia, hypercapnia, and respiratory acidosis with underlying chronic COPD exacerbation - Propofol and fentanyl drips for sedation, max dose - DC'ed Nimbex gtt - Versed 2mg IV push q1hr for agitation as needed - RAAS Goal of -5 #Deaf and nonverbal CARDIO #Bradycardia-resolved Secondary to propofol sedation #Elevated troponin-resolved in the setting of demand ischemia Troponin peaked at 0.110, and downtrended #History of essential hypertension #History of CAD #Hx of AV block first-degree No history of atrial fibrillation EKG done however there was no sign of AV block BNP slightly elevated at 225 Echo showed normal LV and RV function, with EF 55-60% - Continue to monitor on tele - Keep Mg and K above 2 and 4, respectively - Continue aspirin 81 mg - If patient's blood pressure continues to rise can restart patient's home Amlodipine, Lisinopril, Hydralazine, and Clonidine. PULM #Acute hypoxic respiratory failure due to influenza pneumonia vs aspiration PNA #ARDS #Sepsis #History of COPD-stable Has baseline COPD but does not have a bank consultant Placed on BiPAP, but d/t increased respiratory distress he was intubated on 06/25/24 CXR shows severe b/l PNA that is slightly improved from 07/01 but continues to show severe ARDS like pattern Blood culture 06/24, sputum culture 06/25, and urine culture 06/26 no growth, MRSA negative Finished course of Tamiflu and antibiotics Repeat CXR 07/01 showed improvement in infiltrates compared to 06/30 ABG 06/30: pH 7.15, pCO2 82, pO2 196 -> pH 7.23, pCO2 67, pO2 180 07/03/24 - BCx negative in last 24 hours, Sputum Cx grew 2+ GPC prelim, Gram Stain showed rare GPC 07/04/24 - Sputum culture grew Enterococcus Faecalis PaO2/FiO2 ratio increased to 147, and SpO2/FiO2 increased to 167 suggesting moderate ARDS - Ventilator settings: A/SENIOR PROPERTY MANAGER, Delta P 22, RR 28, FiO2 55% - Duonebs q4hr scheduled and q2hr PRN - Solumedrol taper - Maintain oxygen 88 to 92% - Low tidal volume ventilation strategy of 6cc/kg TV - Consider prone position if patient's condition continues to worsen - Started patient on Ampicillin 1g Q4HR GI/FEN #Chronic constipation-stable Hasn't had BM in the last few days Will start bowel regimen with Senna and Lactulose #GI prophylaxis - IV PPI #Tube feeds - Continue with tube feeds - Rate decreased to 35 cc/hr on 07/01 #Transaminitis?improving Presented with elevated AST and ALT. DDx: in the setting of sepsis and recent Tamiflu use Hep panel negative - Continue to monitor RENAL #Acute respiratory acidosis-stable Current ABG shows a pH of 7.24 with a PaCO2 of 68. - Will keep current vent settings on pressure control, respiration rate 30 and delta P of 22, with goals of tidal volume and minute ventilation to not exceed 400 and 10 respectively with FiO2 of 55% - F/u ABG shows slight increase in pH of 7.28 and PaCO2 of 51 #Hyperkalemia Lasix and Kayexelate overnight -CTM to monitor via daily labs -Continue with hyperkalemia cocktail treatment including albuterol 10 mg, Veltassa 8.4 g, insulin 10 with amp of D50 -Switched Vital to Nepro tube feeds for less K+ in diet #LUOIS Cr increased from 1 to 1.6 on 06/26/24 Cr downtrended, and now slowly increasing to 1.0, 07/04/24 Most likely pre-renal vs intrinsic in the setting of sepsis and low BP and dehydration Less likely post-renal as patient able to urine with in&out cath - Renally dose medications - Avoid nephrotoxin agents -Continue to taper IV steroids most likely the cause of elevated BUN #Hypernatremia-resolved Free water deficit 0.3L, Na improve from 148 to 141 -Continue with free water flushes 250cc q6HR HEME/ONC #Leukocytosis-improving Most likely in the setting of influenza and bacterial pneumonia and recent steroid use Ordered Vanc x 1 in the setting of GPC 2+ growing in sputum culture yesterday Sputum culture grew Enterococcus faecalis suggesting possible aspiration, will cover with Ampicillin 1g Q4H #Normocytic anemia?stable H&H stable Ferritin 100, Iron level 9, TIBC 203 in the setting of COPD - Consider iron tablet supplementation #Thrombocytosis-resolved Reactive in setting of infection and aspirin use ENDO #Hyperglycemia-stable Most likely elevated due to recent steroid use A1c is 5.2 ID #Enteroccoccus Faecalis Infection Sputum Gram Stain showed rare GPC collected on 07/01/24 Sputum Gram Cx grew 2+ GPC and finalized to Enterococcus on 07/04/24 -Gave Vanc x 1 on 07/03/24 -Started with Ampicillin 1g Q4H on 07/04/24 #Influenza pneumonia-resolving Sputum Gram Stain showed rare GPC collected on 07/01/24 - See pulmonary above - Finished course of Tamiflu and antibiotics MSK Stable PSYCH #History of ARIANNA #History of schizophrenia - Will resume home medicines upon med rec Health Maintenance: DVT prophylaxis: Lovenox 40mg SC Diet: tube feeds via OG tube Cespedes: N/A Lines: PIV Drips: Propofol, Fentanyl CODE STATUS: DNI Disposition: Admitted to ICU for AHRF requiring intubation; Plan to call conservator/snf facility to discuss plan Patient's plan and care discussed with my attending, Dr. Henderson. Marlyn Springer MD PGY-2 Attending Provider Attestation/Addendum Patient seen and examined with above resident, Marlyn Springer MD. I agree with the findings, assessment, and plan of care as documented except for any differences below. Patient with severe ARDS despite appropriate treatment course for influenza as well as on antibiotics empirically for potential superimposed bacterial pneumonia. Patient has remained paralyzed for 5 days, we will plan to discontinue this with transition of volume control settings to pressure control. I have titrated parameters to ensure appropriate tidal volume lung protective strategy. Will reinforce need for close monitoring by staff and respiratory therapy to ensure that the patient does not exceed 8 mg liters per kilogram ideal body weight tidal volumes and ensure pressures remain in tolerable range below a peak pressure of 35. They will be available to be contacted in case further adjustments are needed overnight. Patient oxygenation remained stable although severely limited and will monitor follow-up blood gas analysis to ensure that patient is adequately ventilating. Open lung strategy to optimally recruit for compliance and gas exchange to determine if the patient will continue to improve in the coming days with discontinuation of paralytics and for further weaning. Patient remains hemodynamically stable off pressors and is tolerating tube feeding is appropriate at this point during his prolonged intensive cares course. Will continue to aim for fluid removal to optimize pulmonary gas exchange and compliance and monitor renal function closely. Patient remains on heavy sedation for synchrony with current ventilator settings and we will plan on further weaning based off of improvement in his gas exchange in coming days. Patient's conservator and nurse are aware of the patient's critical illness and overall poor prognosis especially with their desire to limit ability for further tracheostomy and PEG placement. This is in line with prior wishes to not over sustaining end-of-life care in the presence of an unlikely reversible condition. Continue over the weekend to try to optimize and we discussed plan of care with conservator on Monday. Total critical care time: I personally spent 40 minutes for review of physiologic parameters, directing plan of care throughout the day, and multiple adjustments and mechanical ventilation for optimization and lung protective strategy. This is exclusive of time spent teaching housestaff or performing any separate billable procedures. Patient continues to require critical care services for acute hypoxic respiratory failure in the setting of severe ARDS from influenza pneumonia with possible superimposed bacterial infection. Patient remains at high risk for further morbidity and mortality warranting close monitoring and care only available in the intensive care unit.
--- NOTE | 2024-07-05 14:41 | PD.RESEVENT ---
Documentation for date of: 07/05/24
--- NOTE | 2024-07-05 14:42 | PC.DIETICIAN ---
Nutrition prescription (updated) Nepro at 35 ml/hr via OG tube by pump (goal). If no IV fluids, water flushes of 250 ml every 6 hrs (per MD).
--- NOTE | 2024-07-05 14:43 | PC.SS ---
SS update: Patient remains in ICU. Patient is from [facility], to return to care home upon d/c.
[2024-07-05 15:18] LABS: Base Excess 1 (-3-3); HCO3 28 mEq/L (20-26); Inspired Oxygen, FIO2 55 %; O2 Saturation 95 % (91-98); PCO2 59 mmHg (32.0-48.0); PO2 81 mmHg (83-108); pH, Arterial 7.28 (7.35-7.45)
[2024-07-05 15:19] LABS: Allen Test Not Performed; Puncture Site Right Radial
[2024-07-05 15:37] LABS: Alanine Aminotransferase 78 U/L (10-49); Albumin, Serum 2.7 gm/dL (3.4-4.8); Albumin/Globulin Ratio 1.3 (1.2-2.2); Alkaline Phosphatase 92 U/L (46-116); Anion Gap 7 (7-16); Aspartate Amino Transferase 52 U/L (0-34); BUN/Creatinine Ratio 53 Ratio (12-20); Bilirubin,Total 0.2 mg/dL (0.3-1.2); Blood Urea Nitrogen 64 mg/dL (9-23); Calcium 8.1 mg/dL (8.3-10.6); Calcium (Corrected) 9.1 mg/dL (8.5-10.1); Carbon Dioxide 26.3 mMol/L (20.0-31.0); Chloride 104 mMol/L (98-107); Creatinine (Component) 1.2 mg/dL (0.6-1.3); Globulin 2.1 gm/dL (2.3-3.5); Glucose 122 mg/dL (74-106); Osmolality,Calculated 293 (275-295); Sodium 137 mMol/L (136-145); Total Protein 4.8 gm/dL (5.7-8.2); eGFR > 60 See Note
[2024-07-05 15:44] LABS: Potassium 6.1 mMol/L (3.4-5.1)
[2024-07-05] MEDS: PATIROMER CALCIUM 8.4 GM PACKET (NON-FORM) PO (16:08)
[2024-07-05 21:19] LABS: Potassium 5.4 mMol/L (3.4-5.1)
[2024-07-06] VITALS (35 sets, daily range): BP systolic 117–186; BP diastolic 43–61; PULSE 59–82; RESP 22–32; TEMP 37.1–37.4; O2SAT 88–294; BMI 40.8
[2024-07-06] MEDS: Ampicillin Inj 1,000 MG in SODIUM CHLORIDE 0.9% (Popper) 50 ML 100 MG IV ×6 (01:09→21:02)
[2024-07-06] MEDS: ALBUTEROL/IPRATROPIUM (Duoneb) RT SOL 3 ML NEBU INH ×6 (02:55→22:39)
[2024-07-06] MEDS: PROPOFOL 1,000 MG IVPB 1,000 MG/100 ML VIAL 25.855 MG IV ×5 (03:39→19:40)
[2024-07-06 06:39] LABS: Base Excess 2 (-3-3); HCO3 28 mEq/L (20-26); Inspired Oxygen, FIO2 65 %; PCO2 52 mmHg (32.0-48.0); pH, Arterial 7.33 (7.35-7.45)
[2024-07-06 06:40] LABS: Allen Test Performed/OK; O2 Saturation 89 % (91-98); Puncture Site Right Radial
[2024-07-06 06:41] LABS: PO2 54 mmHg (83-108)
[2024-07-06 08:06] LABS: Base Excess 1 (-3-3); HCO3 28 mEq/L (20-26); Inspired Oxygen, FIO2 75 %; PCO2 52 mmHg (32.0-48.0); PO2 82 mmHg (83-108); pH, Arterial 7.33 (7.35-7.45)
[2024-07-06 08:10] LABS: Allen Test Performed/OK; O2 Saturation 97 % (91-98); Puncture Site Right Radial
[2024-07-06] MEDS: LANSOPRAZOLE 30 MG TAB.RAP.DR NG (08:13)
[2024-07-06] MEDS: POLYETHYLENE GLYCOL 17 GM PACKET PO (08:13)
[2024-07-06] MEDS: LACTULOSE SYRUP 20 GM/30 ML UDC PO ×2 (08:13→20:02)
[2024-07-06] MEDS: ASPIRIN 81 MG CHEW NG (08:14)
[2024-07-06] MEDS: PATIROMER CALCIUM 8.4 GM PACKET (NON-FORM) GT (08:14)
[2024-07-06] MEDS: ENOXAPARIN SOD INJ 40 MG/0.4 ML SYRINGE SC (08:14)
[2024-07-06] MEDS: SENNOSIDES SYRUP 8.8 MG/5 ML UDC GT (08:14)
[2024-07-06] MEDS: fentaNYL 2,500 MCG/250 ML BAG 2,500 MCG/250 ML BAG 30 MCG IV ×2 (08:51→18:20)
[2024-07-06 09:44] LABS: Basophils # (Auto) 0.1 Thou/mm3 (0.0-0.2); Basophils % (Auto) 1 % (0-2.5); Eosinophils # (Auto) 0.1 Thou/mm3 (0.0-0.5); Eosinophils % (Auto) 0 % (0-10); Hematocrit 27.3 % (41.0-53.0); Immature Granulocytes % (Auto) 7 % (0-0); Immature Granulocytes Auto 1.92 Thou/mm3 (0.00-0.00); Lymphocytes # (Auto) 1.6 Thou/mm3 (1.0-4.8); Lymphocytes % (Auto) 6 % (10-50); Mean Corpuscular HGB Conc 31.9 g/dl (31.0-37.0); Mean Corpuscular Hemoglobin 28.3 pg (25.0-35.0); Mean Corpuscular Volume 89 fL (80-100); Monocytes # (Auto) 1.4 Thou/mm3 (0.0-0.8); Monocytes % (Auto) 5 % (0-12); Neutrophils # (Auto) 20.9 Thou/mm3 (1.8-7.7); Neutrophils % (Auto) 81 % (37-80); Nucleated Red Blood Cell # 0.15 Thou/mm3 (0.00-0.00); Nucleated Red Blood Cell % 1 /100 WBC (0); Platelet Count 277 Thou/mm3 (140-440); RDW Standard Deviation 51.4 fL (35.1-43.9); Red Blood Count 3.07 Miln/mm3 (4.50-5.90)
[2024-07-06 09:47] LABS: Hemoglobin 8.7 g/dL (13.5-16.0)
[2024-07-06 10:06] LABS: Alanine Aminotransferase 105 U/L (10-49); Albumin, Serum 2.8 gm/dL (3.4-4.8); Albumin/Globulin Ratio 1.3 (1.2-2.2); Alkaline Phosphatase 164 U/L (46-116); Anion Gap 8 (7-16); Aspartate Amino Transferase 90 U/L (0-34); BUN/Creatinine Ratio 61 Ratio (12-20); Bilirubin,Total 0.6 mg/dL (0.3-1.2); Blood Urea Nitrogen 73 mg/dL (9-23); Calcium 8.4 mg/dL (8.3-10.6); Calcium (Corrected) 9.4 mg/dL (8.5-10.1); Carbon Dioxide 26.8 mMol/L (20.0-31.0); Chloride 105 mMol/L (98-107); Creatinine (Component) 1.2 mg/dL (0.6-1.3); Estimated Creatinine Clearance 53.1 mL/min (>60); Globulin 2.1 gm/dL (2.3-3.5); Glucose 77 mg/dL (74-106); Osmolality,Calculated 299 (275-295); Potassium 4.8 mMol/L (3.4-5.1); Sodium 140 mMol/L (136-145); Total Protein 4.9 gm/dL (5.7-8.2); eGFR > 60 See Note
[2024-07-06] MEDS: BUMETANIDE INJ 0.25 MG/ML VIAL 4 ML 1 MG IVP (10:36)
--- NOTE | 2024-07-06 10:54 | ESPR_ITS ---
Documentation for date of: 07/06/24 Subjective Subjective Interval history: Patient is a 74-year-old male with past medical history significant for Duong's palsy, deaf and nonverbal, schizophrenia, tobacco use, primary hypertension, AV first-degree block, GERD, CAD, COPD, chronic constipation, generalized anxiety disorder who presented to the ED with shortness of breath on 06/24/2024. Throughout hospital stay, patient was very hypoxic and wheezing on physical exam and was placed on BiPAP. Patient also tested positive for influenza A and started on vancomycin and cefepime for superimposed bacterial infection. ICU was consulted after patient has presenting with severe respiratory distress and pulling tidal volumes of 800-12 100 on BiPAP. Patient was intubated for acute hypoxic respiratory failure. 06/26/24: Overnight, patient had a total urine output of 500 cc. Patient was unable to urinate on his own, and bladder scan showed 450 cc, and was able to be removed with an in&out cath. Patient was hypotensive overnight, and was started on Levophed. Patient also is bradycardic, most likely secondary to propofol. Tmax was 99.7. Patient has not spiked a fever since 2/10 a.m. Patient's white count increased from 23.43 6.7, and thrombocytosis increased to 540. Will change patient's vent settings to tidal volume of 400, respiration rate 25, PEEP of 10, and FiO2 of 50%. Will continue with IV Vanco and cefepime, but renal dose. Gram stain showed 2+ WBC. MRSA was negative, however will keep vancomycin after sputum culture from ET tube returns. Patient's blood sugar was little elevated today and started 5 Lantus and sliding scale, and will start tube feeds. LOUIS increased Cr 1 to 1.6, will ensure medications are renally dose, and give a LR bolus of 500cc and will start tube feeds. 06/27/24: Overnight, patient had a total urine output of 700cc overnight. Patient received a total of 3.25L LR. ABG continues to show respiratory acidosis that has remained about the same. Plan today is to try titrating his sedation and see how patient tolerates. Will descalate Abx to IV Ceftiraxone as all cultures returned negative including sputum culture and WBC is improving. Patient will require a total of 5 days of IV Abx. Will continue with straight ins and outs Q4H and continue LR at 50cc/hr and tube feeds. 06/28/24: Overnight, patient was given Versed push due to feeling agitated. Patient has been off fentanyl drip sedated with propofol 35 mcg along with Precedex. Patient was initially on vent settings of SIMV PRVC with a TI time of 1.3 and a PEEP of 10, respiration rate 25 and transition to pressure support, doing well on a RASS of 0. Due to patient's decreased elasticity and obstructive lung process, patient has been having a prolonged expiratory time with an increased MACKENZIE ratio. Will give Lasix IV 20 times 1 in the afternoon and in the evening to help with his O2 reserve. Will discontinue his fluids and continue his tube feeds. Will plan to extubate patient tomorrow. Will follow- up repeat ABG in the morning. 06/29/24: Overnight, patient was given IV Lasix 20mg which helped with his O2 reserve. However, on examination today, patient continues to have increased work of breathing on pressure support. Will have to have a conversation with Dr. Cooney, patient's conservator regarding patient's CODE STATUS given his current respiratory status on safely tolerating extubation. Patient will get his last dose of steroids today, and is tolerating tube feeds well. 06/30/2024: Patient examined at bedside this AM. No overnight events reported. Discussion with patient's conservator who relayed patient was highly functional therefore Code status was switched to full code. On examination, patient appeared to have increased work of breathing whilst on Pressure support with high minute ventilation, with sedation with Propofol at max and fentanyl at RAAS of -4. A CXR was ordered which showed diffuse B/L patchy infiltrates consistent with worsening ARDS. Due to his increased WOB and vent asynchrony, will defer extubating at this time and continue with lung protective strategy. Will start nimbex drip as patient is maxed out sedation. 07/01/2024: No acute overnight events reported. Another discussion had with conservator who will relay patient's clinical status to alf facility providers but unlikely that they will be available given holiday. Ventilator settings of A/CMV, Vt 400, RR 28, PEEP 6, FiO2 50%. Also continues to be sedated on propofol and fentanyl drips and paralyzed on nimbex drip. Repeat ABG showed improvement: pH 7.3, pCO2 57, and pO2 64. At bedside increased PEEP and measured plateau pressure increased discordantly, suggesting decreased lung compliance and lack of progress in clinical condition. Thus, decided that patient may benefit from increased steroid dosages from prednisone 40 mg daily to solumedrol 60 mg IV BID. Na noted to be high at 148 so water flushes now at 250 cc q4hr with free water deficit calculated at 1.4 L with goal Na of 143. Additionally, given increased WBC while off antibiotics, will obtain repeat sputum cultures and hold off on antibiotics so it will not skew results. 07/02/2024: No overnight acute events reported. Patient has been maxed out on propofol and fentanyl drips, and paralyzed on Nimbex drip, with a RASS score of -5. Patient's plateau pressures are increasing suggesting lung compliance is getting worse. Patient's current vent settings are tidal volume 400, respiration rate 28, PEEP of 6, FiO2 of 50%. Patient's PaO2/FiO2 ratio is 128 suggesting patient is in moderate ARDS. Will continue with IV steroids and continue with maintenance IV LR. Sputum culture Gram stain did show rare gram- positive cocci, however will not start IV antibiotics as most likely not a new infection. VBG showed stable PaCO2 and improved pH. 07/03/2024: Overnight, patient's FiO2 requirements increased from 50% to 65%. Patient seen and examined at bedside. Patient has been on 8 days of propofol, and triglyceride level is within normal limits. Due to increased peak and plateau pressures, will decrease patient's tidal volume from 400-3 80 as well as PEEP from 6-5. Due to patient's worsening ARDS, will keep patient's goal ventilation settings to plateau pressure less than 30 and low tidal volume of at least 6ml or less /kg. Will update patient's conservator and care providers on his current plan. 07/04/2024: Overnight, patient's FiO2 requirements did decrease from 65% to 55%. Patient continues to maintain Pplat < 30 with a Vt of 380, RR 28, and a PEEP of 5. Sputum Culture grew Enterococcus Faecalis, currently showing 2+ GPC. Patient also hasn't had a BM in the last few days, will start Lactulose and Senna. Will f/u with CMP after HyperKalemia bundle treatment (Albuterol 10mg, Insulin 10, Veltassa). However, WBC is improving and last ABG showed pH of 7.32 and pCO2 of 54 . Will start patient on Ampicillin 1g Q4HR. CXR also ordered today and showed mild improvement b/l. Nathaly, patient's RN was at bedside and updated course of plan. 07/05/2024: Overnight, patient had a bowel movement and has had multiple voids in his briefs. However, patient did have a large residual today, and will hold tube feeds for now. Patient's BUN also increasing despite the addition of maintenance fluids. Will discontinue patient's paralytic and start tapering patient's steroid dose which could be contributing to the elevated BUN. Patient continues to have hyperkalemia, and continues to receive the hyperkalemia cocktail at least twice a day. Spoke with patient's conservator and nurse, Dr. Cooney and Nathaly. Both agree that patient would not want to be trached with a chronic PEG tube, and do not want patient to be reintubated if patient is not successful tolerating extubation, and goals of care at that point would be to prioritize comfort. At this time, patient's CODE STATUS will be changed to DNI after speaking with Dr. Cooney around [address] Cooney is also available over the weekend if patient's progress/updates to change. 07/06/2024: No acute overnight events reported. Noted to have three large volume bowel movements and unable to detemined UOP. P/F ratio noted to be 109. ABG pH 7.33, pCO2 52, pO2 82. Delta PC changed to 20, PEEP increased to 10, and FiO2 decreased to 60% to maintain saturations between 88-92%. Compliance noted to improve and thus will touch base with Dr. Cooney at a later time. Noted to be edemetous in lower and upper extremities, in addition to scrotum, so will give 1 mg IV bumex x1. AM labs show improvement in K from 5.4 to 4.8. Exam Vital Signs Temp Pulse Resp BP Pulse Ox O2 Del Method O2 Flow Rate 99.4 F 69 32 H 144/47 H 89 L Mechanical Ventilation 3 07/06/24 04:00 07/06/24 10:40 07/06/24 06:53 07/06/24 10:40 07/06/24 10:40 07/06/24 04:00 06/30/24 20:00 FiO2 65 07/06/24 10:40 Narrative Exam General: elderly gentleman, intubated, sedated, and mechanically ventilated HEENT: NC/AT, mucous membranes moist, bilateral sclera anicteric Cardiovascular: regular rate and rhythm, S1/S2 present, no murmurs appreciated Pulmonary: clear to auscultation bilaterally, no rales/rhonchi/wheezes Abdominal: obese, soft, nontender Musculoskeletal: 3+ pitting edema in upper extremities, lower extremities, and in scrotum Skin: warm and dry, intact, no rashes Neuro: GCS 3T Objective Labs 07/08/24 04:45 07/08/24 04:45 Labs: Laboratory Results - last 24 hr 07/05/24 07/05/24 07/05/24 11:22 14:58 15:10 WBC RBC Hgb Hct MCV MCH MCHC RDW Std Deviation Plt Count Neut % (Auto) Lymph % (Auto) [place] % (Auto) Eos % (Auto) Baso % (Auto) Neut # (Auto) Lymph # (Auto) [place] # (Auto) Eos # (Auto) Baso # (Auto) Immature Gran # (Auto) Absolute Nucleated RBC Immature Gran % Nucleated RBC % Puncture Site Right Radial Right Radial ABG pH 7.24 L 7.28 L ABG pCO2 68 H D 59 H ABG pO2 87 D 81 L ABG HCO3 29 H 28 H ABG O2 Saturation 95 95 ABG Base Excess 1 1 FiO2 21 55 Sodium 137 Potassium 6.1 H* Chloride 104 Carbon Dioxide 26.3 Anion Gap 7 BUN 64 H Creatinine 1.2 Estim Creat Clear Calc 53.0 L eGFR > 60 BUN/Creatinine Ratio 53 H Glucose 122 H Calculated Osmolality 293 Calcium 8.1 L Corrected Calcium 9.1 Total Bilirubin 0.2 L AST 52 H ALT 78 H Alkaline Phosphatase 92 Total Protein 4.8 L Albumin 2.7 L Globulin 2.1 L Albumin/Globulin Ratio 1.3 07/05/24 07/06/24 07/06/24 21:05 05:16 07:57 WBC RBC Hgb Hct MCV MCH MCHC RDW Std Deviation Plt Count Neut % (Auto) Lymph % (Auto) [place] % (Auto) Eos % (Auto) Baso % (Auto) Neut # (Auto) Lymph # (Auto) [place] # (Auto) Eos # (Auto) Baso # (Auto) Immature Gran # (Auto) Absolute Nucleated RBC Immature Gran % Nucleated RBC % Puncture Site Right Radial Right Radial ABG pH 7.33 L 7.33 L ABG pCO2 52 H 52 H ABG pO2 54 L* D 82 L D ABG HCO3 28 H 28 H ABG O2 Saturation 89 L 97 ABG Base Excess 2 1 FiO2 65 75 Sodium Potassium 5.4 H D Chloride Carbon Dioxide Anion Gap BUN Creatinine Estim Creat Clear Calc eGFR BUN/Creatinine Ratio Glucose Calculated Osmolality Calcium Corrected Calcium Total Bilirubin AST ALT Alkaline Phosphatase Total Protein Albumin Globulin Albumin/Globulin Ratio 07/06/24 09:01 WBC 26.0 H RBC 3.07 L Hgb 8.7 L Hct 27.3 L MCV 89 MCH 28.3 MCHC 31.9 RDW Std Deviation 51.4 H Plt Count 277 Neut % (Auto) 81 H Lymph % (Auto) 6 L [place] % (Auto) 5 Eos % (Auto) 0 Baso % (Auto) 1 Neut # (Auto) 20.9 H Lymph # (Auto) 1.6 [place] # (Auto) 1.4 H Eos # (Auto) 0.1 Baso # (Auto) 0.1 Immature Gran # (Auto) 1.92 H Absolute Nucleated RBC 0.15 H Immature Gran % 7 H Nucleated RBC % 1 H Puncture Site ABG pH ABG pCO2 ABG pO2 ABG HCO3 ABG O2 Saturation ABG Base Excess FiO2 Sodium 140 Potassium 4.8 D Chloride 105 Carbon Dioxide 26.8 Anion Gap 8 BUN 73 H Creatinine 1.2 Estim Creat Clear Calc 53.1 L eGFR > 60 BUN/Creatinine Ratio 61 H Glucose 77 Calculated Osmolality 299 H Calcium 8.4 Corrected Calcium 9.4 Total Bilirubin 0.6 AST 90 H ALT 105 H Alkaline Phosphatase 164 H D Total Protein 4.9 L Albumin 2.8 L Globulin 2.1 L Albumin/Globulin Ratio 1.3 ABG Interpretation ABG results: 06/24/24 06/25/24 06/25/24 09:51 11:35 16:44 ABG pH 7.42 7.44 7.25 L D ABG pCO2 34 28 L 52 H D ABG pO2 91 71 L D 82 L ABG HCO3 22 19 L 23 ABG O2 Saturation 98 94 94 ABG Base Excess -2 -5 L -4 L VBG pH VBG pCO2 VBG pO2 VBG Base Excess 06/26/24 06/27/24 06/28/24 07:08 07:35 07:55 ABG pH 7.34 L 7.33 L Cancelled ABG pCO2 38 D 46 Cancelled ABG pO2 91 90 Cancelled ABG HCO3 21 24 Cancelled ABG O2 Saturation 97 97 Cancelled ABG Base Excess -5 L -2 Cancelled VBG pH VBG pCO2 VBG pO2 VBG Base Excess 06/28/24 06/29/24 06/30/24 12:54 04:27 10:39 ABG pH 7.42 7.45 7.29 L D ABG pCO2 39 38 59 H D ABG pO2 156 H D 74 L D 68 L ABG HCO3 25 26 28 H ABG O2 Saturation 100 H 95 88 L ABG Base Excess 1 2 1 VBG pH VBG pCO2 VBG pO2 VBG Base Excess 06/30/24 06/30/24 06/30/24 12:45 14:23 17:29 ABG pH 7.22 L 7.26 L 7.15 L* D ABG pCO2 71 H* D 62 H 82 H* D ABG pO2 71 L 58 L* 196 H D ABG HCO3 29 H 28 H 29 H ABG O2 Saturation 88 L 82 L 100 H ABG Base Excess 0 0 -1 VBG pH VBG pCO2 VBG pO2 VBG Base Excess 06/30/24 06/30/24 07/01/24 19:09 23:14 05:00 ABG pH 7.23 L 7.32 L ABG pCO2 67 H D 57 H D ABG pO2 180 H 64 L D ABG HCO3 28 H 29 H ABG O2 Saturation 100 H 90 L ABG Base Excess 0 2 VBG pH 7.42 VBG pCO2 41 VBG pO2 62 H VBG Base Excess 2 07/02/24 07/03/24 07/03/24 08:04 04:46 10:40 ABG pH ABG pCO2 ABG pO2 ABG HCO3 ABG O2 Saturation ABG Base Excess VBG pH 7.37 7.43 7.38 VBG pCO2 46 42 49 VBG pO2 84 H D 60 H D 90 H D VBG Base Excess 1 3 3 07/03/24 07/04/24 07/05/24 11:16 07:33 11:22 ABG pH 7.35 7.32 L 7.24 L ABG pCO2 53 H 54 H 68 H D ABG pO2 60 L 57 L* 87 D ABG HCO3 29 H 28 H 29 H ABG O2 Saturation 89 L 84 L 95 ABG Base Excess 3 1 1 VBG pH VBG pCO2 VBG pO2 VBG Base Excess 07/05/24 07/06/24 07/06/24 15:10 05:16 07:57 ABG pH 7.28 L 7.33 L 7.33 L ABG pCO2 59 H 52 H 52 H ABG pO2 81 L 54 L* D 82 L D ABG HCO3 28 H 28 H 28 H ABG O2 Saturation 95 89 L 97 ABG Base Excess 1 2 1 VBG pH VBG pCO2 VBG pO2 VBG Base Excess Quality Measures Quality Measures sepsis Current suspected stage: ruled out Possible source: pulmonary Blood cultures ordered: yes Antibiotic ordered: Yes Advance care planning discussed with:: legal surragate Assessment & Plan Assessment Current Active Medications: Generic Name Dose Route Start Last Admin Trade Name Freq PRN Reason Stop Dose Admin Acetaminophen 1,000 mg 06/24/24 14:33 Acetaminophen 500 Mg Tablet PO 07/24/24 14:32 Q6H PRN Fever >100 or pain 1-3 Albuterol/Ipratropium 3 ml 06/26/24 07:00 07/06/24 10:49 Albuterol/Ipratropium (Duoneb) Rt Fior 3 Ml Nebu INH 07/26/24 06:59 3 ml Q4HRRT WILMER Administration Aspirin 81 mg 06/27/24 09:00 07/06/24 08:14 Aspirin 81 Mg Chew NG 07/25/24 11:44 81 mg QDAY WILMER Administration Dextrose 25 ml 07/03/24 17:39 Dextrose 50%-Water Inj 50 Ml Syringe IV 08/02/24 17:38 Q15MIN PRN BG 50-70 responsive npo pt Dextrose 50 ml 07/03/24 17:39 Dextrose 50%-Water Inj 50 Ml Syringe IV 08/02/24 17:38 Q15MIN PRN BG <50 OR BG <70 & pt unresponsive Enoxaparin Sodium 40 mg 06/25/24 11:45 07/06/24 08:14 Enoxaparin Sod Inj 40 Mg/0.4 Ml Syringe SC 07/09/24 11:44 40 mg QDAY WILMER Administration Glucagon 1 mg 06/26/24 07:46 Glucagon Inj 1 Mg Vial IM Q15MIN PRN BG <70, and no IV access Norepinephrine/Dextrose 8 mg in 250 mls @ 8.072 mls/hr 06/30/24 13:03 06/30/24 17:15 Levophed In D5w 8mg/250ml IV 07/30/24 13:02 0 mcg/kg/min .Q24H PRN 0 mls/hr PER PROTOCOL Titration Protocol 0.05 MCG/KG/MIN Propofol 1,000 mg in 100 mls @ 2.585 mls/hr 06/30/24 15:36 07/06/24 10:00 Diprivan Ivpb IV 07/25/24 14:00 50 mcg/kg/min .Q24H PRN 25.855 mls/hr PER PROTOCOL Titration Protocol 5 MCG/KG/MIN Ampicillin Sodium 1,000 mg/ 50 mls @ 100 mls/hr 07/04/24 10:45 07/06/24 10:36 Sodium Chloride IV 07/11/24 10:44 100 mls/hr Q4HR WILMER Administration Fentanyl Citrate 2,500 mcg in 250 mls @ 2.5 mls/hr 07/05/24 21:59 07/06/24 10:00 Sublimaze Inj 2,500 Mcg/250 Ml Bag IV 07/10/24 21:58 300 mcg/hr .Q24H PRN 30 mls/hr PER PROTOCOL Titration Protocol 25 MCG/HR Insulin Human Lispro 0 unit 06/30/24 12:00 07/06/24 06:03 Insulin Lispro (Admelog) 1 Unit/0.01 Ml Unit SC 07/30/24 11:59 Not Given Q6HR WILMER Protocol Lactulose 20 gm 07/04/24 21:00 07/06/24 08:13 Lactulose Syrup 20 Gm/30 Ml Udc PO 08/03/24 20:59 20 gm BID WILMER Administration Protocol Lansoprazole 30 mg 06/27/24 09:00 07/06/24 08:13 Lansoprazole 30 Mg Tab.Rap.Dr BOLAÑOS 07/24/24 14:44 30 mg QDAY WILMER Administration Methylprednisolone Sodium Succinate 60 mg 07/06/24 09:00 07/06/24 08:14 Methylprednisolone Sod Succ 40 Mg Vial IV 07/13/24 08:59 60 mg DAILY WILMER Administration Ondansetron HCl 4 mg 06/24/24 14:33 Ondansetron Inj 2 Mg/Ml Inj 2 Ml IV 07/24/24 14:32 Q6H PRN NAUSEA OR VOMITING Protocol Patiromer 8.4 gm 07/05/24 09:00 07/06/24 08:14 Patiromer Calcium 8.4 Gm Packet (Non-Form) GT 08/04/24 08:59 8.4 gm QDAY WILMER Administration Protocol Polyethylene Glycol 17 gm 07/05/24 09:00 07/06/24 08:13 Polyethylene Glycol 17 Gm Packet PO 08/04/24 08:59 17 gm QDAY WILMER Administration Sennosides 8.8 mg 07/04/24 10:30 07/06/24 08:14 Sennosides Syrup 8.8 Mg/5 Ml Udc GT 08/03/24 10:29 8.8 mg QDAY WILMER Administration Protocol Sodium Chloride 3 ml 07/05/24 16:02 Sodium Chloride Rt Fior 0.9% 3 Ml Nebu INH 08/04/24 16:01 PRN PRN SOLN Plan Viraj Light is a 74-year-old male with past medical history significant for Duong's palsy, deaf and nonverbal, schizophrenia, tobacco use, primary hypertension, AV first-degree block, GERD, CAD, COPD, chronic constipation, generalized anxiety disorder who presented to the ED with shortness of breath on 06/24/2024 and admitted to the hospital for AHRF. ICU was consulted after patient has presenting with severe respiratory distress requiring intubation. NEURO #Sedated on mechanical ventilation DDx: in the setting of hypoxia, hypercapnia, and respiratory acidosis with underlying chronic COPD exacerbation - Propofol and fentanyl drips for sedation, max dose - DC'ed Nimbex gtt - Versed 2mg IV push q1hr for agitation as needed - RASS Goal of -5 #Deaf and nonverbal CARDIO #Bradycardia, resolved Secondary to propofol sedation #Elevated troponin, likely demand ischemia, resolved Troponin peaked at 0.110, and downtrended #History of essential hypertension #History of CAD #History of AV block first-degree No history of atrial fibrillation. EKG did not show signs of AV block. BNP slightly elevated at 225. Echo showed normal LV and RV function, with EF 55-60%. - Continue to monitor on tele - Keep Mg and K above 2 and 4, respectively - Continue aspirin 81 mg - If BP continues to rise can restart home Amlodipine, Lisinopril, Hydralazine, and Clonidine. 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 Was on BiPAP but noted to have increased respiratory distress and was intubated on 06/25/2024. Blood culture 06/24, sputum culture 06/25, and urine culture 06/26 no growth, MRSA negative. Sputum culture 07/01: Enterococcus faecalis Blood culture 07/01: NGTD Urine culture 07/01: no growth Finished course of Tamiflu and antibiotics. - Ventilator settings: PC, delta pressure 20, RR 30, PEEP 10, FiO2 60% - Compliance improved while on pressure control on 07/06 -> increased PEEP to improve recruitment - Duonebs q4hr scheduled and q2hr PRN - Solumedrol taper (60 mg daily to 30 mg daily) - Maintain oxygen 88 to 92% - Low tidal volume ventilation strategy of 6cc/kg TV - Consider prone position if patient's condition continues to worsen - Ampicillin 1 g q4hr (07/04-) GI/FEN #Chronic constipation, resolved Hasn't had BM in the last few days Will start bowel regimen with Senna and Lactulose #GI prophylaxis - IV PPI #Tube feeds - Continue with tube feeds - Rate decreased to 35 cc/hr on 07/01 #Transaminitis, improving Presented with elevated AST and ALT. DDx: in the setting of sepsis and recent Tamiflu use Hep panel negative - Continue to monitor RENAL #Acute respiratory acidosis-stable Current ABG shows a pH of 7.24 with a PaCO2 of 68. - Will keep current vent settings on pressure control, respiration rate 30 and delta P of 22, with goals of tidal volume and minute ventilation to not exceed 400 and 10 respectively with FiO2 of 55% - Delta P changed to 20, PEEP increased to 10, and FiO2 changed to 60% on 07/06 - F/u ABG shows slight increase in pH of 7.28 and PaCO2 of 51 #Hyperkalemia, improving Lasix and Kayexelate overnight - CTM to monitor via daily labs - Continue with hyperkalemia cocktail treatment including albuterol 10 mg, Veltassa 8.4 g, insulin 10 with amp of D50 - Switched Vital to Nepro tube feeds for less K+ in diet #LOUIS Cr increased from 1 to 1.6 on 06/26/24 Cr downtrended, and now stable ~1.1-1.2 Most likely pre-renal vs intrinsic in the setting of sepsis and low BP and dehydration Less likely post-renal as patient able to urine with in & out cath - Renally dose medications - Avoid nephrotoxin agents - Continue to taper IV steroids most likely the cause of elevated BUN #Hypernatremia, resolved Free water deficit 0.3 L, Na improve from 148 to 141 - Continue with free water flushes 250cc q6HR HEME/ONC #Leukocytosis, improving Most likely in the setting of influenza and bacterial pneumonia and recent steroid use Ordered Vanc x 1 in the setting of GPC 2+ growing in sputum culture yesterday Sputum culture grew Enterococcus faecalis suggesting possible aspiration, will cover with Ampicillin 1g Q4H #Normocytic anemia, stable H&H stable Ferritin 100, Iron level 9, TIBC 203 in the setting of COPD - Consider iron tablet supplementation #Thrombocytosis-resolved Reactive in setting of infection and aspirin use ENDO #Hyperglycemia-stable Most likely elevated due to recent steroid use A1c is 5.2 ID #Enteroccoccus faecalis infection Sputum Gram Stain showed rare GPC collected on 07/01/24 Sputum Gram Cx grew 2+ GPC and finalized to Enterococcus on 07/04/24 - Gave Vanc x 1 on 07/03/24 - Ampicillin 1 g q4hr (07/04-) #Influenza pneumonia-resolving Sputum Gram Stain showed rare GPC collected on 07/01/24 - See pulmonary above - Finished course of Tamiflu and antibiotics MSK #Anasarca - 1 mg IV bumex x1 PSYCH #History of ARIANNA #History of schizophrenia - Resume home medications once stable Health Maintenance: DVT prophylaxis: Lovenox 40mg SC Diet: tube feeds via OG tube Cespedes: N/A Lines: PIV Drips: Propofol, Fentanyl CODE STATUS: DNI Disposition: Admitted to ICU for AHRF requiring intubation; Plan to call conservator/alf facility to discuss plan ----- Plan discussed with attending physician Dr. Santiago Amaro MD PGY-1 Internal Medicine Attending Provider Attestation/Addendum Patient seen and examined with the above resident, Amador Amaro MD. I agree with the findings, assessment, and plan of care as documented except for any differences below. Patient transition to pressure control with significant improvement compliance will continue to adjust gradually to ensure safe tidal volume in setting of his ARDS. Gas exchange slightly improved with oxygenation better at this point. Patient remains hemodynamically stable with blood pressure rising and potential need to reinstate regimen of antihypertensives. We have initiated tube feeds via neurology to the patient remains on appropriate prophylaxis at this time. He continues to require IV sedation as we have discontinued this paralytics with transition to alternate mode of ventilation to which she is significantly more synchronous at this point. Will continue to monitor closely here in the ICU over the next 48 hours and optimize fluid status as well as vent settings for optimization and give best possible chance for recovery of his pulmonary function. Should this fail, will plan for discussion with his conservator as they have all previously reflected that patient would not want to live in current condition for extended period of time and has been given adequate duration at that point to see if there is reversible disease without the need for possible tracheostomy for prolonged weaning. Total critical care time: I personally spent 35 minutes for review of physiologic parameters and directing plan of care throughout the day including frequent adjustments of mechanical ventilation. This is exclusive of time spent teaching of staff or performing any separate billable procedures. Patient continues to require critical care services for acute hypoxic respiratory failure secondary to ARDS from influenza A pneumonia. Patient continues to be at high risk for further morbidity and mortality warranting close monitoring and care only available in the intensive care unit.
[2024-07-07] VITALS (47 sets, daily range): BP systolic 132–220; BP diastolic 42–119; PULSE 61–80; RESP 21–35; TEMP 36.4–38.2; O2SAT 84–97; BMI 40.8
[2024-07-07] MEDS: PROPOFOL 1,000 MG IVPB 1,000 MG/100 ML VIAL 25.855 MG IV ×6 (00:08→23:48)
[2024-07-07] MEDS: Ampicillin Inj 1,000 MG in SODIUM CHLORIDE 0.9% (Popper) 50 ML 100 MG IV ×6 (01:04→21:26)
[2024-07-07] MEDS: ALBUTEROL/IPRATROPIUM (Duoneb) RT SOL 3 ML NEBU INH ×6 (02:04→22:30)
[2024-07-07] MEDS: LABETALOL INJ 5 MG/ML VIAL 20 ML IVP (03:30)
[2024-07-07] MEDS: fentaNYL 2,500 MCG/250 ML BAG 2,500 MCG/250 ML BAG 30 MCG IV ×3 (03:46→23:44)
[2024-07-07] MEDS: ACETAMINOPHEN 500 MG TABLET 1000 MG PO (03:52)
[2024-07-07 04:54] LABS: Base Excess -1 (-3-3); HCO3 26 mEq/L (20-26); Inspired Oxygen, FIO2 65 %; O2 Saturation 89 % (91-98); PCO2 50 mmHg (32.0-48.0); PO2 64 mmHg (83-108); pH, Arterial 7.31 (7.35-7.45)
[2024-07-07 04:55] LABS: Allen Test Performed/OK; Puncture Site Right Radial
[2024-07-07 05:59] LABS: Basophils % (Auto) 0 % (0-2.5); Eosinophils # (Auto) 0.1 Thou/mm3 (0.0-0.5); Eosinophils % (Auto) 1 % (0-10); Immature Granulocytes % (Auto) 5 % (0-0); Immature Granulocytes Auto 1.14 Thou/mm3 (0.00-0.00); Lymphocytes # (Auto) 1.2 Thou/mm3 (1.0-4.8); Lymphocytes % (Auto) 5 % (10-50); Mean Corpuscular HGB Conc 33.2 g/dl (31.0-37.0); Mean Corpuscular Hemoglobin 29.3 pg (25.0-35.0); Mean Corpuscular Volume 88 fL (80-100); Monocytes # (Auto) 0.6 Thou/mm3 (0.0-0.8); Monocytes % (Auto) 3 % (0-12); Neutrophils # (Auto) 18.7 Thou/mm3 (1.8-7.7); Neutrophils % (Auto) 86 % (37-80); Nucleated Red Blood Cell # 0.06 Thou/mm3 (0.00-0.00); Nucleated Red Blood Cell % 0 /100 WBC (0); Platelet Count 205 Thou/mm3 (140-440); RDW Standard Deviation 50.8 fL (35.1-43.9); Red Blood Count 2.49 Miln/mm3 (4.50-5.90); White Blood Count 21.8 Thou/mm3 (3.8-10.6)
[2024-07-07 06:16] LABS: Hemoglobin 7.3 g/dL (13.5-16.0)
[2024-07-07 06:35] LABS: Alanine Aminotransferase 133 U/L (10-49); Albumin, Serum 2.7 gm/dL (3.4-4.8); Albumin/Globulin Ratio 1.4 (1.2-2.2); Alkaline Phosphatase 169 U/L (46-116); Anion Gap 8 (7-16); Aspartate Amino Transferase 99 U/L (0-34); BUN/Creatinine Ratio 66 Ratio (12-20); Bilirubin,Total 0.3 mg/dL (0.3-1.2); Blood Urea Nitrogen 92 mg/dL (9-23); Carbon Dioxide 24.9 mMol/L (20.0-31.0); Chloride 103 mMol/L (98-107); Creatinine (Component) 1.4 mg/dL (0.6-1.3); Estimated Creatinine Clearance 45.5 mL/min (>60); Glucose 70 mg/dL (74-106); Osmolality,Calculated 298 (275-295); Potassium 5.6 mMol/L (3.4-5.1); Sodium 136 mMol/L (136-145); Total Protein 4.7 gm/dL (5.7-8.2); eGFR 52 See Note
[2024-07-07] MEDS: ENOXAPARIN SOD INJ 40 MG/0.4 ML SYRINGE SC (09:10)
[2024-07-07] MEDS: LACTULOSE SYRUP 20 GM/30 ML UDC PO ×2 (09:10→20:39)
[2024-07-07] MEDS: SENNOSIDES SYRUP 8.8 MG/5 ML UDC GT (09:11)
[2024-07-07] MEDS: POLYETHYLENE GLYCOL 17 GM PACKET PO (09:11)
[2024-07-07] MEDS: PATIROMER CALCIUM 8.4 GM PACKET (NON-FORM) GT (09:11)
[2024-07-07] MEDS: LANSOPRAZOLE 30 MG TAB.RAP.DR NG (09:11)
[2024-07-07] MEDS: ASPIRIN 81 MG CHEW NG (09:11)
[2024-07-07] MEDS: DEXTROSE 50%-WATER INJ 50 ML SYRINGE 100 ML IV (09:12)
[2024-07-07] MEDS: FUROSEMIDE INJ 10 MG/ML 4ML VIAL 40 MG IVP (09:26)
[2024-07-07] MEDS: INSULIN HUM REGULAR 1 UNIT/0.01 ML (PER UNIT) 10 UNIT IV (09:27)
--- NOTE | 2024-07-07 10:51 | PD.RESPRO ---
Documentation for date of: 07/07/24 Subjective Subjective Interval history: Patient is a 74-year-old male with past medical history significant for Duong's palsy, deaf and nonverbal, schizophrenia, tobacco use, primary hypertension, AV first-degree block, GERD, CAD, COPD, chronic constipation, generalized anxiety disorder who presented to the ED with shortness of breath on 06/24/2024. Throughout hospital stay, patient was very hypoxic and wheezing on physical exam and was placed on BiPAP. Patient also tested positive for influenza A and started on vancomycin and cefepime for superimposed bacterial infection. ICU was consulted after patient has presenting with severe respiratory distress and pulling tidal volumes of 800-12 100 on BiPAP. Patient was intubated for acute hypoxic respiratory failure. 06/26/24: Overnight, patient had a total urine output of 500 cc. Patient was unable to urinate on his own, and bladder scan showed 450 cc, and was able to be removed with an in&out cath. Patient was hypotensive overnight, and was started on Levophed. Patient also is bradycardic, most likely secondary to propofol. Tmax was 99.7. Patient has not spiked a fever since 2/10 a.m. Patient's white count increased from 23.43 6.7, and thrombocytosis increased to 540. Will change patient's vent settings to tidal volume of 400, respiration rate 25, PEEP of 10, and FiO2 of 50%. Will continue with IV Vanco and cefepime, but renal dose. Gram stain showed 2+ WBC. MRSA was negative, however will keep vancomycin after sputum culture from ET tube returns. Patient's blood sugar was little elevated today and started 5 Lantus and sliding scale, and will start tube feeds. LOUIS increased Cr 1 to 1.6, will ensure medications are renally dose, and give a LR bolus of 500cc and will start tube feeds. 06/27/24: Overnight, patient had a total urine output of 700cc overnight. Patient received a total of 3.25L LR. ABG continues to show respiratory acidosis that has remained about the same. Plan today is to try titrating his sedation and see how patient tolerates. Will descalate Abx to IV Ceftiraxone as all cultures returned negative including sputum culture and WBC is improving. Patient will require a total of 5 days of IV Abx. Will continue with straight ins and outs Q4H and continue LR at 50cc/hr and tube feeds. 06/28/24: Overnight, patient was given Versed push due to feeling agitated. Patient has been off fentanyl drip sedated with propofol 35 mcg along with Precedex. Patient was initially on vent settings of SIMV PRVC with a TI time of 1.3 and a PEEP of 10, respiration rate 25 and transition to pressure support, doing well on a RASS of 0. Due to patient's decreased elasticity and obstructive lung process, patient has been having a prolonged expiratory time with an increased MACKENZIE ratio. Will give Lasix IV 20 times 1 in the afternoon and in the evening to help with his O2 reserve. Will discontinue his fluids and continue his tube feeds. Will plan to extubate patient tomorrow. Will follow-up repeat ABG in the morning. 06/29/24: Overnight, patient was given IV Lasix 20mg which helped with his O2 reserve. However, on examination today, patient continues to have increased work of breathing on pressure support. Will have to have a conversation with Dr. Cooney, patient's conservator regarding patient's CODE STATUS given his current respiratory status on safely tolerating extubation. Patient will get his last dose of steroids today, and is tolerating tube feeds well. 06/30/2024: Patient examined at bedside this AM. No overnight events reported. Discussion with patient's conservator who relayed patient was highly functional therefore Code status was switched to full code. On examination, patient appeared to have increased work of breathing whilst on Pressure support with high minute ventilation, with sedation with Propofol at max and fentanyl at RAAS of -4. A CXR was ordered which showed diffuse B/L patchy infiltrates consistent with worsening ARDS. Due to his increased WOB and vent asynchrony, will defer extubating at this time and continue with lung protective strategy. Will start nimbex drip as patient is maxed out sedation. 07/01/2024: No acute overnight events reported. Another discussion had with conservator who will relay patient's clinical status to long term facility providers but unlikely that they will be available given holiday. Ventilator settings of A/CMV, Vt 400, RR 28, PEEP 6, FiO2 50%. Also continues to be sedated on propofol and fentanyl drips and paralyzed on nimbex drip. Repeat ABG showed improvement: pH 7.3, pCO2 57, and pO2 64. At bedside increased PEEP and measured plateau pressure increased discordantly, suggesting decreased lung compliance and lack of progress in clinical condition. Thus, decided that patient may benefit from increased steroid dosages from prednisone 40 mg daily to solumedrol 60 mg IV BID. Na noted to be high at 148 so water flushes now at 250 cc q4hr with free water deficit calculated at 1.4 L with goal Na of 143. Additionally, given increased WBC while off antibiotics, will obtain repeat sputum cultures and hold off on antibiotics so it will not skew results. 07/02/2024: No overnight acute events reported. Patient has been maxed out on propofol and fentanyl drips, and paralyzed on Nimbex drip, with a RASS score of -5. Patient's plateau pressures are increasing suggesting lung compliance is getting worse. Patient's current vent settings are tidal volume 400, respiration rate 28, PEEP of 6, FiO2 of 50%. Patient's PaO2/FiO2 ratio is 128 suggesting patient is in moderate ARDS. Will continue with IV steroids and continue with maintenance IV LR. Sputum culture Gram stain did show rare gram-positive cocci, however will not start IV antibiotics as most likely not a new infection. VBG showed stable PaCO2 and improved pH. 07/03/2024: Overnight, patient's FiO2 requirements increased from 50% to 65%. Patient seen and examined at bedside. Patient has been on 8 days of propofol, and triglyceride level is within normal limits. Due to increased peak and plateau pressures, will decrease patient's tidal volume from 400-3 80 as well as PEEP from 6-5. Due to patient's worsening ARDS, will keep patient's goal ventilation settings to plateau pressure less than 30 and low tidal volume of at least 6ml or less /kg. Will update patient's conservator and care providers on his current plan. 07/04/2024: Overnight, patient's FiO2 requirements did decrease from 65% to 55%. Patient continues to maintain Pplat < 30 with a Vt of 380, RR 28, and a PEEP of 5. Sputum Culture grew Enterococcus Faecalis, currently showing 2+ GPC. Patient also hasn't had a BM in the last few days, will start Lactulose and Senna. Will f/u with CMP after HyperKalemia bundle treatment (Albuterol 10mg, Insulin 10, Veltassa). However, WBC is improving and last ABG showed pH of 7.32 and pCO2 of 54 . Will start patient on Ampicillin 1g Q4HR. CXR also ordered today and showed mild improvement b/l. Nathaly, patient's RN was at bedside and updated course of plan. 07/05/2024: Overnight, patient had a bowel movement and has had multiple voids in his briefs. However, patient did have a large residual today, and will hold tube feeds for now. Patient's BUN also increasing despite the addition of maintenance fluids. Will discontinue patient's paralytic and start tapering patient's steroid dose which could be contributing to the elevated BUN. Patient continues to have hyperkalemia, and continues to receive the hyperkalemia cocktail at least twice a day. Spoke with patient's conservator and nurse, Dr. Cooney and Nathaly. Both agree that patient would not want to be trached with a chronic PEG tube, and do not want patient to be reintubated if patient is not successful tolerating extubation, and goals of care at that point would be to prioritize comfort. At this time, patient's CODE STATUS will be changed to DNI after speaking with Dr. Cooney around [address] Cooney is also available over the weekend if patient's progress/updates to change. 07/06/2024: No acute overnight events reported. Noted to have three large volume bowel movements and unable to detemined UOP. P/F ratio noted to be 109. ABG pH 7.33, pCO2 52, pO2 82. Delta PC changed to 20, PEEP increased to 10, and FiO2 decreased to 60% to maintain saturations between 88-92%. Compliance noted to improve and thus will touch base with Dr. Cooney at a later time. Noted to be edemetous in lower and upper extremities, in addition to scrotum, so will give 1 mg IV bumex x1. AM labs show improvement in K from 5.4 to 4.8. 07/07/2024: Overnight, patient reported to have 2 BMs and very minimal residuals from tube feeds. Patient continues to be edematous. P/F ratio noted to be 98. ABG showed pH of 7.31, pCO2 50, pO2 64. Current Vent settings: Delta PC to 16, PEEP to 10, FiO2 increased to 75% to maintain saturations between 88-92%. D/t some concern of fluid overload, patient given an additional dose of Lasix and to help with his hyperkalemia. Patient's BUN/Cr increased to 92 and 1.4. Patient will also get Albuterol 10mg, Insulin 10, and continue with Veltassa. Will stop patient's steroid dose today. Bedside echo showed IVC less than 2.0cm, suggesting VExUS score is 0. Exam Vital Signs Temp Pulse Resp BP Pulse Ox O2 Del Method O2 Flow Rate 99.0 F 69 32 H 145/55 H 92 L Mechanical Ventilation 3 07/07/24 08:00 07/07/24 10:20 07/07/24 10:20 07/07/24 10:20 07/07/24 10:20 07/07/24 05:00 06/30/24 20:00 FiO2 75 07/07/24 10:20 Narrative Exam General: elderly gentleman, intubated, sedated, and mechanically ventilated HEENT: NC/AT, mucous membranes moist, bilateral sclera anicteric Cardiovascular: regular rate and rhythm, S1/S2 present, no murmurs appreciated Pulmonary: clear to auscultation bilaterally, no rales/rhonchi/wheezes Abdominal: obese, soft, nontender Musculoskeletal: 3+ pitting edema in upper extremities, lower extremities, and in scrotum Skin: warm and dry, intact, no rashes Neuro: GCS 3T Objective Labs 07/08/24 04:45 07/08/24 04:45 Labs: Laboratory Results - last 24 hr 07/07/24 07/07/24 04:36 05:21 WBC 21.8 H RBC 2.49 L Hgb 7.3 L Hct 22.0 L MCV 88 MCH 29.3 MCHC 33.2 RDW Std Deviation 50.8 H Plt Count 205 D Neut % (Auto) 86 H Lymph % (Auto) 5 L Miner % (Auto) 3 Eos % (Auto) 1 Baso % (Auto) 0 Neut # (Auto) 18.7 H Lymph # (Auto) 1.2 Miner # (Auto) 0.6 Eos # (Auto) 0.1 Baso # (Auto) 0.0 Immature Gran # (Auto) 1.14 H Absolute Nucleated RBC 0.06 H Immature Gran % 5 H Nucleated RBC % 0 Puncture Site Right Radial ABG pH 7.31 L ABG pCO2 50 H ABG pO2 64 L ABG HCO3 26 ABG O2 Saturation 89 L ABG Base Excess -1 FiO2 65 Sodium 136 Potassium 5.6 H D Chloride 103 Carbon Dioxide 24.9 Anion Gap 8 BUN 92 H Creatinine 1.4 H Estim Creat Clear Calc 45.5 L eGFR 52 L BUN/Creatinine Ratio 66 H Glucose 70 L Calculated Osmolality 298 H Calcium 8.0 L Corrected Calcium 9.0 Total Bilirubin 0.3 AST 99 H ALT 133 H Alkaline Phosphatase 169 H Total Protein 4.7 L Albumin 2.7 L Globulin 2.0 L Albumin/Globulin Ratio 1.4 ABG Interpretation ABG results: 06/24/24 06/25/24 06/25/24 09:51 11:35 16:44 ABG pH 7.42 7.44 7.25 L D ABG pCO2 34 28 L 52 H D ABG pO2 91 71 L D 82 L ABG HCO3 22 19 L 23 ABG O2 Saturation 98 94 94 ABG Base Excess -2 -5 L -4 L VBG pH VBG pCO2 VBG pO2 VBG Base Excess 06/26/24 06/27/24 06/28/24 07:08 07:35 07:55 ABG pH 7.34 L 7.33 L Cancelled ABG pCO2 38 D 46 Cancelled ABG pO2 91 90 Cancelled ABG HCO3 21 24 Cancelled ABG O2 Saturation 97 97 Cancelled ABG Base Excess -5 L -2 Cancelled VBG pH VBG pCO2 VBG pO2 VBG Base Excess 06/28/24 06/29/24 06/30/24 12:54 04:27 10:39 ABG pH 7.42 7.45 7.29 L D ABG pCO2 39 38 59 H D ABG pO2 156 H D 74 L D 68 L ABG HCO3 25 26 28 H ABG O2 Saturation 100 H 95 88 L ABG Base Excess 1 2 1 VBG pH VBG pCO2 VBG pO2 VBG Base Excess 06/30/24 06/30/24 06/30/24 12:45 14:23 17:29 ABG pH 7.22 L 7.26 L 7.15 L* D ABG pCO2 71 H* D 62 H 82 H* D ABG pO2 71 L 58 L* 196 H D ABG HCO3 29 H 28 H 29 H ABG O2 Saturation 88 L 82 L 100 H ABG Base Excess 0 0 -1 VBG pH VBG pCO2 VBG pO2 VBG Base Excess 06/30/24 06/30/24 07/01/24 19:09 23:14 05:00 ABG pH 7.23 L 7.32 L ABG pCO2 67 H D 57 H D ABG pO2 180 H 64 L D ABG HCO3 28 H 29 H ABG O2 Saturation 100 H 90 L ABG Base Excess 0 2 VBG pH 7.42 VBG pCO2 41 VBG pO2 62 H VBG Base Excess 2 07/02/24 07/03/24 07/03/24 08:04 04:46 10:40 ABG pH ABG pCO2 ABG pO2 ABG HCO3 ABG O2 Saturation ABG Base Excess VBG pH 7.37 7.43 7.38 VBG pCO2 46 42 49 VBG pO2 84 H D 60 H D 90 H D VBG Base Excess 1 3 3 07/03/24 07/04/24 07/05/24 11:16 07:33 11:22 ABG pH 7.35 7.32 L 7.24 L ABG pCO2 53 H 54 H 68 H D ABG pO2 60 L 57 L* 87 D ABG HCO3 29 H 28 H 29 H ABG O2 Saturation 89 L 84 L 95 ABG Base Excess 3 1 1 VBG pH VBG pCO2 VBG pO2 VBG Base Excess 07/05/24 07/06/24 07/06/24 15:10 05:16 07:57 ABG pH 7.28 L 7.33 L 7.33 L ABG pCO2 59 H 52 H 52 H ABG pO2 81 L 54 L* D 82 L D ABG HCO3 28 H 28 H 28 H ABG O2 Saturation 95 89 L 97 ABG Base Excess 1 2 1 VBG pH VBG pCO2 VBG pO2 VBG Base Excess 07/07/24 04:36 ABG pH 7.31 L ABG pCO2 50 H ABG pO2 64 L ABG HCO3 26 ABG O2 Saturation 89 L ABG Base Excess -1 VBG pH VBG pCO2 VBG pO2 VBG Base Excess Quality Measures Quality Measures sepsis Current suspected stage: sepsis Possible source: pulmonary Blood cultures ordered: yes Antibiotic ordered: Yes Advance care planning discussed with:: patient Assessment & Plan Assessment Current Active Medications: Generic Name Dose Route Start Last Admin Trade Name Freq PRN Reason Stop Dose Admin Acetaminophen 1,000 mg 06/24/24 14:33 07/07/24 03:52 Acetaminophen 500 Mg Tablet PO 07/24/24 14:32 1,000 mg Q6H PRN Administration Fever >100 or pain 1-3 Albuterol/Ipratropium 3 ml 06/26/24 07:00 07/07/24 10:19 Albuterol/Ipratropium (Duoneb) Rt Fior 3 Ml Nebu INH 07/26/24 06:59 3 ml Q4HRRT WILMER Administration Aspirin 81 mg 06/27/24 09:00 07/07/24 09:11 Aspirin 81 Mg Chew NG 07/25/24 11:44 81 mg QDAY WILMER Administration Dextrose 25 ml 07/03/24 17:39 Dextrose 50%-Water Inj 50 Ml Syringe IV 08/02/24 17:38 Q15MIN PRN BG 50-70 responsive npo pt Dextrose 50 ml 07/03/24 17:39 Dextrose 50%-Water Inj 50 Ml Syringe IV 08/02/24 17:38 Q15MIN PRN BG <50 OR BG <70 & pt unresponsive Enoxaparin Sodium 40 mg 06/25/24 11:45 07/07/24 09:10 Enoxaparin Sod Inj 40 Mg/0.4 Ml Syringe SC 07/09/24 11:44 40 mg QDAY WILMER Administration Glucagon 1 mg 06/26/24 07:46 Glucagon Inj 1 Mg Vial IM Q15MIN PRN BG <70, and no IV access Norepinephrine/Dextrose 8 mg in 250 mls @ 8.072 mls/hr 06/30/24 13:03 06/30/24 17:15 Levophed In D5w 8mg/250ml IV 07/30/24 13:02 0 mcg/kg/min .Q24H PRN 0 mls/hr PER PROTOCOL Titration Protocol 0.05 MCG/KG/MIN Propofol 1,000 mg in 100 mls @ 2.585 mls/hr 06/30/24 15:36 07/07/24 09:20 Diprivan Ivpb IV 07/25/24 14:00 50 mcg/kg/min .Q24H PRN 25.855 mls/hr PER PROTOCOL Administration Protocol 5 MCG/KG/MIN Ampicillin Sodium 1,000 mg/ 50 mls @ 100 mls/hr 07/04/24 10:45 07/07/24 05:01 Sodium Chloride IV 07/11/24 10:44 100 mls/hr Q4HR WILMER Administration Fentanyl Citrate 2,500 mcg in 250 mls @ 2.5 mls/hr 07/05/24 21:59 07/07/24 06:00 Sublimaze Inj 2,500 Mcg/250 Ml Bag IV 07/10/24 21:58 300 mcg/hr .Q24H PRN 30 mls/hr PER PROTOCOL Titration Protocol 25 MCG/HR Insulin Human Lispro 0 unit 06/30/24 12:00 07/07/24 06:26 Insulin Lispro (Admelog) 1 Unit/0.01 Ml Unit SC 07/30/24 11:59 Not Given Q6HR WILMER Protocol Lactulose 20 gm 07/04/24 21:00 07/07/24 09:10 Lactulose Syrup 20 Gm/30 Ml Udc PO 08/03/24 20:59 20 gm BID WILMER Administration Protocol Lansoprazole 30 mg 06/27/24 09:00 07/07/24 09:11 Lansoprazole 30 Mg Tab.Rap.Dr BOLAÑOS 07/24/24 14:44 30 mg QDAY WILMER Administration Methylprednisolone Sodium Succinate 30 mg 07/07/24 09:00 07/07/24 09:11 Methylprednisolone Sod Succ 40 Mg Vial IV 07/14/24 08:59 30 mg DAILY WILMER Administration Ondansetron HCl 4 mg 06/24/24 14:33 Ondansetron Inj 2 Mg/Ml Inj 2 Ml IV 07/24/24 14:32 Q6H PRN NAUSEA OR VOMITING Protocol Patiromer 8.4 gm 07/05/24 09:00 07/07/24 09:11 Patiromer Calcium 8.4 Gm Packet (Non-Form) GT 08/04/24 08:59 8.4 gm QDAY WILMER Administration Protocol Polyethylene Glycol 17 gm 07/05/24 09:00 07/07/24 09:11 Polyethylene Glycol 17 Gm Packet PO 08/04/24 08:59 17 gm QDAY WILMER Administration Sennosides 8.8 mg 07/04/24 10:30 07/07/24 09:11 Sennosides Syrup 8.8 Mg/5 Ml Udc GT 08/03/24 10:29 8.8 mg QDAY WILMER Administration Protocol Sodium Chloride 3 ml 07/05/24 16:02 Sodium Chloride Rt Fior 0.9% 3 Ml Nebu INH 08/04/24 16:01 PRN PRN SOLN Plan Viraj Light is a 74-year-old male with past medical history significant for Duong's palsy, deaf and nonverbal, schizophrenia, tobacco use, primary hypertension, AV first-degree block, GERD, CAD, COPD, chronic constipation, generalized anxiety disorder who presented to the ED with shortness of breath on 06/24/2024 and admitted to the hospital for AHRF. ICU was consulted after patient has presenting with severe respiratory distress requiring intubation. NEURO #Sedated on mechanical ventilation DDx: in the setting of hypoxia, hypercapnia, and respiratory acidosis with underlying chronic COPD exacerbation - Propofol and fentanyl drips for sedation, max dose - DC'ed Nimbex gtt - Versed 2mg IV push q1hr for agitation as needed - RASS Goal of -5 #Deaf and nonverbal CARDIO #Bradycardia, resolved Secondary to propofol sedation #Elevated troponin, likely demand ischemia, resolved Troponin peaked at 0.110, and downtrended #History of essential hypertension #History of CAD #History of AV block first-degree No history of atrial fibrillation. EKG did not show signs of AV block. BNP slightly elevated at 225. Echo showed normal LV and RV function, with EF 55-60%. - Continue to monitor on tele - Keep Mg and K above 2 and 4, respectively - Continue aspirin 81 mg - If BP continues to rise can restart home Amlodipine, Lisinopril, Hydralazine, and Clonidine. 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 Was on BiPAP but noted to have increased respiratory distress and was intubated on 06/25/2024. Blood culture 06/24, sputum culture 06/25, and urine culture 06/26 no growth, MRSA negative. Sputum culture 07/01: Enterococcus faecalis Blood culture 07/01: NGTD Urine culture 07/01: no growth Finished course of Tamiflu and antibiotics. - Ventilator settings: PC, delta pressure 16, RR 30, PEEP 10, FiO2 75% - Compliance improved while on pressure control on 07/06 -> increased PEEP to improve recruitment - Duonebs q4hr scheduled and q2hr PRN - Maintain oxygen 88 to 92% - Low tidal volume ventilation strategy of 6cc/kg TV - Consider prone position if patient's condition continues to worsen - Ampicillin 1 g q4hr (07/04-) GI/FEN #Chronic constipation, resolved Hasn't had BM in the last few days Will start bowel regimen with Senna and Lactulose and Miralax daily #GI prophylaxis - IV PPI #Tube feeds - Continue with tube feeds - Rate decreased to 35 cc/hr on 07/01 #Transaminitis, improving Presented with elevated AST and ALT. DDx: in the setting of sepsis and recent Tamiflu use Hep panel negative - Continue to monitor RENAL #Acute respiratory acidosis-stable Current ABG shows a pH of 7.24 with a PaCO2 of 68. - Will keep current vent settings on pressure control, respiration rate 30 and delta P of 16, with goals of tidal volume and minute ventilation to not exceed 400 and 10 respectively with FiO2 of 75% #Hyperkalemia, improving - CTM to monitor via daily labs - Continue with hyperkalemia cocktail treatment including albuterol 10 mg, Veltassa 8.4 g, insulin 10 with amp of D50 - Switched Vital to Nepro tube feeds for less K+ in diet - Lasix x 1 #LOUIS Cr increased from 1 to 1.6 on 06/26/24 Cr now 1.4 Most likely pre-renal vs intrinsic in the setting of sepsis and low BP and dehydration Less likely post-renal as patient able to urine with in & out cath - Renally dose medications - Avoid nephrotoxin agents - Continue to taper IV steroids most likely the cause of elevated BUN - Gave additional dose of Lasix x 1 #Hypernatremia, resolved Free water deficit 0.3 L, Na improve from 148 to 141 - Continue with free water flushes 250cc q6HR HEME/ONC #Leukocytosis, improving Most likely in the setting of influenza and bacterial pneumonia and recent steroid use Ordered Vanc x 1 in the setting of GPC 2+ growing in sputum culture yesterday Sputum culture grew Enterococcus faecalis suggesting possible aspiration, will cover with Ampicillin 1g Q4H #Normocytic anemia, stable H&H stable Ferritin 100, Iron level 9, TIBC 203 in the setting of COPD - Consider iron tablet supplementation #Thrombocytosis-resolved Reactive in setting of infection and aspirin use ENDO #Hyperglycemia-stable Most likely elevated due to recent steroid use A1c is 5.2 ID #Enteroccoccus faecalis infection Sputum Gram Stain showed rare GPC collected on 07/01/24 Sputum Gram Cx grew 2+ GPC and finalized to Enterococcus on 07/04/24 - Gave Vanc x 1 on 07/03/24 - Ampicillin 1 g q4hr (07/04-) #Influenza pneumonia-resolving Sputum Gram Stain showed rare GPC collected on 07/01/24 - See pulmonary above - Finished course of Tamiflu and antibiotics MSK #Anasarca Patient also received 1 mg IV bumex x1 yeasterday - 40mg IV Lasix x 1 PSYCH #History of ARIANNA #History of schizophrenia - Resume home medications once stable Health Maintenance: DVT prophylaxis: Lovenox 40mg SC Diet: tube feeds via OG tube Cespedes: N/A Lines: PIV Drips: Propofol, Fentanyl CODE STATUS: DNI Disposition: Admitted to ICU for AHRF requiring intubation; Plan to call conservator/long term facility to discuss plan Patient's care and plan discussed with my attending, Dr. Henderson. Marlyn Springer MD PGY-2 Attending Provider Attestation/Addendum Patient seen and examined with the above resident, Marlyn Springer MD. I agree with the findings, assessment, and plan of care as documented. Patient without significant change despite adjustments in ventilatory support. Remains with lung protective volumes on pressure control. Able to wean off of paralytics as well. Despite this oxygenation unchanged as evidenced by P/f ration remaining in severe range for ARDS. Given limited options in probable evolution of fibrotic phase of ARDS will plan to speak with conservator tomorrow about goals of care as they had wanted limited time trial. In interim, we will continue to optimize fluid status and treated underlying infectious etiologies that could be underlying trigger. Remains on tube feeds and appropriate prophylaxis. Eliminated lines/ causes of possible complications as able. Total critical care time: I personally spent 35 minutes for review of physiologic parameters and directing plan of care throughout the day. This is exclusive of time spent teaching housestaff or performing any separate billlable procedures. Patient contiues to require critical care services for acute hypoxic respiratory failure 2/2 ARDs from influena A pneumonia, cannot excluder superimposed bacterial process. Remains at high risk for mortality and further morbidity warrantingongoig care and management only available in the ICU.
[2024-07-07] MEDS: ALBUTEROL RT 2.5 MG/0.5 ML NEBU 10 MG INH (12:33)
[2024-07-07 15:21] LABS: Alanine Aminotransferase 117 U/L (10-49); Albumin, Serum 2.7 gm/dL (3.4-4.8); Albumin/Globulin Ratio 1.4 (1.2-2.2); Alkaline Phosphatase 176 U/L (46-116); Anion Gap 10 (7-16); Aspartate Amino Transferase 78 U/L (0-34); BUN/Creatinine Ratio 62 Ratio (12-20); Bilirubin,Total 0.4 mg/dL (0.3-1.2); Blood Urea Nitrogen 81 mg/dL (9-23); Carbon Dioxide 22.6 mMol/L (20.0-31.0); Chloride 103 mMol/L (98-107); Creatinine (Component) 1.3 mg/dL (0.6-1.3); Glucose 105 mg/dL (74-106); Osmolality,Calculated 296 (275-295); Potassium 5.4 mMol/L (3.4-5.1); Sodium 136 mMol/L (136-145); Total Protein 4.7 gm/dL (5.7-8.2); eGFR 57 See Note
[2024-07-08] VITALS (25 sets, daily range): BP systolic 81–171; BP diastolic 45–82; PULSE 61–141; RESP 19–37; TEMP 36.5–38.1; O2SAT 85–98; BMI 40.6
[2024-07-08] MEDS: Ampicillin Inj 1,000 MG in SODIUM CHLORIDE 0.9% (Popper) 50 ML 100 MG IV ×3 (01:04→09:30)
[2024-07-08] MEDS: ALBUTEROL/IPRATROPIUM (Duoneb) RT SOL 3 ML NEBU INH (02:22)
[2024-07-08] MEDS: PROPOFOL 1,000 MG IVPB 1,000 MG/100 ML VIAL 25.855 MG IV ×2 (03:29→07:43)
[2024-07-08 05:20] LABS: Inspired O2, VO2 Liters 92 L/min
--- NOTE | 2024-07-08 05:25 | PC.RT ---
0430: MD Truong increased fio2 on vent to 100% to maintain spo2 88-92%. DIA Barr aware.
[2024-07-08 05:30] LABS: Base Excess -1 (-3-3); HCO3 25 mEq/L (20-26); PCO2 44 mmHg (32.0-48.0); PO2 85 mmHg (83-108); pH, Arterial 7.35 (7.35-7.45)
[2024-07-08 05:31] LABS: Allen Test Performed/OK; Inspired Oxygen, FIO2 100 %; O2 Saturation 98 % (91-98); Puncture Site Left Radial
--- NOTE | 2024-07-08 05:37 | PC.NURSE ---
Updated RN Nathaly regarding status of patient.
[2024-07-08 05:53] LABS: Basophils # (Auto) 0.1 Thou/mm3 (0.0-0.2); Basophils % (Auto) 0 % (0-2.5); Eosinophils # (Auto) 0.3 Thou/mm3 (0.0-0.5); Eosinophils % (Auto) 1 % (0-10); Hematocrit 26.8 % (41.0-53.0); Immature Granulocytes % (Auto) 4 % (0-0); Lymphocytes # (Auto) 1.2 Thou/mm3 (1.0-4.8); Lymphocytes % (Auto) 4 % (10-50); Mean Corpuscular HGB Conc 32.5 g/dl (31.0-37.0); Mean Corpuscular Hemoglobin 28.3 pg (25.0-35.0); Mean Corpuscular Volume 87 fL (80-100); Monocytes # (Auto) 0.7 Thou/mm3 (0.0-0.8); Monocytes % (Auto) 3 % (0-12); Neutrophils # (Auto) 24.9 Thou/mm3 (1.8-7.7); Neutrophils % (Auto) 88 % (37-80); Nucleated Red Blood Cell # 0.04 Thou/mm3 (0.00-0.00); Nucleated Red Blood Cell % 0 /100 WBC (0); Platelet Count 239 Thou/mm3 (140-440); Red Blood Count 3.07 Miln/mm3 (4.50-5.90); White Blood Count 28.2 Thou/mm3 (3.8-10.6)
--- NOTE | 2024-07-08 05:57 | EKG_ITS ---
[facility] Test Date: 2024-07-08 Pat Name: NAOMI REYES [facility] Gender[facility] Investigator Vice: ROSAMARIA : 1950 Requested By: Osvaldo Truong Order Number: [id number] Reading MD: Osvaldo Truong Measurements Intervals [place] Rate: 136 P: MI: QRS: 22 QRSD: 102 T: -85 QT: 261 QTc: 393 Interpretive Statements ATRIAL FIBRILLATION WITH RAPID VENTRICULAR RESPONSE NONSPECIFIC ST & T-WAVE ABNORMALITY Compared to ECG 06/25/2024 11:45:00 T-wave abnormality now present Sinus tachycardia no longer present /store/S0/[id number]/[id number].pdf
[2024-07-08] MEDS: AMIODARONE 150 MG IVPB 150 MG/100 ML BAG 600 MG IV (06:02)
[2024-07-08 06:03] LABS: Hemoglobin 8.7 g/dL (13.5-16.0)
[2024-07-08 06:20] LABS: Alanine Aminotransferase 103 U/L (10-49); Albumin, Serum 3.1 gm/dL (3.4-4.8); Albumin/Globulin Ratio 1.3 (1.2-2.2); Alkaline Phosphatase 180 U/L (46-116); Anion Gap 10 (7-16); Aspartate Amino Transferase 58 U/L (0-34); BUN/Creatinine Ratio 68 Ratio (12-20); Bilirubin,Total 0.3 mg/dL (0.3-1.2); Blood Urea Nitrogen 81 mg/dL (9-23); Calcium 8.4 mg/dL (8.3-10.6); Calcium (Corrected) 9.1 mg/dL (8.5-10.1); Carbon Dioxide 24.3 mMol/L (20.0-31.0); Chloride 103 mMol/L (98-107); Creatinine (Component) 1.2 mg/dL (0.6-1.3); Estimated Creatinine Clearance 52.9 mL/min (>60); Globulin 2.3 gm/dL (2.3-3.5); Glucose 96 mg/dL (74-106); Osmolality,Calculated 298 (275-295); Potassium 5.4 mMol/L (3.4-5.1); Sodium 137 mMol/L (136-145); Total Protein 5.4 gm/dL (5.7-8.2); eGFR > 60 See Note
[2024-07-08] MEDS: AMIODARONE 360 MG IVPB 360 MG/200 ML BAG 33.333 MG IV (06:21)
[2024-07-08] MEDS: ASPIRIN 81 MG CHEW NG (08:09)
[2024-07-08] MEDS: LANSOPRAZOLE 30 MG TAB.RAP.DR NG (08:09)
[2024-07-08] MEDS: POLYETHYLENE GLYCOL 17 GM PACKET PO (08:09)
[2024-07-08] MEDS: LACTULOSE SYRUP 20 GM/30 ML UDC PO (08:09)
[2024-07-08] MEDS: SENNOSIDES SYRUP 8.8 MG/5 ML UDC GT (08:09)
[2024-07-08] MEDS: ENOXAPARIN SOD INJ 40 MG/0.4 ML SYRINGE SC (08:09)
[2024-07-08] MEDS: PATIROMER CALCIUM 8.4 GM PACKET (NON-FORM) GT (08:15)
[2024-07-08] MEDS: fentaNYL 2,500 MCG/250 ML BAG 2,500 MCG/250 ML BAG 30 MCG IV (10:36)
--- NOTE | 2024-07-08 11:38 | PD.RESEVENT ---
Documentation for date of: 07/08/24 Event Note Event Note: Around 11:30AM, spoke with Dr. Cooney, patient's conservator and discussed patient's guarded prognosis. Despite aggressive changes with the ventilator, patient's gas exchange continues to worsen and is requiring an increase in oxygen requirements. The goal at this time is to transition to DNR/DNI and comfort measures. Patient's care and plan discussed with my attending, Dr. Henderson. Marlyn Springer, PGY-2,
--- NOTE | 2024-07-08 13:17 | PC.NURSE ---
unable to titrate down propofol on the MAR titrated down for transition to comfort care, RASS -5 1150-30 mcg 1155-25 mcg 1218-20 mcg 1225-15 mcg 1230- 10 mcg 1235- 5 mcg 1240-0
--- NOTE | 2024-07-08 13:29 | PC.SS ---
Update: Plan is to extubate the patient and then transition the patient to comfort care.
[2024-07-08] MEDS: MORPHINE SULF INJ 10 MG/ML VIAL 2 MG IVP (13:38)
--- NOTE | 2024-07-08 15:04 | DES_ITS ---
<Statement entered by Ray Hnederson MD - 07/09/24 08:26> Attending attestation: I reviewed and agree with above documentation. I was present at the time of the patient's demise. Documentation for date of: 07/08/24 Pronouncement Note Date and Time of Date of : 07/08/24 Time of : 13:56 PCOD Preliminary cause of : Cardiopulmonary arrest Summary Additional details: RN for patient called to pronounce patient after patient had asystole on tele monitor. Patient passed at 13:56 PM. Nathaly, patient's RN at his facility was at bedside, and was informed. She will reach out to patient's conservator, Dr. Cooney and contact patient's family. Marlyn Springer, PGY-2, Additional Data Confirmation of : no pulse, no respirations, no heart sounds and pupils fixed and dilated Family: not available Additional persons at bedside: other (Dump Grounds Checker, Nathaly, and RT ) Attending/PCP notified?: Yes Attending physician: Ray Henderson MD Was code activated?: No
--- NOTE | 2024-07-08 16:19 | DES_ITS ---
<Statement entered by Ray Henderson MD - 07/09/24 08:17> Attending Attestation: I have reviewed and agree with above documentation. Patient with course of weekend continued to have significant reduction in PF ratio consistent with severe ARDS despite appropriate lung protective ventilation. We had attempted to transition off paralytics with utilization of pressure control with narrowed pressures. Patient continues to have adequate ventilation however oxygenation remained a continued impediment to ability to wean from ventilator. Patient with gradual increase in FiO2 back up to 100% likely due to VQ mismatch in the setting of now fibrotic phase of ARDS with likely resolution of infectious etiologies that precipitated it. Given patient's continued poor recovery and pre-existing comorbidities limiting functional recovery from critical illness, we did reach out to the patient's conservator, Dr. Cooney, who was updated on the clinical status of the patient and was in agreement that bridge to recovery utilizing tracheostomy/PEG or prolonged mechanical ventilation weaning with ET tube in place would not be in the best interest of the patient and thus transitioning to comfort measures only was appropriate. Patient maintained on fentanyl to reduce air hunger as being weaned off of mechanical ventilation. Sedation was discontinued with as needed dosing of morphine made additionally available prior to terminal extubation. Given the severity of his gas exchange abnormalities, patient subsequently demise within a short period thereafter. Total critical care time: I personally spent 35 Minutes for Review of Physiologic Parameters, Directing Plan of Care throughout the day, and coordination of care. This is exclusive of time spent teaching housestaff or performing any separate billable procedures. Patient continued require critical care services given imminent mortality secondary to underlying acute hypoxic respiratory failure from ARDS secondary to influenza infection. Documentation for date of: 07/08/24 Summary Date and Time Date of admission: 06/24/24 11:02 Summary Hospital Course: Mr. Light is a 74-year-old male with past medical history significant for Duong's palsy, deaf and nonverbal, schizophrenia, tobacco use, primary hypertension, AV first-degree block, GERD, CAD, COPD, chronic constipation, generalized anxiety disorder who presented to the ED with shortness of breath on 06/24/2024 and admitted to the hospital for AHRF. ICU was consulted after patient was presenting with severe respiratory distress requiring intubation. Throughout hospital stay, patient developed influenza pneumonia and later superimposed aspiration PNA with Enterococcus faecalis, which were being treated with Tamiflu and IV Abx. However, stay was complicated with worsening renal function and ARDS which prevented patient to wean O2 requirements. At one point, patient was placed on maximum dose of paralytic in addition to maximum doses of two sedatives to help with recruit for alveoli for gas exchange. Unfortunately, patient was unable to improve on aggressive changes to the ventilator. Patient's guarded prognosis was discussed with patient's conservator, and agreed that patient would benefit from terminal extubation to comfort measures, and would not elect for tracheostomy and chronic PEG tube placement. Patient was extubated this afternoon, and at 13:56PM on 07/08/24. Patient's RN at his care facility was at bedside, and conveyed my condolences. Hospital Diagnoses treated during hospital stay: #Sedated on mechanical ventilation #Deaf and nonverbal #Bradycardia, resolved #Elevated troponin, likely demand ischemia, resolved #History of essential hypertension #History of CAD #History of AV block first-degree #Acute hypoxic respiratory failure due to influenza pneumonia vs aspiration PNA #ARDS #History of COPD, stable #Chronic constipation, resolve #GI prophylaxis #Tube feeds #Transaminitis, improving #Acute respiratory acidosis-stable #Hyperkalemia, improving #LOUIS #Hypernatremia, resolved #Leukocytosis, improving #Normocytic anemia, stable #Thrombocytosis-resolved #Hyperglycemia-stable #Enteroccoccus faecalis infection #Influenza pneumonia-resolving #Anasarca #History of ARIANNA #History of schizophrenia Additional Data Confirmation of as documented by pronouncing clinician: no pulse, no respirations, no heart sounds and pupils fixed and dilated Family: not available Additional persons at bedside: other (Nathaly, patient's RN and RT ) Attending/PCP notified?: Yes Attending physician: Ray Henderson MD Was code activated?: No Hospice patient?: No Visit Providers Provider Primary care physician: Physician No Primary/Family Diagnosis PCOD Cause of : Cardiopulmonary arrest Discharge Plan Plan Patient Disposition: Prescriptions/Referrals Referrals: No Primary/Family,Physician [Primary Care Provider] - Patient/Caregiver Discharge Instructions Print Language: Citizen Of [place]
== END 2024-07-08 13:56 | disposition expired | DRG 870 ==
LOC: SERX 09:31 → SERHOLD 12:44 → S2NX 06-25 06:43 → S2SX 06-26 09:30 → S2NX 06-26 13:30 → SERHOLD 06-26 13:30 → S2SX 06-26 13:30
PROVIDERS: Student in an Organized Health Care Education/Training Program; Admitting Provider Student in an Organized Health Care Education/Training Program; Emergency Provider Emergency Medicine; Visit Provider Internal Medicine Critical Care Medicine
DX: A41.81 Sepsis due to Enterococcus (principal); J96.01 Acute respiratory failure with hypoxia; J69.0 Pneumonitis due to inhalation of food and vomit; J15.8 Pneumonia due to other specified bacteria; J10.08 Influenza due to other identified influenza virus with other specified pneumonia; J44.0 Chronic obstructive pulmonary disease with (acute) lower respiratory infection; E87.29 Other acidosis; E87.0 Hyperosmolality and hypernatremia; N17.9 Acute kidney failure, unspecified; I24.89 Other forms of acute ischemic heart disease; K59.09 Other constipation; I25.10 Atherosclerotic heart disease of native coronary artery without angina pectoris; K21.9 Gastro-esophageal reflux disease without esophagitis; I11.0 Hypertensive heart disease with heart failure; I50.9 Heart failure, unspecified; F70 Mild intellectual disabilities; R74.01 Elevation of levels of liver transaminase levels; R73.9 Hyperglycemia, unspecified; F41.1 Generalized anxiety disorder; E87.5 Hyperkalemia; I46.8 Cardiac arrest due to other underlying condition; F20.9 Schizophrenia, unspecified; G51.0 Bell's palsy; D64.9 Anemia, unspecified; I95.9 Hypotension, unspecified; G31.84 Mild cognitive impairment of uncertain or unknown etiology; R62.50 Unspecified lack of expected normal physiological development in childhood; D75.839 Thrombocytosis, unspecified; F17.210 Nicotine dependence, cigarettes, uncomplicated; E78.5 Hyperlipidemia, unspecified; H91.90 Unspecified hearing loss, unspecified ear; I44.30 Unspecified atrioventricular block; Z79.82 Long term (current) use of aspirin; Z79.899 Other long term (current) drug therapy; Z66 Do not resuscitate
CPT/HCPCS: 36415; 36600; 71045; 80053; 80061; 80074; 80202; 81001; 82728; 82803; 83036; 83540; 83550; 83605; 83735; 83880; 84100; 84132; 84145; 84443; 84478; 84484; 85025; 85610; 85730; 87040; 87077; 87081; 87086; 87186; 87205; 87400; 87811; 93005; 94002; 94003; 94640; 94644; 94660; 94664; 94667; 96365; 96366; 96367; 96368; 96375; 99291; 99308; A9270; J0283; J0290; J0612; J0613; J0692; J0696; J1650; J1815; J1940; J2250; J2270; J2704; J2919; J3010; J3370; J3372; J3475; J3480; J3490; J7040; J7050; J7120; J7512; J1920